=== PATIENT | female | born 1965 | race Caucasian/White ===

== ENCOUNTER → 2021-11-09 13:37 | Outpatient (CLI) | payer MEDICARE, SELFPAY | PROVIDERS: PCP Family Medicine; Visit Provider Neurological Surgery | DX: Z01.812 Encounter for preprocedural laboratory examination (principal); Z20.822 Contact with and (suspected) exposure to COVID-19 | CPT/HCPCS: C9803; U0003; U0005 ==

== ENCOUNTER 2023-11-22 13:08 | Outpatient (CLI) | payer MEDICARE, SELFPAY ==
[2023-11-22 13:35] LABS: Basophils # 0.1 K/mm3 (0-0.2); Basophils % 1.2 % (0.1-2.0); Eosinophils # 0.2 K/mm3 (0.0-0.4); Eosinophils % 2.9 % (0.1-12.0); Hematocrit 39.7 % (37.0-47.0); Hemoglobin 13.3 g/dL (12.2-16.2); Lymphocytes # 1.8 K/mm3 (0.7-4.5); Lymphocytes % 26.5 % (10-50); Mean Corpuscular HGB Conc 33.6 g/dL (31.8-35.4); Mean Corpuscular Hemoglobin 30.8 pg (27.0-31.2); Mean Corpuscular Volume 91.6 fl (81-99); Monocytes # 0.5 K/mm3 (0.1-1.0); Monocytes % 7.4 % (1.7-9.3); Neutrophils # 4.2 K/mm3 (1.8-7.8); Neutrophils % 61.9 % (37.0-80.0); Platelet Count 210 K/mm3 (142-424); Red Blood Count 4.33 M/mm3 (4.20-5.40); Red Cell Distribution Width 13.8 % (11.5-17.5); White Blood Count 6.7 K/mm3 (4.8-10.8)
[2023-11-22 13:57] LABS: Alanine Aminotransferase 19 U/L (12-78); Albumin Level 4.4 g/dl (3.5-5.0); Albumin/Globulin Ratio 1.8 (1.1-1.8); Alkaline Phosphatase 84 U/L (38-126); Aspartate Amino Transferase 28 U/L (14-36); Bilirubin,Total 0.6 mg/dl (0.2-1.3); Blood Urea Nitrogen 12 mg/dl (7-17); Calcium 9.7 mg/dl (8.4-10.2); Carbon Dioxide 32 mmol/L (22.0-30.0); Chloride 101 mmol/L (98-107); Estimated Glomerular Filt Rate 64 ml/min (>60); GFR (African American) 77 ML/MIN (>60); Globulin 2.4 g/dL (1.3-3.2); Glucose 95 mg/dl (74-100); Sodium 133 mmol/L (136-145); Total Protein,Serum 6.8 g/dl (6.3-8.2)
== END 2023-11-22 23:59 | disposition home or self-care (01) ==
LOC: LAB 13:09
PROVIDERS: PCP Family Medicine; Visit Provider Internal Medicine Medical Oncology
DX: D64.9 Anemia, unspecified (principal); C21.0 Malignant neoplasm of anus, unspecified
CPT/HCPCS: 36415; 80053; 85025

== ENCOUNTER 2023-12-01 09:58 | Outpatient (CLI) | payer MEDICARE, SELFPAY ==
--- NOTE | 2023-12-01 10:37 | ECG_ITS ---
APPROVED REPORT Exam: Resting ECG HR:62 bpm ECG Measurements Heart Rate 62 AXES TN 188 P 16 QRSd 107 QRS 31 QT 448 T 20 QTc 452 Conclusion SINUS RHYTHM NORMAL ECG UNCONFIRMED REPORT Electronically signed by : Paul Teixeira MD 12/03/2023 13:54:10
== END 2023-12-01 23:59 | disposition home or self-care (01) ==
LOC: PREOP 09:58
PROVIDERS: PCP Family Medicine; Visit Provider Surgery
DX: Z01.810 Encounter for preprocedural cardiovascular examination (principal)
CPT/HCPCS: 93005

== ENCOUNTER 2023-12-04 08:55 | Day surgery (SDC) | payer MEDICARE, SELFPAY ==
[2023-12-01 10:47] VITALS: BMI 30.1
[2023-12-04] VITALS (9 sets, daily range): BP systolic 114–131; BP diastolic 62–83; PULSE 64–75; RESP 12–18; TEMP 36.2–36.6; O2SAT 92–100
--- NOTE | 2023-12-04 09:24 | P.PNANES_ITS ---
[facility] Disclaimer: The information contained in this section may have been updated after the patient was seen, as this information can be updated by other users. Medical History Aortic regurgitation MVP (mitral valve prolapse) Anxiety and depression IBS (irritable bowel syndrome) Hypothyroid Anal cancer Surgical History History of rotator cuff surgery History of cervical spinal surgery History of hand surgery History of tonsillectomy History of back surgery Social History Smoking Status: Never smoker alcohol intake: never substance use type: denies use current occupational status: retired and other Travel in the last 8 weeks: None [facility] Anesthesia Checklist Patient Identification Patient Identification: Arm Band and Verbal (Name & ) Structural Data Admitted From: Home Planned Operative Procedure/s: Port placement Consent for Planned Operative Procedure(s) Verified: Yes Verified Documents: Surgical Consent and History and Physical NPO Status Verified Time NPO: 00:00 Chart Verification Results Verified: CBC and BMP Additional verifications Anesthesia Reactions: No Airway Assessment Mallampati Score:: Class II C-Spine Mobility Assessed: Yes TMJ Mobility Assessed: Yes Dentition: Good Dentition (Retainer removed. Broken tooth.) Neurological Assessment Level of Consciousness: Awake Hx Seizures: No Numbness or tingling in extremities: No Anesthesia Plan Anesthesia Plan: Verified ASA Class: III Anesthesia Type: General
[2023-12-04] MEDS: LACTATED RINGERS 1000ML 1,000 ML 25 ML IV (09:25)
[2023-12-04] MEDS: CLINDAMYCIN PHOSPHATE/D5W 900 MG/50 ML PIGGYBACK 100 MG IV (09:55)
[2023-12-04] MEDS: SODIUM CHLORIDE 0.9% 20ML VIAL 40 ML IV ×2 (10:09)
[2023-12-04] MEDS: LIDOCAINE 1% 20ML MDV 20 ML (10:09)
[2023-12-04] MEDS: ROPIVACAINE 0.5% 30ML VIAL 150 MG (10:09)
--- NOTE | 2023-12-04 10:41 | XR_ITS ---
PROCEDURE INFORMATION: Exam: XR Chest Exam date and time: 12/04/2023 10:30 AM Age: 58 years old Clinical indication: Device placement; Prior surgery; Surgery date: Post-operative (0-2 days); Surgery type: Port placement, ft 0.3min, 2.81mgy; Additional info: port place in or TECHNIQUE: Imaging protocol: Radiologic exam of the chest. Views: 4 or more views. COMPARISON: No relevant prior studies available. FINDINGS: Tubes, catheters and devices: A left chest wall port projects over the left hemithorax. The tip is not well seen. The lungs , pleura, and mediastinum are incompletely evaluated. Of note, study evaluation is severely limited by large over penetration artifact over the left hemithorax. IMPRESSION: Status post placement of left chest wall port.
--- NOTE | 2023-12-04 10:42 | P.OP_ITS ---
Date of procedure: 12/04/23 Pre-op Diagnosis:: Anal carcinoma, need for venous access Post-op Diagnosis:: Same Procedure performed:: Placement of 8 Georgian open ended tunneled venous access catheter with implantable reservoir port (PowerPort) in left subclavian vein Surgeon:: Ahsan Soto MD ASSOCIATE DIRECTOR FINANCE:: João Gates Anesthesia: LMA Estimated blood loss (mL): 20 Operative findings:: Seemingly normal venous anatomy. Operative note:: Consent was obtained patient was taken the operating room. She was positioned in supine position. General anesthesia was induced via LMA. Bilateral upper chest neck were prepped and draped in the standard surgical fashion. She was positioned in Trendelenburg position. Local anesthetic was infiltrated inferior to the left clavicle medial to the deltopectoral groove. 18-gauge needle was inserted manipulating the needle posterior to the clavicle. Left subclavian vein was cannulated with good return of venous blood. Guidewire was inserted. Small incision was made at the insertion site. Subcutaneous tissues were dilated using the dilator with breakaway sheath. Guidewire with dilator were then removed. Open-ended 8 Georgian catheter was inserted through the breakaway sheath. Sheath was removed. Fluoroscopy was used to confirm appropriate position of the catheter and it was manipulated using C arm such that the tip would be at the atriocaval junction. Skin was marked with a skin marker for planned subcutaneous tunneling and subcutaneous pocket. Local anesthetic was infiltrated. Skin incision was made and using electrocautery subcutaneous pocket was created. Catheter was tunneled subcutaneously. Once again fluoroscopy was used to confirm position with the tip at the atriocaval junction. Catheter was cut to the appropriate length. It was secured to the re servoir port. Port was secured into the subcutaneous pocket using several interrupted 2-0 PDS sutures. Port aspirated and flushed with saline without difficulty. It was then flushed with heparinized saline. There was good hemostasis. Subdermal tissues were closed with a running 2-0 Vicryl. Skin was closed with 4-0 Monocryl in a running subcuticular fashion. Dressings were applied. Condition: stable Disposition: PACU Complications:: None immediately apparent
--- NOTE | 2023-12-04 10:54 | P.PNANES_ITS ---
[facility] Anesthesia Record Part I Anesthesia Record I Intake, IV Amount: 1,650 Hydration: Adequate Estimated blood loss (mL): 2 Urine output (mL): 0 Blood Products used (#): none Blood Pressure: 130/72 SaO2: 96 Pulse Rate: 75 Airway Patency: Patent Respiratory Rate: 12 Temperature: 97.2 F Patient is:: Drowsy and Stable Stable to PACU at:: 10:50
--- NOTE | 2023-12-04 11:04 | XR_ITS ---
PROCEDURE INFORMATION: Exam: XR Chest Exam date and time: 12/04/2023 11:05 AM Age: 58 years old Clinical indication: Device placement; Other: Port a cath placement; Prior surgery; Surgery date: Post-operative (0-2 days) TECHNIQUE: Imaging protocol: Radiologic exam of the chest. Views: 1 view. COMPARISON: SD XR CHEST AP 12/04/2023 10:30 AM FINDINGS: Tubes, catheters and devices: Tip of the left chest wall port projects over the lower SVC. Lungs: Small calcified granulomas in the lungs. Platelike and linear opacities in the bilateral lower lungs suggestive of subsegmental atelectasis versus scarring. No focal consolidation. Pleural spaces: No pneumothorax or pleural effusion. Heart/Mediastinum: Cardiomediastinal silhouette is unremarkable. Bones/joints: No acute osseous or soft tissue abnormality. Partially seen lower cervical ACDF. Partially seen Cole rods in the mid/lower thoracic spine. IMPRESSION: 1. Tip of the left chest wall port projects over the lower SVC. No pneumothorax. 2. Mild left basilar subsegmental atelectasis versus scarring.
[2023-12-04] MEDS: diphenhydrAMINE 50MG/ML VIAL 25 MG IV (12:27)
--- NOTE | 2023-12-05 10:38 | EXP.ANES.II ---
[facility] Anesthesia Record Part II Anesthesia Record Part II Discharge Time: 11:20 Destination: Surgical Day Care (OP Surgery) PACU nurse assessment reviewed?: Yes Patient Condition:: Good Anesthesia Complications:: None Swallowing reflex intact?: Yes Airway Patency: Patent Cyanosis?: No Blood Pressure: 130/74 SaO2: 99 Respiratory Rate: 18 Pulse Rate: 65 Temperature: 97.8 F Mental Status: Alert & Oriented Pain level:: 0 Nausea and/or vomitting:: None Intake, IV Amount: 0 Hydration: Adequate
[2023-12-05 10:40] VITALS: BP 130/74; PULSE 65; RESP 18; TEMP 36.6; O2SAT 99
== END 2023-12-04 12:24 | disposition home or self-care (01) ==
PROVIDERS: PCP Family Medicine; Visit Provider Surgery
PROC: (CPT 36561; principal; 2023-12-04 10:15)
DX: C21.0 Malignant neoplasm of anus, unspecified (principal)
CPT/HCPCS: 36561; 77001; 71045; 76000; 96374; C1788; J1100; J1200; J1642; J2250; J2405; J3010; J7120

== ENCOUNTER 2023-12-11 10:06 | Outpatient (CLI) | payer MEDICARE, SELFPAY ==
[2023-12-11 10:20] VITALS: BMI 30.1
[2023-12-11] MEDS: DEXAMETHASONE 4MG TABLET 12 MG PO (10:25)
--- NOTE | 2023-12-11 10:25 | PC.NURSE ---
1025-gave premed per md order; will wait 30 mins before giving treatment.
[2023-12-11] MEDS: SODIUM CHLORIDE 0.9% 100ML BAG 100 ML IV (10:41)
[2023-12-11 10:52] LABS: Basophils # 0.1 K/mm3 (0-0.2); Basophils % 0.9 % (0.1-2.0); Eosinophils # 0.2 K/mm3 (0.0-0.4); Eosinophils % 2.5 % (0.1-12.0); Hematocrit 35.5 % (37.0-47.0); Hemoglobin 11.7 g/dL (12.2-16.2); Lymphocytes # 2.1 K/mm3 (0.7-4.5); Lymphocytes % 30.7 % (10-50); Mean Corpuscular Hemoglobin 30.1 pg (27.0-31.2); Mean Corpuscular Volume 91.1 fl (81-99); Mean Platelet Volume 8.5 fl (7.4-10.4); Monocytes # 0.4 K/mm3 (0.1-1.0); Monocytes % 5.2 % (1.7-9.3); Neutrophils # 4.1 K/mm3 (1.8-7.8); Neutrophils % 60.6 % (37.0-80.0); Platelet Count 184 K/mm3 (142-424); Red Cell Distribution Width 14.1 % (11.5-17.5); White Blood Count 6.7 K/mm3 (4.8-10.8)
[2023-12-11 11:00] LABS: Albumin Level 3.8 g/dl (3.5-5.0); Chloride 100 mmol/L (98-107); Potassium 3.4 mmoL/L (3.5-5.1); Sodium 133 mmol/L (136-145)
[2023-12-11 11:03] LABS: Alanine Aminotransferase 17 U/L (12-78); Albumin/Globulin Ratio 1.5 (1.1-1.8); Alkaline Phosphatase 95 U/L (38-126); Anion Gap 10.4 mEq/L (5-15); Aspartate Amino Transferase 27 U/L (14-36); Bilirubin,Total 0.5 mg/dl (0.2-1.3); Blood Urea Nitrogen 11 mg/dl (7-17); Calcium 8.6 mg/dl (8.4-10.2); Carbon Dioxide 26 mmol/L (22.0-30.0); Creatinine Clearance Estimated 86 mL/min (50-200); Estimated Glomerular Filt Rate 64 ml/min (>60); GFR (African American) 77 ML/MIN (>60); Globulin 2.6 g/dL (1.3-3.2); Glucose 101 mg/dl (74-100); Total Protein,Serum 6.4 g/dl (6.3-8.2)
[2023-12-11 11:04] LABS: Magnesium 1.8 mg/dl (1.6-2.3)
[2023-12-11] MEDS: mitoMYcin 20MG/40ML VIAL 19 MG IV (11:05)
[2023-12-11 11:15] VITALS: BP 154/79; PULSE 62; RESP 18; TEMP 36.3; O2SAT 100
[2023-12-11 11:34] VITALS: BP 138/77; PULSE 68; RESP 18; O2SAT 100
--- NOTE | 2023-12-11 12:35 | PC.NURSE ---
1235-[facility] brought pt's home 5fu infusion;giles rn was double checking order to dose prepared with rodney ordonez; incorrect dose caught and notified infusion company;infusion company preparing and bringing correct dose for pt. rn explain situation to pt, pt to return to get hooked up to home infusion when medication arrives.
--- NOTE | 2023-12-11 13:50 | PC.NURSE ---
1350-rn called [facility] to see if medication had left facility and was informed business services officer had left with medication.
[2023-12-11 15:10] VITALS: BP 143/78; PULSE 80; RESP 18
--- NOTE | 2023-12-13 15:30 | DIET.NUTRFU ---
Spoke to patient today, post first chemo dose. She stated that her appetite has not been affected yet. She did have some concern for her long hx of IBS and foods to avoid. She has tried to practice a low residue diet in the past but tends to cheat at times. She c/o bloating/constipation and gas. Recommended adding beano in when eating something gassy. She taking miralax, colace and senekot for constipation. She reports good hydration. She avoid most diary products drinks almond milk. She recently had dental work done and is avoiding some meats- recommended adding in whey protein. She also reported lack of energy recommended B-complex vitamin. Suggested boost clear for extra nutrition. Recommended choosing items like peanut butter that had less sugar, increase sucrose or fructose can cause abdominal discomfort. Will mail low residue diet handout and contact information
== END 2023-12-11 15:10 | disposition home or self-care (01) ==
LOC: INF 10:07
PROVIDERS: PCP Family Medicine; Visit Provider Internal Medicine Medical Oncology
DX: C21.0 Malignant neoplasm of anus, unspecified (principal)
CPT/HCPCS: 80053; 83735; 85025; 96409; J8540; J9280

== ENCOUNTER 2023-12-15 14:51 | Outpatient (CLI) | payer MEDICARE, SELFPAY ==
--- NOTE | 2023-12-15 15:00 | PC.NURSE ---
1500-CALLED DR. ROCHELLE LICONA TIMES UNABLE TO REACH HIM; TRIED TO ENCOURAGE PT TO GO TO ER BUT REFUSED AND WANTED PCP CALLED INSTEAD; RN CALLED FAMILY DR. HUMBERTO KERR EXPLAINED THAT PT IS HAVING FACIAL REDNESS WITH SWELLING AND HEAT AND ORAL BLISTERS TO THROAT. DR. KERR TO ORDER MAGIC MOUTHWASH. PT INSTRUCTED TO GO TO ER IF SYMPTOMS DO NOT IMPROVE OR WORSEN. RN CALLED IN MAGIC MOUTH WASH RX TO CLINIC [facility]ARM[facility].
[2023-12-15] MEDS: SODIUM CHLORIDE 0.9% 10ML FLUSH SYRINGE 10 ML IV (15:53)
== END 2023-12-15 15:35 | disposition home or self-care (01) ==
LOC: INF 14:51
PROVIDERS: PCP Family Medicine; Visit Provider Internal Medicine Medical Oncology
DX: C21.0 Malignant neoplasm of anus, unspecified (principal)
CPT/HCPCS: 96523; J1642

== ENCOUNTER 2024-01-08 10:57 | Outpatient (CLI) | payer MEDICARE, SELFPAY ==
[2024-01-08] VITALS (12 sets, daily range): BP systolic 103–145; BP diastolic 42–86; PULSE 62–78; RESP 18; TEMP 36.4; O2SAT 100; BMI 30.6
[2024-01-08 11:24] LABS: Basophils % 0.8 % (0.1-2.0); Eosinophils # 0.1 K/mm3 (0.0-0.4); Eosinophils % 3.3 % (0.1-12.0); Hematocrit 29.7 % (37.0-47.0); Hemoglobin 10.2 g/dL (12.2-16.2); Lymphocytes # 0.3 K/mm3 (0.7-4.5); Mean Corpuscular HGB Conc 34.2 g/dL (31.8-35.4); Mean Corpuscular Hemoglobin 30.8 pg (27.0-31.2); Mean Corpuscular Volume 90.1 fl (81-99); Mean Platelet Volume 8.3 fl (7.4-10.4); Monocytes # 0.3 K/mm3 (0.1-1.0); Monocytes % 7.8 % (1.7-9.3); Neutrophils # 3.3 K/mm3 (1.8-7.8); Neutrophils % 80.2 % (37.0-80.0); Platelet Count 255 K/mm3 (142-424); Red Cell Distribution Width 17.6 % (11.5-17.5); White Blood Count 4.1 K/mm3 (4.8-10.8)
[2024-01-08 11:28] LABS: Albumin Level 3.6 g/dl (3.5-5.0); Chloride 92 mmol/L (98-107); Sodium 128 mmol/L (136-145)
[2024-01-08 11:30] LABS: Alanine Aminotransferase 19 U/L (12-78); Aspartate Amino Transferase 26 U/L (14-36); Blood Urea Nitrogen 6 mg/dl (7-17); Creatinine Clearance Estimated 99 mL/min (50-200); Estimated Glomerular Filt Rate 73 ml/min (>60); GFR (African American) 89 ML/MIN (>60)
[2024-01-08 11:31] LABS: Albumin/Globulin Ratio 1.4 (1.1-1.8); Alkaline Phosphatase 80 U/L (38-126); Anion Gap 8.9 mEq/L (5-15); Bilirubin,Total 0.4 mg/dl (0.2-1.3); Calcium 8.7 mg/dl (8.4-10.2); Carbon Dioxide 30 mmol/L (22.0-30.0); Globulin 2.6 g/dL (1.3-3.2); Glucose 87 mg/dl (74-100); Magnesium 1.7 mg/dl (1.6-2.3); Total Protein,Serum 6.2 g/dl (6.3-8.2)
[2024-01-08 11:33] LABS: Potassium 2.9 mmoL/L (3.5-5.1)
[2024-01-08] MEDS: KCl 20mEq/100ml 100 ML 100 MEQ IV (12:50)
[2024-01-08] MEDS: 0.9 % SODIUM CHLORIDE 50 ML 100 ML IV (12:50)
[2024-01-08] MEDS: KCl 10mEq/100ml 100 ML 100 MEQ IV (14:00)
[2024-01-08] MEDS: DEXAMETHASONE 4MG TABLET 12 MG PO (14:30)
[2024-01-08] MEDS: mitoMYcin 20MG/40ML VIAL 19 MG IV (15:23)
== END 2024-01-08 16:35 | disposition home or self-care (01) ==
LOC: INF 10:58
PROVIDERS: PCP Family Medicine; Visit Provider Internal Medicine Medical Oncology
DX: C21.0 Malignant neoplasm of anus, unspecified (principal)
CPT/HCPCS: 80053; 83735; 85025; 96365; 96366; 96367; 96411; 96413; J3480; J8540; J9280

== ENCOUNTER 2024-01-10 11:25 | Outpatient (CLI) | payer MEDICARE, SELFPAY ==
[2024-01-10 12:09] VITALS: BMI 28.9
[2024-01-10 12:28] LABS: Albumin Level 4.1 g/dl (3.5-5.0); Chloride 95 mmol/L (98-107); Sodium 133 mmol/L (136-145)
[2024-01-10 12:30] LABS: Blood Urea Nitrogen 11 mg/dl (7-17); Creatinine Clearance Estimated 83 mL/min (50-200); Estimated Glomerular Filt Rate 64 ml/min (>60); GFR (African American) 77 ML/MIN (>60)
[2024-01-10 12:31] LABS: Alanine Aminotransferase 19 U/L (12-78); Albumin/Globulin Ratio 1.6 (1.1-1.8); Alkaline Phosphatase 99 U/L (38-126); Aspartate Amino Transferase 27 U/L (14-36); Bilirubin,Total 0.3 mg/dl (0.2-1.3); Calcium 9.2 mg/dl (8.4-10.2); Carbon Dioxide 30 mmol/L (22.0-30.0); Globulin 2.6 g/dL (1.3-3.2); Glucose 106 mg/dl (74-100); Total Protein,Serum 6.7 g/dl (6.3-8.2)
--- NOTE | 2024-01-10 12:40 | PC.NURSE ---
1210-Blood drawn from right AC using butterfly needle to check CMP, per Dr Hammond.
== END 2024-01-10 12:15 | disposition home or self-care (01) ==
LOC: INF 11:26
PROVIDERS: PCP Family Medicine; Visit Provider Internal Medicine Medical Oncology
DX: C21.0 Malignant neoplasm of anus, unspecified (principal)
CPT/HCPCS: 36415; 80053

== ENCOUNTER 2024-01-12 13:32 | Outpatient (CLI) | payer MEDICARE, SELFPAY | END 2024-01-12 23:59 | disposition home or self-care (01) | LOC: INF 13:33 | PROVIDERS: PCP Family Medicine; Visit Provider Internal Medicine Medical Oncology | DX: C21.0 Malignant neoplasm of anus, unspecified (principal) | CPT/HCPCS: J1642 ==

== ENCOUNTER 2024-02-05 11:24 | Outpatient (CLI) | payer MEDICARE, SELFPAY ==
[2024-02-05] MEDS: SODIUM CHLORIDE 0.9% 10ML FLUSH SYRINGE 10 ML IV (11:38)
[2024-02-05 12:08] LABS: Alanine Aminotransferase 27 U/L (12-78); Albumin Level 3.8 g/dl (3.5-5.0); Albumin/Globulin Ratio 1.4 (1.1-1.8); Aspartate Amino Transferase 34 U/L (14-36); Blood Urea Nitrogen 9 mg/dl (7-17); Calcium 9.5 mg/dl (8.4-10.2); Carbon Dioxide 28 mmol/L (22.0-30.0); Chloride 103 mmol/L (98-107); Estimated Glomerular Filt Rate 57 ml/min (>60); GFR (African American) 68 ML/MIN (>60); Globulin 2.8 g/dL (1.3-3.2); Glucose 90 mg/dl (74-100); Sodium 135 mmol/L (136-145); Total Protein,Serum 6.6 g/dl (6.3-8.2)
[2024-02-05 12:09] LABS: Bilirubin,Total 0.5 mg/dl (0.2-1.3)
[2024-02-05 12:12] LABS: Hemoglobin 9.6 g/dL (12.2-16.2); Mean Corpuscular HGB Conc 33.1 g/dL (31.8-35.4); Mean Corpuscular Hemoglobin 31.8 pg (27.0-31.2); Mean Platelet Volume 9.6 fl (7.4-10.4); Platelet Count 255 K/mm3 (142-424); Red Blood Count 3.02 M/mm3 (4.20-5.40); Red Cell Distribution Width 18.9 % (11.5-17.5); White Blood Count 3.7 K/mm3 (4.8-10.8)
[2024-02-05 12:15] LABS: Basophils % 0.8 % (0.1-2.0); Eosinophils % 2.1 % (0.1-12.0); Lymphocytes # 0.7 K/mm3 (0.7-4.5); Lymphocytes % 19.8 % (10-50); Monocytes % 13.6 % (1.7-9.3); Neutrophils # 2.3 K/mm3 (1.8-7.8); Neutrophils % 62.4 % (37.0-80.0)
[2024-02-05 12:16] LABS: Eosinophils # 0.1 K/mm3 (0.0-0.4); Monocytes # 0.5 K/mm3 (0.1-1.0)
[2024-02-05 13:04] LABS: Anion Gap 7.3 mEq/L (5-15); Potassium 3.3 mmoL/L (3.5-5.1)
[2024-02-05 13:07] LABS: Alkaline Phosphatase 85 U/L (38-126)
== END 2024-02-05 11:40 | disposition home or self-care (01) ==
LOC: INF 11:24
PROVIDERS: PCP Family Medicine; Visit Provider Internal Medicine Medical Oncology
DX: C21.0 Malignant neoplasm of anus, unspecified (principal)
CPT/HCPCS: 36591; 80053; 85025; J1642

== ENCOUNTER 2024-03-08 11:24 | Outpatient (CLI) | payer MEDICARE, SELFPAY ==
[2024-03-08] MEDS: SODIUM CHLORIDE 0.9% 10ML FLUSH SYRINGE 10 ML IV (11:35)
[2024-03-08 11:51] LABS: Basophils # 0.1 K/mm3 (0-0.2); Eosinophils # 0.2 K/mm3 (0.0-0.4); Eosinophils % 4.4 % (0.1-12.0); Hematocrit 34.1 % (37.0-47.0); Hemoglobin 10.9 g/dL (12.2-16.2); Lymphocytes # 1.2 K/mm3 (0.7-4.5); Mean Corpuscular Hemoglobin 31.4 pg (27.0-31.2); Mean Corpuscular Volume 98.3 fl (81-99); Mean Platelet Volume 10.3 fl (7.4-10.4); Monocytes # 0.6 K/mm3 (0.1-1.0); Monocytes % 11.8 % (1.7-9.3); Neutrophils # 3.1 K/mm3 (1.8-7.8); Neutrophils % 59.2 % (37.0-80.0); Platelet Count 180 K/mm3 (142-424); Red Blood Count 3.47 M/mm3 (4.20-5.40); Red Cell Distribution Width 16.1 % (11.5-17.5); White Blood Count 5.3 K/mm3 (4.8-10.8)
[2024-03-08 11:56] LABS: Chloride 101 mmol/L (98-107)
[2024-03-08 11:57] LABS: Albumin Level 3.7 g/dl (3.5-5.0); Potassium 3.6 mmoL/L (3.5-5.1); Sodium 135 mmol/L (136-145)
[2024-03-08 11:59] LABS: Alanine Aminotransferase 24 U/L (12-78); Albumin/Globulin Ratio 1.4 (1.1-1.8); Alkaline Phosphatase 76 U/L (38-126); Anion Gap 11.6 mEq/L (5-15); Aspartate Amino Transferase 36 U/L (14-36); Bilirubin,Total 0.6 mg/dl (0.2-1.3); Blood Urea Nitrogen 21 mg/dl (7-17); Carbon Dioxide 26 mmol/L (22.0-30.0); Estimated Glomerular Filt Rate 64 ml/min (>60); GFR (African American) 77 ML/MIN (>60); Globulin 2.6 g/dL (1.3-3.2); Total Protein,Serum 6.3 g/dl (6.3-8.2)
[2024-03-08 12:00] LABS: Glucose 95 mg/dl (74-100)
== END 2024-03-08 11:45 | disposition home or self-care (01) ==
LOC: INF 11:24
PROVIDERS: PCP Family Medicine; Visit Provider Internal Medicine Medical Oncology
DX: C21.0 Malignant neoplasm of anus, unspecified (principal)
CPT/HCPCS: 36591; 80053; 85025; J1642

== ENCOUNTER 2024-04-17 11:35 | Outpatient (CLI) | payer MEDICARE, SELFPAY ==
[2024-04-17 11:42] VITALS: BMI 31.0
[2024-04-17] MEDS: SODIUM CHLORIDE 0.9% 10ML FLUSH SYRINGE 10 ML IV (11:55)
[2024-04-17 12:02] LABS: Basophils % 0.7 % (0.1-2.0); Eosinophils # 0.2 K/mm3 (0.0-0.4); Eosinophils % 4.8 % (0.1-12.0); Hematocrit 34.9 % (37.0-47.0); Hemoglobin 11.4 g/dL (12.2-16.2); Lymphocytes % 22.4 % (10-50); Mean Corpuscular HGB Conc 32.7 g/dL (31.8-35.4); Mean Corpuscular Volume 94.8 fl (81-99); Mean Platelet Volume 9.9 fl (7.4-10.4); Monocytes # 0.4 K/mm3 (0.1-1.0); Monocytes % 8.9 % (1.7-9.3); Neutrophils # 2.8 K/mm3 (1.8-7.8); Neutrophils % 62.7 % (37.0-80.0); Platelet Count 182 K/mm3 (142-424); Red Blood Count 3.68 M/mm3 (4.20-5.40); Red Cell Distribution Width 12.4 % (11.5-17.5); White Blood Count 4.4 K/mm3 (4.8-10.8)
[2024-04-17 12:27] LABS: Albumin Level 3.8 g/dl (3.5-5.0); Chloride 101 mmol/L (98-107)
[2024-04-17 12:28] LABS: Potassium 3.5 mmoL/L (3.5-5.1); Sodium 134 mmol/L (136-145)
[2024-04-17 12:30] LABS: Alanine Aminotransferase 23 U/L (12-78); Albumin/Globulin Ratio 1.5 (1.1-1.8); Alkaline Phosphatase 92 U/L (38-126); Anion Gap 6.5 mEq/L (5-15); Aspartate Amino Transferase 30 U/L (14-36); Bilirubin,Total 0.5 mg/dl (0.2-1.3); Blood Urea Nitrogen 12 mg/dl (7-17); Carbon Dioxide 30 mmol/L (22.0-30.0); Creatinine Clearance Estimated 77 mL/min (50-200); Estimated Glomerular Filt Rate 56 ml/min (>60); GFR (African American) 68 ML/MIN (>60); Globulin 2.5 g/dL (1.3-3.2); Total Protein,Serum 6.3 g/dl (6.3-8.2)
[2024-04-17 12:31] LABS: Calcium 9.2 mg/dl (8.4-10.2); Glucose 96 mg/dl (74-100)
== END 2024-04-17 11:59 | disposition home or self-care (01) ==
LOC: INF 11:36
PROVIDERS: PCP Family Medicine; Visit Provider Internal Medicine Medical Oncology
DX: Z45.2 Encounter for adjustment and management of vascular access device (principal)
CPT/HCPCS: 36591; 80053; 85025; J1642

== ENCOUNTER 2024-04-26 10:40 | Outpatient (CLI) | payer MEDICARE, SELFPAY ==
--- NOTE | 2024-04-26 10:40 | CT_ITS ---
FINAL REPORT TECHNIQUE: After the administration of oral and intravenous contrast, axial images were obtained through the abdomen and pelvis by computed tomography. The study was performed with techniques to keep radiation dose as low as reasonably achievable, (ALARA). Individual dose reduction techniques using automated exposure control or adjustment of mA and/or kV according to the patient's size were employed. CLINICAL HISTORY: anal cancer COMPARISON: No prior for comparison FINDINGS: Abdomen: The liver parenchyma is homogeneous. The gallbladder is present. The pancreas, adrenal glands, and kidneys are without acute abnormality. There is no free fluid or adenopathy. There is streak artifact from fusion hardware in the lumbar spine. Pelvis: The appendix is unremarkable. The urinary bladder is incompletely distended. The rectum is decompressed. There is prominence of the rectal mucosa measuring up to 11 mm. There is stranding within the perirectal fat. There is no free fluid or adenopathy. IMPRESSION: Mucosal prominence in the rectum which extends to the anal verge. This may be related to posttreatment change. Reviewed, Interpreted and Dictated by Carlitos Amado MD Transcribed by Sonali Lima Authenticated and [facility]
--- NOTE | 2024-04-26 10:40 | CT_ITS ---
FINAL REPORT TECHNIQUE: Routine axial images were obtained from the lung apices to below the diaphragm following IV contrast administration. Individualized dose reduction techniques using automated exposure control or adjustment of the mA and/or kV according to the patient size were employed. CLINICAL HISTORY: anal cancer COMPARISON: No prior exam for comparison FINDINGS: A left upper lobe anterior chest port is present with the tip in the SVC. There is no mediastinal or hilar adenopathy. A calcified granuloma seen in the right upper lobe. There are no significant noncalcified pulmonary nodules. There is no pleural or pericardial effusion. There is streak artifact from fusion in the lower thoracic spine. IMPRESSION: No acute process. Reviewed, Interpreted and Dictated by Carltios Amado MD Transcribed by Sonali Lima Authenticated and [facility]
[2024-04-26] MEDS: IOPAMIDOL-370 (76%);100ML BOTTLE 75 ML IV (11:00)
[2024-04-26] MEDS: SODIUM CHLORIDE 0.9% 10ML SYR (RAD ONLY) 10 ML IV (11:00)
== END 2024-04-26 23:59 | disposition home or self-care (01) ==
LOC: RAD 10:40
PROVIDERS: PCP Family Medicine; Visit Provider Internal Medicine Medical Oncology
DX: C21.0 Malignant neoplasm of anus, unspecified (principal)
CPT/HCPCS: 71260; 74177; Q9967

== ENCOUNTER 2024-06-12 08:33 | Outpatient (CLI) | payer MEDICARE, SELFPAY ==
--- OUTSIDE RECORDS SUMMARY | 2024-06-14 08:36 | XMS_ITS | Data Portability ---
Author Organization [place] - Bhanu syed MD, Main Office Address [address] , [facility] [address] [place] [address] Care Team Providers Care Header Dock Name Role Phone CHANDA KERR Primary Care Provider Assessment No assessment recorded. Plan of Treatment Reminders Order Date Submit Date Provider Last Modified By Organization Details Last Modified Time Details Appointments None recorded. Lab TSH, serum or plasma 2017 018 SAMANTHA Not available 8 15:36:49 vitamin B12 + folate, serum or blood 2017 018 SAMANTHA Not available 8 15:36:49 HbA1c (hemoglobi n A1c), blood 2017 018 SAMANTHA Not available 8 15:36:49 CMP, serum or plasma 2017 018 SAMANTHA Not available 8 15:36:49 Referral None recorded. Procedures None recorded. Surgeries None recorded. Imaging None recorded. Medication Orders carbamazep ine 100 mg chewable tablet 2017 018 INTERFACE [facility] [address] [place], [address], 8 09:40:08 Patient TargetsNo targets recorded. Patient Instructions Encounter Date Encounter Id Patient Instructions Last Modified By Organization Details Last Modified Time 10/26/2017 [id number] Neuropathic Pain : Care Instructions Not available 10/26/2017 09:39:25 cervical disc disease: care instructions Not available 10/26/2017 09:46:35 Finding has been discussed with the patient in detail. Metabolic screen to look for any reversible causes of neuropathy. Tegretol 100 mg twice a day for neuropathic pain. Return in eight weeks Not available 10/26/2017 09:46:34 Reason for Referral None Reported. Results Created Date Observation Date Name Description Value Unit Range Abnormal Flag Note LastModifiedBy Organization Detail LastModifiedTime Result Notes None recorded. Problems Name Problem SNOMED Code Status Onset Date Resolution Date Notes Provider Name and Address Organization Details Recorded Time Neuropathy 013807662 Active 018 TIMOTEO Edge MD 8 09:17:25 Problem Notes None recorded. Procedures Surgical History Date Name Laterality Status Provider Name and Address Organization Details Recorded Time Back Surgery completed Lizet Perea MD 10/26/2017 09:04:24 Neck spine disk surgery completed Lizet Perea MD 10/26/2017 09:04:43 Unlisted procedure nose completed Lizet Perea MD 10/26/2017 09:04:54 Carpal tunnel surgery completed Lizet Perea MD 10/26/2017 09:05:06 Shoulder Surgery completed Lizet Perea MD 10/26/2017 09:05:22 Carpal tunnel surgery completed Lizet Perea MD 10/26/2017 09:05:56 Elbow arthroscopy/behzad cyndy completed Lizet Perea MD 10/26/2017 09:06:53 Back Surgery completed Lizet Perea MD 10/26/2017 09:07:09 Shoulder Surgery completed Lizet Perea MD 10/26/2017 09:07:58 Imaging Results None recorded. Procedure Notes None recorded. Medical Equipment None Reported. Allergies Allergen ID Allergen Name Allergen Category Reaction Reaction Severity Criticality Documentation Date Start Date Code Code System Note Provider Name and Address Organization Details Recorded Time 1621 codeine medicatio n Not available Not available Not available 09/18/2017 2670 RxNorm TIMOTEO Edge MD 8 10:49:56 1622 hydromorp gayle medicatio n Not available Not available Not available 09/18/2017 3423 RxNorm TIMOTEO Edge MD 8 10:50:05 1623 Non-stero idal anti-infl ammatory agent (product) medicatio n Not available Not available Not available 09/18/2017 16287 005 SNOMED TIMOTEO Edge MD 8 10:50:10 1624 Product containin g penicilli n (product) medicatio n Not available Not available Not available 09/18/2017 46627 8001 TIMOTEO Anderson MD 8 10:50:14 1625 Substance with sulfonami de structure and antibacte rial mechanism of action (substanc e) medicatio n Not available Not available Not available 09/18/2017 92568 8003 SNOMED TIMOTEO Edge MD 8 10:50:19 1814 Dilaudid medicatio n Not available Not available Not available 10/26/2017 34355 3 RxNoTIMOTEO Vaughan MD 8 09:12:38 Medications Name Sig Start Date Stop Date Status Note LastModified by Organization Details LastModified Time cyclobenzapri ne 10 mg tablet active Not Available Not Available Not Available bupropion HCl SR 150 mg tablet,12 hr sustained-rel ease 09/18 completed Not Available Not Available Not Available atorvastatin 80 mg tablet active Not Available Not Available Not Available ropinirole 1 mg tablet 09/18 completed Not Available Not Available Not Available clindamycin HCl 300 mg capsule 10/19 completed Not Available Not Available Not Available clindamycin HCl 75 mg capsule 09/18 completed Not Available Not Available Not Available sumatriptan 100 mg tablet 09/18 completed Not Available Not Available Not Available hydrocodone 5 mg-acetaminop hen 325 mg tablet 10/26 completed Not Available Not Available Not Available clonazepam 1 mg tablet active Not Available Not Available No t Available phentermine 37.5 mg tablet active Not Available Not Available Not Available ciprofloxacin 500 mg tablet 09/18 completed Not Available Not Available Not Available omeprazole 40 mg capsule,delay ed release active Not Available Not Available N ot Available tramadol 50 mg tablet active Not Available Not Available No t Available levothyroxine 100 mcg tablet 2017 active Not Available Not Available Not Avai lable oxycodone-josue taminophen 5 mg-325 mg tablet active Not Available Not Available Not Available oxycodone-josue taminophen 10 mg-325 mg tablet active Not Available Not Available Not Available hydrocodone 7.5 mg-acetaminop hen 325 mg tablet 09/18 completed Not Available Not Available Not Available ropinirole 2 mg tablet active Not Available Not Available No t Available calcipotriene 0.005 % topical cream 10/19 completed Not Available Not Available Not Available carbamazepine 100 mg chewable tablet One tablet twice a day active Not Available Not Available No t Available Hyosyne 0.125 mg/mL oral drops 10/26 completed Not Available Not Available Not Available gabapentin 300 mg capsule 09/18 completed Not Available Not Available Not Available triamterene 37.5 mg-hydrochlor othiazide 25 mg tablet active Not Available Not Available No t Available levofloxacin 500 mg tablet 09/18 completed Not Available Not Available Not Available ondansetron 4 mg disintegratin g tablet 10/26 completed Not Available Not Available Not Available doxepin 5 % topical cream 10/19 completed Not Available Not Available Not Available levothyroxine 112 mcg tablet active Not Available Not Available Not Available methadone 5 mg/5 mL oral solution 09/18 completed Not Available Not Available Not Available Phenadoz 25 mg rectal suppository 09/18 completed Not Available Not Available Not Available Klor-Con M10 mEq tablet,extend ed release active Not Available Not Available N ot Available fluocinonide 0.1 % topical cream 10/19 completed Not Available Not Available Not Available chlorhexidine gluconate 0.12 % mouthwash 10/19 completed Not Available Not Available Not Available Miralax active Not Available Not Avail able Not Available aprepitant 40 mg capsule 10/26 completed Not Available Not Available Not Available Savella 50 mg tablet active Not Available Not Available Not Available Trintellix 20 mg tablet active Not Available Not Available No t Available Flucelvax Quad 9530-0243 (PF) 60 mcg (15 mcg x 4)/0.5 mL IM syringe 10/19 completed Not Available Not Available Not Available Vitals Date Recorded Body height Body mass index (BMI) Body weight Heart rate Respiratory rate Systolic blood pressure Diastolic blood pressure Provider Name and Address Organization Details Last Updated DateTime 8 167.64 cm 28.2 kg/m2 94802.6 6 g 82 /min 17 /min 100 mm[Hg] 77 mm[Hg] Bhanu Perea MD [address], [place], [address], [place] - Bhanu Perea MD 8 09:40:50 Social History Question Answer Notes LastModified by Organizat ion Details LastModified Time Tobacco Smoking Status Never Smoker Not Available [facility] 12/17/2019 03:34:29 What Is Your Level Of Alcohol Consumption? None [id number] Information not available 12/17/2019 Live Alone Or With Others? With Others Information not available 10/26/2017 What Was The Date Of Your Most Recent Tobacco Screening? 10/26/2017 [id number] Information not available 12/17/2019 Sex: Unknown Functional Status None recorded. Mental Status None recorded. Family History Relationship Description Onset Age of this Age Resolved Age Notes LastModified by Organization Details LastModified Time Mother Dementia Not availabl e 10/26/2017 09:17:31 Mother Heart disease [email or web address] Not available 2017 09:17:40 Mother Hypertensive disorder [email or web address] Not available 2017 09:17:48 Mother Family history of stroke [email or web address] Not available 2017 09:17:56 Sister Heart disease [email or web address] Not available 2017 09:17:40 Sister Hypertensive disorder [email or web address] Not available 2017 09:17:48 Medical History Condition Response Anxiety Disorder Y Hyperlipidemia Y Arthritis Y Depression Y Gynecological HistoryNo gynecological history recorded. Obstetrics History GPAL:G 0 P 0 0 0 0 Past Encounters Encounter ID Performer Location Encounter Start Date Encounter Closed Date Diagnosis/Indication Diagnosis SNOMED-CT Code Diagnosis ICD10 Code Diagnosis Note [id number] Bhanu Perea MD Main Office [address] [place] [address] 10/26/2017 09:15:43 10/26/2017 09:40:06 Idiopathic peripheral neuropathy 76705392 G60.9 The patient is a 52-year-ol d white female who was a mild sensory neuropathy . Chronic low back pain 27 8370520 M54.5 She has a spinal cord stimulator then needs adjustment . Cervical d isc disorder 016411146 M50.90 She is status post cervical spinal fusion. She is being followed by the pain clinic for rhizotomy. 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 She is here today at the request of Dr. Kerr for consultationof pain in both feet. She has a complicated past medical history. She had cervical and lumbar spinal surgery. She has a lumbar neurostimulator. She is being followed by Dr. martin. She needs revision of her stimulator. She also had bilateral carpal tunnel release and ulnar transposition. She is being followed by the pain clinic. She has rhizotomy to her cervical spine. She had a recent CT myelogram of the thoracic and lumbar spine and it showed no surgical lesions. She had a recent NCV EMG study. The report is not available. According to the patient, it showed mild neuropathy. She gave no history of diabetes. She is on Requip for restless leg syndrome. She is on Savella for fibromyalgia. She takes Klonopin 1 mg 3 times a day and Flexeril 10 mg 3 times a day for back pain and sleep. She is on Synthroid for hypothyroidism. Bhanu Perea MD [address], [address], [place], [address], [facility] - Bhanu Perea MD 10/26/2017 09:49:49 OBGyn Episode No OBEpisode recorded.
--- OUTSIDE RECORDS SUMMARY | 2024-06-14 08:37 | XMS_ITS | Data Portability ---
Author Organization TIMOTEO MARK Collins CORINNE CLOSED Address [address] [facility] [address] [place] [address] Care Team Providers Care Hostess Name Role Phone [facility] Primary Care Provider JL KERR Referring Provider Assessment No assessment recorded. Plan of Treatment Reminders Order Date Submit Date Provider Last Modified By Organization Details Last Modified Time Details Appointments None recorded. Lab PTH (parathyroi d hormone), intact + calcium, serum or plasma 2022 023 [facility], [address] [place] [address], [address], 3 15:45:58 vitamin D, 25-hydroxy, total, serum 2022 023 [facility], [address] [place] [address], [address], 3 16:07:23 testosteron e, free + total, serum 2022 023 [facility], [address] [place] [address], [address], 3 14:03:11 TSH, serum or plasma 2022 023 [facility], [address] [place] [address], [address], 3 15:34:17 T4, free, serum 2022 023 [facility], [address] [place], [address], 3 15:34:14 T3, free, serum or plasma 2022 023 [facility], [address] [place], [address], 3 15:34:19 Referral behavioral health referral 2022 [email or web address] [facility], [address], [place], [address], 3 07:46:42 nutritionis t/dietitian referral 2022 [email or web address], [address], [place], [address], 3 12:56:33 gynecologis t referral - Evaluation for HRT 2022 023 [email or web address] 11 Stefany Phil DO, [address] [facility] , [address], [place], [address], 3 07:12:11 Procedures None recorded. Surgeries None recorded. Imaging None recorded. Medication Orders Savella 100 mg tablet [address] [facility] [place], [address], 3 11:39:16 tramadol 50 mg tablet [address] [facility] [address], [address] [place], [address], 3 11:39:18 tramadol ER 100 mg tablet,exte nded release [address] [facility] [address], [address] [place], [address], 3 11:39:18 ropinirole 2 mg tablet [address] [facility] [address], [address] [place], [address], 11:39:15 Linzess 290 mcg capsule [address] [facility] [address], [address] [place], [address], 16:15:39 omeprazole 40 mg capsule,del ayed release [address] [facility] [address], [address] [place], [address], 16:11:49 clonidine HCl 0.1 mg tablet [address] [facility], [address] [place], [address], 11:59:26 Imvexxy Maintenance Pack 10 mcg vaginal insert [address] [facility], [facility] [place], [address], 11:59:27 Patient TargetsNo targets recorded. 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 Creative Director/dietitian Refer ral for Body mass index 30+ - obesity Referring Physician: Gabrielle Camejo EXECUTIVE DIRECTOR [employer], Encounter Date: 09/02/2022 Behavioral Health Referral f or Depressive disorder Referring Physician: Gabrielle Camejo EXECUTIVE DIRECTOR [employer], Encounter Date: 09/02/2022 Results Created Date Observation Date Name Description Value Unit Range Abnormal Flag Note LastModifiedBy Organization Detail LastModifiedTime 07/23/19 23 07/22/2022 T4,FR EE T4,free 1.30 NG/dL 0.93-1 .70 normal Not Available [facility] [address] [place] [address], [address], 07/22/2022 15:34:14 07/23/19 23 07/22/2022 TSH TSH 5.750 u[IU] /mL 0.270- 4.200 high Not Available [facility] [address] [place] [address], [address], 07/22/2022 15:34:17 07/23/19 23 07/22/2022 T3 FREE T3 free 2.56 pg/mL 2.00-4 .40 normal Not Available [facility] [address] [place], [address], 07/22/2022 15:34:19 07/23/19 23 07/22/2022 PTH, INTAC T WITH CA PTH, intact 84.0 pg/mL 15.0-6 5.0 high INTER PRETI VE GUIDE ===== ===== ===== ===== ===== ===== ===== ===== ===== ===== ===== === PTH CALCI UM CONDI TION ===== ===== ===== ===== ===== ===== ===== ===== ===== ===== ===== = Татьяна l Татьяна l Татьяна l Parat hyroi d _ Low or Low Hypop deep yroid ism Low Татьяна l _ Татьяна l or High Prima ry Hyper parat hyroi dism High __ High Татьяна l or Secon archie Hyper parat hyroi dism Low __ High High Terti gerardo Hyper parat hyroi dism __ Low or High Non-P deep yroid Hyper calce bryanna Low Татьяна l ===== ===== ===== ===== ===== ===== ===== ===== ===== ===== ===== ==== Not Available [facility] [address] [place] [address], [address], 07/22/2022 16:07:25 07/23/19 23 07/22/2022 PTH, INTAC T WITH CA calcium 9.9 mg/dL 8.6-10 .2 normal Not Available [facility] [address] [place] [address], [address], 07/22/2022 16:07:25 07/23/19 23 07/22/2022 VITAM IN D 25-OH vitamin D 25-oh, total 44 NG/mL >=30 NG/mL normal Not Available [facility] [address] [place], [address], 07/22/2022 16:07:23 07/23/19 23 07/28/2022 TESTO STERO NE, TOTAL / FREE testosterone , total 14 NG/dL 2-45 normal For addit ional infor han ntoney e refer to https ://ed ucati on.Trendr austinZephyr. Electrolytic Ozone/f aq/FA Q165 (This link is being provi ded for infor matio nal/e ducat ional purpo ses only. ) (Note ) This test was devel oped and its joana tical perfo rmanc e vita cteri stics have been deter mined by [employer]. It has not been clear ed or appro stoney by the FDA. This assay has been valid ated pursu ant to the CLIA regul ation s and is used for clini sandhya purpo ses. Not Available [facility] [address] [place], [address], 07/28/2022 14:03:11 07/23/19 23 07/28/2022 TESTO STERO NE, TOTAL / FREE testosterone , free 1 pg/mL 0.1-6. 4 normal (Note ) This test was devel oped and its joana tical perfo rmanc e vita cteri stics have been deter mined by [employer]. It has not been clear ed or appro stoney by the FDA. This assay has been valid ated pursu ant to the CLIA regul ation s and is used for clini sandhya purpo ses. YAMILETH med fusio n [address] [facility] [address] [place] [address] [phone] Noah maldonado MD Not Available [facility] [address] [place], [address], 07/28/2022 14:03:11 09/13/19 23 09/12/2022 TSH TSH 1.140 u[IU] /mL 0.270- 4.200 normal Not Available [facility] [address] [place], [address], 09/12/2022 13:00:02 09/13/19 23 09/12/2022 T4,FR EE T4,free 1.76 NG/dL 0.93-1 .70 high Not Available [facility] [address] [place], [address], 09/12/2022 13:00:04 07/01/19 23 06/30/2022 NM, gastr ic empty ing scan [facility] [address] [place] [address] Marvin wagner Name: ANJANA JUAREZ JENNIFER Marvin wagner : [phone] Orderi ng Provid er: ALAINA PHILLIP S EXAM DATE: 2022 EXAM: NM GASTRI C EMPTYI NG STUDY 4HR HISTOR Y: 57-yea r-old female with abdomi nal bloati ng. COMPAR RASTA: None. TECHNI QUE: Gastri c imagin g study was perfor med using Tc 99m sulfur colloi d 1.1 mCi p.o. ([facility] [address]-1 ). Immedi ate and 1 Hr, 2 Hr, and 4 Hr delaye d images were obtain ed. FINDIN GS: The 1/2 emptyi ng time of the stomac h is 76 minute s (45-11 0 min). This is within normal limits . There is no retain ed radioa ctivit y in the stomac h at 4 hours. The retain ed radioa ctivit y is: 67% at 1 Hr (37-90 %) 28% at 2 Hr (30-60 %) 2% at 4 Hr (0-10% ) IMPRES MALCOLM: 1. This is a normal gastri c emptyi ng study. Interp reted By: Mila merino MD Electr onical ly Signed By: Mila merino MD on 023 1:45 PM [facility] Nuclear Medicine [facility] [place], [address], 06/30/2022 20:13:14 02/03/20 23 02/02/2023 XR, abdom en, compl ete [address] [place] [address] Patien t Name: ANJANA RODRIGUEZ Patien t : [phone] Patien t Orderi ng Provid er: ALAINA PHILLIP S EXAM DATE: 2022 EXAM: XR ABDOME N, AP/LAT CLINIC AL INFORM ATION: Abdomi nal pain. IMAGES PROVID ED: KUB AP radiog raphic images of the abdome n. COMPAR RASTA: None. FINDIN GS: No abnorm al intest inal gas patter n. Signif icant fecal loadin g of the entire colon is seen. No obviou s feces seen in the rectum . No abnorm al calcif icatio ns are seen. No radiog raphic eviden ce of free intrap eriton eal air. Surgic al hardwa re is seen in the thorac ic and lumbar spine. IMPRES MALCOLM: Appear ance is of consti pation . Distal coloni c obstru ction cannot be ruled out. CT abdome n and pelvis withou t contra st is recomm ended for furthe r evalua tion. Interp reted By: Yonatan Madera MD Electr onical ly Signed By: Yonatan Madera MD on 2022 5:05 PM [facility] [address] , [place], [address], 02/03/2023 08:52:36 01/09/20 24 11/18/2023 MRI, pelvi s, w/o contr ast No observ ation record ed. [email or web address] Not Available 2023 12:29:49 Result Notes None recorded. Problems Name Problem SNOMED Code Status Onset Date Resolution Date Notes Provider Name and Address Organization Details Recorded Time Restless legs 80415232 Active Rasheeda Cyndee null, [facility] 8 11:45:11 Arthritis 8407962 Active 1989 [facility] 8 11:45:11 Fibromyos itis 80137649 Active [facility] 8 11:45:11 Uterine leiomyoma 06474140 Active [facility] 8 11:45:11 Depressiv e disorder 98288133 Active [facility] 8 11:45:11 Backache 645139255 Active [facility] 8 11:45:11 Disorder of thyroid gland 84039329 Active [facility] 8 11:45:11 Irritable bowel syndrome 37465689 Active [facility] 8 11:45:11 Migraine 28157104 Active [facility] 8 11:45:11 Periphera l nerve disease 226914635 Active [facility] 8 11:45:11 Gastroeso phageal reflux disease 826420564 Active [facility] 8 11:45:11 Hyperlipi demia 01825290 Active 2004 [facility] 8 11:45:11 Anxiety 04660919 Active [facility] 8 11:45:11 Chronic drug-ruddy mayra renal disease 666379949 Active [facility] 8 11:45:11 Chronic constipat ion 256636230 Active [facility] 8 11:45:11 Raynaud's phenomeno n 157929119 Active 2017 ADRIANNE ACOSTA APRN [address] [place], [address], [facility] 8 21:56:06 Pain of bilateral hands [id number] 12196 Active 2017 ADRIANNE ACOSTA APRN [address] [place], [address], [facility] 8 21:56:07 Solitary nodule of lung 640750758 Active 2018 VILMA JACOB MD [address] [place], [address], [facility] 9 15:00:07 Polymyalg ia rheumatic a 47555134 Active 2015 From Automated Load;Prov ider: Adrianne Acosta;S tatus: Active [facility] 8 11:45:11 Finding of sensation by site 117483641 Active 2014 From Automated Load;Prov ider: Adrianne Acosta;S tatus: Active [facility] 8 11:45:11 Hand pain 81836026 Active 2014 From Automated Load;Prov ider: Adrianne Acosta;S tatus: Active [facility] 8 11:45:11 Pain of joint of wrist 855578350 Active 2014 From Automated Load;Prov ider: Adrianne Acosta;S tatus: Active Rasheeda Cyndee null, [facility] 8 11:45:11 Chronic pain syndrome 193359588 Active 2014 From Automated Load;Prov ider: Jermaine Monson atus: Active Rasheeda Cyndee null, [facility] 8 11:45:11 Neck pain 75454353 Active 2014 From Automated Load;Prov ider: Adrianne Acosta;S tatus: Active Rasheeda Cyndee null, [facility] 8 11:45:11 Headache disorder 786602899 Active 2014 From Automated Load;Prov ider: Adrianne Acosta;S tatus: Active Rasheeda Cyndee null, [facility] 8 11:45:11 Pain in right hand 665479715516 109 Active 2014 From Automated Load;Prov ider: Adrianne Acosta;S tatus: Active Rasheeda Cyndee null, [facility] 8 11:45:11 Lumbar spondylos is 002267835 Active 2015 From Automated Load;Prov ider: Eun Monson; atus: Active Rasheeda Cyndee null, [facility] 8 11:45:11 Notes:Some problems listed i n Document: #[id number] could not be added to this patient's chart. Please review this document and add these problems to the patient's chart manually as needed. Problem Notes None recorded. Procedures Surgical History Date Name Laterality Status Provider Name and Address Organization Details Recorded Time 023 Date of Last Pap Smear completed [facility] 09/02/2022 11:11:34 022 Back Surgery completed Shaniqua Gregg [facility] 03/03/2022 10:07:04 022 Date of Last Mammogram completed [facility] 09/02/2022 11:11:40 022 Spirometry completed Chandni Martini [facility] 07/21/2021 11:13:11 021 Trigger Point Injection(s) completed ADRIANNE ACOSTA APRN [address] [place], [address], [facility] 05/25/2020 12:21:19 021 Injection Joint/Bursa, Interm, w/o US completed ADRIANNE ACOSTA APRN [address] [place], [address], [facility] 05/25/2020 10:15:00 020 Cervical Radiofrequency Ablation completed SIOBHAN BURTON MD [address] [place], [address], [facility] 03/07/2019 13:04:26 020 Cervical Radiofrequency Ablation completed SIOBHAN BURTON MD [address] [place], [address], [facility] 03/06/2019 07:57:05 019 Cervical Medial Branch Blocks completed SIOBHAN BURTON MD [address] [place], [address], [facility] 01/24/2019 09:31:15 019 Cervical Medial Branch Blocks completed SIOBHAN BURTON MD [address] [place], [address], [facility] 01/23/2019 10:27:08 019 Airway Resistance [facility] 04/23/2018 13:58:53 019 Diffusion Capacity completed Puja King [facility] 04/23/2018 13:58:50 019 Lung Volumes, Plethysmography completed Pujanuvia King [facility] 04/23/2018 13:58:52 019 Spirometry completed Pujanuvia Palman [facility] 04/23/2018 13:58:48 018 PERMANENT PLACEMENT OF SPINAL CORD STIMULATOR (SURG) completed Mariluz Katz [facility] 12/07/2017 08:57:25 018 Electromyography (EMG) with Nerve Conduction Study (NCV) completed Lynn Menchaca (Nicky) [facility] 10/05/2017 16:07:07 017 Spine Surgery completed Mariluz Katz [facility] 10/03/2017 13:40:52 015 Neck Surgery completed Mariluz Katz [facility] 10/03/2017 13:40:18 012 Neck Surgery completed Mariluz Katz [facility] 10/03/2017 13:39:50 Back Surgery completed Mariluz Katz [facility] 10/03/2017 13:31:16 Back Surgery completed Mariluz Katz [facility] 10/03/2017 13:31:42 Neck Surgery completed Mariluz MAHMOOD - [facility] 10/03/2017 13:32:52 Other completed Mariluz Meyerr [facility] 10/03/2017 13:33:21 Carpal tunnel surgery completed Mariluz MAHMOOD - [facility] 10/03/2017 13:35:00 Shoulder joint surgery completed Mariluz Meyerr [facility] 10/03/2017 13:34:50 Carpal tunnel surgery completed Mariluz Meyerr [facility] 10/03/2017 13:35:40 Carpal tunnel surgery completed Mariluz Meyerr [facility] - [facility] 10/03/2017 13:36:15 Back Surgery completed Mariluz Meyerr [facility] 10/03/2017 13:37:03 Shoulder joint surgery completed Mariluz Meyerr [facility] - [facility] 10/03/2017 13:37:32 Spine Surgery completed Mariluz Meyerr [facility] - [facility] 10/03/2017 13:37:58 Shoulder joint surgery completed Mariluz Meyerr [facility] - [facility] 10/03/2017 13:38:18 Imaging Results Imaging Date Name Status LastModified by Organiz ation Details LastModified Time 06/30/2022 NM, gastric emptying scan completed [facility] Nuclear Medicine [facility] [place], [address], 06/30/2022 20:13:14 02/02/2023 XR, abdomen, complete completed [facility] [address] [place] [address], [address], 02/03/2023 08:52:36 11/18/2023 MRI, pelvis, w/o contrast [place] [address] Information not available 01/10/2024 12:29:49 Procedure Notes None recorded. Medical Equipment None Reported. Allergies Allergen ID Allergen Name Allergen Category Reaction Reaction Severity Criticality Documentation Date Start Date Code Code System Note Provider Name and Address Organization Details Recorded Time 19180321 Dilaudid medicatio n Not available Not available Not available 01/07/20162009 38534 3 RxNorm Comme nt: Creat ed By: Juan gu Date: 2009 2:07: 05 PM; Not Available [facility] 6 12:06:11 035590 Substance with sulfonami de structure and antibacte rial mechanism of action (substanc e) medicatio n Not available Not available Not available 01/08/20162009 15854 8003 SNOMED Comme nt: Creat ed By: Juan Lau ;Crea riccardo Date: 2009 2:06: 57 PM; Not Available [facility] 6 04:15:05 306503 codeine medicatio n Not available Not available Not available 01/08/20162009 2670 RxNorm Comme nt: Creat ed By: Juan Lau ;Crea riccardo Date: 2009 2:06: 49 PM; Not Available [facility] 6 05:56:36 432460 Product containin g penicilli n (product) medicatio n Not available Not available Not available 01/08/20162009 64357 8001 SNOMED Comme nt: Creat ed By: Juan Lau ;Crea riccardo Date: 2009 2:06: 41 PM; Not Available [facility] 6 09:43:40 910497 hydromorp gayle medicatio n Not available Not available Not available 01/17/2018 3423 RxNorm Rasheeda Cyndee [facility] 8 11:44:52 727248 sulfadiaz ine medicatio n Not available Not available Not available 01/17/2018 14691 RxNorm Rasheeda Cyndee [facility] 8 11:44:52 324141 Non-stero idal anti-infl ammatory agent (product) medicatio n other moderate Not available 04/29/2019 02020 005 SNOMED Kidne y failu re Shantell Andres [facility] 0 11:16:21 356892 Neurontin medicatio n Not available Not available Not available 09/12/2022 04906 8 RxNorm Shaniqua Gregg [facility] 3 11:02:06 Medications Name Sig Start Date Stop Date Status Note LastModified by Organization Details LastModified Time cyclobenz aprine 10 mg tablet TAKE 1 TABLET BY MOUTH TWICE DAILY active Not Available Not Available No t Available Euthyrox 175 mcg tablet Take 1 tablet every day by oral route in the morning for 90 days. 2022 active Not Available Not Available Not Avai lable bupropion HCl SR 150 mg tablet,12 hr sustained -release 01/17 completed Not Available Not Available Not Available atorvasta tin 80 mg tablet TAKE 1 TABLET BY MOUTH ONCE DAILY active Not Available Not Available No t Available clonidine HCl 0.1 mg tablet Take 1 tablet twice a day by oral route for 90 days. 2022 active Not Available Not Available Not Avai lable ropinirol e 1 mg tablet 07/04 completed Not Available Not Available Not Available Premphase 0.625 mg(14)/0. 625 mg-5mg(14 ) tablet TAKE 1 TABLET BY MOUTH ONCE DAILY 07/21 completed Not Available Not Available Not Available Klor-Con 10 mEq tablet,ex tended release 01/17 completed Not Available Not Available Not Available clindamyc in HCl 300 mg capsule 01/17 completed Not Available Not Available Not Available clindamyc in HCl 75 mg capsule 01/17 completed Not Available Not Available Not Available tizanidin e 4 mg tablet Three times a day 01/17 completed Frequenc y: tid;Medi cation Descript ion: tizanidi ne; Dosage:1 /2; Route:or al; refills: 0 Not Available Not Available Not Available sumatript an 100 mg tablet As Directed 11/10 completed Not Available Not Available Not Available hydrocodo ne 5 mg-acetam inophen 325 mg tablet Take 1 tablet twice a day by oral route for 30 days. 07/22 completed Not Available Not Available Not Available phenazopy ridine 200 mg tablet TAKE 1 TABLET BY MOUTH THREE TIMES DAILY 12/29 completed Not Available Not Available Not Available alendrona te 70 mg tablet TAKE 1 TABLET BY MOUTH ONCE A WEEK active Not Available Not Available No t Available sertralin e 100 mg tablet TAKE 2 TABLETS BY MOUTH ONCE DAILY 05/24 completed Not Available Not Available Not Available clonazepa m 1 mg tablet TAKE 1 TABLET BY MOUTH THREE TIMES DAILY active Not Available Not Available No t Available phentermi ne 37.5 mg tablet TAKE 1 TABLET BY MOUTH ONCE DAILY 05/24 completed Not Available Not Available Not Available ciproflox acin 500 mg tablet 11/11 completed Not Available Not Available Not Available omeprazol e 40 mg capsule,d elayed release TAKE 1 CAPSULE BY MOUTH ONCE DAILY DIRECTED 2023 active Not Available Not Available Not Avai lable tramadol 50 mg tablet Take 2 tablets twice a day by oral route for 30 days. 2022 active Not Available Not Available Not Avai lable simvastat in 40 mg tablet Bedtime 01/17 completed Frequenc y: hs;Medic ation Descript ion: simvasta tin; Dosage:1 ; Route:or al; refills: 0 Not Available Not Available Not Available ondansetr on 8 mg disintegr ating tablet 11/11 completed Not Available Not Available Not Available levothyro xine 100 mcg tablet Daily 01/17 completed Not Available Not Available Not Available oxycodone -acetamin ophen 5 mg-325 mg tablet Take 1 tablet every 6 hours by oral route as needed. 08/11 completed Not Available Not Available Not Available trazodone 100 mg tablet TAKE 1 TABLET BY MOUTH AT BEDTIME active Not Available Not Available No t Available Euthyrox 150 mcg tablet TAKE 1 TABLET BY MOUTH ONCE DAILY 07/29 completed Dose increase d to 175 mcg Not Available Not Available Not Available hydrocodo ne 7.5 mg-acetam inophen 325 mg tablet 01/17 completed Not Available Not Available Not Available ropinirol e 2 mg tablet Take 2 tablets by mouth twice daily active Not Available Not Available No t Available pantopraz ole 40 mg tablet,de layed release 11/11 completed Not Available Not Available Not Available levothyro xine 125 mcg tablet Take 1 tablet every day by oral route. 04/28 completed Not Available Not Available Not Available calcipotr iene 0.005 % topical cream 10/23 completed Not Available Not Available Not Available carbamaze pine 100 mg chewable tablet 01/17 completed Not Available Not Available Not Available promethaz ine 25 mg tablet TAKE 1 TABLET BY MOUTH EVERY 6 HOURS NEEDED FOR NAUSEA 07/21 completed Not Available Not Available Not Available progester one micronize d 200 mg capsule TAKE 2 CAPSULES BY MOUTH AT BEDTIME 12/29 completed Not Available Not Available Not Available Hyosyne 0.125 mg/mL oral drops 10/23 completed Not Available Not Available Not Available gabapenti n 300 mg capsule Take 1 capsule 3 times a day by oral route. 09/02 completed Not Available Not Available Not Available triamtere ne 37.5 mg-hydroc hlorothia zide 25 mg tablet 11/10 completed Not Available Not Available Not Available gabapenti n 100 mg capsule Take 1 capsule twice a day by oral route. 03/03 completed Not Available Not Available Not Available diazepam 10 mg tablet TAKE ONE TABLET BY MOUTH A ONE-TIME DOSE, TAKE ONE HOUR BEFORE PROCEDUR E. DO NOT DRIVE MUST HAVE MEDIA PLANNER / BUYER PRESENT FOR PROCEDUR E. 07/21 completed Not Available Not Available Not Available levofloxa micheal 500 mg tablet TAKE 1 TABLET BY MOUTH ONCE DAILY DIRECTED 12/29 completed Not Available Not Available Not Available oxycodone -acetamin ophen 7.5 mg-325 mg tablet 10/23 completed Not Available Not Available Not Available docusate sodium 250 mg capsule 07/22 completed Not Available Not Available Not Available ondansetr on 4 mg disintegr ating tablet 10/23 completed Not Available Not Available Not Available sertralin e 50 mg tablet Take 1 tablet every day by oral route. 04/28 completed Not Available Not Available Not Available doxepin 5 % topical cream 10/23 completed Not Available Not Available Not Available levothyro xine 112 mcg tablet 10/23 completed Not Available Not Available Not Available methadone 5 mg/5 mL oral solution 01/17 completed Not Available Not Available Not Available Phenadoz 25 mg rectal supposito ry 10/23 completed Not Available Not Available Not Available Klor-Con M10 mEq tablet,ex tended release 01/17 completed Not Available Not Available Not Available bupropion HCl XL 300 mg 24 hr tablet, extended release 11/11 completed Not Available Not Available Not Available bupropion HCl XL 150 mg 24 hr tablet, extended release 11/11 completed Not Available Not Available Not Available Topamax 50 mg tablet Two times a day 01/17 completed Frequenc y: bid;Medi cation Descript ion: topirama te; Dosage:1 ; Route:or al; refills: 0 Not Available Not Available Not Available fluocinon tavo 0.1 % topical cream 10/23 completed Not Available Not Available Not Available ramelteon 8 mg tablet 04/28 completed Not Available Not Available Not Available chlorhexi dine gluconate 0.12 % mouthwash 01/17 completed Not Available Not Available Not Available magnesium active Not Available Not Savita ilable Not Available senna active Not Available Not Availa ble Not Available iron active Not Available Not Availa ble Not Available ropinirol e active Not Available Not Available Not Available Imitrex active Not Available Not Avail able Not Available Zocor 80 mg. 04/28 completed Not Available Not Available Not Available Synthroid 0.1 mg. 01/17 completed Not Available Not Available Not Available Tylenol 650 mg. 2015 active Not Available Not Available Not Avai lable Maxzide 01/17 completed Not Available Not Available Not Available triamtere ne active Not Available Not Available Not Available Stool Softener Two times a day active Frequenc y: bid;Medi cation Descript ion: docusate ; Dosage:1 ; Route:or al; refills: 0 Not Available Not Available Not Available Multivita mins Daily 10/23 completed Frequenc y: daily;Me dication Descript ion: multivit willis; Dosage:1 ; refills: 0 Not Available Not Available Not Available Flexeril 10 mg. 10/23 completed Not Available Not Available Not Available Miralax 09/06 completed Not Available Not Available Not Available multivita min active Not Available Not Available Not Available Caltrate- 600 Three times a day 10/23 completed Duration : 10 days;Jose quency: tid;Medi cation Descript ion: calcium carbonat e; Dosage:1 ; Route:or al; refills: 0; Quantity :30 tablet Not Available Not Available Not Available aprepitan t 40 mg capsule 01/17 completed Not Available Not Available Not Available tramadol ER 100 mg tablet,ex tended release 24 hr Take 1 tablet by mouth once daily 2023 active Not Available Not Available Not Avai lable Benefiber active Not Available Not Savita ilable Not Available Savella 100 mg tablet TAKE 1 TABLET BY MOUTH TWICE DAILY 2022 active Not Available Not Available Not Avai lable Savella 50 mg tablet Take 2 tablets twice a day by oral route for 90 days. 05/24 completed Not Available Not Available Not Available Savella 50 mg. 01/17 completed Not Available Not Available Not Available Suprep Bowel Prep Kit 17.5 gram-3.13 gram-1.6 gram oral solution As Directed 05/17 completed Not Available Not Available Not Available Centrum Silver 0.4 mg-300 mcg-250 mcg tablet 10/23 completed Duration : 10 days;Med ication Descript ion: multivit willis with minerals ; Route:or al; refills: 0; Quantity :30 tablet Not Available Not Available Not Available Linzess 290 mcg capsule Take 1 capsule every day by oral route as directed for 30 days. 2022 active Not Available Not Available Not Avai lable Trokendi XR 100 mg capsule, extended release 11/10 completed Not Available Not Available Not Available Mitigare 0.6 mg capsule Take 1 capsule twice a day by oral route. 2021 active Not Available Not Available Not Avai lable Trintelli x 20 mg tablet 11/11 completed Not Available Not Available Not Available Trintelli x 20 mg. 07/04 completed Not Available Not Available Not Available Yuvafem 10 mcg vaginal tablet Insert 1 tablet twice a week by vaginal route. 2022 active Not Available Not Available Not Avai lable Trulance 3 mg tablet TAKE 1 TABLET BY MOUTH IN THE EVENING 05/17 completed Not Available Not Available Not Available ACCOUNTING SPECIALIST Thyroid 120 mg tablet TAKE 1 TABLET BY MOUTH ONCE DAILY 12/29 completed Not Available Not Available Not Available Flucelvax Quad 3553-3171 (PF) 60 mcg (15 mcg x 4)/0.5 mL IM syringe 01/17 completed Not Available Not Available Not Available Plenvu 140 gram-9 gram-5.2 gram powder packs Take as directed . DIMITRIOS ANDERSON: [id number] PCN: [id number]: [id number] ID: [id number] 05/17 completed Not Available Not Available Not Available Immeghana Maintenan ce Pack 10 mcg vaginal insert Insert by vaginal route for 84 days. 2022 active Not Available Not Available Not Avai lable Motegrity 2 mg tablet 11/11 completed Not Available Not Available Not Available Vitals Date Recorded Body height Body mass index (BMI) Body weight Heart rate Systolic blood pressure Diastolic blood pressure Provider Name and Address Organization Details Last Updated DateTime 3 166.37 cm 31.1 kg/m2 31677.5 5 g 80 /min 118 mm[Hg] 75 mm[Hg] Ema Lee [facility] 3 13:58:25 Date Recorded Body height Body mass index (BMI) Body weight Systolic blood pressure Diastolic blood pressure Provider Name and Address Organization Details Last Updated DateTime 09/02/2022 166.37 cm 30.8 kg/m2 82230.08 g 116 mm[Hg] 70 mm[Hg] Jacqui Watson [facility] 3 10:59:31 Date Recorded Body height Body mass index (BMI) Body weight Heart rate Respiratory rate Systolic blood pressure Diastolic blood pressure Provider Name and Address Organization Details Last Updated DateTime 3 166.37 cm 30.8 kg/m2 46282.3 7 g 84 /min 16 /min 85 mm[Hg] 63 mm[Hg] Sasha Acosta [facility] 3 15:36:18 Date Recorded Body height Body mass index (BMI) Body weight Heart rate Oxygen saturation Oxygen saturation in Arterial blood by Pulse oximetry Systolic blood pressure Diastolic blood pressure Provider Name and Address Organization Details Last Updated DateTime 3 166.37 cm 30.8 kg/m2 34679.3 7 g 75 /min 98 % 98 % 108 mm[Hg] 78 mm[Hg] Shaniqua Gregg [facility] 3 11:07:03 Date Recorded Body height Body mass index (BMI) Body weight Heart rate Respiratory rate Systolic blood pressure Diastolic blood pressure Provider Name and Address Organization Details Last Updated DateTime 3 166.37 cm 30.3 kg/m2 33107.5 9 g 80 /min 16 /min 117 mm[Hg] 79 mm[Hg] Sasha Acosta [facility] 3 10:59:55 Social History Question Answer Notes LastModified by Organizat ion Details LastModified Time Tobacco Smoking Status Never [email or web address]2017 13:30:52 What Is Your Level Of Alcohol Consumption? None [email or web address] Information not available 04/23/2018 How Much Tobacco Do You Chew? None [email or web address] Information not available 07/04/2018 Do You Or Have You Ever Used E-cigarettes Or Vape? Never Used Electronic Cigarettes Information not available 10/23/2018 What Was The Date Of Your Most Recent Tobacco Screening? 09/12/2022 [email or web address] Information not available 09/12/2022 Do You Or Have You Ever Used Smokeless Tobacco? Never Used Smokeless Tobacco Information not available 10/23/2018 How Much Tobacco Do You Smoke? No [email or web address] Information not available 07/04/2018 Do You Use Any Illicit Or Recreational Drugs? No [email or web address] Information not available 03/03/2022 Has Tobacco Cessation Counseling Been Provided? No [email or web address] Information not available 03/03/2022 How Many Years Have You Smoked Tobacco? 0 [email or web address] Information not available 07/04/2018 Have You Recently Traveled Abroad? No Information not available 03/03/2022 Sex: Female Functional Status None recorded. Mental Status None recorded. Family History Relationship Description Onset Age of this Age Resolved Age Notes LastModified by Organization Details LastModified Time Mother Heart disease [email or web address] Not available 2018 13:57:32 Medical History Condition Response Fibromyalgia Y Mental Illness Y Kidney Disease Y High Cholesterol Y Thyroid Disorder Y Gynecological History Statement/Question Response Abnormal Pap N Date of Last Mammogram 10/14/2021 Painful Periods N Post Menopausal Bleeding N STIs/STDs N Real Heavy Periods N Date of Last Pap Smear 06/05/2022 Age at Menarche 10 Current Control Method Menopause LMP Approximate Obstetrics History GPAL:G 2 P 1 0 1 1 Type Value Full Term 1 Living 1 Ectopics 1 Total 2 Immunizations Vaccine Type Date Status Note Provider Nam e and Address Organization Details Recorded Time Influenza, split virus, quadrivalent, preservative 9 completed Shantell Andres [facility] 04/29/2019 11:15:13 Past Encounters Encounter ID Performer Location Encounter Start Date Encounter Closed Date Diagnosis/Indication Diagnosis SNOMED-CT Code Diagnosis ICD10 Code Diagnosis Note [id number] EUN MONSON MD NEUROSURG [facility] [address] [place] [address] 10/03/2017 13:07:11 10/03/2017 14:22:49 Chronic pain syndrome 998770063 G89.4 Ms. Spann is a 52 y/o with chronic pain syndrome who is status post prior L4-S1 lumbar fusion and C5-6 ACDF. She has a percutaneo us [employer]tr[employer] SCS [place] [address] Cardona. The leads have failed. She underwent a successful trial with new leads placed next to her prior ones. Her battery is MRI compatible . Reasonable to proceed with placement of an MRI compatible paddle lead. Her current leads are from the lower aspect of the T10 body to mid T12. Dr. Petty commented that her optimal lead position should be 1.5 contacts lower than the current leads. Not exactly clear as to what the desired position is from this comment. The rep was not present today. She did not have films from the trial with her. Sounds like Sergio was the [employer] rep present at the trial. We will reach out to him to clarify and see if he has pictures from the recent trial. We will go ahead and schedule her for the surgery while we get the positionin g clarified. Risks including bleeding, infection and hardware removal were discussed in detail. All questions answered. She agrees to proceed. She will meet with out surgery coordinato r today. We will order a CT myelogram of her thoracic and lumbar spines to verify to severe stenosis that would cause issues with placement of a paddle lead, as well as to make sure she does not have any further spinal surgical pathology that should be addressed first. Given her worsening bilateral neuropathi c foot pain, will get some nerve studies to also make sure we are not missing a radicular component that may amenable to surgery before proceeding . We will contact her if these studies indicate a change to our original plans. She is happy with the above plan. Thanks for having her see us today. Patient seen and examined with attending physician, Dr. Monson, who agrees with the above. [id number] NIDIA SANTANA MD NEUROLOGY [facility] [address] [place] [address] 10/05/2017 14:29:09 10/05/2017 16:49:27 Skin sensation disturbance 16774758 R20.9 Idiopathic peripheral neuropathy 27031986 G60.9 Lumbar radiculopathy 128 536080 M54.16 Low back pain 063631983 M54.5 [id number] [facility] [address] [place] [address] 11/20/2017 14:52:27 11/20/2017 15:19:39 [id number] [facility] [address] [place] [address] 12/07/2017 08:50:14 12/07/2017 09:20:18 Chronic pain syndrome 201443992 G89.4 [id number] ADRIANNE ACOSTA APRN [facility] [address] [place] [address] 01/17/2018 11:16:02 01/18/2018 07:41:02 Raynaud's phenomenon [id number] I73.00 polyarthra lgias/poly myalgias becoming chronic with Chronic Diffuse wide spread pains. 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 will assess further labs and xrays to help determine RA or OA worsening/ systemic changes will obtain new venecia as well and lupus panel to assess for underlying autoimmune continues to have widespread pain suggesting mctd or fibromyalg ia; has recurring raynauds worsening symptoms Anti-nucle ar factor detected 367462117 R76.8 historical ly low positive at 1:40 homogenous and speckled with thought of worsening symptomati c complaints [id number] VILMA JACOB MD PULMONARY [address] [facility] [place] [id number] 04/23/2018 13:28:31 05/13/2018 09:57:58 Solitary nodule of lung 042137277 R91.1 6 mm superior segment LLL nodule in a non-smoker . Stable on 3 month follow up in 01/2018. Current Fleischner society recommenda tions are a 6-12 month follow up. Given that she is a non smoker and no growth at 3 months, I will have her come back for a [address] scan in January 2019. [id number] ADRIANNE ACOSTA APRN [facility] [address] [place] [address] 07/04/2018 12:55:32 07/12/2018 14:34:45 Raynaud's phenomenon [id number] I73.00 polyarthra lgias/poly myalgias becoming chronic with Chronic Diffuse wide spread pains. 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 will assess further labs and xrays to help determine RA or OA worsening/ systemic changes will obtain new venecia as well and lupus panel to assess for underlying autoimmune continues to have widespread pain suggesting mctd or fibromyalg ia; has recurring raynauds worsening symptoms Anti-nucle ar factor detected 762471410 R76.8 historical ly low positive at 1:40 homogenous and speckled with thought of worsening symptomati c complaints Muscle pain 82297786 M79 .10 Restless legs 83485401 G 25.81 Osteoarthritis 018087444 M19.90 Chronic back pain 488045 002 G89.29 [id number] SIOBHAN BURTON MD PAIN MEDICINE [address] [place] [address] 1 07/10/2018 09:40:30 07/10/2018 11:49:12 Chronic low back pain 757425230 M54.5 Cervical spondylosis 387 678683 M47.812 Long-term drug therapy 717477664 Z79.206 [id number] SIOBHAN BURTON MD PAIN MEDICINE [address] [place] [address] 1 08/09/2018 10:55:04 08/09/2018 12:38:28 Neuropathic pain 568663981 M79.2 Chronic low back pain 27 5766087 M54.5 [id number] SIOBHAN BURTON MD PAIN MEDICINE [address] [place] [address] 1 09/06/2018 10:55:35 09/10/2018 10:42:37 Chronic low back pain 188166740 M54.5 [id number] EUN MONSON MD [facility]URG [facility] [address] [facility] [place] [address] 0 10/11/2018 10:02:39 10/17/2018 10:16:23 Backache 620516603 M54.9 [id number] CLAIRE SHEFFIELD APRN PAIN MEDICINE [address] [place] [address] 1 10/22/2018 11:08:24 10/22/2018 13:14:20 Chronic low back pain 283775148 M54.5 Stop Tramadol Cervical radiculopathy 00216653 M54.12 Schedule Cervical RFA Bilateral w/Dr. Burton Generalize sondra anxiety disorder 01882263 F41.1 will need psychiatry referral if staying on benzodiaza pines after talking with PCP [id number] [place] [address] [place] [address] 1 10/23/2018 15:14:56 10/25/2018 09:59:01 Raynaud's phenomenon 177453427 I73.00 polyarthra lgias/poly myalgias becoming chronic with Chronic Diffuse wide spread pains. bilateral hand and wrist pains, neck, shoulders and headaches symptoms are complex and do suggest fibromyalg ia syndrome-- which she has been diagnosed with and is being treated for; she has failed lyrica and cymbalta and was taken off gabapentin after exhausting it for years, although some features of inflammato ry arthritis stopped gabapentin due to s/e conts with savella bid cont PT emg/ncs normal Anti-nucle ar factor detected 135974766 R76.8 historical ly low positive at 1:40 homogenous and speckled with thought of worsening symptomati c complaints with recurring negative lupus panel on 07/04/2018 Muscle pain 96479044 M79 .10 improved overall with savella, she is trying to lower the sertraline at this time and trying to remain Restless legs 00684188 G 25.81 continues with restless legs overall Osteoarthritis 053745824 M19.90 bilateral hand pain and stiffness 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 will assess further labs and xrays to help determine RA or OA worsening/ systemic changes will obtain new venecia as well and lupus panel to assess for underlying autoimmune continues to have widespread pain suggesting mctd or fibromyalg ia; has recurring raynauds worsening symptoms Chronic back pain 342278 002 G89.29 seeing pain management [id number] SIOBHAN BURTON MD PAIN MEDICINE [address] [place] [address] 1 12/21/2018 09:12:47 12/21/2018 10:39:04 Long-term drug therapy 357273142 Z79.899 Chronic low back pain 27 2515012 M54.5 [id number] SIOBHAN BURTON MD PAIN MEDICINE [address] [place] [address] 1 01/14/2019 14:45:11 01/14/2019 15:40:23 Chronic low back pain 393628787 M54.5 [id number] SIOBHAN BURTON MD [facility] [address] [facility] [address], [place] [address] 1 01/23/2019 10:04:15 01/24/2019 10:59:35 Cervical spondylosis 542836565 M47.745 [id number] SIOBHAN BURTON MD [facility] [address] [facility] [address], [address] [place] [address] 1 01/24/2019 09:25:40 01/25/2019 08:51:03 Cervical spondylosis 048631642 M47.100 [id number] SIOBHAN BURTON MD PAIN MEDICINE [address] [place] [address] 1 02/18/2019 10:48:43 02/20/2019 11:29:45 Cervical spondylosis 720787930 M47.812 Myofascial pain 01157673 9 M79.10 [id number] SIOBHAN BURTON MD [facility] [address] [place] [address], [address] [place] [address] 1 03/06/2019 07:24:50 03/07/2019 14:40:06 Cervical spondylosis 844141390 M47.361 [id number] SIOBHAN BURTON MD [facility] [address] [place] [address], [facility] [address] [place] [address] 1 03/07/2019 12:33:52 03/08/2019 11:58:58 Cervical spondylosis 034586858 M47.346 [id number] VILMA JACOB MD PULMONARY [address] [place] [address], [address] [place] [address] 1 04/29/2019 10:14:21 04/29/2019 11:56:45 Solitary nodule of lung 769571891 R91.1 6 mm superior segment LLL nodule in a non-smoker . Stable at 12 months in 04/2019. Final CT in 1 year (04/2020). Dyspnea on exertion 6084 5006 R06.09 Likely due to deconditio [place] and weight gain. I encouraged her to be more active and exercise as the weather improves. Return to clinic in 6 months. If her breathing has gotten worse despite these interventi ons, I will get breathing test on her, check her hemoglobin , and potentiall y do a cardiac evaluation . [id number] EUN MONSON MD [facility] [address] [facility] [place] [address] 06/13/2019 11:14:14 06/13/2019 14:15:20 Chronic pain syndrome 923925675 G89.4 [id number] SIOBHAN BURTON MD PAIN MEDICINE [address] [place] [address] 1 06/20/2019 11:09:04 06/20/2019 13:34:16 Myofascial pain 408427730 M79.10 Cervical spondylosis 387 573357 M47.918 [id number] EUN MONSON MD SURGERY SCHEDULE [address] [place] [address] 07/02/2019 15:45:30 07/03/2019 11:37:48 [id number] ERROL BENÍTEZ PA-C NEUROSURG [facility] [address] [place] [id number] 08/01/2019 11:24:10 08/05/2019 13:45:37 Chronic pain syndrome 959089555 G89.4 [id number] ADRIANNE ACOSTA APRN [facility] [address] [place] [address] 08/12/2019 08:16:23 08/12/2019 13:58:30 Raynaud's phenomenon 404096272 I73.00 polyarthra lgias/poly myalgias becoming chronic with Chronic Diffuse wide spread pains. 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 will assess further labs and xrays to help determine RA or OA worsening/ systemic changes will obtain new venecia as well and lupus panel to assess for underlying autoimmune continues to have widespread pain suggesting mctd or fibromyalg ia; has recurring raynauds worsening symptoms Anti-nucle ar factor detected 010101078 R76.8 historical ly low positive at 1:40 homogenous and speckled with thought of worsening symptomati c complaints with recurring negative lupus panel on 07/04/2018 Muscle pain 17108477 M79 .10 improved overall with savella, she is trying to lower the sertraline at this time and trying to remain Restless legs 01818078 G 25.81 continues with restless legs overall Chronic back pain 600417 002 G89.29 seeing pain management will f/u in August as scheduled [id number] ADRIANNE ACOSTA APRN RHEUMATOL OGY [address] [place] [address] 11/12/2019 11:16:59 11/12/2019 12:02:11 Raynaud's phenomenon [id number] I73.00 polyarthra lgias/poly myalgias becoming chronic with Chronic Diffuse wide spread pains. 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 will assess further labs and xrays to help determine RA or OA worsening/ systemic changes will obtain new venecia as well and lupus panel to assess for underlying autoimmune continues to have widespread pain suggesting mctd or fibromyalg ia; has recurring raynauds worsening symptoms Anti-nucle ar factor detected [id number] R76.8 historical ly low positive at 1:40 homogenous and speckled with thought of worsening symptomati c complaints with recurring negative lupus panel on 07/04/2018 Muscle pain 51077294 M79 .10 improved overall with savella, she is trying to lower the sertraline at this time and trying to remain Restless legs 38947159 G 25.81 continues with restless legs overall Ankle pain 344174294 M25 .579 turned ankle and is not improved after two weeks feels like it may be a fracture [id number] ADRIANNE ACOSTA APRN RHEUMATOL OGY [address] [place] [address] 03/18/2020 08:02:31 03/18/2020 11:00:15 Raynaud's phenomenon [id number] I73.00 polyarthra lgias/poly myalgias becoming chronic with Chronic Diffuse wide spread pains. bilateral hand and wrist pains, neck, shoulders and headaches symptoms are complex and do suggest fibromyalg ia syndrome-- which she has been diagnosed with and is being treated for; she has failed lyrica and cymbalta and was taken off gabapentin after exhausting it for years, although some features of inflammato ry arthritis stopped gabapentin due to s/e conts with savella bid emg/ncs normal having issues with overall pain management , though improved with Dr. 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 Bruno pain management with injections Muscle pain 80966556 M79 .10 improved overall with savella, she is trying to lower the sertraline at this time and trying to remain Restless legs 66564156 G 25.81 continues with restless legs overall Anti-nucle ar factor detected 576805154 R76.8 historical ly low positive at 1:40 homogenous and speckled with thought of worsening symptomati c complaints with recurring negative lupus panel on 07/04/2018 [id number] ADRIANNE ACOSTA APRN RHEUMATOL OGY [address] [place] [address] 05/25/2020 09:14:37 05/25/2020 11:32:42 Body mass index 25-29 - overweight 413231766 Z68.28 Raynaud's phenomenon 266 538834 I73.00 polyarthra lgias/poly myalgias becoming chronic with Chronic Diffuse wide spread pains. 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 will assess further labs and xrays to help determine RA or OA worsening/ systemic changes will obtain new venecia as well and lupus panel to assess for underlying autoimmune continues to have widespread pain suggesting mctd or fibromyalg ia; has recurring raynauds worsening symptoms Restless legs 65890180 G 25.81 continues with restless legs overall Anti-nucle ar factor detected 025225371 R76.8 historical ly low positive at 1:40 homogenous and speckled with thought of worsening symptomati c complaints with recurring negative lupus panel on 07/04/2018 Fibromyalgia 507101912 M 79.7 improved overall with savella, she is trying to lower the sertraline at this time and trying to remain Neck pain 35261971 M54.2 Pain of ri ght ankle joint 6981535111 2979833 M25.571 swelling of the right ankle joint with normal xrays will provide with 40 mg IA joint injection today [id number] VILMA JACOB MD PULMONARY [address]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 spine in 10/2021 to fuse t8-s1; she has increased right shoulder pain aftera a fall; she is very restricted in her movement and her pain is through the roof; she is having a lot of stomach and bowel issues; she is continuing to have issues with her joint pain and fibromyalgia issues ADRIANNE ACOSTA, TAMPER OPERATOR [address] [place], [address], [facility] 09/12/2022 11:39:25 11/29/2022 text/html Anjana Ag is a 57 yr old female here today for recheck, chronic constipation.Was doing well on Linzess, but had setback following back surgery.Has been using Senna based stool softeners, and Linzess since being discharged. This is helping, needs to try and wean off the sennakot and can use Linzess, miralax, stool softeners. She is using magnesium.She reports main issue is pushing out Bm, some incomplete.This may be related to her back issues as well. Discussed pelvic floor PT, but will need to clear this with her back surgeon first. ALAINA AARON, TAMPER OPERATOR [address] [place], [phone], [facility] 11/30/2022 12:22:31 OBGyn Episode No OBEpisode recorded.
== END 2024-06-12 23:59 | disposition home or self-care (01) ==
LOC: LAB.DROPOF 06-14 08:34
PROVIDERS: PCP Family Medicine; Visit Provider Physician Assistant
DX: I08.0 Rheumatic disorders of both mitral and aortic valves (principal)
CPT/HCPCS: J1642

== ENCOUNTER 2024-06-12 11:11 | Outpatient (CLI) | payer MEDICARE, SELFPAY ==
[2024-06-12] MEDS: SODIUM CHLORIDE 0.9% 10ML FLUSH SYRINGE 10 ML IV (11:23)
[2024-06-12 11:34] LABS: Basophils % 0.2 % (0.1-2.0); Eosinophils # 0.1 Kmm3 (0.0-0.4); Eosinophils % 1.1 % (0.1-12.0); Hematocrit 36.9 % (37.0-47.0); Hemoglobin 12.5 g/dL (12.2-16.2); Lymphocytes # 0.6 K/mm3 (0.7-4.5); Mean Corpuscular HGB Conc 33.9 g/dL (31.8-35.4); Mean Corpuscular Hemoglobin 30.3 pg (27.0-31.2); Mean Corpuscular Volume 89.3 fl (81-99); Mean Platelet Volume 10.1 fl (7.4-10.4); Monocytes # 0.5 K/mm3 (0.1-1.0); Monocytes % 8.4 % (1.7-9.3); Neutrophils # 4.6 K/mm3 (1.8-7.8); Neutrophils % 79.9 % (37.0-80.0); Nucleated Red Blood Cells # 0 10^3/uL; Nucleated Red Blood Cells % 0 %; Platelet Count 131 K/mm3 (142-424); Red Blood Count 4.13 M/mm3 (4.20-5.40); Red Cell Distribution Width 12.9 % (11.5-17.5); Red Cell Distribution Width-SD 42.5 fL; White Blood Count 5.7 K/mm3 (4.8-10.8)
[2024-06-12 11:40] LABS: Albumin Level 4.1 g/dl (3.5-5.0); Chloride 95 mmol/L (98-107); Sodium 130 mmol/L (136-145)
[2024-06-12 11:42] LABS: Bilirubin,Unconjugated 0.7 mg/dL (0.0-1.1); Blood Urea Nitrogen 9 mg/dl (7-17); Estimated Glomerular Filt Rate 46 ml/min (>60); GFR (African American) 55 ML/MIN (>60)
[2024-06-12 11:43] LABS: Alanine Aminotransferase 18 U/L (12-78); Alkaline Phosphatase 82 U/L (38-126); Aspartate Amino Transferase 26 U/L (14-36); Bilirubin,Indirect 0.6 mg/dL (0.0-0.9); Bilirubin,Total 0.6 mg/dl (0.2-1.3); Calcium 9.5 mg/dl (8.4-10.2); Carbon Dioxide 30 mmol/L (22.0-30.0); Chol/HDL Ratio 2.3 (1-3.5); Cholesterol 134 mg/dl (140-200); Glucose 89 mg/dl (74-100); HDL Cholesterol 59 mg/dl (40-60); Magnesium 1.7 mg/dl (1.6-2.3); Total Protein,Serum 6.8 g/dl (6.3-8.2); Triglycerides 87 mg/dl (30-150); VLDL Cholesterol 17 mg/dL (0-40)
[2024-06-12 11:51] LABS: Anion Gap 7.9 mEq/L (5-15)
[2024-06-12 11:52] LABS: Potassium 2.9 mmoL/L (3.5-5.1)
[2024-06-12 11:54] LABS: Direct LDL Cholesterol 47.17 mg/dL (100-129)
[2024-06-12 12:17] LABS: Thyroid Stimulating Hormone < 0.02 uIU/mL (0.465-4.68)
== END 2024-06-12 11:30 | disposition home or self-care (01) ==
LOC: INF 11:16
PROVIDERS: Physician Assistant; PCP Family Medicine; Visit Provider Internal Medicine Medical Oncology
DX: I34.0 Nonrheumatic mitral (valve) insufficiency (principal); I35.1 Nonrheumatic aortic (valve) insufficiency; R01.1 Cardiac murmur, unspecified
CPT/HCPCS: 36591; 80048; 80061; 80076; 83735; 84439; 84443; 85025; 93225; 93227; J1642

== ENCOUNTER 2024-06-19 11:41 | Outpatient (CLI) | payer MEDICARE, SELFPAY ==
--- OUTSIDE RECORDS SUMMARY | 2024-06-19 11:44 | XMS_ITS | Data Portability ---
Author Organization [facility] cDEMETRIUSS [place] CLOSED Address [address] [place] [address] Care Team Providers Care Human Resources Administrator Name Role Phone MICHELLE BROOKS Insemination Worker Assessment Encounter Date Assessment Date Assessment LastModified by Organization Details LastModified Time 04/21/2020 04/21/2020 Will arrange EGD evaluation of abdominal pain, bloating, and GERD Will arrange colonoscopy follow up due to finding polyps and finding of low grade NE rectal polyp in past Check HCV PCR, gentotype, repeat LFTs, PT/INR, HCV fibrospect, and ultrasound liver Start dicyclomine 20 mg TID-QID as needed Start omeprazole 20 mg once daily ashley Not available 04/21/2020 14:11:06 Plan of Treatment Reminders Order Date Submit Date Provider Last Modified By Organization Details Last Modified Time Details Appointments None recorded. Lab hepatitis C virus RNA, quant, PCR, serum or plasma 2020 021 [facility], [address] [place] [address], [id number], 20:01:00 CMP, serum or plasma 2020 021 [facility], [address] [place] [address], [phone], 15:48:59 hepatitis C genotype, serum or plasma 2020 021 [facility], [address] [place] [address], [address], 1 00:45:19 CBC w/ auto diff 2020 021 [facility], [address] [place] [address], [phone], 1 13:52:24 PT/INR 2020 021 [facility], [address] [place] [address], [address], 1 14:02:40 cytology, vaginal/c ervical 2019 020 [facility], [address] [place] [address], [address], 0 16:56:47 drug screen, urine 2017 018 kscheibly [facility], [address] [place] [address] , [place], [address], 8 11:25:13 cocaine, qualitati ve, urine 2017 018 [facility], [address] [place] [address], [address], 8 18:45:47 Referral physical therapist referral 2019 020 [email or web address] [facility], [address] [facility], [place], [address], 1 08:59:06 Procedures None recorded. Surgeries None recorded. Imaging MAMMO, screening , tomosynth esis, bilateral , w/ CAD 2019 020 [email or web address] [facility], [address] [place], [place] [address]y[address] [place], [place], [address], 1 09:57:16 electroca rdiogram 2017 018 [place] [facility], [address] [place], [place] [address]y[place], [place], [address], 8 13:22:23 Medication Orders dicyclomi ne 20 mg tablet [address] [facility], [address] [place] [address], [id number], 2 13:41:07 omeprazol e 20 mg capsule,d elayed release [address] [facility] [address] [facility], [address] [place] [address], [id number], 2 13:41:15 estradiol 0.01% (0.1 mg/gram) vaginal cream [address] [facility], [address] [place] [address], [id number], 2 13:41:12 Klonopin 0.5 mg tablet 2017 018 [email or web address] [id number], [address] , [place], [id number], 0 13:09:42 Patient TargetsNo targets recorded. Patient Instructions Encounter Date Encounter Id Patient Instructions Last Modified By Organization Details Last Modified Time 08/09/2017 [id number] chest pain: care instructions kscheibly Not available 08/09/2017 11:25:13 01/21/2020 [id number] atrophic vaginit is: care instructions cbeiting Not available 01/21/2020 13:35:08 menopausal hormo ne therapy (ht): care instructions cbeiting Not available 01/21/2020 13:38:10 bladder training : care instructions cbeiting Not available 01/21/2020 13:38:10 kegel exercises: care instructions cbeiting Not available 01/21/2020 13:38:10 Stress Incontine nce: Care Instructions cbeiting Not available 01/21/2020 13:38:10 Urge Incontinenc e: Care Instructions cbeiting Not available 01/21/2020 13:38:10 04/21/2020 [id number] abdominal pain: care instructions smerkley Not available 04/21/2020 13:52:15 gastroesophageal reflux disease (GERD): care instructions smerkley Not available 04/21/2020 13:52:15 hepatitis C: car e instructions smerkley Not available 04/21/2020 13:52:15 Reason for Referral Physical Therapist Referral for Mixed urinary incontinence Referring Physician: Bassem Garcia, Gynecology, Encounter Date: 01/21/2020 Results Created Date Observation Date Name Description Value Unit Range Abnormal Flag Note LastModifiedBy Organization Detail LastModifiedTime 08/10/19 18 08/16/2017 cocai ne, quali tativ e, urine benzoylecgon ine 147 NG/mL <100 high See Note 1 Not Available [facility] [address] [facility], [place], [address], 08/16/2017 18:45:47 08/10/19 18 08/16/2017 cocai ne, quali tativ e, urine comment SEE BELOW normal This drug testi ng is for medic al treat ment only. Joana sis was perfo rmed as non-f orens ic testi ng and these resul ts shoul d be used only by healt hcare provi ders to rende r diagn osis or treat ment, or to monit or progr ess of medic al condi tions . For constance tance with inter preti ng these drug resul ts, pleas e conta ct a [facility] Toxic ology Speci alist : [phone] X [phone] ([phone] ), M-F, 8am-6 pm EST. Note 1 This test was devel oped and its joana tical perfo rmanc e vita cteri stics have been deter mined by [facility]. It has not been clear ed or appro stoney by the FDA. This assay has been valid ated pursu ant to the CLIA regul ation s and is used for clini donovan purpo ses. TEST PERFO RMED AT: [facility] [address] [facility] [place] [address] SARAH Velasquez MD Not Available [facility] [address] [facility], [place], [address], 08/16/2017 18:45:47 08/10/19 18 08/09/2017 elect jazz diogr am 12 lead Electrocardi ogram performed. See coby moctezuma for interp retati on Not Available [address] , [place], [address], 08/09/2017 11:02:53 08/10/19 18 08/09/2017 drug scree n, urine Marijuana (THC50) Negati ve Not Available [address], [place], [address], 08/09/2017 10:42:20 08/10/19 18 08/09/2017 drug scree n, urine Cocaine ([id number]) POSITI VE Not Available [address] [place], [place], [address], 08/09/2017 10:42:20 08/10/19 18 08/09/2017 drug scree n, urine Opiates ([id number]) Negati ve Not Available [address] [place] [place], [place], [address], 08/09/2017 10:42:20 08/10/19 18 08/09/2017 drug scree n, urine Amphetamine ([id number]) Negati ve Not Available [address], [place], [address], 08/09/2017 10:42:20 08/10/19 18 08/09/2017 drug scree n, urine Methamphetam ine ([id number]) Negati ve Not Available [address] [place], [place], [address], 08/09/2017 10:42:20 08/10/19 18 08/09/2017 drug scree n, urine Phencyclidin e (PCP25) Negati ve Not Available [address], [place], [address], 08/09/2017 10:42:20 08/10/19 18 08/09/2017 drug scree n, urine Ectasy ([id number]) Negati ve Not Available [address] , [place], [address], 08/09/2017 10:42:20 08/10/19 18 08/09/2017 drug scree n, urine Barbituates ([id number]) Negati ve Not Available [address], [place], [address], 08/09/2017 10:42:20 08/10/19 18 08/09/2017 drug scree n, urine Benzodiazepi jorge ([id number]) Negati ve Not Available [address] [place], [place], [address], 08/09/2017 10:42:20 08/10/19 18 08/09/2017 drug scree n, urine Methadone ([id number]) Negati ve Not Available [address] [place], [place], [address], 08/09/2017 10:42:20 08/10/19 18 08/09/2017 drug scree n, urine Tricyclic Antidepressa nts ([id number]) Negati ve Not Available [address] [place], [place], [address], 08/09/2017 10:42:20 08/10/19 18 08/09/2017 drug scree n, urine Oxycodone ([id number]) Negati ve Not Available [address] [place], [place], [address], 08/09/2017 10:42:20 08/10/19 18 08/09/2017 drug scree n, urine Internal QC Okay Not Available [facility] [address] , [place], [address], 08/09/2017 10:42:20 01/21/20 20 01/21/2020 cytol ogy, vagin al/ce rvica l Pap smear SEE BELOW Depar tment of Patho logy GYNEC OLOGI DONOVAN CYTOL OGY REPOR T NAME: ANJANA MÉNDEZ PATHO LOGY NO.: [id number] 2 Copy to: [facility] E OF SPECI MEN: VAGIN AL-TH IN PREP RELEV ANT HISTO RY: No LMP given . Comme nt: PT TO RETUR N IN 5 YRS IF SHERRY L SPECI MEN ADEQU ACY SATIS FACTO RY FOR EVALU ATION . VAGIN AL SMEAR PARTI ALLY OBSCU RING INFLA MMATI ON GENER AL CATEG ORIZA TION NEGAT RICK FOR INTRA EPITH ELIAL LESIO N OR MALIG MARLA GISELL A Linn DINGE SS, CT( CP) Kate d Out Date: 01/22 16:54 Cervi donovan/v agina l cytol ogy is a scree [place] test with a recog nized false negat rick rate. New techn ologi es may decre ase, but will not elimi maria esther false negat rick resul ts. Regul ar cytol ogy scree [place] is recom zenon d to minim ize false negat rick resul ts. The ThinP rep(R ) Imagi ng syste m is used to constance t in prima ry cervi donovan cance r scree [place] of ThinP rep(R ) Pap test slide s. Page 1 of 1 Not Available [facility] [address] [place] [address], [address], 01/23/2020 16:56:47 04/24/19 21 04/23/2020 CBC w/ auto diff white blood cells 9.4 K/uL 3.8-10 .8 normal Not Available [facility] [address] [place], [address], 04/23/2020 13:52:23 04/24/1904/23/2020 CBC w/ auto diff red blood cells 4.08 M/uL 3.80-5 .20 normal Not Available [facility] [address] [place] [address], [address], 04/23/2020 13:52:23 04/24/19 21 04/23/2020 CBC w/ auto diff hemoglobin 12.3 g/dL 12.0-1 6.0 normal Not Available [facility] [address] [place] [address], [address], 04/23/2020 13:52:23 04/24/19 21 04/23/2020 CBC w/ auto diff hematocrit 36.6 % 35.0-4 7.0 normal Not Available [facility] [address] [place] [address], [address], 04/23/2020 13:52:23 04/24/19 21 04/23/2020 CBC w/ auto diff MCV 90 fL 80-100 normal Not Available [facility] [address] [place] [address], [address], 04/23/2020 13:52:23 04/24/19 21 04/23/2020 CBC w/ auto diff MCH 30 pg 26-35 normal Not Available [facility] [address] [place] [address], [address], 04/23/2020 13:52:23 04/24/19 21 04/23/2020 CBC w/ auto diff MCHC 34 g/dL 32-36 normal Not Available [facility] [address] [place] [address], [address], 04/23/2020 13:52:23 04/24/19 21 04/23/2020 CBC w/ auto diff RDW 13.1 % 11.0-1 5.0 normal Not Available [facility] [address] [place] [address], [address], 04/23/2020 13:52:23 04/24/19 21 04/23/2020 CBC w/ auto diff MPV 8.7 fL 6.2-10 .5 normal Not Available [facility] [address] [place] [address], [address], 04/23/2020 13:52:23 04/24/19 21 04/23/2020 CBC w/ auto diff platelet count 393 K/uL 130-40 0 normal Not Available [facility] [address] [place] [address], [address], 04/23/2020 13:52:23 04/24/19 21 04/23/2020 CBC w/ auto diff neutrophil,a bsolute 5.6 K/uL 1.6-8. 4 normal Not Available [facility] [address] [place] [address], [address], 04/23/2020 13:52:23 04/24/19 21 04/23/2020 CBC w/ auto diff lymphocyte,a bsolute 2.9 K/uL 0.4-5. 1 normal Not Available [facility] [address] [place] [address], [address], 04/23/2020 13:52:23 04/24/19 21 04/23/2020 CBC w/ auto diff monocyte,abs olute 0.7 K/uL 0.0-1. 2 normal Not Available [facility] [address] [place] [address], [address], 04/23/2020 13:52:23 04/24/19 21 04/23/2020 CBC w/ auto diff eosinophil,a bsolute 0.2 K/uL 0.0-0. 8 normal Not Available [facility] [address] [place] [address], [address], 04/23/2020 13:52:23 04/24/19 21 04/23/2020 CBC w/ auto diff basophil,abs olute 0.1 K/uL 0.0-0. 3 normal Not Available [facility] [address] [place] [address], [address], 04/23/2020 13:52:23 04/24/19 21 04/23/2020 CBC w/ auto diff % neutrophils 59.0 % 42.0-7 8.0 normal Not Available [facility] [address] [place] [address], [address], 04/23/2020 13:52:23 04/24/19 21 04/23/2020 CBC w/ auto diff % lymphocytes 30.4 % 11.0-4 7.0 normal Not Available [facility] [address] [place] [address], [address], 04/23/2020 13:52:23 04/24/19 21 04/23/2020 CBC w/ auto diff % monocytes 7.8 % 0.0-11 .0 normal Not Available [facility] [address] [place] [address], [address], 04/23/2020 13:52:23 04/24/19 21 04/23/2020 CBC w/ auto diff % eosinophils 1.9 % 0.0-7. 0 normal Not Available [facility] [address] [place] [address], [address], 04/23/2020 13:52:23 04/24/19 21 04/23/2020 CBC w/ auto diff % basophils 0.9 % 0.0-3. 0 normal Not Available [facility] [address] [place] [address], [address], 04/23/2020 13:52:23 04/24/19 21 04/23/2020 CBC w/ auto diff nucleated red cells 0.2 % 0.0-0. 9 normal Not Available [facility] [address] [place] [address], [address], 04/23/2020 13:52:23 04/24/19 21 04/23/2020 CBC w/ auto diff nucleated RBCs, absolute 0.02 K/uL not estab. normal Not Available [facility] [address] [place] [address], [address], 04/23/2020 13:52:23 04/24/19 21 04/23/2020 PT/IN R prothrombin time 9.9 secon ds 9.0-11 .2 normal Not Available [facility] [address] [place] [address], [address], 04/23/2020 14:02:39 04/24/19 21 04/23/2020 PT/IN R INR 1.0 2.0-3. 0 low INR OF 2.0 TO 3.0 RECOM ZENON D FOR: PROPH YLAXI S AND TREAT MENT OF VENOU S THROM BOSIS TREAT MENT OF PULMO NARY EMBOL ISM PREVE NTION OF SYSTE BENNETT EMBOL ISM TISSU E HEART VALVE S, VALVU LAR HEART DISEA SE ACUTE MYOCA RDIAL INFAR CTION , ATRIA L FIBRI LLATI ON INR OF 2.5 TO 3.5 RECOM ZENON D FOR: RECUR RENT SYSTE BENNETT EMBOL ISM MECHA NICAL PROST HETIC VALVE S Not Available [facility] [address] [place] [address], [address], 04/23/2020 14:02:39 04/24/19 21 04/23/2020 CMP, serum or plasm a glucose 88 mg/dL 74-100 normal Not Available [facility] [address] [place] [address], [address], 04/23/2020 15:48:59 04/24/19 21 04/23/2020 CMP, serum or plasm a blood urea nitrogen 14 mg/dL 6-20 normal Not Available [facility] [address] [place] [address], [address], 04/23/2020 15:48:59 04/24/19 21 04/23/2020 CMP, serum or plasm a creatinine 0.74 mg/dL 0.50-0 .95 normal Not Available [facility] [address] [place] [address], [address], 04/23/2020 15:48:59 04/24/19 21 04/23/2020 CMP, serum or plasm a BUN/creatini ne ratio 19 (calc ) 10-20 normal Not Available [facility] [address] [place] [address], [address], 04/23/2020 15:48:59 04/24/19 21 04/23/2020 CMP, serum or plasm a sodium 141 mmol/ L 136-14 5 normal Not Available [facility] [address] [place] [address], [address], 04/23/2020 15:48:59 04/24/19 21 04/23/2020 CMP, serum or plasm a potassium 4.4 mmol/ L 3.4-5. 0 normal Not Available [facility] [address] [place] [address], [address], 04/23/2020 15:48:59 04/24/19 21 04/23/2020 CMP, serum or plasm a chloride 105 mmol/ L 98-107 normal Not Available [facility] [address] [place] [address], [address], 04/23/2020 15:48:59 04/24/19 21 04/23/2020 CMP, serum or plasm a carbon dioxide 25 mmol/ L 20-32 normal Not Available [facility] [address] [place] [address], [address], 04/23/2020 15:48:59 04/24/1904/23/2020 CMP, serum or plasm a anion gap 11 (calc ) 7-25 normal Not Available [facility] [address] [place] [address], [address], 04/23/2020 15:48:59 04/24/19 21 04/23/2020 CMP, serum or plasm a calcium 9.3 mg/dL 8.6-10 .2 normal Not Available [facility] [address] [place] [address], [address], 04/23/2020 15:48:59 04/24/19 21 04/23/2020 CMP, serum or plasm a total protein 7.4 g/dL 6.4-8. 3 normal Not Available [facility] [address] [place] [address], [address], 04/23/2020 15:48:59 04/24/19 21 04/23/2020 CMP, serum or plasm a albumin 4.3 g/dL 3.5-5. 2 normal Not Available [facility] [address] [place] [address], [address], 04/23/2020 15:48:59 04/24/19 21 04/23/2020 CMP, serum or plasm a globulin 3.1 g/dL_ (calc ) 1.5-4. 5 normal Not Available [facility] [address] [place] [address], [address], 04/23/2020 15:48:59 04/24/19 21 04/23/2020 CMP, serum or plasm a albumin/glob ulin ratio 1.4 (calc ) 1.1-2. 5 normal Not Available [facility] [address] [place] [address], [address], 04/23/2020 15:48:59 04/24/19 21 04/23/2020 CMP, serum or plasm a bilirubin, total 0.3 mg/dL 0.1-1. 2 normal Not Available [facility] [address] [place] [address], [address], 04/23/2020 15:48:59 04/24/19 21 04/23/2020 CMP, serum or plasm a alkaline phosphatase 78 U/L 35-105 normal Not Available [facility] [address] [place] [address], [address], 04/23/2020 15:48:59 04/24/19 21 04/23/2020 CMP, serum or plasm a AST 29 U/L 0-32 normal Not Available [facility] [address] [place] [address], [address], 04/23/2020 15:48:59 04/24/19 21 04/23/2020 CMP, serum or plasm a ALT 35 U/L 0-33 high Not Available [facility] [address] [place] [address], [address], 04/23/2020 15:48:59 04/24/19 21 04/23/2020 CMP, serum or plasm a GFR 104 >= 60 normal Not Available [facility] [address] [place] [address], [address], 04/23/2020 15:48:59 04/24/19 21 04/23/2020 CMP, serum or plasm a GFR non- 90 >= 60 normal NOT E NEW calcu latio n for GFR is based on the Natio nal Kidne y Found ation CKD-E PI equat ion and allow s for repor ting GFR value s great er than 60 mL/mi n/1.7 3 m2. This calcu latio n has not been valid ated for patie nts less than 18 yrs., pregn ant women and Hispa nics. Chron ic kidne y disea se is defin ed as kidne y damag e or GFR less than 60 mL/mi n/1.7 3 m2 for 3 month s or longe r. Not Available [facility] [address] [place] [address], [address], 04/23/2020 15:48:59 04/24/19 21 04/25/2020 hepat itis C virus RNA, quant , PCR, serum or plasm a HCV RNA, qt, IU/mL [id number] 0 IU/mL not detect ed high Not Available [facility] [address] [place] [address], [address], 04/25/2020 20:01:00 04/24/19 21 04/25/2020 hepat itis C virus RNA, quant , PCR, serum or plasm a HCV RNA, qt, log IU/mL 6.05 log_I U/mL not detect ed high This test was perfo rmed using Real- Time Polym erase Chain React ion. Repor table Range : 15 IU/mL to 100,0 00,00 0 IU/mL (1.18 Log IU/mL to 8.00 Log IU/mL ). The joana tical perfo rmanc e vita cteri stics of this assay have been deter mined by [employer]. The modif icati ons have not been clear ed or appro stoney by the FDA. This assay has been valid ated pursu ant to the CLIA regul ation s and is used for clini donovan purpo ses. For more infor han moctezuma on this test, go to: http: //[facility] alice nfemi stdia gnost ics.c om/fa q/FAQ 22v1 (This link is being provi ded for infor matio nal/ educa jonathan l purpo ses only. ) TEST PERFO RMED AT: [employer] [facility] [address] [address] SARAH Velasquez MD Not Available [facility] [address] [place] [address], [place], [address], 04/25/2020 20:01:00 04/24/19 21 04/28/2020 hepat itis C genot ype, serum or plasm a hepatitis C RNA,genotype 1b normal The metho d used in this test is RT-PC R and rever se hybri dizat ion (Line Probe ) of the 5' UTR and core regio n of the HCV genom e. The joana tical perfo rmanc e vita cteri stics of this assay have been deter mined by [employer] Infec tious Disea se. The modif icati ons have not been clear ed or appro stoney by the FDA. This assay has been valid ated pursu ant to the CLIA regul ation s and is used for clini donovan purpo ses. For addit ional infor toney ascencio e refer to http: //edu catio n.Que stDia gnost ics.c om /faq/ HCVGe notyp ing (This link id being provi ded for infor matio nal/ educa jonathan l purpo ses only. ) TEST PERFO RMED AT: [facility] [address] [place] [address] AMAYA ELI RMAN, M Not Available [facility] [address] [place] [address], [address], 04/28/2020 00:45:19 12/04/19 22 12/03/2021 HEMOG DELMER white blood cells 11.8 K/uL 3.8-10 .8 high Not Available [facility] [address] [place] [address], [address], 12/03/2021 15:06:10 12/04/19 22 12/03/2021 HEMOG DELMER red blood cells 4.56 M/uL 3.80-5 .20 normal Not Available [facility] [address] [place] [address], [address], 12/03/2021 15:06:10 12/04/19 22 12/03/2021 HEMOG DELMER hemoglobin 13.8 g/dL 12.0-1 6.0 normal Not Available [facility] [address] [place] [address], [address], 12/03/2021 15:06:10 12/04/19 22 12/03/2021 HEMOG DELMER hematocrit 41.6 % 35.0-4 7.0 normal Not Available [facility] [address] [place] [address], [address], 12/03/2021 15:06:10 12/04/19 22 12/03/2021 HEMOG DELMER MCV 91 fL 80-100 normal Not Available [facility] [address] [place] [address], [address], 12/03/2021 15:06:10 12/04/19 22 12/03/2021 HEMOG DELMER MCH 30 pg 26-35 normal Not Available [facility] [address] [place] [address], [address], 12/03/2021 15:06:10 12/04/19 22 12/03/2021 HEMOG DELMER MCHC 33 g/dL 32-36 normal Not Available [facility] [address] [place] [address], [address], 12/03/2021 15:06:10 12/04/19 22 12/03/2021 HEMOG DELMER RDW 13.7 % 11.0-1 5.0 normal Not Available [facility] [address] [place] [address], [address], 12/03/2021 15:06:10 12/04/19 22 12/03/2021 HEMOG DELMER MPV 8.8 fL 6.2-10 .5 normal Not Available [facility] [address] [place] [address], [address], 12/03/2021 15:06:10 12/04/19 22 12/03/2021 HEMOG DELMER platelet count 433 K/uL 130-40 0 high Not Available [facility] [address] [place] [address], [address], 12/03/2021 15:06:10 12/04/19 22 12/03/2021 PROTH ROMBI N TIME prothrombin time 9.5 secon ds 8.9-10 .8 normal Not Available [facility] [address] [place] [address], [address], 12/03/2021 15:29:19 12/04/19 22 12/03/2021 PROTH ROMBI N TIME INR 1.0 2.0-3. 0 low INR OF 2.0 TO 3.0 RECOM ZENON D FOR: PROPH YLAXI S AND TREAT MENT OF VENOU S THROM BOSIS TREAT MENT OF PULMO NARY EMBOL ISM PREVE NTION OF SYSTE BENNETT EMBOL ISM TISSU E HEART VALVE S, VALVU LAR HEART DISEA SE ACUTE MYOCA RDIAL INFAR CTION , ATRIA L FIBRI LLATI ON INR OF 2.5 TO 3.5 RECOM ZENON D FOR: RECUR RENT SYSTE BENNETT EMBOL ISM MECHA NICAL PROST HETIC VALVE S Not Available [facility] [address] [place] [address], [address], 12/03/2021 15:29:19 12/04/19 22 12/03/2021 COMP. METAB OLIC PANEL glucose 94 mg/dL 74-100 normal Not Available [facility] [address] [place] [address], [phone], 12/03/2021 16:43:15 12/04/19 22 12/03/2021 COMP. METAB OLIC PANEL blood urea nitrogen 15 mg/dL 6-20 normal Not Available [facility] [address] [place] [address], [address], 12/03/2021 16:43:15 12/04/19 22 12/03/2021 COMP. METAB OLIC PANEL creatinine 0.72 mg/dL 0.50-0 .95 normal Not Available [facility] [address] [place] [address], [address], 12/03/2021 16:43:15 12/04/19 22 12/03/2021 COMP. METAB OLIC PANEL BUN/creatini ne ratio 21 (calc ) 10-20 high Not Available [facility] [address] [place] [address], [address], 12/03/2021 16:43:15 12/04/19 22 12/03/2021 COMP. METAB OLIC PANEL sodium 138 mmol/ L 136-14 5 normal Not Available [facility] [address] [place] [address], [address], 12/03/2021 16:43:15 12/04/19 22 12/03/2021 COMP. METAB OLIC PANEL potassium 4.3 mmol/ L 3.4-5. 0 normal Not Available [facility] [address] [place], [address], 12/03/2021 16:43:15 12/04/19 22 12/03/2021 COMP. METAB OLIC PANEL chloride 102 mmol/ L 98-107 normal Not Available [facility] [address] [place] [address], [address], 12/03/2021 16:43:15 12/04/19 22 12/03/2021 COMP. METAB OLIC PANEL carbon dioxide 25 mmol/ L 22-31 normal Not Available [facility] [address] [place] [address], [address], 12/03/2021 16:43:15 12/04/19 22 12/03/2021 COMP. METAB OLIC PANEL anion gap 11 (calc ) 7-25 normal Not Available [facility] [address] [place] [address], [address], 12/03/2021 16:43:15 12/04/19 22 12/03/2021 COMP. METAB OLIC PANEL calcium 10.2 mg/dL 8.6-10 .2 normal Not Available [facility] [address] [place] [address], [address], 12/03/2021 16:43:15 12/04/19 22 12/03/2021 COMP. METAB OLIC PANEL total protein 8.1 g/dL 6.4-8. 3 normal Not Available [facility] [address] [place] [address], [address], 12/03/2021 16:43:15 12/04/19 22 12/03/2021 COMP. METAB OLIC PANEL albumin 4.7 g/dL 3.5-5. 2 normal Not Available [facility] [address] [place] [address], [address], 12/03/2021 16:43:15 12/04/19 22 12/03/2021 COMP. METAB OLIC PANEL globulin 3.4 g/dL_ (calc ) 1.5-4. 5 normal Not Available [facility] [address] [place] [address], [address], 12/03/2021 16:43:15 12/04/19 22 12/03/2021 COMP. METAB OLIC PANEL albumin/glob ulin ratio 1.4 (calc ) 1.1-2. 5 normal Not Available [facility] [address] [place] [address], [address], 12/03/2021 16:43:15 12/04/19 22 12/03/2021 COMP. METAB OLIC PANEL bilirubin, total 0.2 mg/dL 0.1-1. 2 normal Not Available [facility] [address] [place] [address], [address], 12/03/2021 16:43:15 12/04/19 22 12/03/2021 COMP. METAB OLIC PANEL alkaline phosphatase 87 U/L 30-121 normal Not Available [facility] [address] [place] [address], [address], 12/03/2021 16:43:15 12/04/19 22 12/03/2021 COMP. METAB OLIC PANEL AST 29 U/L 0-32 normal Not Available [facility] [address] [place] [address], [address], 12/03/2021 16:43:15 12/04/19 22 12/03/2021 COMP. METAB OLIC PANEL ALT 35 U/L 0-33 high Not Available [facility] [address] [place] [address], [address], 12/03/2021 16:43:15 12/04/19 22 12/03/2021 COMP. METAB OLIC PANEL GFR 96 >= 60 normal NOT E New calcu latio n for GFR (CKD- EPI 2020) is formu lated witho ut race adjus tment facto rs at the recom menda tion of the Natio nal Kidne y Found ation and Jess valdovinos Socie ty of Nephr ology . This calcu latio n has not been valid ated in pregn ant women . For pedia tric patie nts refer to https ://darian santizo.capo stein.jt puente/pr kamlaess ional s/KDO QI/gf r_cal culat orPed Not Available [facility] [address] [place], [address], 12/03/2021 16:43:15 12/04/19 22 12/03/2021 HEPAT ITIS B SURF. AB,QT hepatitis B surf.Ab,qt 155.0 mIU/m L > or = 10 normal Resul t is Posit rick. Patie nt has immun ity to Hepat itis B virus . Not Available [facility] [address] [place], [address], 12/03/2021 16:54:30 12/04/19 22 12/06/2021 HIV SCREE N HIV screen NON-RE ACTIVE non-re active normal HIV-1 antig en and HIV-1 /HIV- 2 antib odies were not detec riccardo. There is no labor atory evide nce of HIV infec tion. PLEAS E NOTE: This infor matio n has been discl osed to you from recor ds whose confi denti ality may be prote cted by state law. If your state requi res such prote ction , then the state law prohi bits you from antonio syed any furth er discl osure of the infor matio n witho ut the speci fic writt en conse nt of the perso n to whom it perta ins, or as other priest permi tted by law. A gener al autho rizat ion for the relea se of medic al or other infor matio n is NOT suffi cient for this purpo se. For addit ional infor matio n pleas e refer to http: //kurt catbashir moctezuma.que stdia gnost ics.c om/fa q/FAQ 106 (This link is being provi ded for infor matio nal/ educa jonathan l purpo ses only. ) The perfo rmanc e of this assay has not been clini hermes valid ated in patie nts less than 2 years old. TEST PERFO RMED AT: [facility] [address] [place] [address] SARAH Velasquez MD Not Available [facility] [address] [place] [address], [phone], 12/06/2021 12:35:30 12/04/19 22 12/06/2021 HEPAT ITIS A, TOTAL , REFLE X IGM hepatitis A, total, reflex IgM REACTI VE non-re active abnormal For addit ional infor toney ascencio e refer to http: //[facility] watson stdia gnost ics.c om/fa q/FAQ (This link is being provi ded for infor han medeiros/ educaryan castillo l purpo ses only. ) TEST PERFO RMED AT: [facility] [address] [place] [address] SARAH Velasquez MD ----- ----- ----- ----- ----- ----- ----- ----- ----- ----- ----- - NOTE THIS IS A REPOR TABLE DISEA SE AND MUST BE REPOR RICCARDO TO THE [facility]PT WITHI N 24 HOURS ----- ----- ----- ----- ----- ----- ----- ----- ----- ----- ----- - Not Available [facility] [address] [place], [address], 12/06/2021 15:17:25 12/04/19 22 12/06/2021 HEPAT ITIS C RNA, QT, PCR HCV RNA, qt, IU/mL 870427 0 IU/mL not detect ed high Not Available [facility] [address] [place], [address], 12/06/2021 15:50:47 12/04/19 22 12/06/2021 HEPAT ITIS C RNA, QT, PCR HCV RNA, qt, log IU/mL 6.38 log_I U/mL not detect ed high This test was perfo rmed using Real- Time Polym erase Chain React ion. Repor table Range : 15 IU/mL to 100,0 00,00 0 IU/mL (1.18 Log IU/mL to 8.00 Log IU/mL ). The joana tical perfo rmanc e vita cteri stics of this assay have been deter mined by [facility]. The modif icati ons have not been clear ed or appro stoney by the FDA. This assay has been valid ated pursu ant to the CLIA regul ation s and is used for clini donovan purpo ses. For more infor han moctezuma on this test, go to: http: //[facility] catbashir n.que stdia gnost ics.c om/fa q/FAQ 22v1 (This link is being provi ded for infor matio nal/ educa jonathan l purpo ses only. ) TEST PERFO RMED AT: [facility] [address] [address] SARAH Velasquez MD Not Available [facility] [address] [place] [address], [address], 12/06/2021 15:50:47 12/04/19 22 12/07/2021 HEPAT ITIS A AB, IGM hepatitis A Ab, IgM NON-RE ACTIVE non-re active normal For addit ional infor toney ascencio e refer to http: //edu catio n.que stdia gnost ics.c om/fa q/FAQ 202 (This link is being provi ded for infor matio nal/ educa jonathan l purpo ses only. ) TEST PERFO RMED AT: [facility] [address] [place] [address] SARAH Velasquez MD Not Available [facility] [address] [place] [address], [address], 12/07/2021 11:01:54 12/04/19 22 12/09/2021 HEPAT ITIS C RNA,G ENOTY PE hepatitis C RNA,genotype 1b normal The metho d used in this test is RT-PC R and rever se hybri dizat ion (Line Probe ) of the 5' UTR and core regio n of the HCV genom e. The joana tical perfo rmanc e vita cteri stics of this assay have been deter mined by [facility]. The modif icati ons have not been clear ed or appro stoney by the FDA. This assay has been valid ated pursu ant to the CLIA regul ation s and is used for clini donovan purpo ses. For addit ional infor toney ascencio e refer to http: //[facility] catbashir n.Que stDia gnost ics.c om /faq/ HCVGe notyp ing (This link id being provi ded for infor matio nal/ educa jonathan l purpo ses only. ) TEST PERFO RMED AT: [facility] [address] [place] [address] Ashlie LOWE,PHD ,EDUARDO Not Available [facility] [address] [place], [address], 12/09/2021 01:47:04 08/18/19 18 08/09/2017 elect jazz alberto am No observ ation record ed. [email or web address] [facility] [address] [place], [place], [address], 08/17/2017 11:45:59 04/24/19 21 04/23/2020 US, abdom en, compl ete Sofia mace [address] [place] [address] Marvin wagner Name: ANJANA wagner : [phone] wagner Orderi ng Provid er: JEANNA Prasad EXAM DATE: 2020 EXAM: US ABDOME N COMPLE CLINIC AL INFORM ATION: Chroni c viral hepati tis C. TECHNI QUE: Multip le sonogr aphic images of the abdome n were obtain ed. COMPAR RASTA: None. FINDIN GS: LIVER: Normal in size and echoge nicity . No obviou s focal lesion . BILIAR Y SYSTEM : Gallbl adder is normal in size and wall thickn ess. No stones are seen. No intrah epatic biliar y dilata tion. CBD measur ement = 2.6 mm. Normal in size. PANCRE : Well visual ized. Normal in size and echoge nicity . No obviou s focal lesion . RIGHT KIDNEY : Length = 9.5 cm. No hydron ephros is, mass or stone. LEFT KIDNEY : Length = 9.1 cm. No hydron ephros is, mass or stone. SPLEEN : Length = 8.6 cm. Normal in size echoge nicity and echote xture. Calcif ied granul omata are seen in the spleen . AORTA: Normal in diamet er and course withou t eviden ce of aneury sm. IMPRES THOMPSON: No obviou s hepato biliar y abnorm ality has been demons trated . Interp reted By: Yonatan Ramírez MD Electr onical ly Signed By: Yonatan Ramírez MD on 021 12:07 PM [facility] [address] [place] [address] , [place], [address], 05/02/2020 12:20:53 Result Notes None recorded. Problems Name Problem SNOMED Code Status Onset Date Resolution Date Notes Provider Name and Address Organization Details Recorded Time Adult health examinati on Active 2016 ABHILASH NIÑO DO [address], [place], [address] , [facility] 7 11:34:03 Mood disorder Active 2015 From Automated Load;Provi emi: Lakeisha Sosa;Ron tatus: Active Not Available [facility] 7 06:28:20 Chest pain 92903246 Active 2015 From Automated Load;Provi emi: Shawn Sosa tatus: Active Not Available [facility] 7 06:43:[address] Concept Active 2015 From Automated Load;Provi emi: Lakeisha Sosa;Ron tatus: Active Not Available [facility] 7 07:44:01 Shoulder joint pain 525817507 Active 2015 From Automated Load;Provi emi: Lakeisha Sosa;Ron tatus: Active Not Available [facility] 7 08:32:32 Problem Notes None recorded. Procedures Surgical History Date Name Laterality Status Provider Name and Address Organization Details Recorded Time 01/21/20 20 Pap Smear collection completed BASSEM GARCIA MD [address] [place], [address], [facility] 01/21/2020 13:40:03 01/21/20 20 Date of Last Pap Smear completed Cammie Slater [facility] 01/28/2020 11:34:24 06/27/19 18 Endoscopy Nasal; Diagnostic completed Sharon Huertas [facility] 06/26/2017 15:39:05 05/23/19 18 Endoscopy Nasal; Diagnostic completed Lynn Izquierdo [facility] 05/22/2017 12:33:19 05/04/19 18 Tympanogram completed JESS KANG, AUD [address] [place], [address], [facility] 05/03/2017 10:54:29 05/04/19 18 Audiogram completed JESS KANG AUD [address] [place], [address], [facility] 05/03/2017 10:54:28 05/04/19 18 Audiogram completed Pam Sanderson [facility] 05/03/2017 11:03:05 05/04/19 18 Tympanometry completed Pam Sanderson [facility] 05/03/2017 11:00:24 05/04/19 18 Endoscopy Nasal; Biospy, Polypectomy or Debridement completed Pam Sanderson [facility] 05/03/2017 10:47:40 04/22/19 18 Ears/Nose/Throat Surgery completed Marifer Sandoval [facility] 05/03/2017 10:02:02 04/04/19 18 Review of Med Recs/Compl forms completed Erika Walters [facility] 04/04/2017 15:08:52 04/04/19 18 Spirometry completed Dorcas Limon [facility] 04/04/2017 14:32:59 04/04/19 18 Allergy Testing completed Dorcas Limon [facility] 04/04/2017 14:32:56 04/04/19 17 Biopsy Liver, percutaneous completed SHERI RAMÍREZ MD [address] [place] [address], [address], [facility] 04/20/2016 15:47:53 03/17/19 17 Date of Last Colonoscopy completed Ela Hickey [facility] 01/21/2020 13:19:10 04/22/18 91 Partial Hysterectomy completed Ela Hickey [facility] 01/21/2020 13:13:56 Partial Hysterectomy completed [facility] 04/19/2016 11:21:39 Shoulder joint surgery completed [facility] 04/19/2016 11:21:29 Unlisted px hands/fingers completed [facility] 04/19/2016 11:21:55 Imaging Results Imaging Date Name Status LastModified by Organization Details LastModified Time 08/09/2017 electrocardiogram completed [facility] [address] , [place], [address], 08/17/2017 11:45:59 04/23/2020 US, abdomen, complete completed [facility] [address] [place], [address], 05/02/2020 12:20:53 Procedure Notes None recorded. Medical Equipment None Reported. Allergies Allergen ID Allergen Name Allergen Category Reaction Reaction Severity Criticality Documentation Date Start Date Code Code System Note Provider Name and Address Organization Details Recorded Time 515909 Substance with sulfonami de structure and antibacte rial mechanism of action (substanc e) medicatio n other Not available Not available 02/18/2016 68842 9032 SNOMED Chel Ian [facility] 7 10:53:51 562233 codeine medicatio n itching Not available Not available 02/18/2016 2670 RxNorm Chel Sosa [facility] 7 10:54:24 561648 Tamiflu medicatio n rash Not available Not available 04/19/2016 96276 7 RxNorm Bhavani Dunne [facility] 7 14:23:17 Medications Name Sig Start Date Stop Date Status Note LastModified by Organization Details LastModified Time Singulair 10 mg tablet Take 1 tablet every day by oral route for 30 days. 04/06 completed Not Available Not Available Not Available Augmentin 875 mg-125 mg tablet Take 1 tablet every 12 hours by oral route for 10 days. 05/03 completed Not Available Not Available Not Available Keflex 500 mg capsule Take 1 capsule twice a day by oral route. 02/01 completed Not Available Not Available Not Available Diflucan 150 mg tablet Take 1 tablet by oral route. 07/06 completed Not Available Not Available Not Available tretinoin 0.05 % topical cream 07/06 completed Not Available Not Available Not Available dexametha sone sodium phosphate 0.1 % eye drops as directed 04/21 completed Not Available Not Available Not Available Klonopin 0.5 mg tablet Take 1 tablet every day by oral route as needed for 30 days. 01/20 completed Pt + for cocaine. She can no longer have narcotic s from our office. PT informed on 08/17/17 Not Available Not Available Not Available dicyclomi ne 20 mg tablet Take 1 tablet 4 times a day by oral route for 30 days. 12/03 completed Not Available Not Available Not Available Prozac 20 mg capsule Take 1 capsule every day by oral route. 04/06 completed Not Available Not Available Not Available metronida zole 0.75 % topical cream APPLY A THIN LAYER TO THE AFFECTED AREA(S) BY TOPICAL ROUTE 2 TIMES PER DAY IN THE MORNING AND EVENING 08/02 completed Not Available Not Available Not Available omeprazol e 20 mg capsule,d elayed release Take 1 capsule every day by oral route for 30 days. 12/03 completed Not Available Not Available Not Available hydroxyzi ne HCl 25 mg tablet Take 1 tablet 3 times a day by oral route. active Not Available Not Available No t Available epinephri ne 0.3 mg/0.3 mL injection , auto-inje ctor use as directed by prescrib er 04/21 completed Not Available Not Available Not Available estradiol 0.01% (0.1 mg/gram) vaginal cream use 0.5 gram in the vagina 3 x weekly 12/03 completed Not Available Not Available Not Available Premarin 0.625 mg/gram vaginal cream Insert 0.5 applicat orsful every day by vaginal route. active Not Available Not Available No t Available multivita min active Not Available Not Available Not Available Suprep Bowel Prep Kit 17.5 gram-3.13 gram-1.6 gram oral solution DIRECTED 12/03 completed Not Available Not Available Not Available Harvoni 90 mg-400 mg tablet 02/01 completed Not Available Not Available Not Available Flonase Allergy Relief 50 mcg/actua tion nasal spray,rowan pension [place] 2 sprays every day by intranas al route for 30 days. 01/20 completed Not Available Not Available Not Available Liver Complex 08/02 completed Not Available Not Available Not Available Epclusa 400 mg-100 mg tablet Take 1 tablet every day by oral route for 28 days. 2021 active Approved 2-2022 Not Available Not Available Not Available Clenpiq 10 mg-3.5 gram-12 gram/160 mL oral solution TAKE DIRECTED 12/03 completed Not Available Not Available Not Available Suflave 178.7 gram-7.3 gram-0.5 gram oral solution TAKE DIRECTED 2024 active Not Available Not Available Not Avai lable Vitals Date Recorded Body height Body mass index (BMI) Body weight Body temperature Heart rate Respiratory rate Oxygen saturation Oxygen saturation in Arterial blood by Pulse oximetry Systolic blood pressure Diastolic blood pressure Provider Name and Address Organization Details Last Updated DateTime 8 157.48 cm 27.5 kg/m2 11363.2 9 g 98.7 [degF] 76 /min 16 /min 99 % 99 % 128 mm[Hg] 80 mm[Hg] Anjana Serrano [facility] 8 10:32:37 Date Recorded Body weight Systolic blood pressure Diastolic blood pressure Provider Name and Address Organization Details Last Updated DateTime 01/21/2020 82712.93 g 126 mm[Hg] 78 mm[Hg] Ela Derastcher [facility] 01/21/2020 13:22:00 Date Recorded Body height Body mass index (BMI) Body weight Body temperature Heart rate Systolic blood pressure Diastolic blood pressure Provider Name and Address Organization Details Last Updated DateTime 1 157.48 cm 31.1 kg/m2 75203.7 g 97.4 [degF] 97 /min 151 mm[Hg] 84 mm[Hg] Jihan Ramirez [facility] 1 13:33:24 Date Recorded Body height Body mass index (BMI) Body weight Heart rate Respiratory rate Systolic blood pressure Diastolic blood pressure Provider Name and Address Organization Details Last Updated DateTime 2 157.48 cm 30.4 kg/m2 53542.3 3 g 80 /min 16 /min 163 mm[Hg] 92 mm[Hg] Markus Pizarro [facility] 2 13:40:58 Social History Question Answer Notes LastModified by Organizat ion Details LastModified Time Tobacco Smoking Status [email or web address] 10:40:13 What Is Your Level Of Alcohol Consumption? Occasional Information not available 07/12/2016 What Is Your Level Of Caffeine Consumption? Moderate Information not available 07/12/2016 How Much Tobacco Do You Chew? None Information not available 07/12/2016 What Type Of Diet Are You Following? REGULAR Information not available 07/12/2016 What Is Your Occupation? Disability Information not available 07/12/2016 Legally Blind In One Or Both Eyes? No Information not available 07/12/2016 Live Alone Or With Others? Alone Information not available 07/12/2016 Marital Status Informati on not available 07/12/2016 What Was The Date Of Your Most Recent Tobacco Screening? 01/21/2020 [email or web address] Information not available 01/21/2020 How Many Children Do You Have? 4 Information not available 07/12/2016 Seat Belts Used Routinely Yes Information not available 07/12/2016 Smoke Alarm In Home No Information not available 07/12/2016 How Much Tobacco Do You Smoke? No Information not available 07/12/2016 General Stress Level Medium Information not available 07/12/2016 Has Tobacco Cessation Counseling Been Provided? No [email or web address] Information not available 05/22/2017 Sex: Unknown Functional Status Question Answer Note LastModified by Organization D etails LastModified Time Are you able to care for yourself? Yes Information n ot available 07/12/2016 What is your exercise level? None Information not available 07/12/2016 Mental Status None recorded. Family History Relationship Description Onset Age of this Age Resolved Age Notes LastModified by Organization Details LastModified Time Maternal Grandfather Alcoholism [email or web address] Not available 11:26:34 Maternal Grandfather Asthma Not available 07/06 11:26:34 Maternal Grandfather Diabetes mellitus [email or web address] Not available 2017 11:26:34 Mother Heart disease Not available 2016 15:16:16 Mother Hypertensive disorder [email or web address] Not available 06/2016 10:39:33 Mother Mental disorder [email or web address] Not available 2017 11:26:34 Mother Disorder of thyroid gland [email or web address] Not available 06/2016 10:40:00 Medical History Condition Response Coronary Artery Disease N Other N Gout N Atrial Fibrillation N Kidney Stones N Hyperthyroidism N Heart Arrhythmia N Blood Transfusion Y Emphysema N Esophagus/swallowing troubles N Depression N COPD N Pneumonia N Gastrointestinal Disease N Anxiety Disorder Y Muscle, Joint, or Bone Problems N Vision or Eye Problems N Arthritis Y Polyps N Infertility N Blood Clot N Acid Reflux (GERD) N Cancer Y Varicosities N Stroke N Hoarseness N Snoring problems N Headaches N Fibromyalgia N Kidney Disease N Heart Problems N Mental handicap N Ear or Hearing Problems N Hospitalizations N Gallbladder Disease N Migraines N Goiter N Skin Problems N Eating Disorder N Constipation N Ulcers N Rheumatic Fever N Bleeding Disorder N Tuberculosis N Genetic Disorder N AIDS/HIV N Asthma Y Peripheral Vascular Disease N Sleep Disorder N Hepatitis Y Pulmonary Embolism N Chronic Ear Infections N Chicken Pox N Thrombophilias N Anxiety/Depression N Thyroid Disease N Hernia N Lung Disease N Hypothyroidism N Glaucoma N Breast Problem N Difficulty Swallowing N Anesthesia Complications N Meniere's disease N Hearing Loss N Serious Illness or Injuries N Endometriosis N Bladder or Kidney Problems N Alcohol Overuse/Alcohol Abuse N High Cholesterol N Liver Disease N Allergies/Hayfever Y Chronic Obstructive Pulmonary Disease N Parkinson's Disease N Alzheimer's N Thyroid Problems N GI Problems Y Anemia N Immune System Disorder N Chest Pain N Stomach trouble N Heart Attack ([place]) N Mental Illness Y Neurological Problems N Diabetes Y Anticoagulation therapy N Ovarian Cancer N Seizures/Epilepsy N Hyperlipidemia N Eczema N Diverticulitis N Epilepsy/Seizures N Reflux/GERD N Sleep Apnea N Heart Disease N Pre-Eclampsia N Hypertension N Osteoporosis N Gynecological History Statement/Question Response Abnormal Pap N Date of Last Mammogram Date of Last Colonoscopy 03/17/2016 Sexually Active? N Date of Last Pap Smear 01/21/2020 Current Control Method Hysterectom y Obstetrics History GPAL:G 5 P 4 0 1 4 Type Value Full Term 4 Spontaneous 1 Living 4 Total 5 Immunizations Vaccine Type Date Status Note Provider Nam e and Address Organization Details Recorded Time Influenza, split virus, quadrivalent, PF 12/08/2016 completed Not Available [facility] 02:45:20 Past Encounters Encounter ID Performer Location Encounter Start Date Encounter Closed Date Diagnosis/Indication Diagnosis SNOMED-CT Code Diagnosis ICD10 Code Diagnosis Note [id number] ABHILASH NIÑO DO [facility] [address] [place] [address] 02/18/2016 10:03:48 02/18/2016 11:51:09 Screening for malignant neoplasm of colon 413258143 Z12.11 Adult heal th examination 632988847 Z00.00 Chronic hepatitis C 1283 52709 B18.2 Bipolar disorder 4506266 4 F31.9 Generalize d anxiety disorder 39720031 F41.1 Allergic rhinitis 669128 04 J30.9 Mitral valve prolapse 40 5712318 I34.1 [id number] JEANNA LEBRON MD GASTRO [address] [facility] [address] [place] [address] 03/16/2016 09:53:03 03/16/2016 15:37:03 Chronic hepatitis C 948235825 B18.2 [id number] JEANNA LEBRON MD SURGERY SCHEDULE [address] [place] [address] 03/31/2016 07:33:22 03/31/2016 07:36:45 [id number] SHERI RAMÍREZ MD SURGERY SCHEDULE [address] [place] [address] 04/04/2016 07:32:36 04/04/2016 07:36:35 [id number] MICHELLE BROOKS MD [place] [facility] [address] [place] [address] 04/19/2016 14:16:46 04/19/2016 15:04:38 Allergic rhinitis 94662477 J30.9 Hypertroph y of nasal turbinates 34524912 J34.3 Chronic sinusitis 145759 00 J32.9 Deviated nasal septum 12 6356114 J34.2 [id number] MICHELLE BROOKS MD [place] [facility] [address] [place] [address] 05/02/2016 13:07:35 05/02/2016 15:03:21 Recurrent acute sinusitis 075494851 J01.91 Allergic rhinitis 816194 04 J30.9 Chronic sinusitis 412969 00 J32.9 Hypertroph y of nasal turbinates 55482185 J34.3 [id number] JEANNA LEBRON MD GASTRO SB [address] [facility] [place] [address] 05/04/2016 11:23:43 05/04/2016 13:05:17 Chronic hepatitis C 450165749 B18.2 [id number] ABHILASH NIÑO, [address] [place] [address] 07/12/2016 14:00:57 07/13/2016 15:22:01 Pain in left knee 9961740034 50939 M25.562 Pain in right knee 11512 44201 28604 M25.561 Chronic hepatitis C 1283 30797 B18.2 pt. declines treatment at this time Osteoarthritis 095157260 M19.90 Generalize d anxiety disorder 52117915 F41.1 Low back pain 968374697 M54.5 [id number] SANDRINE SANTACRUZ MD ORTHOPEDI [address] [place] [address] 07/22/2016 10:06:35 07/25/2016 08:21:04 Tear of medial meniscus of knee 505215905 S83.222A in setting of PF OA, rec begin conservati ve - PT, low impact exercise, safe use NSAIDS, lightwt brace, 20 min counseling re non op care, she had many questions re visco and stem cells, answered [id number] ABHILASH NIÑO [address] [place] [address] 10/25/2016 11:29:35 10/25/2016 12:37:25 Generalized anxiety disorder 58802828 F41.1 Knee pain 10097905 M25.5 69 Chronic hepatitis C 1283 27864 B18.2 pt. declines treatment at this time Osteoarthritis 392355474 M19.90 Allergic rhinitis 358712 04 J30.9 Posttrauma tic stress disorder 92323197 F43.10 [id number] MD TIMOTEO STARKEY ENT [address] [place] [address] 10/27/2016 15:26:58 10/28/2016 11:26:53 Asthma 775081580 J45.909 Allergic rhinitis 103273 04 J30.9 [id number] ABHILASH NIÑO DO [address] [place] [address] 12/08/2016 14:58:53 12/08/2016 16:24:13 Cough 26347894 R05 improved Generalize d anxiety disorder 68214602 F41.1 Allergic rhinitis 558008 04 J30.9 Low back pain 261847737 M54.5 Active or passive immunization 832143097 Z23 [id number] MD TIMOTEO STARKEY ENT [address] [place] [address] 12/20/2016 13:20:38 12/20/2016 16:40:21 Asthma 737723375 J45.909 Allergic rhinitis 024216 04 J30.9 Hypertroph y of nasal turbinates 77237097 J34.3 [id number] ABHILASH NIÑO DO FAMILY [address] [place] [address] 02/01/2017 14:57:54 02/01/2017 16:02:40 Generalized anxiety disorder 03489302 F41.1 Depressive disorder 3548 9007 F32.89 recommend counseling Bipolar disorder 0976723 4 F31.9 Allergic rhinitis 884134 04 J30.9 Fatigue 19968295 R53.83 Atrophic vaginitis 56922 000 N95.2 Lentigo 169629538 L81.4 [id number] MD TIMOTEO STARKEY ENT [address] [place] [address] 04/04/2017 13:47:10 04/04/2017 14:40:00 [id number] MD TIMOTEO STARKEY ENT [address] [place] [address] 04/04/2017 14:41:14 04/05/2017 09:41:39 Recurrent acute sinusitis 820921081 J01.91 Hypertroph y of nasal turbinates 70549961 J34.3 [id number] AGUILA CAIN PA-C [address] [place] [address] 04/06/2017 14:56:16 04/06/2017 15:29:50 Cough 49060133 R05 Fever 865874789 R50.9 Acute sinusitis 54824558 J01.90 Atrophic vaginitis 01088 000 N95.2 Lentigo 811038450 L81.4 [id number] FRANCISCA SALDANA MD [facility] [address] [place] [address] 04/13/2017 14:16:46 04/13/2017 14:18:15 Chronic recurrent sinusitis 466471180 J32.9 [id number] MICHELLE BROOKS MD SURGERY SCHEDULE [address] [place] [address] 04/21/2017 09:32:46 04/21/2017 09:33:52 [id number] MD TIMOTEO STARKEY ENT [address] [place] [address] 05/03/2017 09:47:15 05/04/2017 10:01:41 Recurrent acute sinusitis 293489573 J01.91 status post ESS (BEE, BEM) 04/21/2017 Hypertroph y of nasal turbinates 27825915 J34.3 status post bilateral SMR turbinates 04/21/2017 Bilateral tinnitus 48216 92436 102 H93.13 [id number] REZA KNIGHT [place] [facility] [address] [place] [address] 05/03/2017 10:52:44 05/03/2017 11:18:19 Bilateral tinnitus 8439365123 102 H93.13 Otalgia 36122285 H92.03 [id number] ABHILASH NIÑO, [facility] [address] [place] [address] 05/04/2017 13:22:59 05/04/2017 14:18:16 Generalized anxiety disorder 45528364 F41.1 Acute sinusitis 55789806 J01.90 Chronic hepatitis C 1283 22706 B18.2 pt. declines treatment at this time Bipolar disorder 0091698 4 F31.9 Allergic rhinitis 597345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
--- OUTSIDE RECORDS SUMMARY | 2024-06-19 11:44 | XMS_ITS | Data Portability ---
Author Organization [place] - Bhanu syed MD, Main Office Address [address] [facility] [address] [place] [address] Care Team Providers Care Scarfer Operator Name Role Phone CHANDA KERR Primary Care [...] 100 mg chewable tablet 2017 018 INTERFACE [facility] [address] [place], [address], 8 09:40:08 Patient TargetsNo targets recorded. Patient Instructions Encounter Date Encounter Id Patient Instructions Last Modified By Organization Details Last Modified Time 10/26/2017 [id number] Neuropathic Pain : Care Instructions Not available [...] and Address Organization Details Recorded Time Neuropathy [id number] Active 018 TIMOTEO Edge MD 8 09:17:25 [...] Not available Not available Not available 09/18/2017 73015 005 SNOMED TIMOTEO Edge MD 8 10:50:10 1624 Product containin g penicilli n (product) medicatio n Not available Not available Not available 09/18/2017 08472 8001 TIMOTEO Anderson MD 8 10:50:14 1625 Substance with sulfonami de structure and antibacte rial mechanism of action (substanc e) medicatio n Not available Not available Not available 09/18/2017 49604 8003 SNOMED TIMOTEO Edge MD 8 10:50:19 1814 Dilaudid medicatio n Not available Not available Not available 10/26/2017 88895 3 RxNoTIMOTEO Vaughan MD 8 09:12:38 Medications [...] Not Available No t Available Flucelvax Quad 6422-5826 (PF) 60 mcg (15 mcg x 4)/0.5 mL IM syringe 10/19 completed Not Available Not Available Not Available Vitals Date Recorded Body height Body mass index (BMI) Body weight Heart rate Respiratory rate Systolic blood pressure Diastolic blood pressure Provider Name and Address Organization Details Last Updated DateTime 8 167.64 cm 28.2 kg/m2 99632.6 6 g 82 /min 17 /min 100 mm[Hg] 77 mm[Hg] Bhanu Perea MD [address], [place], [address], [place] - Bhanu Perea MD 8 09:40:50 Social History Question Answer Notes LastModified by Organizat ion Details LastModified Time Tobacco Smoking Status Never Smoker Not Available [facility] 12/17/2019 03:34:29 What Is Your Level Of Alcohol Consumption? None [id number] Information not available 12/17/2019 Live Alone Or With Others? With Others Information not available 10/26/2017 What Was The Date Of Your Most Recent Tobacco Screening? 10/26/2017 [id number] Information not available 12/17/2019 Sex: Unknown Functional [...] Office [address] [place] [address] 10/26/2017 09:15:43 10/26/2017 09:40:06 Idiopathic peripheral neuropathy 38962720 G60.9 The patient is a 52-year-ol d white female who was a mild sensory neuropathy . Chronic low back pain 27 8588916 M54.5 She has a spinal cord stimulator then needs adjustment . Cervical d isc disorder 339865463 M50.90 She is status post cervical spinal [...] (MEDICARE REPLACEMENT/ ADVANTAGE - PPO) Anjana Ag [id number] Anjanaaryan Ag Notes Date Note Type Note [...] Perea MD [address], [place], [address], [facility] - Bhanu Perea MD 10/26/2017 09:49:49 OBGyn Episode No OBEpisode recorded.
--- OUTSIDE RECORDS SUMMARY | 2024-06-19 11:45 | XMS_ITS | Data Portability ---
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 Plan of Treatment Reminders Order Date Submit Date Provider Last Modified By Organization Details Last Modified Time Details Appointments None recorded. Lab PTH (parathyroi d hormone), intact + calcium, serum or plasma 2022 023 [facility], [address] [place] [address], [id number], 3 15:45:58 vitamin D, 25-hydroxy, total, serum 2022 023 [facility], [address] [place] [address], [address], 3 16:07:23 testosteron e, free + total, serum 2022 023 [facility], [address] [place] [address], [address], 3 14:03:11 TSH, serum or plasma 2022 023 [facility], [address] [place] [address], [address], 3 15:34:17 T4, free, serum 2022 023 [facility], [address] [place], [address], 3 15:34:14 T3, free, serum or plasma 2022 023 [facility], [address] [place], [address], 3 15:34:19 Referral behavioral health referral 2022 023 [email or web address] 1 [facility], [address], [address], [place], [address], 3 07:46:42 nutritionis t/dietitian referral 2022 [email or web address], [address], [place], [address], 3 12:56:33 gynecologis t referral - Evaluation for HRT 2022 023 [email or web address] 11 Stefany Phil DO, [address] [facility] , [address], [place], [address], 3 07:12:11 Procedures None recorded. Surgeries None recorded. Imaging None recorded. Medication Orders Savella 100 mg tablet 2022 023 [facility], [address] [place], [address], 3 11:39:16 tramadol 50 mg tablet 2022 023 [facility] [address], [address] [place], [address], 3 11:39:18 tramadol ER 100 mg tablet,exte nded release 24 hr 2022 023 [facility] [address], [address] [place], [address], 3 11:39:18 ropinirole 2 mg tablet 2022 023 [facility] [address], [address] [place], [address], 11:39:15 Linzess 290 mcg capsule 2022 023 [facility] [address], [address] [place], [address], 16:15:39 omeprazole 40 mg capsule,del ayed release 2022 023 [facility] [address], [address] [place], [address], 16:11:49 clonidine HCl 0.1 mg tablet 2022 023 [facility], [address] [place], [address], 11:59:26 Imvexxy Maintenance Pack 10 mcg vaginal insert 2022 023 [facility], [facility] [place], [address], 11:59:27 Patient TargetsNo targets recorded. 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 Referral for Me nopausal syndrome Evaluation for HRT Referring Physician: Kelvin Kwong, Endocrinology, Encounter Date: 07/22/2022 Medical Payment Poster/dietitian Refer ral for Body mass index 30+ - obesity Referring Physician: Gabrielle Camejo [employer], Encounter Date: 09/02/2022 Behavioral Health Referral f or Depressive disorder Referring Physician: Gabrielle Camejo [employer], Encounter Date: 09/02/2022 Results Created Date Observation Date Name Description Value Unit Range Abnormal Flag Note LastModifiedBy Organization Detail LastModifiedTime 07/23/19 23 07/22/2022 T4,FR EE T4,free 1.30 NG/dL 0.93-1 .70 normal Not Available [facility] [address] [place] [address], [address], 07/22/2022 15:34:14 07/23/19 23 07/22/2022 TSH TSH 5.750 u[IU] /mL 0.270- 4.200 high Not Available [facility] [address] [place] [address], [address], 07/22/2022 15:34:17 07/23/19 23 07/22/2022 T3 FREE T3 free 2.56 pg/mL 2.00-4 .40 normal Not Available [facility] [address] [place], [address], 07/22/2022 15:34:19 07/23/19 23 07/22/2022 PTH, INTAC [...] ===== ===== ===== ===== ==== Not Available [facility] [address] [place] [address], [address], 07/22/2022 16:07:25 07/23/19 23 07/22/2022 PTH, INTAC T WITH CA calcium 9.9 mg/dL 8.6-10 .2 normal Not Available [facility] [address] [place] [address], [address], 07/22/2022 16:07:25 07/23/19 23 07/22/2022 VITAM IN D 25-OH vitamin D 25-oh, total 44 NG/mL >=30 NG/mL normal Not Available [facility] [address] [place], [address], 07/22/2022 16:07:23 07/23/19 23 07/28/2022 TESTO STERO NE, TOTAL / FREE testosterone , total 14 NG/dL 2-45 normal For addit ional infor han ntoney e refer to https ://ed ucati on.[employer] austinL-3 [employer]. Yecuris/f aq/FA Q165 (This link is being provi ded for infor matio nal/e ducat ional purpo ses only. ) (Note ) This test was devel oped and its joana tical perfo rmanc e vita cteri stics have been deter mined by [employer]. It has not been clear ed or appro stoney by the FDA. This assay has been valid ated pursu ant to the CLIA regul ation s and is used for clini sandhya purpo ses. Not Available [facility] [address] [place], [address], 07/28/2022 14:03:11 07/23/19 23 07/28/2022 TESTO STERO [...] sandhya purpo ses. YAMILETH med fusio n [address] [facility] [address] [place] [address] [phone] Noah maldonado MD Not Available [facility] [address] [place], [address], 07/28/2022 14:03:11 09/13/19 23 09/12/2022 TSH TSH 1.140 u[IU] /mL 0.270- 4.200 normal Not Available [facility] [address] [place], [address], 09/12/2022 13:00:02 09/13/19 23 09/12/2022 T4,FR EE T4,free 1.76 NG/dL 0.93-1 .70 high Not Available [facility] [address] [place], [address], 09/12/2022 13:00:04 07/01/19 23 06/30/2022 NM, gastr ic empty ing scan [facility] [address] [place] [address] Marvin wagner Name: ANJANA JUAREZ JENNIFER Marvin wagner : 964 Patielzbieta t Orderi ng Provid er: ALAINA PHILLIP S EXAM DATE: 2022 EXAM: NM GASTRI C EMPTYI NG STUDY 4HR HISTOR Y: 57-yea r-old female with abdomi nal bloati ng. COMPAR RASTA: None. TECHNI QUE: Gastri c imagin g study was perfor med using Tc 99m sulfur colloi d 1.1 mCi p.o. ([facility] [address]1 ). Immedi ate and 1 Hr, [...] Mila merino MD on 023 1:45 PM [facility] Nuclear Medicine [facility] [place], [address], 06/30/2022 20:13:14 02/03/20 23 02/02/2023 XR, abdom en, compl ete [address] [place] [address] Patien t Name: ANJANA RODRIGUEZ Patien t [...] Yonatan Madera MD on 2022 5:05 PM [facility] [address] , [place], [address], 02/03/2023 08:52:36 01/09/20 24 11/18/2023 MRI, pelvi s, w/o contr ast No observ ation record ed. [email or web address] Not Available 2023 12:29:49 Result Notes None recorded. Problems Name Problem SNOMED Code Status Onset Date Resolution Date Notes Provider Name and Address Organization Details Recorded Time Restless legs 65852170 Active Rasheeda Cyndee null, [facility] 8 11:45:11 Arthritis 8613050 Active 1989 [facility] 8 11:45:11 Fibromyos itis 78788428 Active [facility] 8 11:45:11 Uterine leiomyoma 29036013 Active [facility] 8 11:45:11 Depressiv e disorder 51474696 Active [facility] 8 11:45:11 Backache 702173375 Active [facility] 8 11:45:11 Disorder of thyroid gland 00920391 Active [facility] 8 11:45:11 Irritable bowel syndrome 79034566 Active [facility] 8 11:45:11 Migraine 79352716 Active [facility] 8 11:45:11 Periphera l nerve disease 845265516 Active [facility] 8 11:45:11 Gastroeso phageal reflux disease 259893626 Active [facility] 8 11:45:11 Hyperlipi demia 87166273 Active 2004 [facility] 8 11:45:11 Anxiety 55032461 Active [facility] 8 11:45:11 Chronic drug-ruddy mayra renal disease 519694133 Active [facility] 8 11:45:11 Chronic constipat ion 139240452 Active [facility] 8 11:45:11 Raynaud's phenomeno n 974078411 Active 2017 ADRIANNE ACOSTA APRN [address] [place], [address], [facility] 8 21:56:06 Pain of bilateral hands 466129943777 55358 Active 2017 ADRIANNE ACOSTA APRN [address] [place], [address], [facility] 8 21:56:07 Solitary nodule of lung 207919172 Active 2018 VILMA JACOB MD [address] [place], [address], [facility] 9 15:00:07 Polymyalg ia rheumatic a 90307603 Active 2015 From Automated Load;Prov ider: Adrianne Acosta;S tatus: Active [facility] 8 11:45:11 Finding of sensation by site 677059707 Active 2014 From Automated Load;Prov ider: Adrianne Acosta;S tatus: Active [facility] 8 11:45:11 Hand pain 57261680 Active 2014 From Automated Load;Prov ider: Adrianne Acosta;S tatus: Active [facility] 8 11:45:11 Pain of joint of wrist 467420723 Active 2014 From Automated Load;Prov ider: Adrianne Acosta;S tatus: Active Rasheeda Cyndee null, [facility] 8 11:45:11 Chronic pain syndrome 574715547 Active 2014 From Automated Load;Prov ider: Jermaine Monson atus: Active Rasheeda Cyndee null, [facility] 8 11:45:11 Neck pain 97261383 Active 2014 From Automated Load;Prov ider: Adrianne Acosta;S tatus: Active Rasheeda Cyndee null, [facility] 8 11:45:11 Headache disorder 838937032 Active 2014 From Automated Load;Prov ider: Adrianne Acosta;S tatus: Active Rasheeda Cyndee null, [facility] 8 11:45:11 Pain in right hand 780540444392 109 Active 2014 From Automated Load;Prov ider: Adrianne Acosta;S tatus: Active Rasheeda Cyndee null, [facility] 8 11:45:11 Lumbar spondylos is 748832787 Active 2015 From Automated Load;Prov ider: Eun Monson; atus: Active Rasheeda Cyndee null, [facility] 8 11:45:11 Notes:Some problems listed i n Document: #[id number] could not be added to this patient's chart. Please review this document and add these problems to the patient's chart manually as needed. Problem Notes None recorded. Procedures Surgical History Date Name Laterality Status Provider Name and Address Organization Details Recorded Time 023 Date of Last Pap Smear completed [facility] 09/02/2022 11:11:34 022 Back Surgery completed Shaniqua Gregg [facility] 03/03/2022 10:07:04 022 Date of Last Mammogram completed [facility] 09/02/2022 11:11:40 022 Spirometry completed Chandni Martini [facility] 07/21/2021 11:13:11 021 Trigger Point Injection(s) completed ADRIANNE ACOSTA APRN [address] [place], [address], [facility] 05/25/2020 12:21:19 021 Injection Joint/Bursa, Interm, w/o US completed ADRIANNE ACOSTA APRN [address] [place], [address], [facility] 05/25/2020 10:15:00 020 Cervical Radiofrequency Ablation completed SIOBHAN BURTON MD [address] [place], [address], [facility] 03/07/2019 13:04:26 020 Cervical Radiofrequency Ablation completed SIOBHAN BURTON MD [address] [place], [address], [facility] 03/06/2019 07:57:05 019 Cervical Medial Branch Blocks completed SIOBHAN BURTON MD [address] [place], [address], [facility] 01/24/2019 09:31:15 019 Cervical Medial Branch Blocks completed SIOBHAN BURTON MD [address] [place], [address], [facility] 01/23/2019 10:27:08 019 Airway Resistance [facility] 04/23/2018 13:58:53 019 Diffusion Capacity completed Puja King [facility] 04/23/2018 13:58:50 019 Lung Volumes, Plethysmography completed Pujaaryan King [facility] 04/23/2018 13:58:52 019 Spirometry completed Pujaaryan Palman [facility] 04/23/2018 13:58:48 018 PERMANENT PLACEMENT OF SPINAL CORD STIMULATOR (SURG) completed Mariluz Katz [facility] 12/07/2017 08:57:25 018 Electromyography (EMG) with Nerve Conduction Study (NCV) completed Lynn Menchaca (Nicky) [facility] 10/05/2017 16:07:07 017 Spine Surgery completed Mariluz Katz [facility] 10/03/2017 13:40:52 015 Neck Surgery completed Mariluz Katz [facility] 10/03/2017 13:40:18 012 Neck Surgery completed Mariluz Katz [facility] 10/03/2017 13:39:50 Back Surgery completed Mariluz Katz [facility] 10/03/2017 13:31:16 Back Surgery completed Mariluz Katz [facility] 10/03/2017 13:31:42 Neck Surgery completed Mariluz MAHMOOD - [facility] 10/03/2017 13:32:52 Other completed Mariluz Meyerr [facility] - [facility] 10/03/2017 13:33:21 Carpal tunnel surgery completed [...] Time 06/30/2022 NM, gastric emptying scan completed [facility] [place], [address], 06/30/2022 20:13:14 02/02/2023 XR, abdomen, complete completed [facility] [address] [place] [address], [address], 02/03/2023 08:52:36 11/18/2023 MRI, pelvis, w/o contrast [email or web address] [id number] Information not available 01/10/2024 12:29:49 Procedure Notes None recorded. Medical Equipment None Reported. Allergies Allergen ID Allergen Name Allergen Category Reaction Reaction Severity Criticality Documentation Date Start Date Code Code System Note Provider Name and Address Organization Details Recorded Time 19180321 Dilaudid medicatio n Not available Not available Not available 01/07/20162009 11639 3 RxNorm Comme nt: Creat ed By: Juan gu Date: 2009 2:07: 05 PM; Not Available [facility] 6 12:06:11 912739 Substance with sulfonami de structure and antibacte rial mechanism of action (substanc e) medicatio n Not available Not available Not available 01/08/20162009 34359 8003 SNOMED Comme nt: Creat ed By: Juan Lau ;Crea riccardo Date: 2009 2:06: 57 PM; Not Available [facility] 6 04:15:05 582171 codeine medicatio n Not available Not available Not available 01/08/20162009 2670 RxNorm Comme nt: Creat ed By: Juan Lau ;Crea riccardo Date: 2009 2:06: 49 PM; Not Available [facility] 6 05:56:36 193137 Product containin g penicilli n (product) medicatio n Not available Not available Not available 01/08/20162009 20705 8001 SNOMED Comme nt: Creat ed By: Juan Lau ;Crea riccardo Date: 2009 2:06: 41 PM; Not Available [facility] 6 09:43:40 584325 hydromorp gayle medicatio n Not available Not available Not available 01/17/2018 3423 RxNorm Rasheeda Cyndee [facility] 8 11:44:52 745048 sulfadiaz ine medicatio n Not available Not available Not available 01/17/2018 45448 RxNorm Rasheeda Cyndee [facility] 8 11:44:52 839985 Non-stero idal anti-infl ammatory agent (product) medicatio n other moderate Not available 04/29/2019 37474 005 SNOMED Kidne y failu re Shantell Andres [facility] 0 11:16:21 489893 Neurontin medicatio n Not available Not available Not available 09/12/2022 89733 8 RxNorm Shaniqua Gregg [facility] 3 11:02:06 Medications Name Sig Start [...] PROCEDUR E. DO NOT DRIVE MUST HAVE TABLEAU ANALYST PRESENT FOR PROCEDUR E. 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 DIMITRIOS ANDERSON: [id number] PCN: [id number] GROUP: [id number] ID: [id number] 05/17 completed Not Available Not Available [...] Updated DateTime 3 166.37 cm 31.1 kg/m2 85482.5 5 g 80 /min 118 mm[Hg] 75 mm[Hg] Ema Lee [facility] 3 13:58:25 Date Recorded Body height Body mass index (BMI) Body weight Systolic blood pressure Diastolic blood pressure Provider Name and Address Organization Details Last Updated DateTime 09/02/2022 166.37 cm 30.8 kg/m2 72983.08 g 116 mm[Hg] 70 mm[Hg] Jacqui Watson [facility] 3 10:59:31 Date Recorded Body height Body mass index (BMI) Body weight Heart rate Respiratory rate Systolic blood pressure Diastolic blood pressure Provider Name and Address Organization Details Last Updated DateTime 3 166.37 cm 30.8 kg/m2 16951.3 7 g 84 /min 16 /min 85 mm[Hg] 63 mm[Hg] Sasha Acosta [facility] 3 15:36:18 Date Recorded Body height Body mass index (BMI) Body weight Heart rate Oxygen saturation Oxygen saturation in Arterial blood by Pulse oximetry Systolic blood pressure Diastolic blood pressure Provider Name and Address Organization Details Last Updated DateTime 3 166.37 cm 30.8 kg/m2 07419.3 7 g 75 /min 98 % 98 % 108 mm[Hg] 78 mm[Hg] Shaniqua Gregg [facility] 3 11:07:03 Date Recorded Body height Body mass index (BMI) Body weight Heart rate Respiratory rate Systolic blood pressure Diastolic blood pressure Provider Name and Address Organization Details Last Updated DateTime 3 166.37 cm 30.3 kg/m2 54284.5 9 g 80 /min 16 /min 117 mm[Hg] 79 mm[Hg] Sasha Acosta [facility] 3 10:59:55 Social History Question Answer Notes LastModified by Organizat ion Details LastModified Time Tobacco Smoking Status Never Smoker [facility] 10/03/2017 13:30:52 What Is Your Level Of Alcohol Consumption? None [email or web address] Information not available 04/23/2018 How Much Tobacco Do You Chew? None Information not available 07/04/2018 Do You Or Have You Ever Used E-cigarettes Or Vape? Never Used Electronic Cigarettes Information not available 10/23/2018 What Was The Date Of Your Most Recent Tobacco Screening? 09/12/2022 [email or web address] Information not available 09/12/2022 Do You Or Have You Ever Used Smokeless Tobacco? Never Used Smokeless Tobacco Information not available 10/23/2018 How Much Tobacco Do You Smoke? No [email or web address] Information not available 07/04/2018 Do You Use Any Illicit Or Recreational Drugs? No [email or web address] Information not available 03/03/2022 Has Tobacco Cessation Counseling Been Provided? No [email or web address] Information not available 03/03/2022 How Many Years Have You Smoked Tobacco? 0 [email or web address] Information not available 07/04/2018 Have You Recently Traveled Abroad? No [email or web address] Information not available 03/03/2022 Sex: Female Functional Status None recorded. Mental Status None recorded. Family History Relationship Description Onset Age of this Age Resolved Age Notes LastModified by Organization Details LastModified Time Mother Heart disease [email or web address] Not available 2018 13:57:32 Medical History Condition Response Fibromyalgia Y Mental Illness Y Kidney Disease Y Thyroid Disorder Y High Cholesterol Y Gynecological History Statement/Question Response Abnormal Pap [...] virus, quadrivalent, preservative 9 completed Shantell Andres [facility] 04/29/2019 11:15:13 Past Encounters Encounter ID Performer Location Encounter Start Date Encounter Closed Date Diagnosis/Indication Diagnosis SNOMED-CT Code Diagnosis ICD10 Code Diagnosis Note [id number] EUN MONSON MD NEUROSURG [facility] [address] [place] [address] 10/03/2017 13:07:11 10/03/2017 14:22:49 Chronic pain syndrome 629374959 G89.4 Ms. Spann is a 52 y/o [...] Dr. Monson, who agrees with the above. [id number] NIDIA SANTANA MD NEUROLOGY [facility] [address] [place] [address] 10/05/2017 14:29:09 10/05/2017 16:49:27 Skin sensation disturbance 77786242 R20.9 Idiopathic peripheral neuropathy 12220725 G60.9 Lumbar radiculopathy 128 435648 M54.16 Low back pain 021629739 M54.5 [id number] VILMA DOMINGUEZ [facility] [address] [place] [address] 11/20/2017 14:52:27 11/20/2017 15:19:39 [id number] EUN MONSON [facility] [address] [place] [address] 12/07/2017 08:50:14 12/07/2017 09:20:18 Chronic pain syndrome 270121226 G89.4 [id number] ADRIANNE ACOSTA APRN [facility] [address] [place] [address] 01/17/2018 11:16:02 01/18/2018 07:41:02 Raynaud's phenomenon 336560022 I73.00 polyarthra lgias/poly myalgias becoming chronic with [...] emg/ncs normal Pain of bi lateral hands 3085020960 6035916 M79.641 M79.642 bilateral hand pain and stiffness 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 will assess further labs and xrays to help determine RA or OA worsening/ systemic changes will obtain new venecia as well and lupus panel to assess for underlying autoimmune continues to have widespread pain suggesting mctd or fibromyalg ia; has recurring raynauds worsening symptoms Anti-nucle ar factor detected 653082888 R76.8 historical ly low positive at 1:40 homogenous and speckled with thought of worsening symptomati c complaints [id number] VILMA JACOB MD PULMONARY [address] [facility] [place] [address] 04/23/2018 13:28:31 05/13/2018 09:57:58 Solitary nodule of lung 437032265 R91.1 6 mm superior segment LLL nodule in a non-smoker . Stable on 3 month follow up in 01/2018. Current Fleischner society recommenda tions are a 6-12 month follow up. Given that she is a non smoker and no growth at 3 months, I will have her come back for a [address] scan in January 2019. 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 will assess further labs and xrays to help determine RA or OA worsening/ systemic changes will obtain new venecia as well and lupus panel to assess for underlying autoimmune continues to have widespread pain suggesting mctd or fibromyalg ia; has recurring raynauds worsening symptoms Anti-nucle ar factor detected 238186690 R76.8 historical ly low positive at 1:40 homogenous and speckled with thought of worsening symptomati c complaints Muscle pain 99966363 M79 .10 Restless legs 28179295 G 25.81 Osteoarthritis 651103189 M19.90 Chronic back pain 578439 002 G89.29 [id number] SIOBHAN BURTON MD PAIN MEDICINE [address] [place] [address] 07/10/2018 09:40:30 07/10/2018 11:49:12 Chronic low back pain 355279787 M54.5 Cervical spondylosis 387 457254 M47.812 Long-term drug therapy [id number] Z79.873 [id number] SIOBHAN BURTON MD PAIN MEDICINE [address] [place] [address] 1 08/09/2018 10:55:04 08/09/2018 12:38:28 Neuropathic pain 854314798 M79.2 Chronic low back pain 27 7924974 M54.5 [id number] SIOBHAN BURTON MD PAIN MEDICINE [address] [place] [address] 1 09/06/2018 10:55:35 09/10/2018 10:42:37 Chronic low back pain 442821645 M54.5 [id number] EUN MONSON MD NEUROSURG [facility] [address] [facility] [place] [address] 0 10/11/2018 10:02:39 10/17/2018 10:16:23 Backache 490958229 M54.9 [id number] CLAIRE SHEFFIELD APRN PAIN MEDICINE [address] [place] [address] 1 10/22/2018 11:08:24 10/22/2018 13:14:20 Chronic low back pain 062938653 M54.5 Stop Tramadol Cervical radiculopathy 50906170 M54.12 Schedule Cervical RFA Bilateral w/Dr. Burton Generalize sondra anxiety disorder 78885563 F41.1 will need psychiatry referral if staying on benzodiaza pines after talking with PCP [id number] [place] [address] [place] [address] 1 10/23/2018 15:14:56 10/25/2018 09:59:01 Raynaud's phenomenon [id number] I73.00 polyarthra lgias/poly myalgias becoming chronic with [...] PT emg/ncs normal Anti-nucle ar factor detected 724553044 R76.8 historical ly low positive at 1:40 homogenous and speckled with thought of worsening symptomati c complaints with recurring negative lupus panel on 07/04/2018 Muscle pain 00615582 M79 .10 improved overall with savella, she is trying to lower the sertraline at this time and trying to remain Restless legs 38088466 G 25.81 continues with restless legs overall Osteoarthritis 638193553 M19.90 bilateral hand pain and stiffness 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 will assess further labs and xrays to help determine RA or OA worsening/ systemic changes will obtain new venecia as well and lupus panel to assess for underlying autoimmune continues to have widespread pain suggesting mctd or fibromyalg ia; has recurring raynauds worsening symptoms Chronic back pain 367166 002 G89.29 seeing pain management [id number] SIOBHAN BURTON MD PAIN MEDICINE [address] [place] [address] 1 12/21/2018 09:12:47 12/21/2018 10:39:04 Long-term drug therapy 532239934 Z79.899 Chronic low back pain 27 9903117 M54.5 [id number] SIOBHAN BURTON MD PAIN MEDICINE [address] [place] [address] 1 01/14/2019 14:45:11 01/14/2019 15:40:23 Chronic low back pain 767347036 M54.5 [id number] SIOBHAN BURTON MD [facility] [address] [facility], [place] [address] 1 01/23/2019 10:04:15 01/24/2019 10:59:35 Cervical spondylosis 356945540 M47.314 [id number] SIOBHAN BURTON MD [facility] [address] [facility], [address] [place] [address] 1 01/24/2019 09:25:40 01/25/2019 08:51:03 Cervical spondylosis 581663447 M47.650 [id number] SIOBHAN BURTON MD PAIN MEDICINE [address] [place] [address] 1 02/18/2019 10:48:43 02/20/2019 11:29:45 Cervical spondylosis 444167872 M47.812 Myofascial pain 63758789 9 M79.10 [id number] SIOBHAN BURTON MD [facility] [address] [place] [address], [address] [place] [address] 1 03/06/2019 07:24:50 03/07/2019 14:40:06 Cervical spondylosis 631824864 M47.894 [id number] SIOBHAN BURTON MD [facility] [address] [place] [address], [facility] [address] [place] [address] 1 03/07/2019 12:33:52 03/08/2019 11:58:58 Cervical spondylosis 927734867 M47.703 [id number] VILMA JACOB MD PULMONARY [address]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
== END 2024-06-19 23:59 | disposition home or self-care (01) ==
LOC: RT 11:42
PROVIDERS: PCP Family Medicine; Visit Provider Physician Assistant
DX: I48.0 Paroxysmal atrial fibrillation (principal); R94.31 Abnormal electrocardiogram [ECG] [EKG]
CPT/HCPCS: 93270

== ENCOUNTER 2024-06-26 09:41 | Outpatient (CLI) | payer MEDICARE, SELFPAY ==
--- NOTE | 2024-06-26 | CA_ITS ---
APPROVED REPORT Exam: Pharmacologic Technologist: Ana Escamilla Ht: 5 ft 5 in Wt: 157 lbs BSA: 1.78 m2 Medical History Medications: atorvastatin, cyclobenzaprine, pristiq, diazepam, docusate sodium, levothyroxine, senokot, trazodone, multivitamin. fish oil, zofran, oxybutyin chloride ER, pantoprazole, pilocarpine HCI, trulance, miralax, potassium chloride ER, ropinirole, triamterene-HCTZ Stress Test Details Test: Bianka Reason for pharmacologic stress test: physical limitation. HR Resting HR: 69 bpm Max Heart Rate (APMHR): 159 bpm Max HR Achieved: 91 bpm Target HR (85% APMHR): 135 bpm % of APMHR: 57 Recovery HR: 82 bpm BP Resting BP: 119.0/92.0 mmHg Max BP: 127.0/50.0 mmHg Recovery BP: 127.0/50.0 mmHg ECG Resting ECG: SR Stress ECG Conclusion Symptoms: MCKEON, mild SOA. Arrhythmias/Ecotpy: Lexiscan. Electronically signed by : Tamara Morales MD 06/26/2024 23:57:22
--- NOTE | 2024-06-26 09:43 | CA_ITS ---
APPROVED REPORT EXAM: Comprehensive 2D, Doppler, and color-flow Echocardiogram Electrotype Molder: Darleen Luna CRT Ht: 5 ft 5 in Wt: 157lbs BSA: 1.78 BP: 110/55 mmHg Indications: Murmur, MR, AI, MVP, PAF, GERD, CP, PALP, SOB SP CHEMO & RADIATION RECTAL CA OCT-JAN 2024 2D Dimensions LA Volume 18.90 mL LA Volume Index 10.30 mL/m2 (M/F) 16-34 M-Mode Dimensions RVDd 2.80 cm (0.9-2.6) LA Diam 3.31 cm (1.9-4.0) LVDd 3.99 cm (3.5-5.7) LVDs 2.59 cm (3.5-5.7) IVSd 1.12 cm (0.6-1.1) PWd 1.00 cm (0.6-1.1) EF (Teich) 64.90% FS 35.10% EDV (Teich) 69.60 mL ESV (Teich) 24.40 mL LV Diastology E Decel Time 150 (160-240 msec) E/A Ratio 0.46 Aortic Valve KEISHA Index 1.30 cm2/m2 AoV Peak Toribio. 230.0 (50-130 cm/s) AI PHT 375.00 ms AO Peak GR. 21.20 mmHg AO Mean GR. 10.80 (<5 mmHg) AO VTI 42.0 (18-25 cm) KEISHA (VTI) 2.38 (2.5-4.5 cm2) Mitral Valve MV E Max Toribio. 69.0 (40-130 cm/s) MV A Velocity 150.0 (40-130 cm/s) E/A Ratio 0.46 MV PHT 44.0 ms Pulmonary Valve PV Peak Velocity 148.0 (50-150 cm/s) Tricuspid Valve TR P. Velocity 225.00 cm/s RAP Estimate 10.00 mmHg RVSP 30.30 mmHg Left Ventricle The left ventricle is normal size. The left ventricular systolic function is normal. The left ventricular ejection fraction is within the normal range. There is normal left ventricular wall thickness. No evidence of LVOT obstruction at rest. There is normal LV segmental wall motion. The left ventricular diastolic function is normal. LVEF is 55%. Right Ventricle The right ventricle is normal size. The right ventricular systolic function is normal. Atria The left atrium size is normal. The right atrium size is normal. There is no Doppler evidence of interatrial shunt. Aortic Valve The aortic valve is mildly thickened. There is no evidence of hemodynamically significant aortic stenosis. Mild aortic regurgitation. Mitral Valve There is borderline bileaflet prolapse present. There is mild systolic anterior motion of the mitral valve, but no evidence of septal contact. No evidence of mitral valve stenosis. Mild mitral regurgitation. Tricuspid Valve Tricuspid valve is grossly normal in structure and function. Trace tricuspid regurgitation. Pulmonic Valve The pulmonary valve is normal in structure. Trace pulmonic regurgitation. Great Vessels The aortic root is normal in size. IVC is normal in size and collapses >50% with inspiration. Pericardium There is no pericardial effusion. Other Information Study Quality: Fair Conclusion Normal biventricular systolic function. Borderline bileaflet MV prolapse. Mild MR. Mild systolic anterior motion of the mitral valve, but no evidence of septal contact. No evidence of LVOT obstruction at rest. Mild AI. Electronically signed by : Tamara Morales MD 07/05/2024 23:35:03
--- OUTSIDE RECORDS SUMMARY | 2024-06-26 09:44 | XMS_ITS | Data Portability ---
Author Organization [place] - Bhanu syed MD, Main Office Address [address] [facility] [address] [place] [address] Care Team Providers Care Park Maintainer Name Role Phone CHANDA KERR Primary Care [...] 100 mg chewable tablet 2017 018 INTERFACE [facility] [address] [place], [address], 8 09:40:08 Patient TargetsNo targets recorded. Patient Instructions Encounter Date Encounter Id Patient Instructions Last Modified By Organization Details Last Modified Time 10/26/2017 [id number] Neuropathic Pain : Care Instructions Not available [...] and Address Organization Details Recorded Time Neuropathy [id number] Active 018 TIMOTEO Edge MD 8 09:17:25 [...] Not available Not available Not available 09/18/2017 [id number] SNOMED TIMOTEO Edge MD 8 10:50:10 1624 Product containin g penicilli n (product) medicatio n Not available Not available Not available 09/18/2017 [id number] TIMOTEO Anderson MD 8 10:50:14 1625 Substance with sulfonami de structure and antibacte rial mechanism of action (substanc e) medicatio n Not available Not available Not available 09/18/2017 77098 8003 SNOMED TIMOTEO Edge MD 8 10:50:19 1814 Dilaudid medicatio n Not available Not available Not available 10/26/2017 [id number] 3 RxNoTIMOTEO Vaughan MD 8 09:12:38 Medications [...] Not Available No t Available Flucelvax Quad [id number] (PF) 60 mcg (15 mcg x 4)/0.5 mL IM syringe 10/19 completed Not Available Not Available Not Available Vitals Date Recorded Body height Body mass index (BMI) Body weight Heart rate Respiratory rate Systolic blood pressure Diastolic blood pressure Provider Name and Address Organization Details Last Updated DateTime 8 167.64 cm 28.2 kg/m2 52593.6 6 g 82 /min 17 /min 100 mm[Hg] 77 mm[Hg] Bhanu Perea MD [address] [facility], [facility] [address], [place], [address], [place] - Bhanu Perea MD 8 09:40:50 Social History Question Answer Notes LastModified by Organizat ion Details LastModified Time Tobacco Smoking Status Never Smoker Not Available [facility] 12/17/2019 03:34:29 Live Alone Or With Others? With Others Information not available 10/26/2017 What Was The Date Of Your Most Recent Tobacco Screening? 10/26/2017 [id number] Information not available 12/17/2019 Sex: Unknown Functional Status Question Answer Note LastModified by Organization D etails LastModified Time What is your level of alcohol consumption? None [id number] Information not available 12/17/2019 Mental Status None recorded. Family History Relationship [...] Office [address] [place] [address] 10/26/2017 09:15:43 10/26/2017 09:40:06 Idiopathic peripheral neuropathy [id number] G60.9 The patient is a 52-year-ol d white female who was a mild sensory neuropathy . Chronic low back pain 27 3242823 M54.5 She has a spinal cord stimulator then needs adjustment . Cervical d isc disorder [id number] M50.90 She is status post cervical spinal [...] (MEDICARE REPLACEMENT/ ADVANTAGE - PPO) Anjana Ag [id number] Anjanaaryan Ag Notes Date Note Type Note [...] Perea MD [address], [address], [place], [address], [facility] Bhanu Perea MD 10/26/2017 09:49:49 OBGyn Episode No OBEpisode recorded.
--- OUTSIDE RECORDS SUMMARY | 2024-06-26 09:44 | XMS_ITS | Data Portability ---
Author Organization [facility] cDEMETRIUSS NEOSHO CLOSED Address [address] [place] [address] Care Team Providers Care Consumer Education Specialist Name Role Phone MICHELLE BROOKS Network Solutions Architect Assessment Encounter Date Assessment Date Assessment LastModified [...] quant, PCR, serum or plasma 2020 021 [facility], [address] [place] [address], [address], 20:01:00 CMP, serum or plasma 2020 021 [facility], [address] [place] [address], [address], 15:48:59 hepatitis C genotype, serum or plasma 2020 021 [facility], [address] [place] [address], [address], 1 00:45:19 CBC w/ auto diff 2020 021 [facility], [address] [place] [address], [address], 1 13:52:24 PT/INR 2020 021 [facility], [address] [place] [address], [address], 1 14:02:40 cytology, vaginal/c ervical 2019 020 [facility], [address] [place] [address], [address], 0 16:56:47 drug screen, urine 2017 018 [email or web address] [facility], [address] [place] [address] , [place], [address], 8 11:25:13 cocaine, qualitati ve, urine 2017 018 [facility], [address] [place] [address], [address], 8 18:45:47 Referral physical therapist referral 2019 020 [email or web address] [facility], [address] [facility] [address] [facility], [place], [address], 1 08:59:06 Procedures None recorded. Surgeries None recorded. Imaging MAMMO, screening , tomosynth esis, bilateral , w/ CAD 2019 020 [email or web address] [facility], [address] [place], [place] [address]y[address], [place], [address], 1 09:57:16 electroca rdiogram 2017 018 newton [facility], [address] [place], [place] [address]yessy Moss, [place], [address], 8 13:22:23 Medication Orders dicyclomi ne 20 mg tablet [address] [facility], [address] [place] [address], [id number], 2 13:41:07 omeprazol e 20 mg capsule,d elayed release [address] [facility], [address] [place] [address], [id number], 2 13:41:15 estradiol 0.01% (0.1 mg/gram) vaginal cream [address] [facility], [address] [place] [address], [id number], 2 13:41:12 Klonopin 0.5 mg tablet 2017 018 [email or web address] [id number], [address] , [place], [place], [id number], 0 13:09:42 Patient TargetsNo targets recorded. Patient Instructions Encounter Date Encounter Id Patient Instructions Last Modified By Organization Details Last Modified Time 08/09/2017 [id number] chest pain: care instructions kscheibly Not available 08/09/2017 11:25:13 01/21/2020 [id number] atrophic vaginit is: care instructions cbeiting Not available 01/21/2020 13:35:08 menopausal hormo ne therapy (ht): care instructions cbeiting Not available 01/21/2020 13:38:10 bladder training : care instructions cbeiting Not available 01/21/2020 13:38:10 kegel exercises: care instructions cbeiting Not available 01/21/2020 13:38:10 Stress Incontine nce: Care Instructions cbeiting Not available 01/21/2020 13:38:10 Urge Incontinenc e: Care Instructions cbeiting Not available 01/21/2020 13:38:10 04/21/2020 [id number] abdominal pain: care instructions smerkley Not available [...] <100 high See Note 1 Not Available [facility] [address] [facility], [place], [address], 08/16/2017 18:45:47 08/10/19 18 08/16/2017 cocai ne, [...] alist : [phone] [phone] [phone] ([phone] ), M-F, 8am-6 pm EST. Note 1 [...] PERFO RMED AT: [facility] [place] [address] [facility] [place] [address] SARAH Velasquez MD Not Available [facility] [address] [facility], [place], [address], 08/16/2017 18:45:47 08/10/19 18 08/09/2017 elect jazz diogr am 12 lead Electrocardi ogram performed. See coby moctezuma for interp retati on Not Available [address] , [place], [address], 08/09/2017 11:02:53 08/10/19 18 08/09/2017 drug scree n, urine Marijuana (THC50) Negati ve Not Available [address], [place], [address], 08/09/2017 10:42:20 08/10/19 18 08/09/2017 drug scree n, urine Cocaine (FHC091) POSITI VE Not Available [address], [place], [address], 08/09/2017 10:42:20 08/10/19 18 08/09/2017 drug scree n, urine Opiates (KPA1307) Negati ve Not Available [address] [place], [place], [address], 08/09/2017 10:42:20 08/10/19 18 08/09/2017 drug scree n, urine Amphetamine ([id number]) Negati ve Not Available [address] [place], [place], [address], 08/09/2017 10:42:20 08/10/19 18 08/09/2017 drug scree n, urine Methamphetam ine ([id number]) Negati ve Not Available [address], [place], [address], 08/09/2017 10:42:20 08/10/19 18 08/09/2017 drug scree n, urine Phencyclidin e (PCP25) Negati ve Not Available [address], [place], [address], 08/09/2017 10:42:20 08/10/19 18 08/09/2017 drug scree n, urine Ectasy (FAMS907) Negati ve Not Available [address] , [place], [address], 08/09/2017 10:42:20 08/10/19 18 08/09/2017 drug scree n, urine Barbituates (UAX262) Negati ve Not Available [address], [place], [address], 08/09/2017 10:42:20 08/10/19 18 08/09/2017 drug scree n, urine Benzodiazepi jorge (JUA395) Negati ve Not Available [address], [place], [address], 08/09/2017 10:42:20 08/10/19 18 08/09/2017 drug scree n, urine Methadone (LNO181) Negati ve Not Available [address] [place], [place], [address], 08/09/2017 10:42:20 08/10/19 18 08/09/2017 drug scree n, urine Tricyclic Antidepressa nts ([id number]) Negati ve Not Available [address] [place], [place], [address], 08/09/2017 10:42:20 08/10/19 18 08/09/2017 drug scree n, urine Oxycodone (JBF902) Negati ve Not Available [address] [place], [place], [address], 08/09/2017 10:42:20 08/10/19 18 08/09/2017 drug scree n, urine Internal QC Okay Not Available [facility] [address] , [place], [address], 08/09/2017 10:42:20 01/21/20 20 01/21/2020 cytol ogy, vagin al/ce rvica l Pap smear SEE BELOW Depar tment of Patho logy GYNEC OLOGI DONOVAN CYTOL OGY REPOR T NAME: ANJANA MÉNDEZ PATHO LOGY NO.: [id number] Copy to: [facility] E OF SPECI MEN: VAGIN AL-TH IN [...] s. Page 1 of 1 Not Available [facility] [address] [place] [address], [address], 01/23/2020 16:56:47 04/24/19 21 04/23/2020 CBC w/ auto diff white blood cells 9.4 K/uL 3.8-10 .8 normal Not Available [facility] [address] [place], [address], 04/23/2020 13:52:23 04/24/1904/23/2020 CBC w/ auto diff red blood cells 4.08 M/uL 3.80-5 .20 normal Not Available [facility] [address] [place] [address], [address], 04/23/2020 13:52:23 04/24/19 21 04/23/2020 CBC w/ auto diff hemoglobin 12.3 g/dL 12.0-1 6.0 normal Not Available [facility] [address] [place] [address], [address], 04/23/2020 13:52:23 04/24/19 21 04/23/2020 CBC w/ auto diff hematocrit 36.6 % 35.0-4 7.0 normal Not Available [facility] [address] [place] [address], [address], 04/23/2020 13:52:23 04/24/19 21 04/23/2020 CBC w/ auto diff MCV 90 fL 80-100 normal Not Available [facility] [address] [place] [address], [address], 04/23/2020 13:52:23 04/24/19 21 04/23/2020 CBC w/ auto diff MCH 30 pg 26-35 normal Not Available [facility] [address] [place] [address], [address], 04/23/2020 13:52:23 04/24/19 21 04/23/2020 CBC w/ auto diff MCHC 34 g/dL 32-36 normal Not Available [facility] [address] [place] [address], [address], 04/23/2020 13:52:23 04/24/19 21 04/23/2020 CBC w/ auto diff RDW 13.1 % 11.0-1 5.0 normal Not Available [facility] [address] [place] [address], [address], 04/23/2020 13:52:23 04/24/19 21 04/23/2020 CBC w/ auto diff MPV 8.7 fL 6.2-10 .5 normal Not Available [facility] [address] [place] [address], [address], 04/23/2020 13:52:23 04/24/19 21 04/23/2020 CBC w/ auto diff platelet count 393 K/uL 130-40 0 normal Not Available [facility] [address] [place] [address], [address], 04/23/2020 13:52:23 04/24/19 21 04/23/2020 CBC w/ auto diff neutrophil,a bsolute 5.6 K/uL 1.6-8. 4 normal Not Available [facility] [address] [place] [address], [address], 04/23/2020 13:52:23 04/24/19 21 04/23/2020 CBC w/ auto diff lymphocyte,a bsolute 2.9 K/uL 0.4-5. 1 normal Not Available [facility] [address] [place] [address], [address], 04/23/2020 13:52:23 04/24/19 21 04/23/2020 CBC w/ auto diff monocyte,abs olute 0.7 K/uL 0.0-1. 2 normal Not Available [facility] [address] [place] [address], [address], 04/23/2020 13:52:23 04/24/19 21 04/23/2020 CBC w/ auto diff eosinophil,a bsolute 0.2 K/uL 0.0-0. 8 normal Not Available [facility] [address] [place] [address], [address], 04/23/2020 13:52:23 04/24/19 21 04/23/2020 CBC w/ auto diff basophil,abs olute 0.1 K/uL 0.0-0. 3 normal Not Available [facility] [address] [place] [address], [address], 04/23/2020 13:52:23 04/24/19 21 04/23/2020 CBC w/ auto diff % neutrophils 59.0 % 42.0-7 8.0 normal Not Available [facility] [address] [place] [address], [address], 04/23/2020 13:52:23 04/24/19 21 04/23/2020 CBC w/ auto diff % lymphocytes 30.4 % 11.0-4 7.0 normal Not Available [facility] [address] [place] [address], [address], 04/23/2020 13:52:23 04/24/19 21 04/23/2020 CBC w/ auto diff % monocytes 7.8 % 0.0-11 .0 normal Not Available [facility] [address] [place] [address], [address], 04/23/2020 13:52:23 04/24/19 21 04/23/2020 CBC w/ auto diff % eosinophils 1.9 % 0.0-7. 0 normal Not Available [facility] [address] [place] [address], [address], 04/23/2020 13:52:23 04/24/19 21 04/23/2020 CBC w/ auto diff % basophils 0.9 % 0.0-3. 0 normal Not Available [facility] [address] [place] [address], [address], 04/23/2020 13:52:23 04/24/19 21 04/23/2020 CBC w/ auto diff nucleated red cells 0.2 % 0.0-0. 9 normal Not Available [facility] [address] [place] [address], [address], 04/23/2020 13:52:23 04/24/19 21 04/23/2020 CBC w/ auto diff nucleated RBCs, absolute 0.02 K/uL not estab. normal Not Available [facility] [address] [place] [address], [address], 04/23/2020 13:52:23 04/24/19 21 04/23/2020 PT/IN R prothrombin time 9.9 secon ds 9.0-11 .2 normal Not Available [facility] [address] [place] [address], [address], 04/23/2020 14:02:39 04/24/19 21 04/23/2020 PT/IN R [...] NICAL PROST HETIC VALVE S Not Available [facility] [address] [place] [address], [address], 04/23/2020 14:02:39 04/24/19 21 04/23/2020 CMP, serum or plasm a glucose 88 mg/dL 74-100 normal Not Available [facility] [address] [place] [address], [address], 04/23/2020 15:48:59 04/24/19 21 04/23/2020 CMP, serum or plasm a blood urea nitrogen 14 mg/dL 6-20 normal Not Available [facility] [address] [place] [address], [address], 04/23/2020 15:48:59 04/24/19 21 04/23/2020 CMP, serum or plasm a creatinine 0.74 mg/dL 0.50-0 .95 normal Not Available [facility] [address] [place] [address], [address], 04/23/2020 15:48:59 04/24/19 21 04/23/2020 CMP, serum or plasm a BUN/creatini ne ratio 19 (calc ) 10-20 normal Not Available [facility] [address] [place] [address], [address], 04/23/2020 15:48:59 04/24/19 21 04/23/2020 CMP, serum or plasm a sodium 141 mmol/ L 136-14 5 normal Not Available [facility] [address] [place] [address], [address], 04/23/2020 15:48:59 04/24/19 21 04/23/2020 CMP, serum or plasm a potassium 4.4 mmol/ L 3.4-5. 0 normal Not Available [facility] [address] [place] [address], [address], 04/23/2020 15:48:59 04/24/19 21 04/23/2020 CMP, serum or plasm a chloride 105 mmol/ L 98-107 normal Not Available [facility] [address] [place] [address], [address], 04/23/2020 15:48:59 04/24/19 21 04/23/2020 CMP, serum or plasm a carbon dioxide 25 mmol/ L 20-32 normal Not Available [facility] [address] [place] [address], [address], 04/23/2020 15:48:59 04/24/1904/23/2020 CMP, serum or plasm a anion gap 11 (calc ) 7-25 normal Not Available [facility] [address] [place] [address], [address], 04/23/2020 15:48:59 04/24/19 21 04/23/2020 CMP, serum or plasm a calcium 9.3 mg/dL 8.6-10 .2 normal Not Available [facility] [address] [place] [address], [address], 04/23/2020 15:48:59 04/24/19 21 04/23/2020 CMP, serum or plasm a total protein 7.4 g/dL 6.4-8. 3 normal Not Available [facility] [address] [place] [address], [address], 04/23/2020 15:48:59 04/24/19 21 04/23/2020 CMP, serum or plasm a albumin 4.3 g/dL 3.5-5. 2 normal Not Available [facility] [address] [place] [address], [address], 04/23/2020 15:48:59 04/24/19 21 04/23/2020 CMP, serum or plasm a globulin 3.1 g/dL_ (calc ) 1.5-4. 5 normal Not Available [facility] [address] [place] [address], [address], 04/23/2020 15:48:59 04/24/19 21 04/23/2020 CMP, serum or plasm a albumin/glob ulin ratio 1.4 (calc ) 1.1-2. 5 normal Not Available [facility] [address] [place] [address], [address], 04/23/2020 15:48:59 04/24/19 21 04/23/2020 CMP, serum or plasm a bilirubin, total 0.3 mg/dL 0.1-1. 2 normal Not Available [facility] [address] [place] [address], [address], 04/23/2020 15:48:59 04/24/19 21 04/23/2020 CMP, serum or plasm a alkaline phosphatase 78 U/L 35-105 normal Not Available [facility] [address] [place] [address], [address], 04/23/2020 15:48:59 04/24/19 21 04/23/2020 CMP, serum or plasm a AST 29 U/L 0-32 normal Not Available [facility] [address] [place] [address], [address], 04/23/2020 15:48:59 04/24/19 21 04/23/2020 CMP, serum or plasm a ALT 35 U/L 0-33 high Not Available [facility] [address] [place] [address], [address], 04/23/2020 15:48:59 04/24/19 21 04/23/2020 CMP, serum or plasm a GFR 104 >= 60 normal Not Available [facility] [address] [place] [address], [address], 04/23/2020 15:48:59 04/24/19 21 04/23/2020 CMP, serum [...] month s or longe r. Not Available [facility] [address] [place] [address], [address], 04/23/2020 15:48:59 04/24/19 21 04/25/2020 hepat itis C virus RNA, quant , PCR, serum or plasm a HCV RNA, qt, IU/mL [id number] 0 IU/mL not detect ed high Not Available [facility] [address] [place] [address], [address], 04/25/2020 20:01:00 04/24/19 21 04/25/2020 hepat itis [...] this assay have been deter mined by [employer]. The modif icati ons have not been clear ed or appro stoney by the FDA. This assay has been valid ated pursu ant to the CLIA regul ation s and is used for clini donovan purpo ses. For more infor han moctezuma on this test, go to: http: //[facility] mary alice nfemi stdia gnost ics.c om/fa q/FAQ 22v1 (This link is being provi ded for infor matio nal/ educa jonathan l purpo ses only. ) TEST PERFO RMED AT: [facility] [address] [address] SARAH Velasquez MD Not Available [facility] [address] [place] [address], [place], [address], 04/25/2020 20:01:00 04/24/19 21 04/28/2020 hepat itis [...] this assay have been deter mined by [employer] Infec tious Disea se. The [...] [facility] [address] [place] [address] AMAYA ELI RMAN, M Not Available [facility] [address] [place] [address], [address], 04/28/2020 00:45:19 12/04/19 22 12/03/2021 HEMOG DELMER white blood cells 11.8 K/uL 3.8-10 .8 high Not Available [facility] [address] [place] [address], [address], 12/03/2021 15:06:10 12/04/19 22 12/03/2021 HEMOG DELMER red blood cells 4.56 M/uL 3.80-5 .20 normal Not Available [facility] [address] [place] [address], [address], 12/03/2021 15:06:10 12/04/19 22 12/03/2021 HEMOG DELMER hemoglobin 13.8 g/dL 12.0-1 6.0 normal Not Available [facility] [address] [place] [address], [address], 12/03/2021 15:06:10 12/04/19 22 12/03/2021 HEMOG DELMER hematocrit 41.6 % 35.0-4 7.0 normal Not Available [facility] [address] [place] [address], [address], 12/03/2021 15:06:10 12/04/19 22 12/03/2021 HEMOG DELMER MCV 91 fL 80-100 normal Not Available [facility] [address] [place] [address], [address], 12/03/2021 15:06:10 12/04/19 22 12/03/2021 HEMOG DELMER MCH 30 pg 26-35 normal Not Available [facility] [address] [place] [address], [address], 12/03/2021 15:06:10 12/04/19 22 12/03/2021 HEMOG DELMER MCHC 33 g/dL 32-36 normal Not Available [facility] [address] [place] [address], [address], 12/03/2021 15:06:10 12/04/19 22 12/03/2021 HEMOG DELMER RDW 13.7 % 11.0-1 5.0 normal Not Available [facility] [address] [place] [address], [address], 12/03/2021 15:06:10 12/04/19 22 12/03/2021 HEMOG DELMER MPV 8.8 fL 6.2-10 .5 normal Not Available [facility] [address] [place] [address], [address], 12/03/2021 15:06:10 12/04/19 22 12/03/2021 HEMOG DELMER platelet count 433 K/uL 130-40 0 high Not Available [facility] [address] [place] [address], [address], 12/03/2021 15:06:10 12/04/19 22 12/03/2021 PROTH ROMBI N TIME prothrombin time 9.5 secon ds 8.9-10 .8 normal Not Available [facility] [address] [place] [address], [address], 12/03/2021 15:29:19 12/04/19 22 12/03/2021 PROTH ROMBI [...] NICAL PROST HETIC VALVE S Not Available [facility] [address] [place] [address], [address], 12/03/2021 15:29:19 12/04/19 22 12/03/2021 COMP. METAB OLIC PANEL glucose 94 mg/dL 74-100 normal Not Available [facility] [address] [place] [address], [address], 12/03/2021 16:43:15 12/04/19 22 12/03/2021 COMP. METAB OLIC PANEL blood urea nitrogen 15 mg/dL 6-20 normal Not Available [facility] [address] [place] [address], [address], 12/03/2021 16:43:15 12/04/19 22 12/03/2021 COMP. METAB OLIC PANEL creatinine 0.72 mg/dL 0.50-0 .95 normal Not Available [facility] [address] [place] [address], [address], 12/03/2021 16:43:15 12/04/19 22 12/03/2021 COMP. METAB OLIC PANEL BUN/creatini ne ratio 21 (calc ) 10-20 high Not Available [facility] [address] [place] [address], [address], 12/03/2021 16:43:15 12/04/19 22 12/03/2021 COMP. METAB OLIC PANEL sodium 138 mmol/ L 136-14 5 normal Not Available [facility] [address] [place] [address], [address], 12/03/2021 16:43:15 12/04/19 22 12/03/2021 COMP. METAB OLIC PANEL potassium 4.3 mmol/ L 3.4-5. 0 normal Not Available [facility] [address] [place], [address], 12/03/2021 16:43:15 12/04/19 22 12/03/2021 COMP. METAB OLIC PANEL chloride 102 mmol/ L 98-107 normal Not Available [facility] [address] [place] [address], [address], 12/03/2021 16:43:15 12/04/19 22 12/03/2021 COMP. METAB OLIC PANEL carbon dioxide 25 mmol/ L 22-31 normal Not Available [facility] [address] [place] [address], [address], 12/03/2021 16:43:15 12/04/19 22 12/03/2021 COMP. METAB OLIC PANEL anion gap 11 (calc ) 7-25 normal Not Available [facility] [address] [place] [address], [address], 12/03/2021 16:43:15 12/04/19 22 12/03/2021 COMP. METAB OLIC PANEL calcium 10.2 mg/dL 8.6-10 .2 normal Not Available [facility] [address] [place] [address], [address], 12/03/2021 16:43:15 12/04/19 22 12/03/2021 COMP. METAB OLIC PANEL total protein 8.1 g/dL 6.4-8. 3 normal Not Available [facility] [address] [place] [address], [address], 12/03/2021 16:43:15 12/04/19 22 12/03/2021 COMP. METAB OLIC PANEL albumin 4.7 g/dL 3.5-5. 2 normal Not Available [facility] [address] [place] [address], [address], 12/03/2021 16:43:15 12/04/19 22 12/03/2021 COMP. METAB OLIC PANEL globulin 3.4 g/dL_ (calc ) 1.5-4. 5 normal Not Available [facility] [address] [place] [address], [address], 12/03/2021 16:43:15 12/04/19 22 12/03/2021 COMP. METAB OLIC PANEL albumin/glob ulin ratio 1.4 (calc ) 1.1-2. 5 normal Not Available [facility] [address] [place] [address], [address], 12/03/2021 16:43:15 12/04/19 22 12/03/2021 COMP. METAB OLIC PANEL bilirubin, total 0.2 mg/dL 0.1-1. 2 normal Not Available [facility] [address] [place] [address], [address], 12/03/2021 16:43:15 12/04/19 22 12/03/2021 COMP. METAB OLIC PANEL alkaline phosphatase 87 U/L 30-121 normal Not Available [facility] [address] [place] [address], [address], 12/03/2021 16:43:15 12/04/19 22 12/03/2021 COMP. METAB OLIC PANEL AST 29 U/L 0-32 normal Not Available [facility] [address] [place] [address], [address], 12/03/2021 16:43:15 12/04/19 22 12/03/2021 COMP. METAB OLIC PANEL ALT 35 U/L 0-33 high Not Available [facility] [address] [place] [address], [address], 12/03/2021 16:43:15 12/04/19 22 12/03/2021 COMP. METAB [...] s/KDO QI/gf r_cal culat orPed Not Available [facility] [address] [place], [address], 12/03/2021 16:43:15 12/04/19 22 12/03/2021 HEPAT ITIS B SURF. AB,QT hepatitis B surf.Ab,qt 155.0 mIU/m L > or = 10 normal Resul t is Posit rick. Patie nt has immun ity to Hepat itis B virus . Not Available [facility] [address] [place], [address], 12/03/2021 16:54:30 12/04/19 22 12/06/2021 HIV SCREE [...] [facility] [address] [place] [address] SARAH Velasquez MD Not Available [facility] [address] [place] [address], [address], 12/06/2021 12:35:30 12/04/19 22 12/06/2021 HEPAT ITIS A, TOTAL , REFLE X IGM hepatitis A, total, reflex IgM REACTI VE non-re active abnormal For addit ional infor toney ascencio e refer to http: //[facility]ary alice watson stdia gnost ics.c om/fa q/FAQ (This link is being provi ded for infor han medeiros/ educaryan castillo l purpo ses only. ) TEST PERFO RMED AT: [facility] [address] [facility] [place] [address] SARAH Velasquez MD ----- ----- ----- ----- ----- ----- ----- ----- ----- ----- ----- - NOTE THIS IS A REPOR TABLE DISEA SE AND MUST BE REPOR RICCARDO TO THE [facility] DEPT WITHI N 24 HOURS ----- ----- ----- ----- ----- ----- ----- ----- ----- ----- ----- - Not Available [facility] [address] [place], [address], 12/06/2021 15:17:25 12/04/19 22 12/06/2021 HEPAT ITIS C RNA, QT, PCR HCV RNA, qt, IU/mL 234795 0 IU/mL not detect ed high Not Available [facility] [address] [place], [address], 12/06/2021 15:50:47 12/04/19 22 12/06/2021 HEPAT ITIS [...] moctezuma on this test, go to: http: //[facility] catbashir n.que stdia gnost ics.c om/fa q/FAQ 22v1 (This link is being provi ded for infor matio nal/ educa jonathan l purpo ses only. ) TEST PERFO RMED AT: [facility] [address] [address] SARAH Velasquez MD Not Available [facility] [address] [place] [address], [address], 12/06/2021 15:50:47 12/04/19 22 12/07/2021 HEPAT ITIS A AB, IGM hepatitis A Ab, IgM NON-RE ACTIVE non-re active normal For addit ional infor toney ascencio e refer to http: //edu catio n.que stdia gnost ics.c om/fa q/FAQ 202 (This link is being provi ded for infor matio nal/ educa jonathan l purpo ses only. ) TEST PERFO RMED AT: [facility] [place] [address] [place] [address] SARAH Velasquez MD Not Available [facility] [address] [place] [address], [address], 12/07/2021 11:01:54 12/04/19 22 12/09/2021 HEPAT ITIS [...] infor toney ascencio e refer to http: //[facility] catbashir n.Que stDia gnost ics.c om /faq/ HCVGe notyp ing (This link id being provi ded for infor matio nal/ educa jonathan l purpo ses only. ) TEST PERFO RMED AT: [facility] [address] [place] [address] Ashlie LOWE,PHD ,EDUARDO Not Available [facility] [address] [place], [address], 12/09/2021 01:47:04 08/18/19 18 08/09/2017 elect jazz alberto am No observ ation record ed. [email or web address] [facility] [address] [place]io Moss, [place], [address], 08/17/2017 11:45:59 04/24/19 21 04/23/2020 US, abdom en, compl ete Sofia mace [address] [place] [address] Marvin wagner Name: ANJANA wagner : [phone] [...] Yonatan Ramírez MD on 021 12:07 PM [facility] [address] [place] [address] , [place], [address], 05/02/2020 12:20:53 Result Notes None recorded. Problems Name Problem SNOMED Code Status Onset Date Resolution Date Notes Provider Name and Address Organization Details Recorded Time Adult health examinati on Active 2016 ABHILASH NIÑO DO [address], [place], [address] , [facility] 7 11:34:03 Mood disorder Active 2015 From Automated Load;Provi emi: Lakeisha Sosa;Ron tatus: Active Not Available [facility] 7 06:28:20 Chest pain 54936818 Active 2015 From Automated Load;Provi emi: Shawn Sosa tatus: Active Not Available [facility] [address] 06:43:[address] Concept Active 2015 From Automated Load;Provi emi: Lakeisha Sosa;Ron tatus: Active Not Available [facility] 7 07:44:01 Shoulder joint pain 144132956 Active 2015 From Automated Load;Provi emi: Lakeisha Sosa;Ron tatus: Active Not Available [facility] 7 08:32:32 Problem Notes None recorded. Procedures Surgical History Date Name Laterality Status Provider Name and Address Organization Details Recorded Time 01/21/20 20 Pap Smear collection completed BASSEM GARCIA MD [address] [place], [address], [facility] 01/21/2020 13:40:03 01/21/20 20 Date of Last Pap Smear completed Cammie Slater [facility] 01/28/2020 11:34:24 06/27/19 18 Endoscopy Nasal; Diagnostic completed Sharon Huertas [facility] 06/26/2017 15:39:05 05/23/19 18 Endoscopy Nasal; Diagnostic completed Lynn Izquierdo [facility] 05/22/2017 12:33:19 05/04/19 18 Tympanogram completed JESS KANG, AUD [address] [place], [address], [facility] 05/03/2017 10:54:29 05/04/19 18 Audiogram completed JESS KANG AUD [address] [place], [address], [facility] 05/03/2017 10:54:28 05/04/19 18 Audiogram completed Pam Sanderson [facility] 05/03/2017 11:03:05 05/04/19 18 Tympanometry completed Pam Sanderson [facility] 05/03/2017 11:00:24 05/04/19 18 Endoscopy Nasal; Biospy, Polypectomy or Debridement completed Pam Sanderson [facility] 05/03/2017 10:47:40 04/22/19 18 Ears/Nose/Throat Surgery completed Marifer Sandoval [facility] 05/03/2017 10:02:02 04/04/19 18 Review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
--- OUTSIDE RECORDS SUMMARY | 2024-06-26 09:45 | XMS_ITS | Data Portability ---
Author Organization TIMOTEO MARK Collins ALBA CLOSED Address [address] [place] [address] Care Team Providers Care Ui Developer With Angular Js Name Role Phone [facility] Primary Care Provider [phone] JL KERR Referring Provider [phone] Assessment No assessment recorded. Plan of Treatment Reminders Order Date Submit Date Provider Last Modified By Organization Details Last Modified Time Details Appointments None recorded. Lab PTH (parathyroi d hormone), intact + calcium, serum or plasma 2022 023 [facility], [address] [place] [address], [address], 3 15:45:58 vitamin D, 25-hydroxy, total, serum 2022 023 [facility], [address] [place] [address], [address], 3 16:07:23 testosteron e, free + total, serum 2022 023 [facility], [address] [place] [address], [address], 3 14:03:11 TSH, serum or plasma 2022 023 [facility], [address] [place] [address], [address], 3 15:34:17 T4, free, serum 2022 023 [facility], [address] [place], [address], 3 15:34:14 T3, free, serum or plasma 2022 023 [facility], [address] [place], [address], 3 15:34:19 Referral behavioral health referral 2022 023 [email or web address] 1 [facility], [address], [address], [place], [address], 3 07:46:42 nutritionis t/dietitian referral [email or web address], [address], [place], [address], 3 12:56:33 gynecologis t referral - Evaluation for HRT 2022 023 [email or web address] 11 Stefany Phil DO, [address] , [address], [place], [address], 3 07:12:11 Procedures None recorded. Surgeries None recorded. Imaging None recorded. Medication Orders Savella 100 mg tablet 2022 023 [facility], [address] [place], [address], 3 11:39:16 tramadol 50 mg tablet 2022 023 [facility], [address] [place], [address], 3 11:39:18 tramadol ER 100 mg tablet,exte nded release 24 hr 2022 023 [facility], [address] [place], [address], 3 11:39:18 ropinirole 2 mg tablet 2022 023 [facility], [address] [place], [address], 11:39:15 Linzess 290 mcg capsule 2022 023 [facility], [address] [place], [address], 16:15:39 omeprazole 40 mg capsule,del ayed release 2022 023 [facility], [address] [place], [address], 16:11:49 clonidine HCl 0.1 mg tablet 2022 023 [facility], [address] [place], [address], 11:59:26 Imvexxy Maintenance Pack 10 mcg vaginal insert 2022 023 [facility], [facility] [place], [address], 11:59:27 Patient TargetsNo targets recorded. Patient Instructions Encounter Date Encounter Id Patient Instructions Last Modified By Organization Details Last Modified Time 09/02/2022 [id number] Body Mass Index: Care Instructions-LC [email or web address] Not available 09/02/2022 11:59:18 09/12/2022 [id number] arthritis: care instructions smoberly Not available 09/12/2022 11:39:07 osteoarthritis: care instructions smoberly Not available 09/12/2022 11:39:07 restless legs syndrome: care instructions smoberly Not available 09/12/2022 11:39:07 learning about healthy weight smoberly Not available 09/12/2022 11:39:07 Reason for Referral Record Changer Referral for Me nopausal syndrome Evaluation for HRT Referring Physician: Kelvin Kwong, Endocrinology, Encounter Date: 07/22/2022 Chiller Operator/dietitian Refer ral for Body mass index 30+ - obesity Referring Physician: Gabrielle Camejo PAINTER APPRENTICE, Encounter Date: 09/02/2022 Behavioral Health Referral f or Depressive disorder Referring Physician: Gabrielle Camejo PAINTER APPRENTICE, Encounter Date: 09/02/2022 Results Created Date Observation Date Name Description Value Unit Range Abnormal Flag Note LastModifiedBy Organization Detail LastModifiedTime 07/23/19 23 07/22/2022 T4,FR EE T4,free 1.30 NG/dL 0.93-1 .70 normal Not Available [facility] [address] [place] [address], [address], 07/22/2022 15:34:14 07/23/19 23 07/22/2022 TSH TSH 5.750 u[IU] /mL 0.270- 4.200 high Not Available [facility] [address] [place] [address], [address], 07/22/2022 15:34:17 07/23/19 23 07/22/2022 T3 FREE T3 free 2.56 pg/mL 2.00-4 .40 normal Not Available [facility] [address] [place], [address], 07/22/2022 15:34:19 07/23/19 23 07/22/2022 PTH, INTAC [...] ===== ===== ===== ===== ==== Not Available [facility] [address] [place] [address], [address], 07/22/2022 16:07:25 07/23/19 23 07/22/2022 PTH, INTAC T WITH CA calcium 9.9 mg/dL 8.6-10 .2 normal Not Available [facility] [address] [place] [address], [address], 07/22/2022 16:07:25 07/23/19 23 07/22/2022 VITAM IN D 25-OH vitamin D 25-oh, total 44 NG/mL >=30 NG/mL normal Not Available [facility] [address] [place], [address], 07/22/2022 16:07:23 07/23/19 23 07/28/2022 TESTO STERO NE, TOTAL / FREE testosterone , total 14 NG/dL 2-45 normal For addit ional infor han ntoeny e refer to https ://ed ucati on.[employer]. Living Proof/f aq/FA Q165 (This link is being provi ded for infor matio nal/e ducat ional purpo ses only. ) (Note ) This test was devel oped and its joana tical perfo rmanc e vita cteri stics have been deter mined by [employer]. It has not been clear ed or appro stoney by the FDA. This assay has been valid ated pursu ant to the CLIA regul ation s and is used for clini sandhya purpo ses. Not Available [facility] [address] [place], [address], 07/28/2022 14:03:11 07/23/19 23 07/28/2022 TESTO STERO [...] sandhya purpo ses. YAMILETH med fusio n [address] [facility] [address] [place] [address] [phone] Noah maldonado MD Not Available [facility] [address] [place], [address], 07/28/2022 14:03:11 09/13/19 23 09/12/2022 TSH TSH 1.140 u[IU] /mL 0.270- 4.200 normal Not Available [facility] [address] [place], [address], 09/12/2022 13:00:02 09/13/19 23 09/12/2022 T4,FR EE T4,free 1.76 NG/dL 0.93-1 .70 high Not Available [facility] [address] [place], [address], 09/12/2022 13:00:04 07/01/19 23 06/30/2022 NM, gastr ic empty ing scan [facility] [address] [place] [address] Marvin wagner Name: ANJANA JUAREZ JENNIFER Marvin wagner : 964 Patielzbieta t Orderi ng Provid er: ALAINA PHILLIP S EXAM DATE: 2022 EXAM: NM GASTRI C EMPTYI NG STUDY 4HR HISTOR Y: 57-yea r-old female with abdomi nal bloati ng. COMPAR RASTA: None. TECHNI QUE: Gastri c imagin g study was perfor med using Tc 99m sulfur colloi d 1.1 mCi p.o. ([facility] [address]1 ). Immedi ate and 1 Hr, [...] Mila merino MD on 023 1:45 PM [facility] Nuclear Medicine [facility] [place], [address], 06/30/2022 20:13:14 02/03/20 23 02/02/2023 XR, abdom en, compl ete [address] [facility] [place] [address] Patien t Name: ANJANA RODRIGUEZ Patien t [...] Yonatan Madera MD on 2022 5:05 PM [facility] [address] , [place], [address], 02/03/2023 08:52:36 01/09/20 24 11/18/2023 MRI, pelvi s, w/o contr ast No observ ation record ed. [email or web address] Not Available 2023 12:29:49 Result Notes None recorded. Problems Name Problem SNOMED Code Status Onset Date Resolution Date Notes Provider Name and Address Organization Details Recorded Time Restless legs 49240712 Active Rasheeda Cyndee null, [facility] 8 11:45:11 Arthritis 9231216 Active 1989 [facility] 8 11:45:11 Fibromyos itis 83780962 Active [facility] 8 11:45:11 Uterine leiomyoma 36969570 [facility] 8 11:45:11 Depressiv e disorder 55821149 Active [facility] 8 11:45:11 Backache 239855063 Active [facility] 8 11:45:11 Disorder of thyroid gland 50496049 Active [facility] 8 11:45:11 Irritable bowel syndrome 71158877 Active [facility] 8 11:45:11 Migraine 95097855 Active [facility] 8 11:45:11 Periphera l nerve disease 719586726 Active [facility] 8 11:45:11 Gastroeso phageal reflux disease 478194568 Active [facility] 8 11:45:11 Hyperlipi demia 11946569 Active 2004 [facility] 8 11:45:11 Anxiety 96012567 Active [facility] 8 11:45:11 Chronic drug-ruddy mayra renal disease 638888975 Active [facility] 8 11:45:11 Chronic constipat ion 564219258 Active [facility] 8 11:45:11 Raynaud's phenomeno n 321021161 Active 2017 ADRIANNE ACOSTA APRN [address] [place], [address], [facility] 8 21:56:06 Pain of bilateral hands 160273045643 00899 Active 2017 ADRIANNE ACOSTA APRN [address] [place], [address], [facility] 8 21:56:07 Solitary nodule of lung 544379208 Active 2018 VILMA JACOB MD [address] [place], [address], [facility] 9 15:00:07 Polymyalg ia rheumatic a 23499999 Active 2015 From Automated Load;Prov ider: Adrianne Acosta;S tatus: Active [facility] 8 11:45:11 Finding of sensation by site 419569117 Active 2014 From Automated Load;Prov ider: Adrianne Acosta;S tatus: Active [facility] 8 11:45:11 Hand pain 90230489 Active 2014 From Automated Load;Prov ider: Adrianne Acosta;S tatus: Active [facility] 8 11:45:11 Pain of joint of wrist 430157569 Active 2014 From Automated Load;Prov ider: Adrianne Acosta;S tatus: Active Rasheeda Cyndee null, [facility] 8 11:45:11 Chronic pain syndrome 887462708 Active 2014 From Automated Load;Prov ider: Jermaine Monson atus: Active Rasheeda Cyndee null, [facility] 8 11:45:11 Neck pain 10299426 Active 2014 From Automated Load;Prov ider: Adrianne Acosta;S tatus: Active Rasheeda Cyndee null, [facility] 8 11:45:11 Headache disorder 417493457 Active 2014 From Automated Load;Prov ider: Adrianne Acosta;S tatus: Active Rasheeda Cyndee null, [facility] 8 11:45:11 Pain in right hand 169065749493 109 Active 2014 From Automated Load;Prov ider: Adrianne Acosta;S tatus: Active Rasheeda Cyndee null, [facility] 8 11:45:11 Lumbar spondylos is 591819397 Active 2015 From Automated Load;Prov ider: Eun Monson; atus: Active Rasheeda Cyndee null, [facility] 8 11:45:11 Notes:Some problems listed i n Document: #[id number] could not be added to this patient's chart. Please review this document and add these problems to the patient's chart manually as needed. Problem Notes None recorded. Procedures Surgical History Date Name Laterality Status Provider Name and Address Organization Details Recorded Time 023 Date of Last Pap Smear completed [facility] 09/02/2022 11:11:34 022 Back Surgery completed Shaniqua Gregg [facility] 03/03/2022 10:07:04 022 Date of Last Mammogram completed [facility] 09/02/2022 11:11:40 022 Spirometry completed Chandni Martini [facility] 07/21/2021 11:13:11 021 Trigger Point Injection(s) completed ADRIANNE ACOSTA APRN [address] [place], [address], [facility] 05/25/2020 12:21:19 021 Injection Joint/Bursa, Interm, w/o US completed ADRIANNE ACOSTA APRN [address] [place], [address], [facility] 05/25/2020 10:15:00 020 Cervical Radiofrequency Ablation completed SIOBHAN RIVERA MD [address] [place], [address], [facility] 03/07/2019 13:04:26 020 Cervical Radiofrequency Ablation completed SIOBHAN RIVERA MD [address] [place], [address], [facility] 03/06/2019 07:57:05 019 Cervical Medial Branch Blocks completed SIOBHAN RIVERA MD [address] [place], [address], [facility] 01/24/2019 09:31:15 019 Cervical Medial Branch Blocks completed SIOBHAN RIVERA MD [address] [place], [address], [facility] 01/23/2019 10:27:08 019 Airway Resistance [facility] 04/23/2018 13:58:53 019 Diffusion Capacity completed Puja King [facility] 04/23/2018 13:58:50 019 Lung Volumes, Plethysmography completed Pujaaryan King [facility] 04/23/2018 13:58:52 019 Spirometry completed Pujaaryan Palman [facility] 04/23/2018 13:58:48 018 PERMANENT PLACEMENT OF SPINAL CORD STIMULATOR (SURG) completed Mariluz Katz [facility] 12/07/2017 08:57:25 018 Electromyography (EMG) with Nerve Conduction Study (NCV) completed Lynn Menchaca (Nicky) [facility] 10/05/2017 16:07:07 017 Spine Surgery completed Mariluz Katz [facility] 10/03/2017 13:40:52 015 Neck Surgery completed Mariluz Katz [facility] 10/03/2017 13:40:18 012 Neck Surgery completed Mariluz Katz [facility] 10/03/2017 13:39:50 Back Surgery completed Mariluz Katz [facility] 10/03/2017 13:31:16 Back Surgery completed Mariluz Katz [facility] 10/03/2017 13:31:42 Neck Surgery completed Mariluz [facility] 10/03/2017 13:32:52 Other completed Mariluz Meyerr [facility] 10/03/2017 13:33:21 Carpal tunnel surgery [...] Time 06/30/2022 NM, gastric emptying scan completed [facility] Nuclear [facility] [place], [address], 06/30/2022 20:13:14 02/02/2023 XR, abdomen, complete completed [facility] [address] [place] [address], [address], 02/03/2023 08:52:36 11/18/2023 MRI, pelvis, w/o contrast [email or web address] Information not available 01/10/2024 12:29:49 Procedure Notes None recorded. Medical Equipment None Reported. Allergies Allergen ID Allergen Name Allergen Category Reaction Reaction Severity Criticality Documentation Date Start Date Code Code System Note Provider Name and Address Organization Details Recorded Time 19180321 Dilaudid medicatio n Not available Not available Not available 01/07/20162009 64217 3 RxNorm Comme nt: Creat ed By: Juan gu Date: 2009 2:07: 05 PM; Not Available [facility] 6 12:06:11 005174 Substance with sulfonami de structure and antibacte rial mechanism of action (substanc e) medicatio n Not available Not available Not available 01/08/20162009 13614 8003 SNOMED Comme nt: Creat ed By: Juan Lau ;Crea riccardo Date: 2009 2:06: 57 PM; Not Available [facility] 6 04:15:05 255402 codeine medicatio n Not available Not available Not available 01/08/20162009 2670 RxNorm Comme nt: Creat ed By: Juan Lau ;Crea riccardo Date: 2009 2:06: 49 PM; Not Available [facility] 6 05:56:36 757708 Product containin g penicilli n (product) medicatio n Not available Not available Not available 01/08/20162009 23836 8001 SNOMED Comme nt: Creat ed By: Juan Lau ;Crea riccardo Date: 2009 2:06: 41 PM; Not Available [facility] 6 09:43:40 005007 hydromorp gayle medicatio n Not available Not available Not available 01/17/2018 3423 RxNorm Rasheeda Cyndee [facility] 8 11:44:52 279013 sulfadiaz ine medicatio n Not available Not available Not available 01/17/2018 27268 RxNorm Rasheeda Cyndee [facility] 8 11:44:52 960157 Non-stero idal anti-infl ammatory agent (product) medicatio n other moderate Not available 04/29/2019 20131 005 SNOMED Kidne y failu re Shantell Andres [facility] 0 11:16:21 021782 Neurontin medicatio n Not available Not available Not available 09/12/2022 56453 8 RxNorm Shaniqua Gregg [facility] 3 11:02:06 Medications Name Sig Start Date [...] PROCEDUR E. DO NOT DRIVE MUST HAVE PATTERN MECHANIC PRESENT FOR PROCEDUR E. 07/21 completed Not [...] completed Not Available Not Available Not Available RADAR SCIENTIST Thyroid 120 mg tablet TAKE 1 TABLET BY MOUTH ONCE DAILY 12/29 completed Not Available Not Available Not Available Flucelvax Quad 1485-5034 (PF) 60 mcg (15 mcg x 4)/0.5 mL IM syringe 01/17 completed Not Available Not Available Not Available Plenvu 140 gram-9 gram-5.2 gram powder packs Take as directed . DIMITRIOS ANDERSON: [id number] PCN: [id number]: [id number] ID: [id number] 05/17 completed Not Available Not Available [...] Updated DateTime 3 166.37 cm 31.1 kg/m2 78936.5 5 g 80 /min 118 mm[Hg] 75 mm[Hg] Ema Lee [facility] 3 13:58:25 Date Recorded Body height Body mass index (BMI) Body weight Systolic blood pressure Diastolic blood pressure Provider Name and Address Organization Details Last Updated DateTime 09/02/2022 166.37 cm 30.8 kg/m2 67942.08 g 116 mm[Hg] 70 mm[Hg] Jacqui Watson [facility] 3 10:59:31 Date Recorded Body height Body mass index (BMI) Body weight Heart rate Respiratory rate Systolic blood pressure Diastolic blood pressure Provider Name and Address Organization Details Last Updated DateTime 3 166.37 cm 30.8 kg/m2 42340.3 7 g 84 /min 16 /min 85 mm[Hg] 63 mm[Hg] Sasha Acosta [facility] 3 15:36:18 Date Recorded Body height Body mass index (BMI) Body weight Heart rate Oxygen saturation Oxygen saturation in Arterial blood by Pulse oximetry Systolic blood pressure Diastolic blood pressure Provider Name and Address Organization Details Last Updated DateTime 3 166.37 cm 30.8 kg/m2 46034.3 7 g 75 /min 98 % 98 % 108 mm[Hg] 78 mm[Hg] Shaniqua Gregg [facility] 3 11:07:03 Date Recorded Body height Body mass index (BMI) Body weight Heart rate Respiratory rate Systolic blood pressure Diastolic blood pressure Provider Name and Address Organization Details Last Updated DateTime 3 166.37 cm 30.3 kg/m2 10261.5 9 g 80 /min 16 /min 117 mm[Hg] 79 mm[Hg] Sasha Acosta [facility] 3 10:59:55 Social History Question Answer Notes LastModified by Organizat Stream Details LastModified Time Tobacco Smoking Status Never Smoker [facility] 10/03/2017 13:30:52 How Much Tobacco Do You Chew? None [email or web address] Information not available 07/04/2018 What Was The Date Of Your Most Recent Tobacco Screening? 09/12/2022 Information not available 09/12/2022 How Much Tobacco Do You Smoke? No [email or web address] Information not available 07/04/2018 Has Tobacco Cessation Counseling Been Provided? No Information not available 03/03/2022 How Many Years Have You Smoked Tobacco? 0 [email or web address] Information not available 07/04/2018 Have You Recently Traveled Abroad? No Information not available 03/03/2022 Sex: Female Functional Status Question Answer Note LastModified by Organizat ion Details LastModified Time Do you use any illicit or recreational drugs? No [email or web address] Information not available 03/03/2022 What is your level of alcohol consumption? None Information not available 04/23/2018 Do you or have you ever used smokeless tobacco? Never used smokeless tobacco Information not available 10/23/2018 Do you or have you ever used e-cigarettes or vape? Never used electronic cigarettes Information not available 10/23/2018 Mental Status None recorded. Family History Relationship Description Onset Age of this Age Resolved Age Notes LastModified by Organization Details LastModified Time Mother Heart disease [email or web address] Not available 2018 13:57:32 Medical History Condition [...] virus, quadrivalent, preservative 9 completed Shantell Andres [facility] 04/29/2019 11:15:13 Past Encounters Encounter ID Performer Location Encounter Start Date Encounter Closed Date Diagnosis/Indication Diagnosis SNOMED-CT Code Diagnosis ICD10 Code Diagnosis Note [id number] EUN MONSON MD NEUROSURG [facility] [address] [place] [address] 10/03/2017 13:07:11 10/03/2017 14:22:49 Chronic pain syndrome 834653825 G89.4 Ms. Spann is a 52 y/o [...] Dr. Monson, who agrees with the above. [id number] NIDIA SANTANA MD NEUROLOGY [facility] [address] [place] [address] 10/05/2017 14:29:09 10/05/2017 16:49:27 Skin sensation disturbance 71178247 R20.9 Idiopathic peripheral neuropathy 41157102 G60.9 Lumbar radiculopathy 128 693539 M54.16 Low back pain 285263326 M54.5 [id number] VILMA DOMINGUEZ MD NEUROSURG [facility] [address] 11/20/2017 14:52:27 11/20/2017 15:19:39 [id number] EUN MONSON MD NEUROSURG [facility] [address] [place] [address] 12/07/2017 08:50:14 12/07/2017 09:20:18 Chronic pain syndrome 694440917 G89.4 [id number] ADRIANNE ACOSTA APRN [facility] [address] [place] [id number] 01/17/2018 11:16:02 01/18/2018 07:41:02 Raynaud's phenomenon 014354994 I73.00 polyarthra lgias/poly myalgias becoming chronic with [...] emg/ncs normal Pain of bi lateral hands 8106380520 0977023 M79.641 M79.642 bilateral hand pain and stiffness with recurring decreased lead quality technician will assess further labs and xrays to help determine RA or OA worsening/ systemic changes will obtain new venecia as well and lupus panel to assess for underlying autoimmune continues to have widespread pain suggesting mctd or fibromyalg ia; has recurring raynauds worsening symptoms Anti-nucle ar factor detected 173878052 R76.8 historical ly low positive at 1:40 homogenous and speckled with thought of worsening symptomati c complaints [id number] VILMA JACOB MD PULMONARY [address] [place] [address] 04/23/2018 13:28:31 05/13/2018 09:57:58 Solitary nodule of lung 260761374 R91.1 6 mm superior segment LLL nodule in a non-smoker . Stable on 3 month follow up in 01/2018. Current Fleischner society recommenda tions are a 6-12 month follow up. Given that she is a non smoker and no growth at 3 months, I will have her come back for a [address] scan in January 2019. [id number] ADRIANNE ACOSTA APRN [facility] [address] [place] [address] 07/04/2018 12:55:32 07/12/2018 14:34:45 Raynaud's phenomenon 220504154 I73.00 polyarthra lgias/poly myalgias becoming chronic with [...] emg/ncs normal Pain of bi lateral hands 2910248853 5473697 M79.641 M79.642 bilateral hand pain and stiffness with recurring decreased lead quality technician will assess further labs and xrays to help determine RA or OA worsening/ systemic changes will obtain new venecia as well and lupus panel to assess for underlying autoimmune continues to have widespread pain suggesting mctd or fibromyalg ia; has recurring raynauds worsening symptoms Anti-nucle ar factor detected 475984541 R76.8 historical ly low positive at 1:40 homogenous and speckled with thought of worsening symptomati c complaints Muscle pain 06443596 M79 .10 Restless legs 94922764 G 25.81 Osteoarthritis 178370444 M19.90 Chronic back pain 317514 002 G89.29 [id number] SIOBHAN RIVERA MD PAIN MEDICINE [address] [place] [address] 1 07/10/2018 09:40:30 07/10/2018 11:49:12 Chronic low back pain 252222186 M54.5 Cervical spondylosis 387 178495 M47.812 Long-term drug therapy 790458870 Z79.372 [id number] SIOBHAN RIVERA MD PAIN MEDICINE [address] [place] [address] 1 08/09/2018 10:55:04 08/09/2018 12:38:28 Neuropathic pain 784042061 M79.2 Chronic low back pain 27 5155606 M54.5 [id number] SIOBHAN RIVERA MD PAIN MEDICINE [address] [place] [address] 1 09/06/2018 10:55:35 09/10/2018 10:42:37 Chronic low back pain 352465371 M54.5 [id number] EUN MONSON MD NEUROSURG [facility] [address] 0 10/11/2018 10:02:39 10/17/2018 10:16:23 Backache 053841407 M54.9 [id number] CLAIRE SHEFFIELD APRN PAIN MEDICINE [address] [place] [address] 1 10/22/2018 11:08:24 10/22/2018 13:14:20 Chronic low back pain 389115709 M54.5 Stop Tramadol Cervical radiculopathy 10833566 M54.12 Schedule Cervical RFA Bilateral w/Dr. Micheal amaro anxiety disorder 29611537 F41.1 will need psychiatry referral if staying on benzodiaza pines after talking with PCP [id number] AD[place] [address] [place] [address] 1 10/23/2018 15:14:56 10/25/2018 09:59:01 Raynaud's phenomenon 097868423 I73.00 polyarthra lgias/poly myalgias becoming chronic with [...] PT emg/ncs normal Anti-nucle ar factor detected 561675504 R76.8 historical ly low positive at 1:40 homogenous and speckled with thought of worsening symptomati c complaints with recurring negative lupus panel on 07/04/2018 Muscle pain 92520750 M79 .10 improved overall with savella, she is trying to lower the sertraline at this time and trying to remain Restless legs 93043288 G 25.81 continues with restless legs overall Osteoarthritis 711501938 M19.90 bilateral hand pain and stiffness with recurring decreased lead quality technician will assess further labs and xrays to help determine RA or OA worsening/ systemic changes will obtain new venecia as well and lupus panel to assess for underlying autoimmune continues to have widespread pain suggesting mctd or fibromyalg ia; has recurring raynauds worsening symptoms Chronic back pain 688024 002 G89.29 seeing pain management [id number] SIOBHAN RIVERA MD PAIN MEDICINE [address] [place] [address] 1 12/21/2018 09:12:47 12/21/2018 10:39:04 Long-term drug therapy 560898012 Z79.899 Chronic low back pain 27 5310601 M54.5 [id number] SIOBHAN RIVERA MD PAIN MEDICINE [address] [place] [address] 1 01/14/2019 14:45:11 01/14/2019 15:40:23 Chronic low back pain 926789946 M54.5 [id number] SIOBHAN RIVERA MD [facility] NAL CHARG[facility] [address] [place] [address] 1 01/23/2019 10:04:15 01/24/2019 10:59:35 Cervical spondylosis 853985058 M47.987 [id number] SIOBHAN RIVERA MD [facility] NAL CHARGES [address] [place] [address] 1 01/24/2019 09:25:40 01/25/2019 08:51:03 Cervical spondylosis 967709810 M47.922 [id number] SIOBHAN RIVERA MD PAIN MEDICINE [address] [place] [address] 1 02/18/2019 10:48:43 02/20/2019 11:29:45 Cervical spondylosis 149655929 M47.812 Myofascial pain 19368131 9 M79.10 [id number] SIOBHAN RIVERA MD [facility] N[facility]ARG[facility] [address] [place] [address], [address] [place] [address] 1 03/06/2019 07:24:50 03/07/2019 14:40:06 Cervical spondylosis 852356927 M47.238 [id number] SIOBHAN RIVERA MD [facility] N[facility]ARGES [address] [place] [address], [facility] [[email or web address]] [address] [place] [address] 1 03/07/2019 12:33:52 03/08/2019 11:58:58 Cervical spondylosis 574620733 M47.500 [id number] VILMA JACOB MD PULMONARY [address] [place] [address], [address] [place] [address] 1 04/29/2019 10:14:21 04/29/2019 11:56:45 Solitary nodule of lung 317770198 R91.1 6 mm superior segment LLL nodule [...] potentiall y do a cardiac evaluation .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
--- NOTE | 2024-06-26 11:30 | NM_ITS ---
APPROVED REPORT Exam: Nuclear Stress Test Indication: Chest pain, SOB, Fatigue, High cholesterol, Family history Patient Location: Outpatient Stress Tech: Ana Kaur [place] Tech:Lili Skinner, ARRT, RT (R)(N) Ht: 5 ft 5 in Wt: 155 lbs Bra Size: 36B HR: 69 bpm BP: 119/92 mmHg BSA: 1.77 m2 TID: 1.15 BMI: 25.7 History: Chest pain, SOB, Fatigue, High cholesterol, Family history Procedure: Patient received 0.4 mg of intravenous Lexiscan, resting heart rate 69 bpm, resting blood pressure 119/92 mmHg, with Lexiscan maximum heart rate achieved was 91 bpm which is % of the maximum predicted heart rate and blood pressure was 127/50 mmHg. With Lexiscan, patient denied any complaint of chest pain. Cardiac Stress and Resting SPECT Images: Cardiac Stress and Resting SPECT images were obtained using technetium 99m Myoview 31.7 mCi stress and 10.62 mCi at rest. Resting and stress imaging in supine and prone positions demonstrate no evidence of fixed or reversible perfusion defects. Gated imaging demonstrates normal global and regional LV systolic function. LVEF is calculated at 61%. Conclusion: No evidence of fixed or reversible perfusion defects. Gated imaging demonstrates normal global and regional LV systolic function. LVEF is calculated at 61%. Electronically signed by : Tamara Morales MD 06/26/2024 23:54:47
[2024-06-26] MEDS: SODIUM CHLORIDE 0.9% 10ML SYR (RAD ONLY) 10 ML IV ×2 (13:15→13:16)
[2024-06-26] MEDS: REGADENOSON 0.4MG/5ML SYRINGE 0.4 MG IV (13:15)
[2024-06-26] MEDS: ISOTOPE MYOVIEW (PER STUDY) 1 DOSE IV (13:16)
== END 2024-06-26 23:59 | disposition home or self-care (01) ==
LOC: RT 09:41
PROVIDERS: PCP Family Medicine; Visit Provider Physician Assistant
DX: I08.0 Rheumatic disorders of both mitral and aortic valves (principal); I48.0 Paroxysmal atrial fibrillation; K21.9 Gastro-esophageal reflux disease without esophagitis; E78.00 Pure hypercholesterolemia, unspecified; R06.00 Dyspnea, unspecified
CPT/HCPCS: 78452; 93017; 93018; 93306; A9502; J2785

== ENCOUNTER 2024-07-16 11:15 | Outpatient (CLI) | payer MEDICARE, SELFPAY ==
--- OUTSIDE RECORDS SUMMARY | 2024-07-11 03:09 | XMS_ITS | Continuity of Care Document ---
Author Organization [facility] Phone Care Team Providers Care Mid Level Project Manager Name Role Phone CHANDA KERR Admitting CHANDA KERR Primary Attending CHANDA KERR Unavailable CHANDA KERR Primary Care ALLERGIES AND ADVERSE REACTIONS ALLERGIES AND ADVERSE REACTIONS Code System Allergy Substance Adverse Reaction Date Reaction (Severity) Comment Status Reported By Updated By [id number] SNOMED CT Sulfa Antibiotics Adverse reaction to substance face swells active [id number] on September 12, 2023 3:48:39 PM [place] 2670 RXNorm Codeine Adverse reaction to substance feels like going crazy active [id number] on September 12, 2023 3:49:05 PM [place] 3423 RXNorm Dilaudid Rash (Severe) active [id number] on September 12, 2023 3:49:30 PM [place] [id number] SNOMED CT NSAIDs Adverse reaction to substance ST 3 kidney disease active [id number] on September 12, 2023 3:51:29 PM UTC 54507 RXNorm Gabapentin Adverse reaction to substance MCKEON, peripheral edema active [id number] on September 12, 2023 3:50:49 PM [place] [id number] SNOMED CT PENICILLINS Adverse reaction to substance face swells active [id number] on September 12, 2023 3:48:17 PM UTC FAMILY HISTORY RELATION: Father Status: Cause of : Unknown Age at : Unknown SNOMED-CT Diagnosis Age At Onset Information not available RELATION: Mother Status: Cause of : Unknown Age at : Unknown SNOMED-CT Diagnosis Age At Onset [id number] Myocardial infarction 74658555 Heart disease 483610632 Transient cerebral ischemia 35494896 Alzheimer's disease RESULTS Patient: EZE Pedersen Date of : March 10 964 LABORATORY RESULTS Information is not available LABORATORY NARRATIVE RESULTS Information is not available RADIOLOGY RESULTS ORDER 200: AAA SCREENING ( INC: [id number]) ORDER DATE: July 09, 2024 3:23:00 PM [facility] PERFORMING LAB: [facility] [address] [place] [address] [id number] Final Result Date: July 09 8:49:27 PM [facility] [address] [place] [address] Name: WENDY LOO Exam Date: 07/09/2024 : 1965 Age 59 years Gender: F Physician: CHANDA KERR Facility: [facility] Facility HSV: Outpatient Exam: AAA SCREENING Sound abdominal aorta. HISTORY: Pulsating mass. FINDINGS: The proximal abdominal aorta measures 2.4 cm in AP dimension by 1.8 cm in transverse dimension. The mid abdominal aorta measures 1.6 cm in AP dimension by 1.7 cm in transverse dimension. The distal abdominal aorta measures 1.1 cm in AP dimension by 1.8 cm in transverse dimension. The right common iliac artery measures 0.9 cm in diameter. The left common iliac artery measures 1.0 cm in caliber. IMPRESSION: No evidence for abdominal aortic aneurysm. Electronically signed by: Paul Jiang MD 07/09/2024 04:49 PM EDT RP Dictated By: Paul Jiang Transcribed By: Transcribed On: 07/09/2024 4:49 PM Electronically signed by: Paul Jiang 07/09/2024 Thank you for referring WENDY LOO to [facility]. Legally authenticated by PAUL KAUFMAN 2024-07-09 16:49:27 PATHOLOGY NARRATIVE RESULTS Information is not available MICROBIOLOGY RESULTS No Micro Labs/Results Exist for Patient BLOOD ADMIN RESULTS Information is not available MEDICATIONS HOME MEDICATIONS Status RXNORM NDC Medication Dose Route Frequency Dates Comments Reported By Updated By Drug Treatment Unknown DISCHARGE MEDICATIONS Status RXNORM NDC Medication Dose Route Frequency Dates Comments Physician Updated By No Discharge Medication Info rmation Available INPATIENT MEDICATIONS Status RXNORM NDC Medication Dose Route Frequency Rat e Quantity Dates Comments Physician Updated By No Inpatient Medication Info rmation Available SOCIAL HISTORY SOCIAL HISTORY SNOMED-CT Social History Element Description Effective Dates Offered Cessation Comment UpdatedBy [id number] Historical Tobacco smoking status Never Smoked [id number] on September 12, 2023 4:43:09 PM [facility] SOCIAL HISTORY - Gender Sex: Female SOCIAL HISTORY - Status : status i nformation is not available Intention in Next Year: intention information is not available SOCIAL HISTORY - Sexual Behavior Sexual Orientation Gender Identity SNOMED-CT Description SNO MED -CT Description Activity Level No of Partners Partner Type UpdatedBy Information is not available HEALTH CONCERNS Problems Concern Status Health Concern problem infor mation not available. Smoking Status Status Years Used Consumed packs p er day Health Concern smoking histo ry information not available. Family History Concern Status Health Concern family histor y information not available. ENCOUNTERS ENCOUNTER INFORMATION Reason for Visit ULS Admission July 09, 2024 2:54:[address] [address] Discharge July 09, 2024 2:54:00 PM [facility] DISC HARGED TO HOME OR SELF CARE ENCOUNTER DIAGNOSES Notes information is not leila ilable. Code System Diagnosis Onset Date Diagnosis information is not available. ABSTRACT DIAGNOSES Code System Diagnosis Updated By Z13.6 ICD10 ENCOUNTER FOR SC REENING FOR CARDIOVASCULAR DISORDERS [id number] on July 11, 2024 7:08:46 AM [facility] R22.9 ICD10 LOCALIZED SWELLI NG, MASS AND LUMP, UNSPECIFIED [id number] on July 11, 2024 7:08:46 AM [facility] Z13.6 ICD10 ENCOUNTER FOR SC REENING FOR CARDIOVASCULAR DISORDERS [id number] on July 11, 2024 7:08:46 AM [facility] R22.9 ICD10 LOCALIZED SWELLI NG, MASS AND LUMP, UNSPECIFIED [id number] on July 11, 2024 7:08:46 AM [facility] CARE TEAM Care Mid Level Project Manager Role CHANDA KERR Admitting CHANDA KERR Primary Attending CHANDA KERR Referring CHANDA KERR Primary Care CARE TEAM CARE weight inspector Role on Team Status Start Date End Date Update d By USHA ARMAS PCP normal July 02, 2024 5:51:35 PM [facility] July 09, 2024 2:54:00 PM [facility] [id number] on July 02, 2024 5:51:35 PM [place] USHA ARMAS Referring normal July 02, 2024 5:51:35 PM UT July 09, 2024 2:54:00 PM UT [id number] on July 02, 2024 5:51:35 PM UT USHA ARMAS Attending normal July 02, 2024 5:51:35 PM UT July 09, 2024 2:54:00 PM UT [id number] on July 02, 2024 5:51:35 PM UT USHA ARMAS Admitting normal July 02, 2024 5:51:35 PM UT July 09, 2024 2:54:00 PM UT [id number] on July 02, 2024 5:51:35 PM [facility]
[2024-07-16 11:18] VITALS: BMI 24.6
--- OUTSIDE RECORDS SUMMARY | 2024-07-16 11:18 | XMS_ITS | Data Portability ---
Author Organization [place] - Bhanu syed MD, Main Office Address [address] , [facility] [address] [place] [address] Care Team Providers Care Tempering Kiln Tender Name Role Phone CHANDA KERR Primary Care Provider [phone] Assessment No assessment recorded. Plan of Treatment [...] 100 mg chewable tablet 2017 018 INTERFACE [facility] [address] [place], [address], 8 09:40:08 Patient TargetsNo targets recorded. Patient Instructions Encounter Date Encounter Id Patient Instructions Last Modified By Organization Details Last Modified Time 10/26/2017 [id number] Neuropathic Pain : Care Instructions Not available [...] and Address Organization Details Recorded Time Neuropathy [id number] Active 018 TIMOTEO Edge MD 8 09:17:25 [...] Perea MD 10/26/2017 09:06:53 Back Surgery completed Liezt Perea MD 10/26/2017 09:07:09 Shoulder Surgery completed [...] Not available Not available Not available 09/18/2017 42579 005 SNOMED TIMOTEO Edge MD 8 10:50:10 1624 Product containin g penicilli n (product) medicatio n Not available Not available Not available 09/18/2017 04448 8001 TIMOTEO Anderson MD 8 10:50:14 1625 Substance with sulfonami de structure and antibacte rial mechanism of action (substanc e) medicatio n Not available Not available Not available 09/18/2017 06292 8003 SNOMED TIMOTEO Edge MD 8 10:50:19 1814 Dilaudid medicatio n Not available Not available Not available 10/26/2017 52255 3 RxNoTIMOTEO Vaughan MD 8 09:12:38 Medications [...] Not Available No t Available Flucelvax Quad 2364-4801 (PF) 60 mcg (15 mcg x 4)/0.5 mL IM syringe 10/19 completed Not Available Not Available Not Available Vitals Date Recorded Body height Body mass index (BMI) Body weight Heart rate Respiratory rate Systolic blood pressure Diastolic blood pressure Provider Name and Address Organization Details Last Updated DateTime 8 167.64 cm 28.2 kg/m2 75343.6 6 g 82 /min 17 /min 100 mm[Hg] 77 mm[Hg] Bhanu Perea MD [address] [facility] [address], [place], [address], [place] - Bhanu Perea MD 8 09:40:50 Social History Question Answer Notes LastModified by Organizat ion Details LastModified Time Tobacco Smoking Status Never Smoker Not Available [facility] 12/17/2019 03:34:29 Live Alone Or With Others? With Others Information not available 10/26/2017 What Was The Date Of Your Most Recent Tobacco Screening? 10/26/2017 [id number] Information not available 12/17/2019 Sex: Unknown Functional Status Question Answer Note LastModified by Organization D etails LastModified Time What is your level of alcohol consumption? None [id number] Information not available 12/17/2019 Mental Status None [...] Office [address], [address] [place] [address] 10/26/2017 09:15:43 10/26/2017 09:40:06 Idiopathic peripheral neuropathy 80218544 G60.9 The patient is a 52-year-ol d white female who was a mild sensory neuropathy . Chronic low back pain 27 3942680 M54.5 She has a spinal cord stimulator then needs adjustment . Cervical d isc disorder 297957735 M50.90 She is status post cervical spinal [...] (MEDICARE REPLACEMENT/ ADVANTAGE - PPO) Anjana Ag [id number] Anjanaaryan Ag Notes Date Note Type Note [...] Perea MD [address], [address], [place], [address], [facility] Bhanu Perea MD 10/26/2017 09:49:49 OBGyn Episode No OBEpisode recorded.
[2024-07-16] MEDS: SODIUM CHLORIDE 0.9% 10ML FLUSH SYRINGE 10 ML IV (11:25)
[2024-07-16 11:33] LABS: Basophils % 0.7 % (0.1-2.0); Eosinophils # 0.1 Kmm3 (0.0-0.4); Eosinophils % 2.4 % (0.1-12.0); Hematocrit 35.1 % (37.0-47.0); Hemoglobin 11.8 g/dL (12.2-16.2); Immature Granulocytes # 0.01 10^3uL; Immature Granulocytes % 0.2 %; Lymphocytes # 0.9 K/mm3 (0.7-4.5); Lymphocytes % 21.3 % (10-50); Mean Corpuscular HGB Conc 33.6 g/dL (31.8-35.4); Mean Corpuscular Volume 89.3 fl (81-99); Mean Platelet Volume 9.4 fl (7.4-10.4); Monocytes # 0.4 K/mm3 (0.1-1.0); Monocytes % 9.7 % (1.7-9.3); Neutrophils # 2.8 K/mm3 (1.8-7.8); Neutrophils % 65.7 % (37.0-80.0); Nucleated Red Blood Cells # 0 10^3/uL; Nucleated Red Blood Cells % 0 %; Platelet Count 191 K/mm3 (142-424); Red Blood Count 3.93 M/mm3 (4.20-5.40); Red Cell Distribution Width 14.2 % (11.5-17.5); Red Cell Distribution Width-SD 46.2 fL; White Blood Count 4.2 K/mm3 (4.8-10.8)
[2024-07-16 11:42] LABS: Anion Gap 9.3 mEq/L (5-15); Blood Urea Nitrogen 11 mg/dl (7-17); Calcium 9.4 mg/dl (8.4-10.2); Carbon Dioxide 29 mmol/L (22.0-30.0); Chloride 95 mmol/L (98-107); Creatinine Clearance Estimated 63 mL/min (50-200); Estimated Glomerular Filt Rate 64 ml/min (>60); GFR (African American) 77 ML/MIN (>60); Glucose 80 mg/dl (74-100); Potassium 3.3 mmoL/L (3.5-5.1); Sodium 130 mmol/L (136-145)
== END 2024-07-16 11:30 | disposition home or self-care (01) ==
LOC: INF 11:16
PROVIDERS: PCP Family Medicine; Visit Provider Student in an Organized Health Care Education/Training Program
DX: C44.520 Squamous cell carcinoma of anal skin (principal)
CPT/HCPCS: 36591; 80048; 85025; J1642

== ENCOUNTER 2024-08-20 11:56 | Outpatient (CLI) | payer MEDICARE, SELFPAY ==
--- OUTSIDE RECORDS SUMMARY | 2024-06-20 11:06 | XMS_ITS | Encounter Summary ---
Author Organization Healthcare Address [address] [place] [address] Care Team Providers Care Commercial Real Estate Sales Manager Name Role Phone Jl Santoro MD Primary Care Provider [phone] Noman Awan MD Unavailable [phone] Encounter Details Date Type Department Care Team (Latest Contact Info) Description 06/20/2024 11:06 AM EDT - 06/20/2024 11:59 PM EDT Hospital Encounter [facility] [address] [facility], [address] [place] [address] Right shoulder pain, unspecified chronicity Discharge Disposition: Home or Self Care Social History Tobacco Use Types Packs/Day Years Used Date Smoking Tobacco: Never Smokeless Tobacco: Never Alcohol Use Standard Drinks/Week Comments Never 0 (1 standard drink = 0.6 oz pur e alcohol) PHQ-2 Answer Date Recorded Patient Health Questionnaire-2 Score 0 03/17/2023 CAGE ASSESSMENT Answer Date Recorded Cage unable to access Not on file 09/24/2022 Cage max number of drinks Not on file 2022 Cage Beverages a week Not on file 09/24/2022 Have you ever felt you should CUT down on your d rinking? 0 09/24/2022 Have you been ANNOYED by people criticizing your drinking? 0 09/24/2022 Have you felt GUILTY about your drinking? 0 09/24/2022 Have you had a drink first t brendan in the morning ([employer]) to steady your nerves or to get rid of a hangover? 0 09/24/2022 CAGE Questionnaire Score 0 023 PHQ-2A Answer Date Recorded Patient Health Questionnaire-2 Score 0 01/18/2023 Comments No Sex and Gender Information Value Date Recorded Sex Assigned at Female 12/28/2020 7:22 PM EST Legal Sex Female 7:28 PM EDT Gender Identity Female 12/28/2020 7:22 PM EST Sexual Orientation Straight 12/28/2020 7: 22 PM EST documented as of this encounter Medications at Time of Discharge acetaminophen (Tylenol) 325 MG tablet Take 2 tablets (650 mg) by mouth every 6 (six) hours if needed. alendronate (Fosamax) 70 MG tablet Take 1 tablet (70 mg) by mouth 1 (one) time per week. 09/19/2020 atorvastatin (Lipitor) 80 MG tablet Take 0.5 tablets (40 mg) by mouth 1 (one) time each day. 03/15/2021 buPROPion XL (Wellbutrin XL) 150 MG 24 hr tablet Take 1 tablet (150 mg) by mouth 1 (one) time each day in the morning. 08/26/2023 clonazePAM (KlonoPIN) 1 MG tablet Take 1 tablet (1 mg) by mouth 2 (two) times a day. 08/24/2023 cloNIDine (Catapres) 0.1 MG tablet Take 1 tablet (0.1 mg) by mouth 2 (two) times a day. 09/02/2022 cyclobenzaprine (Flexeril) 10 MG tablet Take 1 tablet (10 mg) by mouth. 11/01/2022 dexamethasone (Decadron) 1 MG tablet 08/29/2023 diazePAM (Valium) 5 MG tabletIndication s:History of lumbar fusion Take 1 tablet (5 mg) by mouth every 6 (six) hours if needed for muscle spasms. 20 tablet 10/11/2022 diazePAM (Valium) 5 MG tabletIndication s:History of lumbar fusion Take 1 tablet (5 mg) by mouth every 6 (six) hours if needed for anxiety, sleep or muscle spasms. 45 tablet 10/25/2022 estradiol (Vivelle-DOT) 0.1 MG/24HR APPLY 1 PATCH TOPICALLY TWICE A WEEK 12/16/2022 levothyroxine (Synthroid, Levoxyl) 175 MCG tablet TAKE 1 TABLET BY MOUTH ONCE DAILY IN THE MORNING FOR 90 DAYS 07/29/2022 lidocaine (Lidoderm) 5 % patch Apply 1 patch topically 1 (one) time each day at the same time over 12 hours. Remove & discard patch within 12 hours or as directed by . 3 patch 09/29/2022 Linzess 290 MCG capsule TAKE 1 CAPSULE BY MOUTH ONCE DAILY FOR 30 DAYS 04/28/2022 MAGNESIUM CITRATE PO Take 4 gummies by mouth in the morning Multiple Vitamin (multivitamin) tablet Take 1 tablet by mouth 1 (one) time each day. omega-3 (Fish Oil) 1000 MG capsule Take by mouth 1 (one) time each day. 12/09/2019 ondansetron (Zofran) 8 MG tabletIndication s:History of lumbar fusion,Status post lumbar spinal fusion,Postopera tive pain,Muscle spasm Take 1 tablet (8 mg) by mouth every 8 (eight) hours if needed for nausea or vomiting. 20 tablet 2 10/07/2022 oxyCODONE (Roxicodone) 5 MG immediate release tablet Take 1 tablet (5 mg) by mouth every 4 (four) hours if needed for moderate pain or severe pain. 30 tablet 09/29/2022 pantoprazole (Protonix) 40 MG EC tablet 07/31/2023 phentermine (Adipex-P) 37.5 MG tablet 08/14/2023 pilocarpine (Salagen) 5 MG tablet 09/08/2023 progesterone (Prometrium) 100 MG capsule Take 1 capsule (100 mg) by mouth 1 (one) time each day. 12/15/2022 promethazine (Phenergan) 25 MG tablet Take 1 tablet (25 mg) by mouth if needed for nausea or vomiting. rOPINIRole (Requip) 2 MG tablet Take 2 tablets (4 mg) by mouth 2 (two) times a day. Savella 100 MG tablet Take 1 tablet (100 mg) by mouth 2 (two) times a day. 08/29/2022 Sennosides (SENNA-TIME PO) sertraline (Zoloft) 100 MG tablet 07/24/2023 SUMAtriptan (Imitrex) 100 MG tablet Take 1 tablet (100 mg) by mouth if needed for migraine. 12/21/2020 traMADol (Ultram) 50 MG tablet TAKE 2 TABLETS BY MOUTH TWICE DAILY FOR BREAK THROUGH PAIN. 01/09/2023 traMADol ER (Ultram-ER) 100 MG 24 hr tablet 11/13/2022 traZODone (Desyrel) 100 MG tablet Take 1 tablet (100 mg) by mouth every night. 12/09/2019 triamterene-hydr ochlorothiazide (Maxzide-25) 37.5-25 MG tablet 1 (one) time each day. 04/01/2021 Trulance 3 MG tablet 08/14/2023 Wheat Dextrin (BENEFIBER PO) Take 3 gummies at bedtime documented as of this encounter Plan of Treatment Not on file documented as of this encounter Procedures Procedure Name Priority Date/Time Associated Diagnosis Comments XR SHOULDER RIGHT 2+ VIEWS Routine 06/20/2024 11:22 AM EDT Right shoulder pain, unspecified chronicity documented in this encounter Results * XR Shoulder Right 2+ Views (06/20/2024 11:22 AM EDT) Anatomical Region Laterality Modality Upper Extremities, Shoulder Right Digi charo Radiography Impressions 06/20/2024 12:24 PM EDT 1. Changes of prior rotator cuff repair and possible biceps tenodesis or pectoralis major repair with normal glenohumeral joint space and alignment. 2. No acute osseous or articular abnormality.. CRITICAL RESULT: No. COMMUNICATION: Per this written report. Drafted by Denny Benavidez MD on 06/20/2024 12:22 PM Final report signed by Denny Benavidez MD on 06/20/2024 12:24 PM Narrative 06/20/2024 12:24 PM EDT CLINICAL INDICATION: pain TECHNIQUE: XR SHOULDER RIGHT 2+ VIEWS COMPARISON: None. FINDINGS: 3 views of the right shoulder show suture anchors in the greater tuberosity and proximal humerus. Glenohumeral joint space and alignment are normal. Mild degenerative changes of the acromioclavicular joint. No fracture or osteonecrosis. Anterior cervical discectomy and fusion at C5-C6. Posterior spinal fusion in the lower thoracic spine. Ported left subclavian catheter. Adjacent lung and chest wall are normal. Procedure Note Denny Benavidez MD - 06/20/2024 CLINICAL INDICATION: pain TECHNIQUE: XR SHOULDER RIGHT 2+ VIEWS COMPARISON: None. FINDINGS: 3 views of the right shoulder show suture anchors in the greatertuberosity and proximal humerus. Glenohumeral joint space and alignmentare normal. Mild degenerative changes of the acromioclavicular joint. Nofracture or osteonecrosis. Anterior cervical discectomy and fusion atC5-C6. Posterior spinal fusion in the lower thoracic spine. Ported leftsubclavian catheter. Adjacent lung and chest wall are normal. IMPRESSION: 1.Changes of prior rotator cuff repair and possible biceps tenodesis orpectoralis major repair with normal glenohumeral joint space andalignment. 2.No acute osseous or articular abnormality.. CRITICAL RESULT: No. COMMUNICATION: Per this written report. Drafted by Denny Benavidez MD on 06/20/2024 12:22 PM Final report signed by Denny Benavidez MD on 06/20/2024 12:24 PM Vineet Fam MD IMG XR PROCEDURES Final Result documented in this encounter Visit Diagnoses Diagnosis Right shoulder pain, unspecified chronicity documented in this encounter Additional Health Concerns Assessment Noted Time A fall risk assessment has been complete d for the patient 06/20/2024 11:02 AM EDT A Body Mass Index follow-up plan has been documented for the patient 06/28/2024 1:16 PM EDT documented as of this encounter Care Teams Commercial Real Estate Sales Manager Relationship Specialty Start Date End Date Jl Santoro MD [address] [place] [id number] PCP - General 09/22/20 Noman Awan MD [address] [facility] [address] [place] [address] Surgeon Neurosurgery 09/27/21 documented as of this encounter
--- OUTSIDE RECORDS SUMMARY | 2024-06-20 11:20 | XMS_ITS | Encounter Summary ---
Author Organization Healthcare Address [address] [place] [address] Care Team Providers Care Import/Export Analyst Name Role Phone Jl Santoro MD Primary Care Provider [phone] Noman Awan MD Unavailable [phone] Reason for Referral * Other Medical (Routine) - Pending Review Specialty Diagnoses / Procedures Referred By Contac t Referred To Contact Diagnoses Right shoulder pain, unspecified chronicity Bicipital tendinitis, right shoulder Rotator cuff tendonitis, right Procedures Injection - Upper Extremity Vineet Fam MD [address] [place] [id number] Phone: tel: fax: Referral ID Status Reason Start Date Expiration Date V isits Requested Visits Authorized [id number] Pending Review 06/28/2024 12/28/2025 1 1 Reason for Visit * Reason Comments Injections Pain Encounter Details Date Type Department Care Team (Late st Contact Info) Description 06/20/2024 11:20 AM EDT Procedure Visit [facility] [address] [place] [address] Vineet Fam MD [address] [place] [address] Right shoulder pain, unspecified chronicity (Primary Dx); Bicipital tendinitis, right shoulder; Rotator cuff tendonitis, right Social History Tobacco Use Types Packs/Day Years Used Date Smoking Tobacco: Never Smokeless Tobacco: Never Tobacco Cessation:Counseling Given: Not Answered Alcohol Use Standard Drinks/Week Comments Never 0 [...] drink first t 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) to steady your nerves or to [...] PM EST documented as of this encounter Last Filed Vital Signs Vital Sign Reading Time Taken Comments Blood Pressure 104/61 06/20/2024 11:04 AM EDT Pulse - - Temperature - - Respiratory Rate - - Oxygen Saturation - - Inhaled Oxygen Concentration - - Weight 70.8 kg (156 lb) 06/20/2024 11:04 AM EDT Height 165.1 cm (5' 5 ) 06/20/2024 11:04 AM EDT Body Mass Index 25.96 06/20/2024 11:04 AM EDT documented in this encounter Miscellaneous Notes * Progress Notes - Abdiaziz Souza DO - 06/20/2024 11:20 AM EDTAssociated Order(s): Injection - Upper Extremity Post-Procedure Diagnose(s): Rotator cuff tendonitis, right; Bicipital tendinitis, right shoulder; Right shoulder pain, unspecified chronicity Images from the original note were not included. Sports Medicine Clinic Note Encounter Date: 06/20 Subjective: Chief Complaint: Right shoulder pain History of Present Illness: Anjana Ag is a 59 y.o. year old female with past history of R shoulder rotator cuff repair, labral repair with bicep tenodesis many years ago who presents for acute on chronic right shoulder pain. She previously saw Dr. Bronson where she was diagnosed with rotator cuff tendonitis and [facility] guided SA injection. She had good relief with the first injection for about 8 months. She had a second US guided SA injection without great relief. She localizes pain to more anterior front of shoulder. Pain with reaching and overhead activities. She has had no new injuries. She is here for repeat assessment and is requesting repeat injection if recommended due to pain impactingher daily life. Problem List has Polymyalgia rheumatica (CMS/HCC); Lumbar spondylosis; Sacroiliac joint pain; Spinal stenosis, lumbar region with neurogenic claudication; Flat back syndrome; Post-op pain; Thrombocytopenia (CMS/HCC); Leukocytosis; Electrolyte abnormality; Hypothyroidism; Restless leg syndrome; Insomnia; Fibromyalgia; Pseudoarthrosis of lumbar spine; History of lumbar fusion; Chronic idiopathic constipation; and BMI 35.0-35.9,adult on their problem list. Medications Patient's Medications New Prescriptions No medications on file Previous Medications ACETAMINOPHEN (TYLENOL) 325 MG TABLET Take 2 tablets (650 mg) by mouth every 6 (six) hours if needed. ALENDRONATE (FOSAMAX) 70 MG TABLET Take 1 tablet (70 mg) by mouth 1 (one) time per week. ATORVASTATIN (LIPITOR) 80 MG TABLET Take 0.5 tablets (40 mg) by mouth 1 (one) time each day. BUPROPION XL (WELLBUTRIN XL) 150 MG 24 HR TABLET Take 1 tablet (150 mg) by mouth 1 (one) time each day in the morning. CLONAZEPAM (KLONOPIN) 1 MG TABLET Take 1 tablet (1 mg) by mouth 2 (two) times a day. CLONIDINE (CATAPRES) 0.1 MG TABLET Take 1 tablet (0.1 mg) by mouth 2 (two) times a day. CYCLOBENZAPRINE (FLEXERIL) 10 MG TABLET Take 1 tablet (10 mg) by mouth. DEXAMETHASONE (DECADRON) 1 MG TABLET DIAZEPAM (VALIUM) 5 MG TABLET Take 1 tablet (5 mg) by mouth every 6 (six) hours if needed for muscle spasms. DIAZEPAM (VALIUM) 5 MG TABLET Take 1 tablet (5 mg) by mouth every 6 (six) hours if needed for anxiety, sleep or muscle spasms. ESTRADIOL (VIVELLE-DOT) 0.1 MG/24HR APPLY 1 PATCH TOPICALLY TWICE A WEEK LEVOTHYROXINE (SYNTHROID, LEVOXYL) 175 MCG TABLET TAKE 1 TABLET BY MOUTH ONCE DAILY IN THE MORNING FOR 90 DAYS LIDOCAINE (LIDODERM) 5 % PATCH Apply 1 patch topically 1 (one) time each day at the same time over 12 hours. Remove & discard patch within 12 hours or as directed by MD. LINZESS 290 MCG CAPSULE TAKE 1 CAPSULE BY MOUTH ONCE DAILY FOR 30 DAYS MAGNESIUM CITRATE PO Take 4 gummies by mouth in the morning MULTIPLE VITAMIN (MULTIVITAMIN) TABLET Take 1 tablet by mouth 1 (one) time each day. OMEGA-3 (FISH OIL) 1000 MG CAPSULE Take by mouth 1 (one) time each day. ONDANSETRON (ZOFRAN) 8 MG TABLET Take 1 tablet (8 mg) by mouth every 8 (eight) hours if needed for nausea or vomiting. OXYCODONE (ROXICODONE) 5 MG IMMEDIATE RELEASE TABLET Take 1 tablet (5 mg) by mouth every 4 (four) hours if needed for moderate pain or severe pain. PANTOPRAZOLE (PROTONIX) 40 MG EC TABLET PHENTERMINE (ADIPEX-P) 37.5 MG TABLET PILOCARPINE (SALAGEN) 5 MG TABLET PROGESTERONE (PROMETRIUM) 100 MG CAPSULE Take 1 capsule (100 mg) by mouth 1 (one) time each day. PROMETHAZINE (PHENERGAN) 25 MG TABLET Take 1 tablet (25 mg) by mouth if needed for nausea or vomiting. ROPINIROLE (REQUIP) 2 MG TABLET Take 2 tablets (4 mg) by mouth 2 (two) times a day. SAVELLA 100 MG TABLET Take 1 tablet (100 mg) by mouth 2 (two) times a day. SENNOSIDES (SENNA-TIME PO) SERTRALINE (ZOLOFT) 100 MG TABLET SUMATRIPTAN (IMITREX) 100 MG TABLET Take 1 tablet (100 mg) by mouth if needed for migraine. TRAMADOL (ULTRAM) 50 MG TABLET TAKE 2 TABLETS BY MOUTH TWICE DAILY FOR BREAK THROUGH PAIN. TRAMADOL ER (ULTRAM-ER) 100 MG 24 HR TABLET TRAZODONE (DESYREL) 100 MG TABLET Take 1 tablet (100 mg) by mouth every night. TRIAMTERENE-HYDROCHLOROTHIAZIDE (MAXZIDE-25) 37.5-25 MG TABLET 1 (one) time each day. TRULANCE 3 MG TABLET WHEAT DEXTRIN (BENEFIBER PO) Take 3 gummies at bedtime Modified Medications No medications on file Discontinued Medications No medications on file Surgical History Surgical History[1] Allergies Allergies[2] Objective: Visit Vitals BP 104/61 Ht 1.651 m (5' 5 ) Wt 70.8 kg (156 lb) BMI 25.96 kg/m?? OB Status Postmenopausal Smoking Status Never BSA 1.8 m?? GEN: Alert, cooperative, in no acute distress. MSK: Right Shoulder --Inspection: No erythema, ecchymosis, or swelling appreciated. --Palpation: + tenderness over proximal bicipital groove and posterolateral shoulder. --Range of motion: 0-180 degrees flexion, 0-180 degrees abduction, internal rotation to 55 degrees,0-45 degrees external rotation. --Strength: Shoulder: 5/5 strength with flexion, internal/external rotation, abduction, adduction of the shoulder. No pain with resistance. --Neurovascular: Sensation intact to light touch. 2+ radial pulses. --Special Tests: + Pain greater with speed's test than with empty can testing. Imaging: plain radiographs of the right shoulder. was personally reviewed by myself and Dr. Fam which was significant for post surgical changes consistent with prior rotator cuff repair and bicep tenodesis. No significant GH arthritis. Assessment and Plan: Diagnosis Plan 1. Right shoulder pain, unspecified chronicity XR Shoulder Right 2+ Views 2. Bicipital tendinitis, right shoulder 3. Rotator cuff tendonitis, right Orders Placed This Encounter XR Shoulder Right 2+ Views In summary, patient is a 59 y.o. year old female with prior history of rotator cuff repair, labral repair, bicep tenodesis of her right shoulder who presents with acute on chronic R shoulder pain. Pain previously resolved with 1st US guided SA injection however 2nd injection without great response.Due to more anterior pain today and lack of response to last SA injection, we will proceed with right bicipital groove injection under US guidance. Discussed risks which include bleeding, infection, and worsening pain. Follow up in 6 weeks for repeat assessment and consider GH injection versus SA injection depending on her exam at that time. She will continue her home PT exercises. Patient verbalized understanding of the plan and were agreeable with no further questions. Procedure Note Encounter Date: 06/20 Chief Complaint: Right shoulder pain Injection - Upper Extremity (Right Proximal Bicipital Groove Injection) for biceps tendonitis Indications: pain Details: 25 G needle, ultrasound-guided lateral approach Medications: 10 mg lidocaine 1 %; 40 mg methylPREDNISolone acetate 40 MG/ML; 1 mL ropivacaine 5 MG/ML Outcome: tolerated well, no immediate complications US Guided Procedure Note: Indication: Biceps tendonitis Procedure: Sonographically guided right biceps tendon sheath corticosteroid injection Informed Consent: Following denial of allergy and review of potential side effects and complications including, but not limited to, infection, allergic reaction, local tissue breakdown, systemic effects of corticosteroids, elevation of blood glucose, injury to soft tissue and/or nerves and seizure,the patient indicated understanding and agreed to proceed. Procedural pause conducted to verify: correct patient identity, procedure to be performed and, as applicable, correct side and site, correct patient position, availability of any special equipment orother special requirements. Justification for use of ultrasound guidance: The use of direct sonographic visualization of the needle (rather than a non-guided injection) was required to ensure accurate injection placement for diagnostic specificity, to maximize clinical efficacy and for safety purposes to minimize risk of bleeding or injury to nearby neurovascular structures. Technique: The procedure was carried out under sterile technique utilizing a sterile ultrasound transducer cover and sterile ultrasound gel. Pre-procedural scanning was performed to determine optimalneedle approach for the procedure. The patient was prepped and draped in the usual sterile fashion. Patient position: supine Approach: in plane Local anesthesia: 5 mL 1% Lidocaine Aspiration/Injection: Live sonographic guidance with a 12-5 mHz linear array transducer was used throughout the procedure. A 25g 2 inch needle was used for local anesthesia and was guided into the biceps peritendinous area. With the needle in place, syringes were exchanged. After reconfirmation of needle placement, a mixture of 1cc 40mg/mL depo-medrol and 1cc 1% Ropivicaine was injected into the biceps tendon sheath. Post-Procedure Instructions: The patient tolerated the procedure well without complication and was discharged in good condition after a short observation period. The patient was instructed to avoid submerging the procedure site in water for 48-72 hours. The patient was instructed to contact me withany questions pertaining to the procedure and to inform me of the results of the procedure in approximately 7-10 days, as needed. Questions regarding general management should be directed to the patient's referring provider and the patient should keep all previously scheduled follow up appointments. Multiple don images were saved. Impression: Successful sonographically-guided right biceps tendon sheath corticosteroid injection. Procedure, treatment alternatives, risks and benefits explained, specific risks discussed. Consent was given by the patient. Immediately prior to procedure a time out was called to verify the correctpatient, procedure, equipment, administrative support technician and site/side marked as required. Patient was prepped and draped in the usual sterile fashion. Assessment and Plan: Diagnosis Plan 1. Right shoulder pain, unspecified chronicity XR Shoulder Right 2+ Views 2. Bicipital tendinitis, right shoulder 3. Rotator cuff tendonitis, right After discussing risks and benefits, including but not limited to bleeding, infection and worseningpain, the patient wished to proceed with the procedure today. See procedure note. Post-injection care instructions were provided. No submersion in water for 5 days. Records Reviewed: Plain Radiographs. and Prior office visits. Electronically Signed by: Abdiaziz Souza DO - 06/28/2024 - 1:06 PM This note was partially generated using [employer] Direct system, and there may be some incorrect words, spellings, and punctuation that were not noted in checking the note before saving. [1] Past Surgical History: Procedure Laterality Date ANTERIOR CERVICAL DISCECTOMY W/ FUSION 2004 BACK SURGERY x 4. CARPAL TUNNEL RELEASE CERVICAL FUSION CERVICAL LAMINECTOMY 1988 SECTION, CLASSIC HAND SURGERY LUMBAR LAMINECTOMY 2010 SHOULDER SURGERY SPINAL CORD STIMULATOR IMPLANT 2010 SPINAL FUSION 11/12/2021 [id number] fusion for deformity, L4 PSO SPINAL FUSION 09/23/2022 L L3/4 LLIF with plate, L3-pelvis revision of fusion TONSILLECTOMY 1981 [2] Allergies Allergen Reactions Penicillins Swelling Per pt, eyes swell shut Sulfa Drugs Swelling Pt pt, eyes swell shut Hydromorphone Hives Codeine Other - please document in the comment field Mood changes, zoned out per pt Gabapentin Other - please document in the comment field Nsaids Unknown - Patient states they do not know rxn details Due to kidney disease pt. Can't take NSAIDS Sulfacetamide Unknown - Patient states they do not know rxn details Cosigned by Vineet Fam MD at 07/08/2024 2:16 PM EDT Associated attestation - Vineet Fam MD - 07/08/2024 2:16 PM EDT I saw and evaluated the patient with the resident/fellow. I discussed the case with the resident/fellow and agree with the findings and plan as documented. and I was present for the entirety of the procedure(s). Vineet Fam MD I saw and evaluated the patient with the resident/fellow. I discussed the case with the resident/fellow and agree with the findings and plan as documented. and I was present for the entirety of the procedure(s). Vineet Fam MD documented in this encounter Plan of Treatment Not on file documented as of this encounter Procedures Procedure Name Priority Date/Time Associated Diagnosis Comments CHG SONO GUIDE NEEDLE BIOPSY Routine 06/20/2024 11:20 AM EDT Right shoulder pain, unspecified chronicity Bicipital tendinitis, right shoulder Rotator cuff tendonitis, right documented in this encounter Results * XR [...] Fam MD IMG XR PROCEDURES Final Result * CHG SONO GUIDE NEEDLE BIOPSY (06/20/2024 11:20 AM EDT) Narrative Vineet Fam MD - 06/20/2024 11:20 AM EDT Vineet Fam MD 07/08/2024 2:16 PM Injection - Upper Extremity (Right Proximal Bicipital Groove Injection) for biceps tendonitis Indications: pain Details: 25 G needle, ultrasound-guided lateral approach Medications: 10 mg lidocaine 1 %; 40 mg methylPREDNISolone acetate 40 MG/ML; 1 mL ropivacaine 5 MG/ML Outcome: tolerated well, no immediate complications US Guided Procedure Note: Indication: Biceps tendonitis Procedure: Sonographically guided right biceps tendon sheath corticosteroid injection Informed Consent: Following denial of allergy and review of potential side effects and complications including, but not limited to, infection, allergic reaction, local tissue breakdown, systemic effects of corticosteroids, elevation of blood glucose, injury to soft tissue and/or nerves and seizure, the patient indicated understanding and agreed to proceed. Procedural pause conducted to verify: correct patient identity, procedure to be performed and, as applicable, correct side and site, correct patient position, availability of any special equipment or other special requirements. Justification for use of ultrasound guidance: The use of direct sonographic visualization of the needle (rather than a non-guided injection) was required to ensure accurate injection placement for diagnostic specificity, to maximize clinical efficacy and for safety purposes to minimize risk of bleeding or injury to nearby neurovascular structures. Technique: The procedure was carried out under sterile technique utilizing a sterile ultrasound transducer cover and sterile ultrasound gel. Pre-procedural scanning was performed to determine optimal needle approach for the procedure. The patient was prepped and draped in the usual sterile fashion. Patient position: supine Approach: in plane Local anesthesia: 5 mL 1% Lidocaine Aspiration/Injection: Live sonographic guidance with a 12-5 mHz linear array transducer was used throughout the procedure. A 25g 2 inch needle was used for local anesthesia and was guided into the biceps peritendinous area. With the needle in place, syringes were exchanged. After reconfirmation of needle placement, a mixture of 1cc 40mg/mL depo-medrol and 1cc 1% Ropivicaine was injected into the biceps tendon sheath. Post-Procedure Instructions: The patient tolerated the procedure well without complication and was discharged in good condition after a short observation period. The patient was instructed to avoid submerging the procedure site in water for 48-72 hours. The patient was instructed to contact me with any questions pertaining to the procedure and to inform me of the results of the procedure in approximately 7-10 days, as needed. Questions regarding general management should be directed to the patient's referring provider and the patient should keep all previously scheduled follow up appointments. Multiple don images were saved. Impression: Successful sonographically-guided right biceps tendon sheath corticosteroid injection. Procedure, treatment alternatives, risks and benefits explained, specific risks discussed. Consent was given by the patient. Immediately prior to procedure a time out was called to verify the correct patient, procedure, equipment, administrative support technician and site/side marked as required. Patient was prepped and draped in the usual sterile fashion. us Vineet Fam MD IN CLINIC/BEDSIDE ORDERABLES F inal Result documented in this encounter Visit Diagnoses Diagnosis Right shoulder pain, unspecified chronicity- Primary Bicipital tendinitis, right shoulder Rotator cuff tendonitis, right Right shoulder pain, unspecified chronicity documented in this encounter Administered Medications Inactive Administered Medications - up to 3 most recent administrations Medication Order MAR Action Action Date Dose Rate Site lidocaine (Xylocaine) 1 % injection 10 mg 10 mg, Intra-articular, Once PRN Procedure, 1 dose, Starting on Roma 06/20/24 at 1120, Until Roma 06/20/24 at 1120, RoutineIndications:Right shoulder pain, unspecified chronicity,Bicipital tendinitis, right shoulder,Rotator cuff tendonitis, right Given 06/20/2024 11:20 AM EDT 10 mg methylPREDNISolone acetate (DEPO-Medrol) injection 40 mg 40 mg, Intra-articular, Once PRN Procedure, 1 dose, Starting on Roma 06/20/24 at 1120, Until Roma 06/20/24 at 1120, RoutineIndications:Right shoulder pain, unspecified chronicity,Bicipital tendinitis, right shoulder,Rotator cuff tendonitis, right Given 06/20/2024 11:20 AM EDT 40 mg ropivacaine (Naropin) injection 1 mL 1 mL, Injection, Once PRN Procedure, 1 dose, Starting on Roma 06/20/24 at 1120, Until Roma 06/20/24 at 1120, RoutineIndications:Right shoulder pain, unspecified chronicity,Bicipital tendinitis, right shoulder,Rotator cuff tendonitis, right Given 06/20/2024 11:20 AM EDT 1 mL documented in this encounter Additional Health Concerns Assessment Noted Time A fall risk assessment has been complete d for the patient 06/20/2024 11:02 AM EDT A Body Mass Index follow-up plan has been documented for the patient 06/28/2024 1:16 PM EDT documented as of this encounter Care Teams Import/Export Analyst Relationship Specialty Start Date End Date Jl Santoro MD [address] [place], [place] [id number] PCP - General 09/22/20 Noman Awan MD [address] [facility] [address] [place] [address] Surgeon Neurosurgery 09/27/21 documented as of this encounter
--- OUTSIDE RECORDS SUMMARY | 2024-08-20 11:58 | XMS_ITS | Encounter Summary ---
Author Organization Healthcare Address [address] [place] [address] Care Team Providers Care Furnace Converter Name Role Phone Jl Santoro MD Primary Care Provider [phone] Noman Awan MD Unavailable [phone] Reason for Visit * Reason Onset Date Comments HCN - Patient Message 05/29/2024 Encounter Details Date Type Department Care Team (Late st Contact Info) Description 05/29/2024 Telephone [facility] Orthopaedic Surgery & Sports Medicine [address] [facility], [address] [place] [address] Vineet Fam MD [address] [facility] [address] [place] [address] HCN - Patient Message Social History Tobacco Use Types Packs/Day Years [...] drink first t brendan in the morning (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 Fam pt is requesting a call back to r/s her upcoming injection appt. Best contact number: [phone] (home) Optimal time of day to reach caller: ANYTIME Additional comments/information from caller: None Note: Please do not reply to this message. Follow-up communication and further actions as a result of this message need to be communicated with the patient directly, if the patient is not active onMyChart. If the patient is active on MyChart, they will receive notification of the communication/outcome via [employer]Crate. documented in this encounter Plan of Treatment Not on file documented as of this encounter Visit Diagnoses Not on filedocumented in this encounter Additional Health Concerns Assessment Noted Time A fall risk assessment has been complete d for the patient 10/25/2023 1:35 PM EDT A Body Mass Index follow-up plan has been documented for the patient 10/25/2023 2:20 PM EDT documented as of this encounter Care Teams Furnace Converter Relationship Specialty Start Date End Date Jl Santoro MD [address] [place] [address] PCP - General 09/22/20 Noman Awan MD [address] [address] [place] [address] Surgeon Neurosurgery 09/27/21 documented as of this encounter
--- OUTSIDE RECORDS SUMMARY | 2024-08-20 11:58 | XMS_ITS | Encounter Summary ---
Author Organization Healthcare Address [address] [place] [address] Care Team Providers Care Slide Maker Name Role Phone Jl Santoro MD Primary Care Provider [phone] Noman Awan MD Unavailable [phone] Reason for Visit * Reason Onset Date Comments HCN - Patient Message 07/17/2024 Encounter Details Date Type Department Care Team (Late st Contact Info) Description 07/17/2024 Telephone [facility] Orthopaedic Surgery & Sports Medicine [address] [facility], [address] [place] [address] Vineet Fam MD [address] [facility] [address] [place] [address] HCN - Patient Message Social [...] drink first t brendan in the morning (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 No times showing in Epic to move appointment to. Best contact number: [phone] (home) Optimal time of day to reach caller: ANYTIME Additional comments/information from caller: None Note: Please do not reply to this message. Follow-up communication and further actions as a result of this message need to be communicated with the patient directly, if the patient is not active onMyChart. If the patient is active on MyChart, they will receive notification of the communication/outcome via eegoes. documented in this encounter Plan of Treatment [...] documented as of this encounter Care Teams Slide Maker Relationship Specialty Start Date End Date Jl Santoro MD [address] [place] [address] PCP - General 09/22/20 Noman Awan MD [address] [address] Surgeon Neurosurgery 09/27/21 documented as of this encounter
--- OUTSIDE RECORDS SUMMARY | 2024-08-20 11:58 | XMS_ITS | Clinical Summary ---
Author Organization Healthcare Address [address] [place] [address] Care Team Providers Care Registered Nurse Practitioner Name Role Phone Jl Santoro MD Primary Care Provider [phone] Noman Awan MD Unavailable [phone] Allergies Active Allergy Reactions Criticality Noted Date Comments Codeine Other - please docum ent in the comment field Low 12/09/2019 Mood changes, zoned out per pt Gabapentin Other - please docum ent in the comment field Low 10/07/2022 Hydromorphone Hives Medium 12/09/2019 Nsaids Unknown - Patient st ates they do not know rxn details Low 12/09/2019 Due to kidney disease pt. Can't take NSAIDS Penicillins Swelling High 12/09/2019 Per pt, eyes swell shut Sulfa Drugs Swelling High 09/27/2021 Pt pt, eyes swell shut Sulfacetamide Unknown - Patient st ates they do not know rxn details Low 12/09/2019 Medications omega-3 (Fish Oil) 1000 MG capsule Take by mouth 1 (one) time each day. 0 Active traZODone (Desyrel) 100 MG tablet Take 1 tablet (100 mg) by mouth every night. 0 Active promethazine (Phenergan) 25 MG tablet Take 1 tablet (25 mg) by mouth if needed for nausea or vomiting. Active alendronate (Fosamax) 70 MG tablet Take 1 tablet (70 mg) by mouth 1 (one) time per week. 1 Active SUMAtriptan (Imitrex) 100 MG tablet Take 1 tablet (100 mg) by mouth if needed for migraine. 1 Active triamterene-hyd rochlorothiazid e (Maxzide-25) 37.5-25 MG tablet 1 (one) time each day. 2 Active atorvastatin (Lipitor) 80 MG tablet Take 0.5 tablets (40 mg) by mouth 1 (one) time each day. 2 Active acetaminophen (Tylenol) 325 MG tablet Take 2 tablets (650 mg) by mouth every 6 (six) hours if needed. Active Multiple Vitamin (multivitamin) tablet Take 1 tablet by mouth 1 (one) time each day. Active Linzess 290 MCG capsule TAKE 1 CAPSULE BY MOUTH ONCE DAILY FOR 30 DAYS 3 Active cloNIDine (Catapres) 0.1 MG tablet Take 1 tablet (0.1 mg) by mouth 2 (two) times a day. 3 Active levothyroxine (Synthroid, Levoxyl) 175 MCG tablet TAKE 1 TABLET BY MOUTH ONCE DAILY IN THE MORNING FOR 90 DAYS 3 Active Savella 100 MG tablet Take 1 tablet (100 mg) by mouth 2 (two) times a day. 3 Active MAGNESIUM CITRATE PO Take 4 gummies by mouth in the morning Active Wheat Dextrin (BENEFIBER PO) Take 3 gummies at bedtime Active rOPINIRole (Requip) 2 MG tablet Take 2 tablets (4 mg) by mouth 2 (two) times a day. Active lidocaine (Lidoderm) 5 % patch Apply 1 patch topically 1 (one) time each day at the same time over 12 hours. Remove & discard patch within 12 hours or as directed by . 3 patch 3 Active Additional Information Patient not taking.Reported on 09/11/2023 oxyCODONE (Roxicodone) 5 MG immediate release tablet Take 1 tablet (5 mg) by mouth every 4 (four) hours if needed for moderate pain or severe pain. 30 tablet 3 Active Additional Information Patient not taking.Reported on 09/11/2023 ondansetron (Zofran) 8 MG tabletIndicatio ns:History of lumbar fusion,Status post lumbar spinal fusion,Postoper ative pain,Muscle spasm Take 1 tablet (8 mg) by mouth every 8 (eight) hours if needed for nausea or vomiting. 20 tablet 2 3 Active Additional Information Patient not taking.Reported on 09/11/2023 diazePAM (Valium) 5 MG tabletIndicatio ns:History of lumbar fusion Take 1 tablet (5 mg) by mouth every 6 (six) hours if needed for muscle spasms. 20 tablet 3 Active Additional Information Patient not taking.Reported on 09/11/2023 diazePAM (Valium) 5 MG tabletIndicatio ns:History of lumbar fusion Take 1 tablet (5 mg) by mouth every 6 (six) hours if needed for anxiety, sleep or muscle spasms. 45 tablet 3 Active Additional Information Patient not taking.Reported on 09/11/2023 cyclobenzaprine (Flexeril) 10 MG tablet Take 1 tablet (10 mg) by mouth. 3 Active traMADol ER (Ultram-ER) 100 MG 24 hr tablet 3 Active estradiol (Vivelle-DOT) 0.1 MG/24HR APPLY 1 PATCH TOPICALLY TWICE A WEEK 3 Active progesterone (Prometrium) 100 MG capsule Take 1 capsule (100 mg) by mouth 1 (one) time each day. 3 Active Sennosides (SENNA-TIME PO) Acti ve traMADol (Ultram) 50 MG tablet TAKE 2 TABLETS BY MOUTH TWICE DAILY FOR BREAK THROUGH PAIN. 3 Active buPROPion XL (Wellbutrin XL) 150 MG 24 hr tablet Take 1 tablet (150 mg) by mouth 1 (one) time each day in the morning. 4 Active clonazePAM (KlonoPIN) 1 MG tablet Take 1 tablet (1 mg) by mouth 2 (two) times a day. 4 Active dexamethasone (Decadron) 1 MG tablet 4 Active pantoprazole (Protonix) 40 MG EC tablet 4 Active phentermine (Adipex-P) 37.5 MG tablet 4 Active pilocarpine (Salagen) 5 MG tablet 4 Active Trulance 3 MG tablet 4 Active sertraline (Zoloft) 100 MG tablet 4 Active Active Problems Problem Noted Date Diagnosed Date BMI 35.0-35.9,adult 09/28/2022 Chronic idiopathic constipation 09/27/2022 Overview (09/27/2022): Home linzess restarted Advanced bowel regimen Pseudoarthrosis of lumbar spine 09/21/2022 History of lumbar fusion 09/21/2022 Thrombocytopenia 11/13/2021 Overview (11/13/2021): PLT 53 Continue to monitor Leukocytosis 11/13/2021 Overview (11/13/2021): WBC=15, tmax 100.4 Multifactorial etiology in setting of critical illness, post-op Continue to follow May need more aggressive evaluation in near future Electrolyte abnormality 11/13/2021 Overview (11/13/2021): BMI: 31 Complicates all aspects of care Hypothyroidism 11/13/2021 Overview (11/13/2021): Continue levothyroxine Restless leg syndrome 11/13/2021 Overview (11/13/2021): Continue home requip Insomnia 11/13/2021 Overview (11/13/2021): Continue home meds as appropriate Fibromyalgia 11/13/2021 Overview (11/13/2021): Resume home medications as approrpiate Post-op pain 11/12/2021 Overview (11/13/2021): See flat back syndrome Flat back syndrome 10/01/2021 Overview (11/13/2021): S/p L4 pedicle subtraction osteotomy with T10 to pelvis fusion & PSO on 11/12 per Neurosurgery IV DATA COMMUNICATIONS ANALYST, cyclobenzaprine, gabapentin, tylenol Post-op CXR pending Post-op clindamycin Spinal stenosis, lumbar region with neurogenic c laudication 07/01/2021 Overview (11/12/2021): S/p back surgeries per NSG Sacroiliac joint pain 03/16/2021 Overview (11/12/2021): Resume home medications as appropriate Complicates all aspects of care. Lumbar spondylosis 06/02/2015 Overview (11/13/2021): See flat back syndrome Polymyalgia rheumatica 12/18/2014 Overview (11/12/2021): Resume home medications as appropriate Complicates all aspects of care. Resolved Problems Problem Noted Date Diagnosed Date Resolved Date Hypokalemia 09/28/2022 09/29/2022 Hypophosphatemia 09/28/2022 09/29/2022 Ileus 09/27/2022 09/29/2022 Loosening of hardware in spine 09/22/2022 09/29/2022 Backache 11/12/2021 11/13/2021 Overview (11/12/2021): Chronic, Resume home medications as appropriate Complicates all aspects of care. S/p L4 pedicle subtraction osteotomy with T10 to pelvis fusion & PSO on 11/12 per Neurosurgery Pain team consult, pending extubation post-op Rest of management per primary team Feeding difficulty 11/12/2021 Overview (11/12/2021): [facility] 11/12 NG/OG as necessary for PO access Nutrition consulted for TF recs, appreciate coordination of care Tube feeding per nutritional recommendations via [facility] JUNIOR BUSINESS ANALYST consult as indicated Encounter for weaning from respirator 11/12/2021 11/13/2021 Overview (11/12/2021): Intubated for OR 11/12; CXR and ABG pending Continue aggressive pulm secretion mobilization Wean sedation as tolerated; daily PST Wean mechanical ventilator as tolerated Continue chlorhexidine per vent bundle PRN CXR, blood gasses and nebs Anemia associated with acute blood loss 11/12/2021 09/29/2022 Overview (09/26/2022): Transfused 1u PRBC Stable Will continue to monitor Transfuse as appropriate for Hgb>8 Iron, Folate, B12 as appropriate Hypotension after procedure 11/12/2021 11/13/2021 Overview (11/12/2021): MAP goal >65 On phenylephrine gtt post-operatively; 1L NS given Cont arterial blood pressure monitoring as necessary Labs pending Hold medications that contribute to hypotension; use pain medications as appropriate Continue close monitoring and supportive care History of lumbar fusion 10/01/2021 Overview (10/01/2021): Added automatically from request for surgery [id number] Fusion of spine, lumbosacral region 07/01/2021 11/12/2021 Cervical spondylolysis 01/14/202011/12 Cervical spondylosis with radiculopathy 12/09/2019 11/12/2021 Lumbar radicular pain 12/09/20192021 Overview (11/12/2021): Resume home medications as appropriate Complicates all aspects of care. Encounters Date Type Department Care Team Description 07/23/2024 Travel 07/17/[address] [facility] Orthopaedic Surgery & Sports Medicine [address] , [address] [place] [address] Vineet aFm MD HCN - Patient Message 06/20/2024 11:20 AM EDT Procedure Visit [facility] Orthopaedic Surgery & Sports Medicine [address] [place] [address] Vineet Fam MD Right shoulder pain, unspecified chronicity (Primary Dx); Bicipital tendinitis, right shoulder; Rotator cuff tendonitis, right 06/20/2024 11:06 AM EDT - 06/20/2024 11:59 PM EDT Hospital Encounter [facility] X-Ray [address] [place] [id number] Right shoulder pain, unspecified chronicity Discharge Disposition: Home or Self Care 06/20/2024 Travel 06/13/2024 Travel 05/29/[address] [facility] [place] [address] Vineet Fam MD HCN - Patient Message 05/28/2024 Travel from Last 3 Months Immunizations Immunization Administration Dates Next Due Influenza, injectable, quadrivalent 11/28/2018 Influenza, injectable, quadrivalent, preservativ e free 11/07/2017 Family History Medical History Relation Name Comments Alzheimer's disease Mother Susan Angel Stroke Mother Susan Angel Anesthesia problems Neg Hx Malig Hyperthermia Neg Hx Relation Name Status Comments Mother Susan Angel Social History Tobacco Use Types Packs/Day Years [...] drink first t brendan in the morning (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) to steady your nerves or to get [...] Orientation Straight 12/28/2020 7: 22 PM EST Last Filed Vital Signs Vital Sign Reading Time Taken Comments Blood Pressure 104/61 06/20/2024 11:04 AM EDT Pulse 59 03/23/2023 11:10 AM EST Temperature 36.1 C (96.9 F) 03/23/2023 10:04 AM EST Respiratory Rate 18 03/23/2023 11:10 AM EST Oxygen Saturation 95% 03/23/2023 11:10 AM EST Inhaled Oxygen Concentration - - Weight 70.8 kg (156 lb) 06/20/2024 11:04 AM EDT Height 165.1 cm (5' 5 ) 06/20/2024 11:04 AM EDT Body Mass Index 25.96 06/20/2024 11:04 AM EDT Plan of Treatment Health Maintenance Due Date Last Done Comments [facility]-HIV Screening 1965 [facility]-Hepatitis C Screening 1965 [facility]-Medicare Annual Wellness (AWV) 1965 [facility]-Infant/Child/Adol SDOH Screenings 1965 [facility]- SDOH Screenings 1981 [facility]-Adult SDOH Screenings 1981 [facility]-DTaP,Tdap,and Td Vaccines (1 - Tdap) 1982 [facility]-Pap Smear 1984 [facility]-Cervical Cancer Screening 1993 [facility]-HPV/Cotest 1993 CT Colonography 2008 Colonoscopy 2008 FIT-DNA 2008 FIT 2008 FOBT 2008 Sigmoidoscopy 2008 [facility]-Colorectal Cancer Screening 2008 [facility]-Breast Cancer Screening 2013 [facility]-Pneumococcal Vaccine: 50+ Years (1 of 1 - PCV) 2013 [facility]-Zoster Vaccines (1 of 2) 2013 [facility]-Depression Screening 03/17/2024 03/17/2023 [id number] Vaccine (6 - Pfizer risk 2023- season) 2024 11/23/2023, 12/08/2022, 12/24/2021, Additional history exists [facility]-Influenza Vaccine (#1) 10/14/202411/22, 12/08/2022, 11/28/2018, Additional history exists [facility]-RSV Vaccine: 60+ Years or Completed 11/23/2023 [facility]-Obesity Intervention Completed 025, 10/25/2023, 09/11/2023, Additional history exists HPV Vaccines Aged Out No longer eligi ble based on patient's age to complete this topic [facility]-HIB Vaccines Aged Out No longer e ligible based on patient's age to complete this topic [facility]-Hepatitis A Vaccines Aged Out No longer eligible based on patient's age to complete this topic [facility]-IPV Vaccines Aged Out No longer e ligible based on patient's age to complete this topic [facility]-Rotavirus Vaccines Aged Out No lo nger eligible based on patient's age to complete this topic Medical Devices Implanted Type Area Freight Conductor Device Identifier Shelf Expiration Date Model / Serial / Lot Plate Plate N/A: Back Screw Exp Viper Lg Tit 9x100 - S. - [id number] Implanted:Qty: 1 on 11/12/2021 by Noman Awan MD at [facility] Screw N/A: Spine Lumbar DePuy Spine [employer] LP-[id number] 11/12/2022 [id number] / . / Screw 5.5mm Viper Ti Fen Crtcl Polyax 8mm X 45mm - S. - [id number] Implanted:Qty: 3 on 11/12/2021 by Noman Awan MD at [facility] Screw N/A: Spine Lumbar [employer] Sp[employer] LP-[id number] 11/12/2022 [id number] / . / Screw 5.5mm Viper Ti Fen Crtcl Polyax 6mm X 45mm - S. - [id number] Implanted:Qty: 2 on 11/12/2021 by Noman Awan MD at [facility] Screw N/A: Spine Lumbar [employer] LP-825388 11/12/2022 [id number] / . / Screw 5.5mm Viper Ti Fen Crtcl Polyax 6mm X 50mm - S. - [id number] Implanted:Qty: 5 on 11/12/2021 by Noman Awan MD at [facility] Screw N/A: Spine Lumbar [employer] Sp[employer] LP-[id number] 11/12/2022 [id number] / . / Screw 5.5mm Viper Ti Fen Crtcl Polyax 7mm X 45mm - S. - [id number] Implanted:Qty: 2 on 11/12/2021 by Noman Awan MD at [facility] Screw N/A: Spine Lumbar De[employer] Sp[employer] LP-[id number] 11/12/2022 [id number] / . / Screw 5.5mm Viper Ti Fen Crtcl Polyax 7mm X 50mm - S. - [id number] Implanted:Qty: 3 on 11/12/2021 by Noman Awan MD at [facility] Screw N/A: Spine Lumbar [employer] Sp[employer] LP-[id number] 11/12/2022 [id number] / . / Tomas 5.5 Expedium Cocr Precontoured Medium - [id number] Implanted:Qty: 2 on 11/12/2021 by Noman Awan MD at [facility] N/A: Spine Lumbar De[employer] Spine [employer] LP-087725 11/12/2022 [id number] / / Single Inner Setscrew - [id number] Implanted:Qty: 17 on 11/12/2021 by Noman Awan MD at [facility] N/A: Spine Lumbar De[employer] Sp[employer] LP-866778 11/12/2022 [id number] / / Chip Bone 20cc - [id number] - [id number] Implanted:Qty: 1 on 11/12/2021 by Noman Awan MD at [facility] N/A: Spine Lumbar [facility]-662506 06/02/2026 PCAN1/4 / [id number] / [id number] Chip Bone 20cc - [id number] - [id number] Implanted:Qty: 1 on 11/12/2021 by Noman Awan MD at [facility] N/A: Spine Lumbar [facility]-741689 05/16/2026 PCAN1/4 / [id number] / [id number] Matrix Fibergraft Bg Lg 12.5cc - [id number] Implanted:Qty: 1 on 11/12/2021 by Noman Awan MD at [facility] DePuy Spine Sales LP-[id number] 10/30/2023 [id number] / / [id number] Matrix Fibergraft Bg Lg 12.5cc - [id number] Implanted:Qty: 1 [facility]12[facility][id number] 12/17/2023 [id number] / / [id number] Kit Jazz Pranav Connector 5.5mm - [id number] Implanted:Qty: 1 on 11/12/2021 by Noman Awan MD at [facility] N/A: Spine Lumbar Implanet [employer] Inc-[id number] 07/10/2025 [id number] / / Kit Jazz Pranav Connector 5.5mm - [id number] Implanted:Qty: 1 on 11/12/2021 by Noman Awan MD at [facility] N/A: Spine Lumbar Implanet [employer] Inc-[id number] 07/10/2025 [id number] / / Band Jazz Lock Open Braid V3 - [id number] Implanted:Qty: 1 on 11/12/2021 by Noman Awan MD at [facility] N/A: Spine Lumbar Implanet [employer] Inc-[id number] 08/10/2025 [id number] / / Band Jazz Lock Open Braid V3 - [id number] Implanted:Qty: 1 on 11/12/2021 by Noman Awan MD at [facility] N/A: Spine Lumbar Implanet [employer] Inc-226646 08/10/2025 [id number] / / Graft Vivigen 5cc - [id number] - [id number] Implanted:Qty: 1 on 09/23/2022 by Noman Awan MD at [facility] N/A: Spine Lumbar [facility]-635761 08/01/2023 BL-1500-002 / [id number] / [id number] Screw Aegis Ant Lumbar Ti Fuchsia 5.2x36mm - [id number] Implanted:Qty: 2 on 09/23/2022 by Noman Awan MD at [facility] N/A: Spine Lumbar [employer]onic [employer] Inc-[id number] / / Llif Ui H 8mm 8deg 50/18 - [id number] Implanted:Qty: 1 on 09/23/2022 by Noman Awan MD at [facility] N/A: Spine Lumbar DePuy Spine Sales LP-[id number] / / [id number] Graft Vivigen 15cc - [id number] - [id number] Implanted:Qty: 1 on 09/23/2022 by Noman Awan MD at [facility] N/A: Spine Lumbar [facility]-752711 07/15/2023 BL-1500-004 / [id number] / [id number] Tomas Viper2 Cocr Exp Str 480mm - [id number] Implanted:Qty: 1 on 09/23/2022 by Noman Awan MD at [facility] N/A: Spine Lumbar DePuy Spine Sales LP-596517 [id number] / / Connector Top Notch 5.5x5.5 - [id number] Implanted:Qty: 5 on 09/23/2022 by Noman Awan MD at [facility] N/A: Spine Lumbar DePuy Spine Sales LP-754082 [id number] / / Single Inner Setscrew - [id number] Implanted:Qty: 8 on 09/23/2022 by Noman Awan MD at [facility] N/A: Spine Lumbar DePuy Spine Sales LP-479548 [id number] / / Chip Bone 40cc - [id number] - [id number] Implanted:Qty: 1 on 09/23/2022 by Noman Awan MD at [facility] N/A: Spine Lumbar [facility]-439303 07/27/2027 PCAN1/2 / [id number] / [id number] Implant Ifuse Bedrock Castro 10.5mm X 110mm - [id number] - [id number] Implanted:Qty: 1 on 09/23/2022 by Noman Awan MD at [facility] N/A: Spine Lumbar SI-BONE Inc-[id number] 04/29/2027 [id number] / [id number] / Implant Ifuse Bedrock Castro 10.5mm X 110mm - [id number] - [id number] Implanted:Qty: 1 on 09/23/2022 by Noman Awan MD at [facility] N/A: Spine Lumbar SI-BONE Inc-[id number] 04/29/2027 [id number] / [id number] / Switchplate Conduit Lat Ti Sm Green 2h/26.5mm - [id number] Implanted:Qty: 1 on 09/23/2022 by Noman Awan MD at [facility] N/A: Spine Lumbar [employer] Inc-687468 02/12/2027 [id number] / / [id number] Explanted Type Area Freight Conductor Device Identifier Shelf Expiration Date Model / Serial / Lot Single Inner Setscrew - [id number] Explanted:Qty : 4 on 11/12/2021 by Javier Peña MD at [facility] N/A: Spine Lumbar DePuy Spine Sales LP-284390 11/12/2022 [id number] / / Procedures Procedure Name Priority Date/Time Associated Diagnosis Comments XR SHOULDER RIGHT 2+ VIEWS Routine 06/20/2024 11:22 AM EDT Right shoulder pain, unspecified chronicity CHG SONO GUIDE NEEDLE BIOPSY Routine 06/20/2024 11:20 AM EDT Right shoulder pain, unspecified chronicity Bicipital tendinitis, right shoulder Rotator cuff tendonitis, right from Last 3 Months Results * XR Shoulder Right 2+ Views [...] to verify the correct patient, procedure, equipment, customer support coordinator and site/side marked as required. Patient was prepped and draped in the usual sterile fashion. us Vineet Fam MD IN CLINIC/BEDSIDE ORDERABLES F inal Result from Last 3 Months Insurance [employer] MEDICARE Advance Directives * Full Code (Latest Code Status on File) Date Activated Date Inactivated Comments 09/23/2022 3:46 PM 09/29/2022 4:41 PM Question Answer Comments Patient has decision-making capacity? Yes Care Teams Registered Nurse Practitioner Relationship Specialty Start Date End Date Jl Santoro MD [address] [place] [address] PCP - General 09/22/20 Noman Awan MD [address] [facility] [address] [place] [phone] Surgeon Neurosurgery 09/27/21
--- OUTSIDE RECORDS SUMMARY | 2024-08-20 11:58 | XMS_ITS | Encounter Summary ---
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
--- OUTSIDE RECORDS SUMMARY | 2024-08-20 11:59 | XMS_ITS | Encounter Summary ---
Author Organization [employer] ([place], [place], [place], [place]) Address [address] [place] [address] Care Team Providers Care Extension Course Coordinator Name Role Phone Unavailable Primary Care Provider Unavailabl e Encounter Details Date Type Department Care Team (Late st Contact Info) Description 06/28/2019 Transcribed Document [facility] Neurology - [address] [facility] [address] [place] [address] Eun Monson Jr., MD [facility] [place] [address] Social History Tobacco Use Types Packs/Day Years Used Date Smoking Tobacco: Never Assessed Comments Unknown Sex and Gender Information Value Date Recorded Sex Assigned at Not on file Legal Sex Female 6:26 PM CDT Gender Identity Not on file Sexual Orientation Not on file documented as of this encounter Miscellaneous Notes * Cerner Conversion Note - Eun Monson Jr., MD - 06/28/2019 10:12 AM EDT Patient: ANJANA LOO Age: 54 Years Sex: Female : 1965 *Operation removal of medtronic spinal cord stimulator system via laminectomy *Preoperative Diagnosis chronic pain syndrome *Postoperative Diagnosis same *Surgeon(s) Primary Surgeon EUN MONSON MD-SNU (Surgeon/Proceduralist, First) *Estimated Blood Loss <25ml *Findings expected *Specimen(s) stimulator battery and lead Complications none Date of Service Date/Time of Service SN - Proc - Start Time: 06/28/19 08:28:00 (06/28/19 08:34:27) documented in this encounter Plan of Treatment Not on file documented as of this encounter Visit Diagnoses Not on filedocumented in this encounter
--- OUTSIDE RECORDS SUMMARY | 2024-08-20 11:59 | XMS_ITS | Encounter Summary ---
Author Organization [facility] ([place], [place], [place], [place]) Address [address] [place] [address] Care Team Providers Care Ammunition Supervisor Name Role Phone Unavailable Primary Care Provider Unavailabl e Encounter Details Date Type Department Care Team (Late st Contact Info) Description 06/28/2019 Transcribed Document [facility] [place] [address] [place] [address] ProviderMono MD [address] [place], [place] [id number] Social History Tobacco Use Types Packs/Day Years Used Date Smoking Tobacco: Never Assessed Comments Unknown Sex and Gender Information Value Date Recorded Sex Assigned at Not on file Legal Sex Female 6:26 PM CDT Gender Identity Not on file Sexual Orientation Not on file documented as of this encounter Miscellaneous Notes * Cerner Conversion Note - Historical ProviderMD - 06/28/2019 10:16 AM CDT Pain Assessment Entered On: 06/28/2019 11:07 EDT Performed On: 06/28/2019 11:01 EDT by DOMINIQUE BROOKS RN Intervention Information: fentaNYL Performed by DOMINIQUE BROOKS, RN on 06/28/2019 10:31:00 EDT fentaNYL,25mcg IV Push,Left Wrist,Pain (Severe 7-10) Pain Assessment Pain Improved by Intervention : Yes Pain Comment : voices surgical pain has improved when asked. still has chronic pain as before surgery DOMINIQUE BROOKS RN - 06/28/2019 11:06 EDT documented in this encounter Plan of Treatment Not on file documented as of this encounter Visit Diagnoses Not on filedocumented in this encounter
--- OUTSIDE RECORDS SUMMARY | 2024-08-20 11:59 | XMS_ITS | Encounter Summary ---
Author Organization [employer] ([place], [place], [place], [place]) Address [address] [place] [address] Care Team Providers Care Platform Consultant Name Role Phone Unavailable Primary Care Provider Unavailabl e Encounter Details Date Type Department Care Team (Late st Contact Info) Description 06/28/2019 Transcribed Document [facility] [place] [facility] [place] [address] ProviderMono MD [address] [id number] Social History Tobacco Use Types Packs/Day Years Used Date Smoking Tobacco: Never Assessed Comments Unknown Sex and Gender Information Value Date Recorded Sex Assigned at Not on file Legal Sex Female 6:26 PM CDT Gender Identity Not on file Sexual Orientation Not on file documented as of this encounter Miscellaneous Notes * Cerner Conversion Note - Mono ProviderMD - 06/28/2019 8:28 AM CDT [facility] Main OR PACU Summary Primary Physician: EUN MONSON MD-[facility] Finalized Date/Time: 06/28/19 11:08:12 Pt. Name: ANJANA LOO D.O.B./Sex: 1965 Female Med Rec #: [id number] Physician: EUN MONSON MD-SNU Financial #: [id number] Pt. Type: O Room/Bed: Admit/Disch: 06/28/19 06:18:00 - Institution: [facility] Main OR PACU I Case Times Entry 1 In PACU I 06/28/19 09:16:00 Ready for PACU 06/28/19 11:04:00 Discharge Discharge from PACU 06/28/19 11:04:00 I Last Modified By: DOMINIQUE BROOKS RN 06/28/19 11:04:05 Finalized By: DOMINIQUE BROOKS, RN Document Signatures Signed By: DOMINIQUE BROOKS RN 06/28/19 11:08 Electronically signed by Chloé [facility] Conversion Chocolatier Cerner at 06/03/2022 1:17 PM CDT documented in this encounter Plan of Treatment Not on file documented as of this encounter Visit Diagnoses Not on filedocumented in this encounter
--- OUTSIDE RECORDS SUMMARY | 2024-08-20 11:59 | XMS_ITS | Referral Summary ---
Author Organization [employer] ([place], [place], [place], [place]) Address [address] [place] [address] Care Team Providers Care Direct Support Worker Name Role Phone Unavailable Primary Care Provider Unavailabl e Social History Tobacco Use Types Packs/Day Years Used Date Smoking Tobacco: Never Assessed Comments Unknown Sex and Gender Information Value Date Recorded Sex Assigned at Not on file Legal Sex Female 6:26 PM CDT Gender Identity Not on file Sexual Orientation Not on file Plan of Treatment Not on file
--- OUTSIDE RECORDS SUMMARY | 2024-08-20 11:59 | XMS_ITS | Encounter Summary ---
Author Organization [employer] ([place], [place], [place], [place]) Address [address] [place] [address] Care Team Providers Care Fourdrinier Machine Tender Name Role Phone Unavailable Primary Care Provider Unavailabl e Encounter Details Date Type Department Care Team (Late st Contact Info) Description 01/29/2019 Transcribed Document [facility] [place] [place] Family Medicine [address] [place] [address] ProviderMono MD [address], [place] [id number] Social History Tobacco Use Types Packs/Day Years Used Date Smoking Tobacco: Never Assessed Comments Unknown Sex and Gender Information Value Date Recorded Sex Assigned at Not on file Legal Sex Female 6:26 PM CDT Gender Identity Not on file Sexual Orientation Not on file documented as of this encounter Miscellaneous Notes * Cerner Conversion Note - Historical ProviderMD - 01/29/2019 12:30 PM 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 Name: ANJANA LOO D.O.B./Sex: 1965 Female Med Rec #: [id number] Physician: NATASHA CORDERO MD-GAE Financial #: [id number] Pt. Type: O Room/Bed: N/13 Admit/Disch: 01/29/19 12:04:00 - Institution: [facility] PreOp Case Times Entry 1 In Preop 01/29/19 12:35:00 Ready for Holding n/a Room Patient Ready for 01/29/19 12:59:00 Surgery Patient Out of Preop 01/29/19 12:59:00 Patient Out of n/a Holding Room Finalized By: Shona Webb RN Document Signatures Signed By: Shona Webb RN 01/29/19 13:01 documented in this encounter Plan of Treatment Not on file documented as of this encounter Visit Diagnoses Not on filedocumented in this encounter
--- OUTSIDE RECORDS SUMMARY | 2024-08-20 11:59 | XMS_ITS | Encounter Summary ---
Author Organization [employer] ([place], [place], [place], [place]) Address [address] [place] [address] Care Team Providers Care Agricultural Aircraft Pilot Name Role Phone Unavailable Primary Care Provider Unavailabl e Encounter Details Date Type Department Care Team (Late st Contact Info) Description 01/29/2019 Transcribed Document [facility] [place] [facility] [place] [facility] [place] [address] ProviderMono MD [address] [place] [address] Social History Tobacco Use Types Packs/Day Years Used Date Smoking Tobacco: Never Assessed Comments Unknown Sex and Gender Information Value Date Recorded Sex Assigned at Not on file Legal Sex Female 6:26 PM CDT Gender Identity Not on file Sexual Orientation Not on file documented as of this encounter Miscellaneous Notes * Cerner Conversion Note - Historical ProviderMD - 01/29/2019 12:42 PM HVAC ESTIMATOR Pre Procedure Adult Entered On: 01/29/2019 12:52 EST Performed On: 01/29/2019 12:42 EST by Shona Webb RN Height and Weight, Clinical Dosing Height Source : Measured Height Entry Format : [place] Height, Feet : 5 ft(Converted to: 152 cm, 60 Inch) Height, Inches : 6 Inch(Converted to: 0 ft 6 Inch, 15.24 cm) Clinical Height : 167.64 cm Weight Source : Standing scale Weight Entry Format : [place] Clinical Dosing Weight : 81.82 kg Weight, Pounds : 180 lb Body Surface Area (BSA) : 1.91 m2 Body Mass Index : 29.1 kg/m2 (HI) [place] Body Weight : 59 kg Shona Webb RN - 01/29/2019 12:42 EST Health Histories Smoking Status : Never (less than 100 in lifetime; none in last 30 days) Smokeless Tobacco Status : Never Shona Webb RN - 01/29/2019 12:42 EST Social History (As Of: 01/29/2019 12:52:24 EST) Tobacco: Smoking Status Never smoker. (Last Updated: 11/26/2015 10:25:32 EDT by BEATRICE JACK RN) Alcohol: Alcohol Use Frequency Socially. (Last Updated: 11/26/2015 10:25:58 EDT by BEATRICE JACK RN) Substance Abuse: Drug Use Hx: No. Use in Last 12 Months: No. (Last Updated: 01/13/2015 10:19:07 EST by LORETO ELLIS RN) Nutrition/Health: Caffeine intake amount: 3-4 daily. (Last Updated: 11/26/2015 10:26:22 EDT by BEATRICE JACK RN) Exercise: Exercise frequency: 3-4 times/week. Exercise type: Walking. (Last Updated: 11/06/2017 12:11:35 EDT by Lili Murphy RN) Home/Environment: Lives with Spouse. Living situation: Home/Independent. (Last Updated: 10/30/2017 11:52:22 EDT by MUSA MALIK RN) Employment/School: Unemployed (Last Updated: 11/06/2017 12:11:56 EDT by Lili Murphy RN) Infectious Disease History Infectious Disease History : None Fever/Chills Last 48 Hours : No Travel To Regions with Travel Advisories : No Travel Outside [place] Within Last 30 Days : No Contact With Traveler to Advisory Region : No Tuberculosis Symptoms : None Shona Webb RN - 01/29/2019 12:42 EST Anesthesia/Transfusion History Family History of Anesthesia Reaction : No prior transfusion(s) Transfusion History : Prior anesthesia without reaction Family History of Anesthesia Reaction : None Shona Webb RN - 01/29/2019 12:42 EST Functional Assessment Living Situation : Home Patient Lives With : Spouse Current Home Treatments : None Shona Webb RN - 01/29/2019 12:42 EST [place] Suicide Severity Rating Scale (C-SSRS) CSSRS Past Month Wish to be : No CSSRS Past Month Suicidal Thoughts : No CSSRS Lifetime Suicide Behavior : No Suicide Severity Rating Score : 0 Suicide Severity Rating : No Additional Care Required at this time Shona Webb RN - 01/29/2019 12:42 EST Psychosocial History Do You Have a History of the Following? : Anxiety, Depression Currently in Unsafe Situation : No Shona Webb RN - 01/29/2019 12:42 EST Advance Directive Patient has Advance Directive *Q : Yes, Advance Directive not with the patient Advance Directive Type : Living will Copy Advance Directive Verified/on Chart : No Shona Webb RN - 01/29/2019 12:42 EST General Info Arrived From : Home Mode of Arrival on Unit : Ambulatory Legal Guardian : Spouse Support Person/Patient Pin Feather Machine Operator : Yes Support Person/Pt Rep Name : Carlton Ag - spouse Support Person/Pt Rep Contact Information : [phone] Want Family/Rep/Phys Notified of Admit : Yes Name/Contact Info Fam/Rep Notified Adm : Carlton Spann Name/Contact Info Physician Notified Adm : Jl Santoro Emergency Contact #1 : Carlton Spann Emergency Contact #1 Emergency Contact #1 Relationship : spouse Emergency Contact #2 : na Emergency Contact #2 Phone Number : na Emergency Contact #2 Relationship : na Primary Language : [place] Communication Barrier : None Shona Webb RN - 01/29/2019 12:42 EST Sleep Apnea Risk Assmt Hx of Obstructive Sleep Apnea Diagnosis : No Snore Loudly : No Tired, Fatigued, or Sleepy During Day : No Observed Stopping Breathing During Sleep : No Have/Are Being Treated for Hypertension : No BMI Greater Than 35 kg/m2 : No Age over 50 Years Old : Yes Neck Circumference Greater Than 40 cm : No Gender Male : No STOP-BANG Sleep Apnea Risk Level Score : 1 Shona Webb RN - 01/29/2019 12:42 EST Abdiaziz Scale Abdiaziz Sensory Perception : No impairment Abdiaziz Moisture : Rarely moist Abdiaziz Activity : Walks frequently Abdiaziz Mobility : No limitation Abdiaziz Nutrition : Excellent Abdiaziz Friction and Shear : No apparent problem Abdiaziz Score : 23 Shona Webb RN - 01/29/2019 12:42 EST Fall Risk Scales ABCs Fall Injury Risk Identification : None ACUÑA Hx Falls Immediate/Within 3 Months : Yes [place] Secondary Diagnosis : No ACUÑA Use of Ambulatory Aid : None ACUÑA IV Therapy or IV Access : Yes [place] Gait/Transferring : Normal, bedrest, immobile [place] Mental Status : Oriented to own ability [place] Fall Risk Score : 45 ACUÑA Fall Scale Risk Level : 0-24 Low Risk [place] Fall Interventions : Bed in low position, Personal items within reach, Upper side-rails up, Wheels locked Shona Webb RN - 01/29/2019 12:42 EST Valuables and Belongings Valuables and Belongings : Clothing Clothing : Common streetwear Clothing Disposition : With patient Shona Webb RN - 01/29/2019 12:42 EST Electronically signed by [facility] Conversion Supervisor Tank Cleaning Cerner at 06/03/2022 12:55 PM CDT documented in this encounter Plan of Treatment Not on file documented as of this encounter Visit Diagnoses Not on filedocumented in this encounter
--- OUTSIDE RECORDS SUMMARY | 2024-08-20 11:59 | XMS_ITS | Encounter Summary ---
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 Officer Name Role Phone Unavailable Primary Care Provider Unavailabl e Encounter Details Date Type Department Care Team (Late st Contact Info) Description 01/29/2019 Transcribed Document [facility] Family Medicine [address] [place] [address] ProviderMono MD [address] [place] [address] Social History Tobacco Use Types Packs/Day Years Used Date Smoking Tobacco: Never Assessed Comments Unknown Sex and Gender Information Value Date Recorded Sex Assigned at Not on file Legal Sex Female 6:26 PM CDT Gender Identity Not on file Sexual Orientation Not on file documented as of this encounter Miscellaneous Notes * Cerner Conversion Note - Historical ProviderMD - 01/29/2019 2: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 [place] [id number] ANJANA LOO :1965 Visit Time:01/29/2019 What to do next Your Diagnosis Epigastric pain Nausea and vomiting Instructions From Your Care Team Diet after Discharge: Resume usual diet as tolerated, Do not drink any alcoholic beverages, _ Fluid Restriction after Discharge: _ Activity after Discharge: _, Rest and relax today, No strenuous activity Lifting Restrictions: _ Weight Bearing: _ Bedrest: _ Driving after Discharge: Do not drive for 24 hours May Return to Work/School: Tomorrow Showering/Bathing: May shower, _ Notify Provider of: Any Questions or Concerns Wound/Incision Care after Discharge: _, _ Medical Equipment for Home Use: Home Health Services: Community Services: Follow-Up Appointments Follow Up with NATASHA CORDERO When Within [address] Purvis's office will call you to schedule your 6 week follow-up appointment. Where: [address] [place] [address]- Business (1) Medications What How Much When Instructions Next Dose pantoprazole (pantoprazole 40 mg oral delayed release tablet) 1 Tablet(s) Oral Every Day Duration: 30 Day(s) Refills: 2 Printed Prescription acetaminophen (Tylenol) 650 Milligram(s) Oral Every 4 Hours as needed for as needed for pain acetaminophen-oxyCODONE (Percocet 5/ 325 oral tablet) 1 Tablet(s) Oral Four Times A Day as needed for Breakthrough Pain clonazePAM (clonazePAM 1 mg oral tablet) 1 Tablet(s) Oral Two Times A Day cyclobenzaprine (Flexeril) 10 Milligram(s) Oral Two Times A Day docusate (docusate sodium 250 mg oral capsule) 1 Capsule(s) Oral Two Times A Day hydrochlorothiazide-triamterene (Maxzide) 12.5-25 mg Oral Every Day levothyroxine (Synthroid) 0.1 Milligram(s) Oral Every Day milnacipran (Savella) 50 Milligram(s) Oral Two Times A Day multivitamin (B-Complex 50 oral tablet) Oral Every Day omega-3 polyunsaturated fatty acids ([place]-3 1000 mg oral capsule) Oral Two Times A Day polyethylene glycol 3350 (MiraLax) 17 gm Oral Every Other Day at bedtime prucalopride (Motegrity 2 mg oral tablet) Oral Every Day rOPINIRole 2 Milligram(s) Oral At Bedtime simvastatin (Zocor) 80 Milligram(s) Oral At Bedtime SUMAtriptan (Imitrex) 100 Milligram(s) Oral Every Day as needed for as needed for migraine headache as directed traZODone (traZODone 100 mg oral tablet) Oral Three Times A Day Take your medications faithfully. Do NOT skip medication. Do NOT stop taking medications without the direction of a physician. Carry a list of your medications with you at all times, and take this medication list with you to your first follow up visit. Report any side effects. Avoid herbal remedies unless discussed with your physician. As part of your treatment plan, your physician may have prescribed a limited course of a controlled substance. This medication may be given to help people with moderate or severe pain or for other medical conditions, but there are risks involved with treatment. Common side effects may include nausea, constipation, drowsiness, sweating, itching, dry mouth, and rash. More serious side effects may include cognitive and motor impairment, like problems with thinking, concentrating, alertness, and movement (e.g. slowed reflexes), and driving and operating heavy machinery can be dangerous. It is important for you to talk to your physician if you have these side effects or questions. These controlled substances can produce physical dependence and be habit-forming if taken for an extended period of time, which means that the body has gotten used to them and may experience withdrawal symptoms if they are abruptly stopped. Withdrawal symptoms can include runny nose, sweating, goose bumps, diarrhea, abdominal cramping, rapid heartbeat, difficulty sleeping, and nervousness. Please dispose of unused and medications per pharmacy guidance. Education Materials Monitored Anesthesia Care, Care After These instructions provide you with information about caring for yourself after your procedure. Your health care provider may also give you more specific instructions. Your treatment has been planned according to current medical practices, but problems sometimes occur. Call your health care provider if you have any problems or questions after your procedure. What can I expect after the procedure? After your procedure, you may: ??? Feel sleepy for several hours. ??? Feel clumsy and have poor balance for several hours. ??? Feel forgetful about what happened after the procedure. ??? Have poor judgment for several hours. ??? Feel nauseous or vomit. ??? Have a sore throat if you had a breathing tube during the procedure. Follow these instructions at home: For at least 24 hours after the procedure: ??? Have a responsible adult stay with you. It is important to have someone help care for you until you are awake and alert. ??? Rest as needed. ??? Do not: ? Participate in activities in which you could fall or become injured. ? Drive. ? Use heavy machinery. ? Drink alcohol. ? Take sleeping pills or medicines that cause drowsiness. ? Make important decisions or sign legal documents. ? Take care of children on your own. Eating and drinking ??? Follow the diet that is recommended by your health care provider. ??? If you vomit, drink water, juice, or soup when you can drink without vomiting. ??? Make sure you have little or no nausea before eating solid foods. General instructions ??? Take ctnd-daa-wibdjhr and prescription medicines only as told by your health care provider. ??? If you have sleep apnea, surgery and certain medicines can increase your risk for breathing problems. Follow instructions from your health care provider about wearing your sleep device: ? Anytime you are sleeping, including during daytime naps. ? While taking prescription pain medicines, sleeping medicines, or medicines that make you drowsy. ??? If you smoke, do not smoke without supervision. ??? Keep all follow-up visits as told by your health care provider. This is important. Contact a health care provider if: ??? You keep feeling nauseous or you keep vomiting. ??? You feel light-headed. ??? You develop a rash. ??? You have a fever. Get help right away if: ??? You have trouble breathing. Summary ??? For several hours after your procedure, you may feel sleepy and have poor judgment. ??? Have a responsible adult stay with you for at least 24 hours or until you are awake and alert. This information is not intended to replace advice given to you by your health care provider. Make sure you discuss any questions you have with your health care provider. Document Released: 05/22/2016 Document Revised: 09/15/2017 Document Reviewed: 05/22/2016 [employer] Interactive Patient Education ?? 2019 [employer]. Colonoscopy, Adult, Care After This sheet gives you information about how to care for yourself after your procedure. Your doctor may also give you more specific instructions. If you have problems or questions, call your doctor. What can I expect after the procedure? After the procedure, it is common to have: ??? A small amount of blood in your poop for 24 hours. ??? Some gas. ??? Mild cramping or bloating in your belly. Follow these instructions at home: General instructions ??? For the first 24 hours after the procedure: ? Do not drive or use machinery. ? Do not sign important documents. ? Do not drink alcohol. ? Do your daily activities more slowly than normal. ? Eat foods that are soft and easy to digest. ??? Take nvrq-gcn-bjtxtlt or prescription medicines only as told by your doctor. To help cramping and bloating: ??? Try walking around. ??? Put heat on your belly (abdomen) as told by your doctor. Use a heat source that your doctor recommends, such as a moist heat pack or a heating pad. ? Put a towel between your skin and the heat source. ? Leave the heat on for 20???30 minutes. ? Remove the heat if your skin turns bright red. This is especially important if you cannot feel pain, heat, or cold. You can get burned. Eating and drinking ??? Drink enough fluid to keep your pee (urine) clear or pale yellow. ??? Return to your normal diet as told by your doctor. Avoid heavy or fried foods that are hard to digest. ??? Avoid drinking alcohol for as long as told by your doctor. Contact a doctor if: ??? You have blood in your poop (stool) 2???3 days after the procedure. Get help right away if: ??? You have more than a small amount of blood in your poop. ??? You see large clumps of tissue (blood clots) in your poop. ??? Your belly is swollen. ??? You feel sick to your stomach (nauseous). ??? You throw up (vomit). ??? You have a fever. ??? You have belly pain that gets worse, and medicine does not help your pain. Summary ??? After the procedure, it is common to have a small amount of blood in your poop. You may also have mild cramping and bloating in your belly. ??? For the first 24 hours after the procedure, do not drive or use machinery, do not sign important documents, and do not drink alcohol. ??? Get help right away if you have a lot of blood in your poop, feel sick to your stomach, have a fever, or have more belly pain. This information is not intended to replace advice given to you by your health care provider. Make sure you discuss any questions you have with your health care provider. Document Released: 03/04/2011 Document Revised: 11/30/2017 Document Reviewed: 10/24/2016 [employer] Interactive Patient Education ?? 2019 [employer] Esophagogastroduodenoscopy, Care After Refer to this sheet in the next few weeks. These instructions provide you with information about caring for yourself after your procedure. Your health care provider may also give you more specific instructions. Your treatment has been planned according to current medical practices, but problems sometimes occur. Call your health care provider if you have any problems or questions after your procedure. What can I expect after the procedure? After the procedure, it is common to have: ??? A sore throat. ??? Nausea. ??? Bloating. ??? Dizziness. ??? Fatigue. Follow these instructions at home: ??? Do not eat or drink anything until the numbing medicine (local anesthetic) has worn off and your gag reflex has returned. You will know that the local anesthetic has worn off when you can swallow comfortably. ??? Do not drive for 24 hours if you received a medicine to help you relax (sedative). ??? If your health care provider took a tissue sample for testing during the procedure, make sure to get your test results. This is your responsibility. Ask your health care provider or the department performing the test when your results will be ready. ??? Keep all follow-up visits as told by your health care provider. This is important. Contact a health care provider if: ??? You cannot stop coughing. ??? You are not urinating. ??? You are urinating less than usual. Get help right away if: ??? You have trouble swallowing. ??? You cannot eat or drink. ??? You have throat or chest pain that gets worse. ??? You are dizzy or light-headed. ??? You faint. ??? You have nausea or vomiting. ??? You have chills. ??? You have a fever. ??? You have severe abdominal pain. ??? You have black, tarry, or bloody stools. This information is not intended to replace advice given to you by your health care provider. Make sure you discuss any questions you have with your health care provider. Document Released: 01/16/2013 Document Revised: 07/07/2016 Document Reviewed: 12/24/2015 [employer] Interactive Patient Education ?? 2019 [employer] Hemorrhoids Hemorrhoids are swollen veins in and around the rectum or anus. Hemorrhoids can cause pain, itching, or bleeding. Most of the time, they do not cause serious problems. They usually get better with diet changes, lifestyle changes, and other home treatments. Follow these instructions at home: Eating and drinking ??? Eat foods that have fiber, such as whole grains, beans, nuts, fruits, and vegetables. Ask your doctor about taking products that have added fiber (fiber supplements). ??? Drink enough fluid to keep your pee (urine) clear or pale yellow. For Pain and Swelling ??? Take a warm-water bath (sitz bath) for 20 minutes to ease pain. Do this 3???4 times a day. ??? If directed, put ice on the painful area. It may be helpful to use ice between your warm baths. ? Put ice in a plastic bag. ? Place a towel between your skin and the bag. ? Leave the ice on for 20 minutes, 2???3 times a day. General instructions ??? Take jpwk-zfd-tntanoe and prescription medicines only as told by your doctor. ? Medicated creams and medicines that are inserted into the anus (suppositories) may be used or applied as told. ??? Exercise often. ??? Go to the bathroom when you have the urge to poop (to have a bowel movement). Do not wait. ??? Avoid pushing too hard (straining) when you poop. ??? Keep the butt area dry and clean. Use wet toilet paper or moist paper towels. ??? Do not sit on the toilet for a long time. Contact a doctor if: ??? You have any of these: ? Pain and swelling that do not get better with treatment or medicine. ? Bleeding that will not stop. ? Trouble pooping or you cannot poop. ? Pain or swelling outside the area of the hemorrhoids. This information is not intended to replace advice given to you by your health care provider. Make sure you discuss any questions you have with your health care provider. Document Released: 11/08/2008 Document Revised: 07/07/2016 Document Reviewed: 10/14/2015 [employer] Interactive Patient Education ?? 2019 [employer]. Gastritis, Adult Gastritis is swelling (inflammation) of the stomach. When you have this condition, you can have these problems (symptoms): ??? Pain in your stomach. ??? A burning feeling in your stomach. ??? Feeling sick to your stomach (nauseous). ??? Throwing up (vomiting). ??? Feeling too full after you eat. It is important to get help for this condition. If you do not get help, your stomach can bleed, and you can get sores (ulcers) in your stomach. Follow these instructions at home: ??? Take ngkv-ecp-nvuaaos and prescription medicines only as told by your doctor. ??? If you were prescribed an antibiotic medicine, take it as told by your doctor. Do not stop taking it even if you start to feel better. ??? Drink enough fluid to keep your pee (urine) pale yellow. ??? Instead of eating big meals, eat small meals often. ??? Avoid foods and drinks that make your symptoms worse. Contact a doctor if: ??? Your problems get worse. ??? Your problems go away and then come back. Get help right away if: ??? You throw up blood or something that looks like coffee grounds. ??? You have black or dark red poop (stools). ??? You throw up any time you try to take a drink. ??? Your stomach pain gets worse. ??? You have a fever. ??? You do not feel better after 1 week. Summary ??? Gastritis is swelling (inflammation) of the stomach. ??? It is important to get help for this condition. If you do not get help, your stomach can bleed, and you can get sores (ulcers) in your stomach. ??? Take mlwx-xpk-tekyoks and prescription medicines only as told by your doctor. This information is not intended to replace advice given to you by your health care provider. Make sure you discuss any questions you have with your health care provider. Document Released: 07/18/2008 Document Revised: 09/12/2017 Document Reviewed: 10/24/2015 [employer] Patient Education ?? 2019 [employer]. Esophagitis Esophagitis is inflammation of the esophagus. The esophagus is the tube that carries food and liquids from your mouth to your stomach. Esophagitis can cause soreness or pain in the esophagus. This condition can make it difficult and painful to swallow. What are the causes? Most causes of esophagitis are not serious. Common causes of this condition include: ??? Gastroesophageal reflux disease (GERD). This is when stomach contents move back up into the esophagus (reflux). ??? Repeated vomiting. ??? An allergic-type reaction, especially caused by food allergies (eosinophilic esophagitis). ??? Injury to the esophagus by swallowing large pills with or without water, or swallowing certain types of medicines. ??? Swallowing (ingesting) harmful chemicals, such as household cleaning products. ??? Heavy alcohol use. ??? An infection of the esophagus. This most often occurs in people who have a weakened immune system. ??? Radiation or chemotherapy treatment for cancer. ??? Certain diseases such as sarcoidosis, Crohn disease, and scleroderma. What are the signs or symptoms? Symptoms of this condition include: ??? Difficult or painful swallowing. ??? Pain with swallowing acidic liquids, such as citrus juices. ??? Pain with burping. ??? Chest pain. ??? Difficulty breathing. ??? Nausea. ??? Vomiting. ??? Pain in the abdomen. ??? Weight loss. ??? Ulcers in the mouth. ??? Patches of white material in the mouth (candidiasis). ??? Fever. ??? Coughing up blood or vomiting blood. ??? Stool that is black, tarry, or bright red. How is this diagnosed? Your health care provider will take a medical history and perform a physical exam. You may also have other tests, including: ??? An endoscopy to examine your stomach and esophagus with a small camera. ??? A test that measures the acidity level in your esophagus. ??? A test that measures how much pressure is on your esophagus. ??? A barium swallow or modified barium swallow to show the shape, size, and functioning of your esophagus. ??? Allergy tests. How is this treated? Treatment for this condition depends on the cause of your esophagitis. In some cases, steroids or other medicines may be given to help relieve your symptoms or to treat the underlying cause of your condition. You may have to make some lifestyle changes, such as: ??? Avoiding alcohol. ??? Quitting smoking. ??? Changing your diet. ??? Exercising. ??? Changing your sleep habits and your sleep environment. Follow these instructions at home: Take these actions to decrease your discomfort and to help avoid complications. Diet ??? Follow a diet as recommended by your health care provider. This may involve avoiding foods and drinks such as: ? Coffee and tea (with or without caffeine). ? Drinks that contain alcohol. ? Energy drinks and sports drinks. ? Carbonated drinks or sodas. ? Chocolate and cocoa. ? Peppermint and mint flavorings. ? Garlic and onions. ? Horseradish. ? Spicy and acidic foods, including peppers, chili powder, ulloa powder, vinegar, hot sauces, and barbecue sauce. ? [place] fruit juices and citrus fruits, such as oranges, alona, and limes. ? Tomato-based foods, such as red sauce, chili, salsa, and pizza with red sauce. ? Fried and fatty foods, such as donuts, bulgarian fries, potato chips, and high-fat dressings. ? High-fat meats, such as hot dogs and fatty cuts of red and white meats, such as rib eye steak, sausage, ham, and rey. ? High-fat dairy items, such as whole milk, butter, and cream cheese. ??? Eat small, frequent meals instead of large meals. ??? Avoid drinking large amounts of liquid with your meals. ??? Avoid eating meals during the 2???3 hours before bedtime. ??? Avoid lying down right after you eat. ??? Do not exercise right after you eat. ??? Avoid foods and drinks that seem to make your symptoms worse. General instructions ??? Pay attention to any changes in your symptoms. ??? Take wjsi-eoq-uhysrjv and prescription medicines only as told by your health care provider. Do not take aspirin, ibuprofen, or other NSAIDs unless your health care provider told you to do so. ??? If you have trouble taking pills, use a pill splitter to decrease the size of the pill. This will decrease the chance of the pill getting stuck or injuring your esophagus on the way down. Also, drink water after you take a pill. ??? Do not use any tobacco products, including cigarettes, chewing tobacco, and e-cigarettes. If you need help quitting, ask your health care provider. ??? Wear loose-fitting clothing. Do not wear anything tight around your waist that causes pressure on your abdomen. ??? Raise (elevate) the head of your bed about 6 inches (15 cm). ??? Try to reduce your stress, such as with yoga or meditation. If you need help reducing stress, ask your health care provider. ??? If you are overweight, reduce your weight to an amount that is healthy for you. Ask your health care provider for guidance about a safe weight loss goal. ??? Keep all follow-up visits as told by your health care provider. This is important. Contact a health care provider if: ??? You have new symptoms. ??? You have unexplained weight loss. ??? You have difficulty swallowing, or it hurts to swallow. ??? You have wheezing or a persistent cough. ??? Your symptoms do not improve with treatment. ??? You have frequent heartburn for more than two weeks. Get help right away if: ??? You have severe pain in your arms, neck, jaw, teeth, or back. ??? You feel sweaty, dizzy, or light-headed. ??? You have chest pain or shortness of breath. ??? You vomit and your vomit looks like blood or coffee grounds. ??? Your stool is bloody or black. ??? You have a fever. ??? You cannot swallow, drink, or eat. This information is not intended to replace advice given to you by your health care provider. Make sure you discuss any questions you have with your health care provider. Document Released: 03/09/2005 Document Revised: 07/07/2016 Document Reviewed: 05/27/2015 [employer] Interactive Patient Education ?? 2019 [employer]. prucalopride (proo FLAVIO [place] pride) [employer] What is the most important information I should know about prucalopride? You should not use prucalopride if you have a blockage in your intestines, Crohn's disease, ulcerative colitis, or intestinal perforation. What is prucalopride? Prucalopride is used to treat chronic idiopathic constipation (constipation without a known cause). Prucalopride may also be used for purposes not listed in this medication guide. What should I discuss with my healthcare provider before taking prucalopride? You should not use prucalopride if you are allergic to it, or if you have: ?? a blockage in your intestines; ?? severe constipation; ?? inflammatory bowel disease (Crohn's disease, ulcerative colitis); ?? toxic megacolon; or ?? perforation (a hole or tear) of your intestines. Tell your doctor if you have ever had: ?? kidney disease; ?? depression; ?? a mood disorder; or ?? suicidal thoughts. Tell your doctor if you are or breast-feeding. Prucalopride is not approved for use by anyone younger than 18 years old. How should I take prucalopride? Follow all directions on your prescription label and read all medication guides or instruction sheets. Use the medicine exactly as directed. You may take prucalopride with or without food. Store prucalopride in the original container at room temperature, away from moisture and heat. What happens if I miss a dose? Take the medicine as soon as you can, but skip the missed dose if it is almost time for your next dose. Do not take two doses at one time. What happens if I overdose? Seek emergency medical attention or call the Poison Help line at . Overdose may cause severe diarrhea. What should I avoid while taking prucalopride? Follow your doctor's instructions about any restrictions on food, beverages, or activity. What are the possible side effects of prucalopride? Get emergency medical help if you have signs of an allergic reaction: hives; difficult breathing; swelling of your face, lips, tongue, or throat. Stop using prucalopride and call your doctor at once if you have: ?? unusual changes in mood or behavior; ?? ongoing or worsening depression; ?? thoughts about suicide or hurting yourself; or ?? if you feel sad or hopeless. Common side effects may include: ?? nausea, vomiting, diarrhea; ?? stomach pain, bloating, gas; ?? headache; ?? dizziness; or ?? feeling tired. This is not a complete list of side effects and others may occur. Call your doctor for medical advice about side effects. You may report side effects to FDA at 1-753-NSQ-2796. What other drugs will affect prucalopride? Other drugs may affect prucalopride, including prescription and tllr-mzq-kpsqdfw medicines, vitamins, and herbal products. Tell your doctor about all your current medicines and any medicine you start or stop using. Where can I get more information? Your pharmacist can provide more information about prucalopride. Remember, keep this and all other medicines out of the reach of children, never share your medicines with others, and use this medication only for the indication prescribed. Every effort has been made to ensure that the information provided by [employer]. [employer]') is accurate, up-to-date, and complete, but no guarantee is made to that effect. Drug information contained herein may be time sensitive. [employer] information has been compiled for use by healthcare practitioners and consumers in the [place] and therefore [employer] does not warrant that uses outside of the [place] are appropriate, unless specifically indicated otherwise. [employer] drug information does not endorse drugs, diagnose patients or recommend therapy. [employer] drug information is an informational resource designed to assist licensed healthcare practitioners in caring for their patients and/or to serve consumers viewing this service as a supplement to, and not a substitute for, the expertise, skill, knowledge and judgment of healthcare practitioners. The absence of a warning for a given drug or drug combination in no way should be construed to indicate that the drug or drug combination is safe, effective or appropriate for any given patient. [employer] does not assume any responsibility for any aspect of healthcare administered with the aid of information [employer] provides. The information contained herein is not intended to cover all possible uses, directions, precautions, warnings, drug interactions, allergic reactions, or adverse effects. If you have questions about the drugs you are taking, check with your doctor, nurse or pharmacist. Copyright 6449-1238 [employer]. Version: 1.01. Revision Date: 03/27/2018. pantoprazole (oral/injection) (ludwig TOE pra zole) Protonix What is the most important information I should know about pantoprazole? Pantoprazole can cause kidney problems. Tell your doctor if you are urinating less than usual, or if you have blood in your urine. Diarrhea may be a sign of a new infection. Call your doctor if you have diarrhea that is watery or has blood in it. Pantoprazole may cause new or worsening symptoms of lupus. Tell your doctor if you have joint pain and a skin rash on your cheeks or arms that worsens in sunlight. You may be more likely to have a broken bone while taking this medicine correction or more than once per day. What is pantoprazole? Pantoprazole is a proton pump inhibitor that decreases the amount of acid produced in the stomach. Pantoprazole is used to treat erosive esophagitis (damage to the esophagus from stomach acid caused by gastroesophageal reflux disease, or GERD) in adults and children who are at least 5 years old. Pantoprazole is usually given for up to 8 weeks at a time while your esophagus heals. Pantoprazole is also used to treat Sylvester-Elena syndrome and other conditions involving excess stomach acid. Pantoprazole is not for immediate relief of heartburn. Pantoprazole may also be used for purposes not listed in this medication guide. What should I discuss with my healthcare provider before using pantoprazole? Heartburn can mimic early symptoms of a heart attack. Get emergency medical help if you have chest pain that spreads to your jaw or shoulder and you feel anxious or light-headed. You should not use this medicine if: ?? you also take medicine that contains rilpivirine (Edurant, Complera, Julkp, Marisey); or ?? you are allergic to pantoprazole or similar medicines (lansoprazole, omeprazole, Nexium, Prevacid, Prilosec, and others). Tell your doctor if you have ever had: ?? low levels of magnesium in your blood; ?? lupus; or ?? osteoporosis or low bone mineral density. You may be more likely to have a broken bone in your hip, wrist, or spine while taking a proton pump inhibitor long-term or more than once per day. Talk with your doctor about ways to keep your bones healthy. It is not known whether this medicine will harm an unborn baby. Tell your doctor if you are or plan to become . You should not breast-feed while using this medicine. Pantoprazole is not approved for use by anyone younger than 5 years old. How should I use pantoprazole? Follow all directions on your prescription label and read all medication guides or instruction sheets. Use the medicine exactly as directed. Use the lowest dose for the shortest amount of time needed to treat your condition. Pantoprazole is taken by mouth (oral) or given as an infusion into a vein (injection). A healthcare provider may teach you how to properly use pantoprazole injection by yourself. Pantoprazole tablets are taken by mouth, with or without food. Pantoprazole oral granules should be taken 30 minutes before a meal. Do not crush, chew, or break the tablet. Swallow it whole. The oral granules should be mixed with applesauce or apple juice and given either by mouth or through a nasogastric (NG) tube. Read and carefully follow any Instructions for Use provided with your medicine. Ask your doctor or pharmacist if you do not understand these instructions. Use this medicine for the full prescribed length of time, even if your symptoms quickly improve. Call your doctor if your symptoms do not improve or if they get worse while you are using this medicine. This medicine can affect the results of certain medical tests. Tell any doctor who treats you that you are using pantoprazole. Pantoprazole may also affect a drug-screening urine test and you may have false results. Tell the laboratory staff that you use this medicine. Store this medicine at room temperature away from moisture, heat, and light. What happens if I miss a dose? Use the medicine as soon as you can, but skip the missed dose if it is almost time for your next dose. Do not use two doses at one time. What happens if I overdose? Seek emergency medical attention or call the Poison Help line at . What should I avoid while using pantoprazole? This medicine can cause diarrhea, which may be a sign of a new infection. If you have diarrhea that is watery or bloody, call your doctor. Do not use anti-diarrhea medicine unless your doctor tells you to. What are the possible side effects of pantoprazole? Get emergency medical help if you have signs of an allergic reaction: hives; difficulty breathing; swelling of your face, lips, tongue, or throat. Call your doctor at once if you have: ?? severe stomach pain, diarrhea that is watery or bloody; ?? sudden pain or trouble moving your hip, wrist, or back; ?? bruising or swelling where intravenous pantoprazole was injected; ?? kidney problems--urinating less than usual, blood in your urine, swelling, rapid weight gain; ?? low magnesium--dizziness, fast or irregular heart rate, tremors (shaking) or jerking muscle movements, feeling jittery, muscle cramps, muscle spasms in your hands and feet, cough or choking feeling; or ?? new or worsening symptoms of lupus--joint pain, and a skin rash on your cheeks or arms that worsens in sunlight. Taking pantoprazole long-term may cause you to develop stomach growths called fundic gland polyps. Talk with your doctor about this risk. If you use pantoprazole for longer than 3 years, you could develop a vitamin B-12 deficiency. Talk to your doctor about how to manage this condition if you develop it. Common side effects may include: ?? headache, dizziness; ?? stomach pain, gas, nausea, vomiting, diarrhea; ?? joint pain; or ?? fever, rash, or cold symptoms (most common in children). This is not a complete list of side effects and others may occur. Call your doctor for medical advice about side effects. You may report side effects to FDA at 9-789-YLS-4167. What other drugs will affect pantoprazole? Tell your doctor about all your other medicines, especially: ?? digoxin; ?? methotrexate; or ?? a diuretic or 'water pill.' This list is not complete. Other drugs may affect pantoprazole, including prescription and skmg-rkx-tnjwkxh medicines, vitamins, and herbal products. Not all possible drug interactions are listed here. Where can I get more information? Your pharmacist can provide more information about pantoprazole. Remember, keep this and all other medicines out of the reach of children, never share your medicines with others, and use this medication only for the indication prescribed. Every effort has been made to ensure that the information provided by [employer]') is accurate, up-to-date, and complete, but no guarantee is made to that effect. Drug information contained herein may be time sensitive. [employer] information has been compiled for use by healthcare practitioners and consumers in the [place] and therefore [employer] does not warrant that uses outside of the [place] are appropriate, unless specifically indicated otherwise. [employer] drug information does not endorse drugs, diagnose patients or recommend therapy. [employer] drug information is an informational resource designed to assist licensed healthcare practitioners in caring for their patients and/or to serve consumers viewing this service as a supplement to, and not a substitute for, the expertise, skill, knowledge and judgment of healthcare practitioners. The absence of a warning for a given drug or drug combination in no way should be construed to indicate that the drug or drug combination is safe, effective or appropriate for any given patient. [facility] does not assume any responsibility for any aspect of healthcare administered with the aid of information [facility] provides. The information contained herein is not intended to cover all possible uses, directions, precautions, warnings, drug interactions, allergic reactions, or adverse effects. If you have questions about the drugs you are taking, check with your doctor, nurse or pharmacist. Copyright [id number] [facility]. Version: 19.02. Revision Date: 08/08/2017. Emergency Awareness and Preventative Care STROKE is an EMERGENCY Every Minute Counts Act FAST and Check for these signs: FACE Does the face look uneven? ARM Does one arm drift down? SPEECH Does their speech sound strange? TIME Call at any sign of stroke Stroke Risk Factors Atrial Fibrillation (irregular heartbeat) Diabetes Family history of stroke Heart Disease Heavy alcohol use High Blood Pressure High Cholesterol Physical inactivity and obesity Smoking Cigarette Smoking The facts are clear, cigarette smoking will shorten your life. Smoking can cause many illnesses along the way. As a healthcare provider, we recommend that you stop smoking. Assistance with quitting is available by contacting 4-558-FWGS-NOW. This is a free resource providing counseling, support, and referral. Or you may contact your personal physician. National Suicide Prevention Lifeline: The National Suicide Prevention Lifeline is a national network of local crisis centers that provides free and confidential emotional support to people in suicidal crisis or emotional distress 24 hours a day, 7 days a week. Don't Wait! Stop a Heart Attack Before it Starts What is a heart attack? A heart attack is damage or to a part of the heart from severely decreased or lack of blood flow to the heart. Over time, arteries can become narrow from the buildup of fat and cholesterol, which is called plaque. The plaque can rupture causing a blood clot to form. When the blood clot forms, the artery can become severely narrowed or completely blocked, causing a heart attack. Heart attack is the leading cause of in the [place]. 85% of muscle damage occurs within the first 2 hours. Delay in the recognition of heart attack symptoms increases the chances of . Know the early symptoms of a heart attack: Nausea Feeling of fullness in chest Jaw Pain Pain that travels down one or both arms Fatigue/being tired Anxiety Back Pain Chest pressure, squeezing, or discomfort Shortness of breath Sweating, or a cold sweat Feeling of impending doom There are unusual signs of a heart attack, too! Women, the elderly, and diabetics may present with atypical symptoms: Fainting/dizziness Weakness Confusion Risk Factors for a Heart Attack Some heart disease risk factors, such as age and family history, cannot be changed. Others, like smoking and lack of exercise, can be changed. Smoking High Cholesterol High Blood Pressure Family History Obesity Age Gender (Males are at higher risk) Lack of Exercise Diabetes Diet Stress Excessive Alcohol Intake If you or someone you know is experiencing the signs and symptoms of a heart attack, DON???T DELAY. Call immediately and seek help. If someone collapses, perform CPR! Do not attempt to drive if you are having symptoms of heart attack. Hands-Only CPR Why Hands-Only CPR? Hands-Only CPR has been shown to be as effective as conventional CPR for cardiac arrests that occur outside of a hospital. Survival depends on immediately receiving CPR from someone nearby. How do you perform Hands-Only CPR? There are two easy steps: Call if you see a teen or adult collapse Push hard and fast in the center of the chest at a beat of 100 beats per minute. Save a life! 4 WAYS TO GET AHEAD OF SEPSIS SEPSIS is a MEDICAL EMERGENCY. Time matters! Infections put you and your family at risk for a life-threatening condition called sepsis. Sepsis is the body's extreme response to an infection. It is life-threatening, and without timely treatment, sepsis can rapidly lead to tissue damage, organ failure, and . Sepsis happens when an infection you already have-in your skin, lungs, urinary tract or somewhere else-triggers a chain reaction throughout your body. 1 PREVENT INFECTIONS Take good care of chronic conditions. Talk to your doctor about getting the recommended vaccines. 2 PRACTICE GOOD HYGIENE Wash your hands frequently. Keep cuts or open sores clean and covered until they are healed. 3 KNOW THE SYMPTOMS Confusion or disorientation Shortness of breath High heart rate Fever, shivering, or feeling very cold Extreme pain or discomfort Clammy or sweaty skin 4 ACT FAST Get medical care IMMEDIATELY if you suspect sepsis or if you have an infection that is not getting better or is getting worse. To learn more about sepsis and how to prevent infections, visit www.cdc.gov/sepsis. Test Results Laboratory or Other Results This Visit (last charted value for your 01/29/2019 visit) No Laboratory or Other Results This Visit Patient Name:ANJANA LOO I have received this information and was given the opportunity to ask questions. 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
--- OUTSIDE RECORDS SUMMARY | 2024-08-20 11:59 | XMS_ITS | Encounter Summary ---
Author Organization [email or web address] ([place], [place], [place], [place]) Address [address] [place] [address] Care Team Providers Care Corporate Safety Manager Name Role Phone Unavailable Primary Care Provider Unavailabl e Encounter Details Date Type Department Care Team (Late st Contact Info) Description 06/28/2019 Transcribed Document [facility] [place] [facility] [place] [address] ProviderMono MD [address], [place] [id number] Social History Tobacco Use Types Packs/Day Years [...] - 06/28/2019 8:28 AM CDT [facility] Main OR IntraOp Summary Primary Physician: EUN MONSON MD-SNU Finalized Date/Time: 06/29/19 13:04:01 Pt. Name: ANJANA LOOO.B./Sex: 1965 Female Med Rec #: [id number] Physician: EUN MONSON MD-SNU Financial #: [id number] Pt. Type: O Room/Bed: Admit/Disch: 06/28/19 06:18:00 - 06/28/19 12:02:00 Institution: [facility] IntraOp Case Attendance Entry 1 Entry 2 Entry 3 Case Attendee EUN MONSON MD-SNU WASSON, SANDRA D, Gay Jacobsen Rn Role Performed Surgeon/Proceduralist, Brand Ambassador Promotional Model, First Brand Ambassador Promotional Model, Second First Time In 06/28/19 08:09:00 06/28/19 08:09:00 06/28/19 08:09:00 Time Out 06/28/19 09:14:00 06/28/19 09:14:00 06/28/19 09:14:00 Procedure Spinal Cord Stimulator Spinal Cord Stimulator Spinal Cord Stimulator Removal Removal Removal Other Attendee Superficial Wound Closed By: Last Modified By: KATHY MULLEN, KATHY CARDZOA, KATHY CARDOZA, RN 06/28/19 09:14:48 06/28/19 09:14:48 06/28/19 09:14:48 Entry 4 Entry 5 Entry 6 Case Attendee DEN RODRÍGUEZ, GRZEGORZ GOTTI APRN, HANCOCK SMITH, SENIOR UX DEVELOPER DIONTE WALKER Role Performed Scrub, First SENIOR UX DEVELOPER/Nurse Tourist Camp Attendant Physician assistant golf course superintendent Time In 06/28/19 08:09:00 06/28/19 08:09:00 06/28/19 08:09:00 Time Out 06/28/19 09:14:00 06/28/19 09:14:00 06/28/19 09:14:00 Procedure Spinal Cord Stimulator Spinal Cord Stimulator Spinal Cord Stimulator Removal Removal Removal Other Attendee Superficial Wound Closed By: Last Modified By: KATHY UMLLEN, KATHY CARDOZA, KATHY CARDOZA, ELVIN 06/28/19 09:14:48 06/28/19 09:14:48 06/28/19 09:14:48 Entry 7 Case Attendee Bhavani Nicole, Diagnostic Coal Screener Role Performed Real Estate Investor Time In 06/28/19 08:09:00 Time Out 06/28/19 09:14:00 Procedure Spinal Cord Stimulator Removal Other Attendee Superficial Wound Closed By: Last Modified By: KATHY MULLEN RN 06/28/19 09:14:48 [facility] IntraOp Case Attendance Audit 06/28/19 09:14:48 Corn Cooker: VANE Modifier: SEBASSY 1 <+> Time Out 1 <*> Procedure Spinal Cord Stimulator Removal 2 <+> Time Out 2 <*> Procedure Spinal Cord Stimulator Removal 3 <+> Time Out 3 <*> Procedure Spinal Cord Stimulator Removal 4 <+> Time Out 4 <*> Procedure Spinal Cord Stimulator Removal 5 <+> Time Out 5 <*> Procedure Spinal Cord Stimulator Removal 6 <+> Time Out 6 <*> Procedure Spinal Cord Stimulator Removal 7 <+> Time In 7 <+> Time Out 7 <*> Procedure Spinal Cord Stimulator Removal 06/28/19 08:14:41 Corn Cooker: WASSONSY Modifier: WASSONSY 1 <+> Time In 1 <*> Procedure Spinal Cord Stimulator Removal 2 <+> Time In 2 <*> Procedure Spinal Cord Stimulator Removal 3 <+> Time In 3 <*> Procedure Spinal Cord Stimulator Removal 4 <+> Time In 4 <*> Procedure Spinal Cord Stimulator Removal 5 <+> Time In 5 <*> Procedure Spinal Cord Stimulator Removal 6 <+> Time In 6 <*> Procedure Spinal Cord Stimulator Removal <+> 7 Case Attendee <+> 7 Role Performed <+> 7 Procedure [facility] IntraOp Case Times Entry 1 Patient In Room Time 06/28/19 08:09:00 Out Room Time 06/28/19 09:14:00 Anesthesia Start Time 06/28/19 08:09:00 Stop Time 06/28/19 09:14:00 Surgery / Procedure Times Start Time 06/28/19 08:28:00 Stop Time 06/28/19 09:05:00 Last Modified By: KATHY MULLEN RN 06/28/19 09:14:45 [facility] IntraOp Case Times Audit 06/28/19 09:14:45 Corn Cooker: WASSONSY Modifier: WASSONSY <+> 1 Out Room Time <+> 1 Stop Time 06/28/19 09:06:09 Corn Cooker: WASSONSY Modifier: WASSONSY <+> 1 Stop Time 06/28/19 08:29:36 Corn Cooker: WASSONSY Modifier: WASSONSY <+> 1 Start Time [facility] IntraOp Cautery Entry 1 Entry 2 ESU Identification Cautery Type Monopolar ESU BiPolar ESU Cautery Type Comments ID Number [id number] ID Type Hospital Number Hospital Number Cautery Settings Cut Setting 45 8 Coag Setting 45 45 Blend Setting Bipolar Setting Argon Setting Argon Jean ESU Grounding Pad Ground Pad Type Adult Grounding Pad Type Comment Grounding Pad Site Right thigh Grounding Pad Site Comment Grounding Pad KATHY MULLEN RN Applied By Grounding Pad Site Warm, dry and intact Skin Condition Before Cautery Site Skin Condition Before Comment Grounding Pad Site Unchanged Skin Condition After Cautery Site Skin Condition After Comment Last Modified By: KATHY MULLEN RN WASSON, SANDRA D, RN 06/28/19 08:31:09 06/28/19 08:31:09 [facility] IntraOp Communication Entry 1 Communication To Family/Significant other Comment START Communication By KATHY MULLEN RN Date and Time 06/28/19 08:30:00 Last Modified By: KATHY MULLEN RN 06/28/19 08:30:07 [facility] IntraOp Counts Verification Entry 1 Procedure Spinal Cord Stimulator Removal Count Info Count Type Sponge, Sharps, Miscellaneous Counts Verification Baseline/pre-procedure Sequence Count Results Not Applicable Counts Performed By Count Performed By DEN RODRÍGUEZ ST (Scrub) Count Performed By KATHY MULLEN RN (RN) Last Modified By: KATHY MULLEN RN 06/28/19 08:30:21 [facility] IntraOp Counts Final Entry 1 Procedure Spinal Cord Stimulator Removal Final Count Info Count Type Sponge, Sharps, Miscellaneous Counts Verification Skin Closure/end of Sequence procedure Count Results Correct, surgeon notified Counts Performed By Count Performed By DEN RODRÍGUEZ ST (Scrub) Count Performed By KATHY MULLEN RN (RN) Last Modified By: KATHY MULLEN RN 06/28/19 09:04:20 [facility] IntraOp Cultures and Spec Summary Entry 1 Cultrures and Specimens Specimen Ordered: Yes Test(s) Routine/Path-Lab Requested/Final Disposition Last Modified By: KATHY MULLEN RN 06/28/19 08:12:04 General Comments: a. explanted medical transcriptionist [facility] IntraOp Delays Entry 1 Delay Reason Surgeon late - did not call Duration 7 Minute(s) Last Modified By: KATHY MULLEN RN 06/28/19 08:11:49 [facility] IntraOp Departure from OR Entry 1 Integumentary Assessment Integumentary WDL Assessment WDL Transfer/Handoff Transfer to PACU Phase I Handoff Method Phone call Post-op Transport Stretcher/Lars Via Patient Transport GRZEGORZ CARDOZO APRN, Accompanied by MANISHA, DENISE CARRERA PA-INT Last Modified By: KATHY MULLEN RN 06/28/19 08:33:19 [facility] IntraOp Dressing and Packing Entry 1 Type Dressing Location OP SITE Wound Dressing Item Other Applied By DENISE CARRERA PA-INT Other Comments NEOSPORIN OINTMENT, COVADERMS Last Modified By: KATHY MULLEN RN 06/28/19 08:34:48 [facility] IntraOp Fire Risk Assessment Entry 1 Fire Info Surgical Site or 0- No Incision Above the Xyphoid Open O2 Source 0- No (Mask or Cannula) Available Ignition 1- Yes (ESU, Laser, Light Source) Fire Risk 1 Assessment Score Fire Score Fire Risk Yes Assessment Complete Fire Risk EUN MONSON MD-SNU Assessment Verified By Fire Risk 06/28/19 08:08:00 Assessment Verified Date/Time Fire Risk Standard Fire Yes Safety Precautions Followed Last Modified By: KATHY MULLEN RN 06/28/19 08:14:21 [facility] IntraOp General Case Forensic Social Worker 1 Case Information OR OR 09 [facility] Case Level 1 Room Verified Yes Wound Class II - Clean-Contaminated Specialty SN Neurosurgery Anesthesia Type General ASA Class 2 Diagnosis Preop Diagnosis CHRONIC PAIN SYNDROME Postop Same As Preop No Postop Diagnosis SEE MD POST OP NOTE Last Modified By: KATHY MULLEN RN 06/28/19 07:59:18 [facility] IntraOp General Case Data Audit 06/28/19 07:59:18 Corn Cooker: VANE Modifier: WASSONSY <+> 1 ASA Class [facility] IntraOp Intraoperative Assessment Entry 1 Handoff Method Bedside/Face to face, Online nursing summary Valid History / Yes Physical in Chart Preoperative Yes Checklist Reviewed/Evaluated Allergies Reviewed Yes Patient is Latex No Sensitive Isolation Not applicable Precautions Noted Level of WDL Consciousness (WDL = Alert, Oriented to Person, Place, and Time) Skin Assessment No Verified Present Upon IVs Arrival to OR Last Modified By: KATHY MULLEN RN 06/28/19 08:00:50 [facility] IntraOp Intraoperative Equipment Entry 1 Type Equipment Equipment Equipment Jessica Suction System ID Number [id number] Setting 200 MM HG Intraop Monitoring Electrocardiogram Five lead placement (ECG) Electrode Placement Blood Pressure Non-Invasive BP Device Source Blood Pressure Arm, right upper Location Pulse Oximeter Hand, left Probe Site Antiembolic Devices Antiembolic Devices Sequential compression device, knee high Antiembolic Device Bilateral Location Antiembolic Device [id number] ID Number Scopes Photo/Video Documentation Photo No Video No Last Modified By: KATHY MULLEN RN 06/28/19 08:12:52 [facility] IntraOp Medication Admin Entry 1 Entry 2 Entry 3 Medication/Irrigant NEOSPORIN OINTMENT GELFOAM SZ-100 --[id number] Thrombin 5,000 unit vial -- [id number] Combo Med List 1 - Combo Med 1 - Combo Med Time Administered 06/28/19 08:55:00 06/28/19 08:55:00 Route of TOPICAL TOPICAL TOPICAL Administration Dose Dose 1 5000 Unit of Measure pkt units Volume Administered By DENISE CARRERA PA-INT Procedure Irrigation Irrigant Volume In Irrigant Volume Out Last Modified By: KATHY MULLEN RN WASSON, SANDRA D, RN WASSON, SANDRA D, RN 06/28/19 08:13:37 06/28/19 08:56:47 06/28/19 08:56:47 [facility] IntraOp Medication Admin Audit 06/28/19 08:56:47 Corn Cooker: WASSONSY Modifier: WASSONSY <+> 2 Medication/Irrigant <+> 2 Route of Administration <+> 2 Time Administered <+> 2 Combo Med List <+> 3 Medication/Irrigant <+> 3 Route of Administration <+> 3 Dose <+> 3 Time Administered <+> 3 Combo Med List <+> 3 Unit of Measure [facility] IntraOp Patient Positioning Entry 1 Procedure Spinal Cord Stimulator Removal Body Position Prone Left Arm Position Secured on padded arm board Right Arm Position Secured on padded arm board Left Leg Position Elevated Right Leg Position Elevated Feet Uncrossed Yes Pressure Points Yes Checked Positioning Devices Head Rest, Pad, Arm, Pad, Elbow, Pillows, Roll(s), Chest, Safety Strap, Thighs Positioned By EUN MONSON MD-U, KATHY MULLEN, ELVIN, Gay Wall Rn, GRZEGORZ CARDOZO APRN, MANISHA, DENISE CARRERA PA-INT Position Verified Positioning Yes Verified by Anesthesia Positioning Yes Verified by Surgeon Last Modified By: KATHY MULLEN RN 06/28/19 08:32:38 [facility] IntraOp Sign In Entry 1 Patient, Site, Yes Procedure Identified Surgical Consent Yes Confirmed Relevant Surgical Yes Documents Available Surgical Site N/A Marked by person performing procedure Anesthesia Machine Yes Check Completed Medication Checks Yes Completed Allergies Yes Airway Difficult No Airway/Aspiration Risk Difficult Yes Airway/Aspiration Intervention Equipment Available Blood Loss Risk Yes Blood Loss Yes Intervention Equipment Prepared and Ready Blood Identifiers Not applicable Verified Per Policy Hypothermia Risk Yes Warming Measures Yes Taken Last Modified By: KATHY MULLEN RN 06/28/19 08:13:11 [facility] IntraOp Sign Out Entry 1 RN Confirmation Surgical Yes Procedure(s) Identified Instrument, Sponge Yes and Sharps Counts Correct/Documented Equipment Problems Yes Documented Specimen Labeled Yes Correctly Urinary Catheter N/A Documented in IView [place] Patient Yes Recovery Concerns Reviewed with Anesthesia Provider, Surgeon and RN [place] Patient Yes Management Concerns Reviewed with Anesthesia Provider, Surgeon and RN Safety Checklist Yes Elements Complete? RN Sign Out KATHY MULLEN, RN Signature RN Sign Out 06/28/19 09:14:00 Signature Date/Time Plan of Care Outcome - Fire Risk OUTCOME STATEMENT: Goal met Patient is free from injury related to surgical fire Plan of Care Outcome - Pt Positioning OUTCOME STATEMENT: Goal met Absence of signs and symptoms of positioning injury. Plan of Care Outcome - Skin Prep OUTCOME STATEMENT: Goal met Intraoperative care is consistent with measures to prevent infection Plan of Care Outcome - Xray/Images OUTCOME STATEMENT: Goal met Absence of observable signs or symptoms of radiation injury Plan of Care Outcome - Counts OUTCOME STATEMENT: Goal met Absence of signs and symptoms of injury related to extraneous objects Last Modified By: KATHY MULLEN RN 06/28/19 09:15:05 [facility] IntraOp Sign Out Audit 06/28/19 09:15:05 Corn Cooker: HAJALUPEXIN Modifier: WASSONSY <+> 1 RN Sign Out Signature Date/Time [facility] IntraOp Skin Prep Entry 1 Procedure Spinal Cord Stimulator Removal Prescribed Yes Pre-Surgical Prep Completed Prep Area BACK Intraop Prep Integumentary WDL Assessment WDL Prep Agents Chloraprep Prep by Gay Wall Rn Hair Removal Methods No hair removal performed Last Modified By: KATHY MULLEN RN 06/28/19 08:31:33 [facility] IntraOp Surgical Procedures Entry 1 Procedure Spinal Cord Stimulator Removal Additional (REMOVAL OF MEDTRONIC Procedure SPINAL CORD STIMULATOR) Description Primary Procedure Yes Primary Surgeon EUN MONSON MD-SNU Start 06/28/19 08:28:00 Stop 06/28/19 09:05:00 Anesthesia Type General Specialty SN Neurosurgery Wound Class II - Clean-Contaminated Last Modified By: KATHY MULLEN RN 06/28/19 09:06:13 General Comments: CLINDAMYCIN 900 MG IV PER ANESTHESIA [facility] IntraOp Surgical Procedures Audit 06/28/19 09:06:13 Corn Cooker: VANE Modifier: WASLUPESY <+> 1 Stop [facility] IntraOp Temp Regulation Devices Entry 1 Temp Regulation Temperature Warm blankets, Forced Regulation Device Air Warming device Temperature 70377 Regulation Device Serial/Unit Number Temperature Upper body Regulation Site Temperature Device 43 C Setting Temperature GRZEGORZ CARDOZO APRN, Regulation Device SENIOR UX DEVELOPER Applied by Last Modified By: KATHY MULLEN RN 06/28/19 08:34:12 [facility] IntraOP Time Out Entry 1 Procedure to be Spinal Cord Stimulator Performed Removal Time Out Time Out Pause Time 06/28/19 08:28:00 All activity Yes suspended (unless life threatening emergency) Team Verbally Correct patient Confirms Information identity, Consent form is present and accurate, Agreement on the procedure to be done, Correct patient position, Relevant images/results properly labeled/appropriately displayed, Confirm antibiotics have been administered, Confirm the skin prep has dried, Confirm prosthesis/implant/devic e is present, Performed in location of procedure after prepped/draped Antibiotic Yes Prophylaxis Administered Or In Progress Within the Last 60 Minutes Beta Bety N/A Administered Venous Yes Thromboembolism Prophylaxis Required Anticipated Critical Events Surgeon None expected Anesthesia Provider Patient specific concerns Nursing Assures Sterility of instruments Essential Imaging Yes Labeled and Displayed Last Modified By: KATHY MULLEN RN 06/28/19 08:28:43 [facility] IntraOP Time Out Audit 06/28/19 08:28:43 Corn Cooker: VANE Modifier: WASSONSY 1 <+> Time Out Pause Time 1 <*> Procedure to be Performed Spinal Cord Stimulator Removal [facility] IntraOp X-Ray and Images Entry 1 X-Ray/Imaging Type Fluoroscopy Fluoroscopy Type C-Arm Site OP SITE Java Developer Name Bhavani Nicole, Diagnostic Coal Screener Last Modified By: KATHY MULLEN RN 06/28/19 08:33:42 Case Comments <None> Finalized By: CHENG JEAN Document Signatures Signed By: KATHY MULLEN RN 06/28/19 09:15 CHENG JEAN 06/29/19 13:04 Unfinalized History Date/Time Username Reason for Unfinalizing Freetext Reason for Unfinalizing 06/29/19 13:03 RIKI Correct Billing documented in this encounter Plan of Treatment Not on file documented as of this encounter Visit Diagnoses Not on filedocumented in this encounter
--- OUTSIDE RECORDS SUMMARY | 2024-08-20 11:59 | XMS_ITS | Encounter Summary ---
Author Organization [employer] ([place], [place], [place], [place]) Address [address] [place] [address] Care Team Providers Care Lead Architect Name Role Phone Unavailable Primary Care Provider Unavailabl e Encounter Details Date Type Department Care Team (Late st Contact Info) Description 06/28/2019 Transcribed Document [facility] [place] Medicine [facility] [place] [address] ProviderMono MD [address] [place] [address] Social History Tobacco Use Types Packs/Day Years Used Date Smoking Tobacco: Never Assessed Comments Unknown Sex and Gender Information Value Date Recorded Sex Assigned at Not on file Legal Sex Female 6:26 PM CDT Gender Identity Not on file Sexual Orientation Not on file documented as of this encounter Miscellaneous Notes * Cerner Conversion Note - Historical ProviderMD - 06/28/2019 7:15 AM CDT Height and Weight, Clinical Dosing Entered On: 06/28/2019 7:15 EDT Performed On: 06/28/2019 7:15 EDT by JANETH Cassidy RN Height and Weight, Clinical Dosing Height Source : Measured Height Entry Format : [place] Height, Feet : 5 ft(Converted to: 152 cm, 60 Inch) Height, Inches : 6 Inch(Converted to: 0 ft 6 Inch, 15.24 cm) Clinical Height : 167.64 cm Weight Source : Standing scale Weight Entry Format : [place] Clinical Dosing Weight : 82.27 kg Weight, Pounds : 181 lb Body Surface Area (BSA) : 1.92 m2 Body Mass Index : 29.3 kg/m2 (HI) [place] Body Weight : 59 kg JANETH Cassidy RN - 06/28/2019 7:15 EDT documented in this encounter Plan of Treatment Not on file documented as of this encounter Visit Diagnoses Not on filedocumented in this encounter
--- OUTSIDE RECORDS SUMMARY | 2024-08-20 11:59 | XMS_ITS | Encounter Summary ---
Author Organization Healthcare Address [address] [place] [address] Care Team Providers Care Heatset Winder Operator Name Role Phone Jl Santoro MD Primary Care Provider [phone] Noman Awan MD Unavailable [phone] Encounter Details Date Type Department Care Team (Late st Contact Info) Description 01/26/2023 Orders Only External Location [address] [place] [id number] Denise Franklin, PA [address] [facility] [address] [place] [address] Social History Tobacco Use Types Packs/Day Years Used Date Smoking Tobacco: Never Smokeless Tobacco: Never Alcohol Use Standard Drinks/Week Comments Never 0 (1 standard drink = 0.6 oz pur e alcohol) PHQ-2 Answer Date Recorded Patient Health Questionnaire-2 Score 0 01/18/2023 CAGE ASSESSMENT Answer Date Recorded Cage unable [...] drink first t brendan in the morning (EYE-PAPER CUP MACHINE TENDER) to steady your nerves or to get [...] Procedure Name Priority Date/Time Associated Diagnosis Comments CT NEURO OUTSIDE IMAGES 01/26/2023 1:13 PM EST documented in this encounter Results * CT NEURO OUTSIDE IMAGES (01/26/2023 1:13 PM EST) Anatomical Region Laterality Modality Computed Tomogra phy 01/26/2023 1:13 PM EST Denise RICHARDS IMG CT PROCEDURES Final Result documented in this encounter Visit Diagnoses Not on filedocumented in this encounter Additional Health Concerns Assessment Noted Time A fall risk assessment has been complete d for the patient 01/18/2023 1:51 PM EST A Body Mass Index follow-up plan has been documented for the patient 01/18/2023 2:42 PM EST documented as of this encounter Care Teams Heatset Winder Operator Relationship Specialty Start Date End Date Jl Santoro MD [address] [place] [id number] PCP - General 09/22/20 Noman Awan MD [address] [address] Surgeon Neurosurgery 09/27/21 documented as of this encounter
--- OUTSIDE RECORDS SUMMARY | 2024-08-20 11:59 | XMS_ITS | Encounter Summary ---
Author Organization [employer] ([place], [place], [place], [place]) Address [address] [place] [address] Care Team Providers Care Customs Brokerage Manager Name Role Phone Unavailable Primary Care Provider Unavailabl e Encounter Details Date Type Department Care Team (Late st Contact Info) Description 01/29/2019 Transcribed Document [facility] [place] [facility] [place] [address] ProviderMono MD [facility] [place] [address] Social History Tobacco Use Types Packs/Day Years Used Date Smoking Tobacco: Never Assessed Comments Unknown Sex and Gender Information Value Date Recorded Sex Assigned at Not on file Legal Sex Female 6:26 PM CDT Gender Identity Not on file Sexual Orientation Not on file documented as of this encounter Miscellaneous Notes * Cerner Conversion Note - Historical ProviderMD - 01/29/2019 1:29 PM RUG MEASURER COSME Puri IntraOp Summary Primary Physician: NATASHA CORDERO MD-GAE Finalized Date/Time: 01/29/19 13:55:26 Pt. Name: EZE ANJANA Nuvia /Sex: 1965 Female Med Rec #: [id number] Physician: NATASHA CORDERO MD-GAE Financial #: [id number] Pt. Type: O Room/Bed: [facility]/ Admit/Disch: 01/29/19 12:04:00 - Institution: [facility] [place]axson - Case Attendance Entry 1 Entry 2 Entry 3 Case Attendee Zaid CORDERO Ashley, FAN MARMOLEJO, FIRE PROTECTION INSPECTOR HANNAH KAUR Role Performed Surgeon/Proceduralist, Media Relations Coordinator, First FIRE PROTECTION INSPECTOR/Nurse Record Retrieval Specialist First Time In 01/29/19 13:27:00 01/29/19 13:20:00 01/29/19 13:20:00 Time Out 01/29/19 13:56:00 01/29/19 13:56:00 01/29/19 13:56:00 Procedure Esophagogastroduodenosco Esophagogastroduodenosco Esophagogastroduodenosco py, Colonoscopy, py, Colonoscopy, py, Colonoscopy, Duodenal Biopsy Duodenal Biopsy Duodenal Biopsy Other Attendee Superficial Wound Closed By: Last Modified By: Chel Mar, Chel New, Chel New, ELVIN 01/29/19 13:54:55 01/29/19 13:54:55 01/29/19 13:54:55 Entry 4 Entry 5 Case Attendee INDIO DE LA CRUZ, Shaniqua Mahan RN Role Performed Scrub, First Media Relations Coordinator, First Time In 01/29/19 13:20:00 01/29/19 13:28:00 Time Out 01/29/19 13:56:00 01/29/19 13:56:00 Procedure Esophagogastroduodenosco Duodenal Biopsy py, Colonoscopy, Duodenal Biopsy Other Attendee Superficial Wound Closed By: Last Modified By: Chel Mar, Chel New, ELVIN 01/29/19 13:54:55 01/29/19 13:54:55 [facility] - Case Attendance Audit 01/29/19 13:54:55 Larder Cook: JIE Modifier: BICKNEA 1 <+> Time Out 1 <*> Procedure Esophagogastroduodenoscopy, Colonoscopy, Duodenal Biopsy 2 <+> Time Out 2 <*> Procedure Esophagogastroduodenoscopy, Colonoscopy, Duodenal Biopsy 3 <+> Time Out 3 <*> Procedure Esophagogastroduodenoscopy, Colonoscopy, Duodenal Biopsy 4 <+> Time Out 4 <*> Procedure Esophagogastroduodenoscopy, Colonoscopy, Duodenal Biopsy 5 <+> Time Out 5 <*> Procedure Duodenal Biopsy 01/29/19 13:37:10 Larder Cook: SUDEEPEA Modifier: CHINOKNEA 1 <*> Time In 01/29/19 13:20:00 1 <*> Procedure Duodenal Biopsy 01/29/19 13:31:12 Larder Cook: BICKNEA Modifier: BICKNEA <+> 1 Procedure 2 <*> Procedure Esophagogastroduodenoscopy, Colonoscopy 3 <*> Procedure Esophagogastroduodenoscopy, Colonoscopy 4 <*> Procedure Esophagogastroduodenoscopy, Colonoscopy <+> 5 Procedure 01/29/19 13:28:53 Larder Cook: BICKNEA Modifier: BICKNEA <+> 5 Case Attendee <+> 5 Role Performed <+> 5 Time In [facility] - Case Times Entry 1 Patient In Room Time 01/29/19 13:20:00 Out Room Time 01/29/19 13:56:00 Anesthesia Start Time 01/29/19 13:20:00 Stop Time 01/29/19 13:56:00 Anesthesia Ready 01/29/19 13:20:00 Surgery / Procedure Times Start Time 01/29/19 13:29:00 Stop Time 01/29/19 13:54:00 Last Modified By: Chel Mar RN 01/29/19 13:54:43 [facility] - Case Times Audit 01/29/19 13:54:43 Larder Cook: BICKNEA Modifier: BICKNEA <+> 1 Out Room Time <+> 1 Stop Time <+> 1 Stop Time 01/29/19 13:38:23 Larder Cook: BICKNEA Modifier: BICKNEA 1 <-> Stop Time 01/29/19 13:34:00 01/29/19 13:36:29 Larder Cook: BICKNEA Modifier: BICKNEA <+> 1 Stop Time 01/29/19 13:29:27 Larder Cook: BICKNEA Modifier: BICKNEA <+> 1 Start Time <+> 1 Anesthesia Ready [facility] - Cultures and Spec Summary Entry 1 Cultrures and Specimens Specimen Ordered: Yes Test(s) Routine/Path-Lab Requested/Final Disposition Last Modified By: Chel Mar RN 01/29/19 13:36:17 General Comments: duodenal biopsy, GA bx, DE bx [facility] - Delays Entry 1 Delay Reason Other Duration 0 Minute(s) Comment NO DELAY Last Modified By: Chel Mar RN 01/29/19 13:20:35 [facility] - Departure from OR Entry 1 Integumentary Assessment Integumentary WDL Assessment WDL Transfer/Handoff Transfer to PACU Phase I Handoff Reported to Radha Bazzi RN Post-op Transport Stretcher/Gurney Via Patient Transport Chel Mar RN, Accompanied by FAN INFANTE CRNA Last Modified By: Chel Mar RN 01/29/19 13:22:40 [facility] - Endoscopy Details Entry 1 Abdomen Procedure Soft, Non-Tender Assessment Procedure Abdomen 01/29/19 13:22:00 Assessment D/T Radio Frequency Ablation Last Modified By: Chel Mar RN 01/29/19 13:22:08 [facility] - Fire Risk Assessment Entry 1 Fire Info Surgical Site or 0- No Incision Above the Xyphoid Open O2 Source 1- Yes (Mask or Cannula) Available Ignition 1- Yes (ESU, Laser, Light Source) Fire Risk 2 Assessment Score Fire Score Fire Risk Yes Assessment Complete Fire Risk Chel Mar RN Assessment Verified By Fire Risk 01/29/19 13:22:00 Assessment Verified Date/Time Fire Risk High Risk Protocol Yes Implemented Standard Fire Yes Safety Precautions Followed Last Modified By: Chel Mar RN 01/29/19 13:22:48 E Endo - General Case Chop Saw Operator 1 Case Information OR Endo 02 [facility] Case Level 1 Room Verified Yes Wound Class III - Contaminated Specialty SN Gastroenterology Anesthesia Type MAC ASA Class 3 Diagnosis Preop Diagnosis abdominal pain, constipation, nausea, vomiting Postop Diagnosis esophagitis Last Modified By: Chel Mar RN 01/29/19 13:29:34 [facility] - General Case Data Audit 01/29/19 13:29:34 Larder Cook: JIE Modifier: BICKNEA <+> 1 Postop Diagnosis [facility] - Intraoperative Assessment Entry 1 Valid History / Yes Physical in Chart Preoperative Yes Checklist Reviewed/Evaluated Allergies Reviewed Yes Patient is Latex No Sensitive Level of WDL Consciousness (WDL = Alert, Oriented to Person, Place, and Time) Present Upon IVs, ECG monitored Arrival to OR Last Modified By: Chel Mar RN 01/29/19 13:21:20 [facility] - Intraoperative Equipment Entry 1 Entry 2 Type Scope Scope Equipment Equipment ID Number Setting Intraop Monitoring Electrocardiogram Three lead placement (ECG) Electrode Placement Blood Pressure Source Blood Pressure Arm, left upper Arm, left upper Location Pulse Oximeter Hand, right Hand, right Probe Site Antiembolic Devices Antiembolic Devices Antiembolic Device Location Antiembolic Device ID Number Antiembolic Device Setting Scopes Flexible Endoscopes Colonoscope, Peds Gastroscope Used Scope Serial [id number] Number/Identificatio n Number Photo/Video Documentation Photo Yes Yes Video No No Intraop Equipment Comment Last Modified By: Chel Mar RN Bicknell, Ashley, RN 01/29/19 13:21:48 01/29/19 13:22:03 E Endo - Intraoperative Equipment Audit 01/29/19 13:22:03 Larder Cook: JIE Modifier: BICKNEA <+> 2 Photo <+> 2 Video <+> 2 Electrocardiogram (ECG) Electrode Placement <+> 2 Blood Pressure Location <+> 2 Pulse Oximeter Probe Site <+> 2 Flexible Endoscopes Used <+> 2 Scope Serial Number/Identification Number <+> 2 Type 01/29/19 13:21:48 Larder Cook: JIE Modifier: BICKNEA <+> 1 Photo <+> 1 Video <+> 1 Blood Pressure Location <+> 1 Pulse Oximeter Probe Site <+> 1 Flexible Endoscopes Used <+> 1 Scope Serial Number/Identification Number [facility] - Patient Positioning Entry 1 Procedure Colonoscopy, Duodenal Biopsy Body Position Lateral, right side up Left Arm Position Resting at side Right Arm Position Resting at side Left Leg Position Other Right Leg Position Other Position Comments Right leg over Left leg uncrossed Feet Uncrossed Yes Pressure Points Yes Checked Positioned By Chel Mar RN, INDIO DE LA CRUZ Position Verified Positioning Yes Verified by Anesthesia Positioning Yes Verified by Surgeon Last Modified By: Chel Mar RN 01/29/19 13:31:13 [facility] - Patient Positioning Audit 01/29/19 13:31:13 Larder Cook: JIE Modifier: JIE 1 <*> Procedure Colonoscopy [facility] - Sign In Entry 1 Patient, Site, Yes Procedure Identified Surgical Consent Yes Confirmed Relevant Surgical Yes Documents Available Surgical Site N/A Marked by person performing procedure Allergies Yes Airway Hypothermia Risk No Warming Measures No Taken Last Modified By: Chel Mar RN 01/29/19 13:23:00 [facility] - Sign Out Entry 1 RN Confirmation Surgical Yes Procedure(s) Identified Instrument, Sponge N/A and Sharps Counts Correct/Documented Equipment Problems N/A Documented Specimen Labeled Yes Correctly Urinary Catheter N/A Documented in IView Safety Checklist Yes Elements Complete? RN Sign Out Shaniqua Garcia RN Signature RN Sign Out 01/29/19 13:55:00 Signature Date/Time Plan of Care Outcome - [...] of Care Outcome - Xray/Images OUTCOME STATEMENT: N/A Absence of observable signs or symptoms of radiation injury Plan of Care Outcome - Counts OUTCOME STATEMENT: N/A Absence of signs and symptoms of injury related to extraneous objects Last Modified By: Chel Mar RN 01/29/19 13:55:16 [facility] - Sign Out Audit 01/29/19 13:55:16 Larder Cook: JIE Modifier: BICKNEA 1 <*> Specimen Labeled Correctly N/A 1 <*> RN Sign Out Signature Chel Mar RN 1 <+> RN Sign Out Signature Date/Time 1 <+> Urinary Catheter Documented in IView [facility] - Surgical Procedures Entry 1 Entry 2 Entry 3 Procedure Esophagogastroduodenosco Colonoscopy Duodenal Biopsy py Modifiers Additional Procedure Description Primary Procedure Yes No No Primary Surgeon CONSUELO CORDERO JENNINGS-CONKLIN, KAREN, MD-GAE KAREN, MD-GAE KAREN, MD-GAE Start 01/29/19 13:29:00 01/29/19 13:38:00 01/29/19 13:29:00 Stop 01/29/19 13:34:00 01/29/19 13:54:00 01/29/19 13:34:00 Physician States 01/29/19 13:45:00 Cecum Reached Anesthesia Type MAC MAC MAC Specialty SN Gastroenterology SN Gastroenterology SN Gastroenterology Wound Class II - Clean-Contaminated III - Contaminated II - Clean-Contaminated Last Modified By: Chel Mar, Chel New, Chel New RN 01/29/19 13:38:15 01/29/19 13:55:01 01/29/19 13:38:15 [facility] - Surgical Procedures Audit 01/29/19 13:55:01 Larder Cook: BICKNEA Modifier: BICKNEA <+> 2 Stop 01/29/19 13:45:42 Larder Cook: BICKNEA Modifier: BICKNEA 2 <*> Procedure Colonoscopy 2 <+> Physician States Cecum Reached 01/29/19 13:41:59 Larder Cook: BICKNEA Modifier: BICKNEA 2 <*> Procedure Colonoscopy 2 <*> Start 01/29/19 13:29:00 2 <-> Stop 01/29/19 13:34:00 01/29/19 13:38:15 Larder Cook: BICKNEA Modifier: BICKNEA <+> 1 Stop <+> 2 Stop <+> 3 Stop 01/29/19 13:33:35 Larder Cook: BICKNEA Modifier: BICKNEA 1 <*> Procedure Esophagogastroduodenoscopy 1 <+> Specialty 2 <*> Procedure Colonoscopy 2 <+> Specialty 01/29/19 13:31:09 Larder Cook: BICKNEA Modifier: BICKNEA <+> 1 Start <+> 2 Start <+> 3 Procedure <+> 3 Primary Procedure <+> 3 Primary Surgeon <+> 3 Specialty <+> 3 Start <+> 3 Wound Class <+> 3 Anesthesia Type [facility] - Time Out Entry 1 Procedure to be Esophagogastroduodenosco Performed py, Colonoscopy, Duodenal Biopsy Time Out Time Out Pause Time 01/29/19 13:27:00 All activity Yes suspended (unless life threatening emergency) Team Verbally Correct patient Confirms Information identity, Correct side and site are marked, Consent form is present and accurate, Agreement on the procedure to be done, Correct patient position, Relevant images/results properly labeled/appropriately displayed Antibiotic N/A Prophylaxis Administered Or In Progress Within the Last 60 Minutes Beta Bety N/A Administered Venous N/A Thromboembolism Prophylaxis Required Anticipated Critical Events Surgeon None expected Last Modified By: Chel Mar RN 01/29/19 13:37:34 Case Comments <None> Finalized By: Chel Mar, RN Document Signatures Signed By: Chel Mar RN 01/29/19 13:55 documented in this encounter Plan of Treatment Not on file documented as of this encounter Visit Diagnoses Not on filedocumented in this encounter
--- OUTSIDE RECORDS SUMMARY | 2024-08-20 11:59 | XMS_ITS | Encounter Summary ---
Author Organization [employer] ([place], [place], [place], [place]) Address [address] [place] [address] Care Team Providers Care Teleservices Representative Name Role Phone Unavailable Primary Care Provider Unavailabl e Encounter Details Date Type Department Care Team (Late st Contact Info) Description 06/27/2019 Transcribed Document [facility] [place] [facility] [place] [address] ProviderMono MD [address] [place] [address] Social History Tobacco Use Types Packs/Day Years Used Date Smoking Tobacco: Never Assessed Comments Unknown Sex and Gender Information Value Date Recorded Sex Assigned at Not on file Legal Sex Female 6:26 PM CDT Gender Identity Not on file Sexual Orientation Not on file documented as of this encounter Miscellaneous Notes * Cerner Conversion Note - Historical ProviderMD - 06/27/2019 3:23 PM CDT PAT Adult Entered On: 06/27/2019 15:27 EDT Performed On: 06/27/2019 15:23 EDT by Mariposa Amador RN Height and Weight, Clinical Dosing Height Source : Measured Height Entry Format : [place] Height, Feet : 5 ft(Converted to: 152 cm, 60 Inch) Height, Inches : 6 Inch(Converted to: 0 ft 6 Inch, 15.24 cm) Clinical Height : 167.64 cm Weight Source : Standing scale Weight Entry Format : [place] Clinical Dosing Weight : 82.27 kg Weight, Pounds : 181 lb Body Surface Area (BSA) : 1.92 m2 Body Mass Index : 29.3 kg/m2 (HI) [place] Body Weight : 59 kg JANETH Cassidy RN - 06/28/2019 7:20 EDT Health Histories Smoking Status : Never (less than 100 in lifetime; none in last 30 days) Smokeless Tobacco Status : Never Mariposa Amador RN - 06/27/2019 15:23 EDT Social History (As Of: 06/28/2019 07:22:06 EDT) Tobacco: Smoking Status Never smoker. (Last Updated: 11/26/2015 10:25:32 EDT by BEATRICE JACK RN) Alcohol: Alcohol Use Frequency Socially. (Last Updated: 11/26/2015 10:25:58 EDT by BEATRICE JACK, ELVIN) Substance Abuse: Drug Use Hx: No. Use in Last 12 Months: No. (Last Updated: 01/13/2015 10:19:07 EST by LORETO ELLIS, ELVIN) Nutrition/Health: Caffeine intake amount: 3-4 daily. (Last Updated: 11/26/2015 10:26:22 EDT by BEATRICE JACK RN) Exercise: Exercise frequency: 3-4 times/week. Exercise type: Walking. (Last Updated: 11/06/2017 12:11:35 EDT by Lili Murphy RN) Home/Environment: Lives with Spouse. Living situation: Home/Independent. (Last Updated: 10/30/2017 11:52:22 EDT by MUSA MALIK RN) Employment/School: Unemployed (Last Updated: 11/06/2017 12:11:56 EDT by Lili Murphy RN) Infectious Disease History Has the patient ever been tested for COVID-19? : Yes, Patient stated results pending Date of COVID-19 Test : 06/26/19 @1030 COVID19 Screening : No Experiencing Infectious Disease Symptoms : No symptoms Physical contact outside [place] in the last 30 days : No Infectious Disease Symptoms Score : 0 Infectious Disease History : None Tuberculosis Symptoms : None Mariposa Amador RN - 06/27/2019 15:23 EDT Anesthesia/Transfusion History Blood Transfusion Acceptable to Patient : No JANETH Cassidy RN - 06/28/2019 7:20 EDT Family History of Anesthesia Reaction : No prior transfusion(s) Transfusion History : Prior anesthesia without reaction Family History of Anesthesia Reaction : None Mariposa Amador RN - 06/27/2019 15:23 EDT Advance Directive Copy Advance Directive Verified/on Chart : No Patient has Advance Directive *Q : Yes, Advance Directive not with the patient JANETH Cassidy RN - 06/28/2019 7:20 EDT Advance Directive Type : Living will Mariposa Amador RN - 06/27/2019 15:23 EDT [place] Suicide Severity Rating Scale (C-SSRS) CSSRS Past Month Wish to be : No CSSRS Past Month Suicidal Thoughts : No CSSRS Lifetime Suicide Behavior : No Suicide Severity Rating Score : 0 Suicide Severity Rating : No Additional Care Required at this time Mariposa Amador RN - 06/27/2019 15:23 EDT Psychosocial History Do You Have a History of the Following? 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 : Yes Support Person/Pt Rep Name : Carlton Ag - spouse Support Person/Pt Rep Contact Information : [phone] Want Family/Rep/Phys Notified of Admit : No Emergency Contact #1 : x Emergency Contact #1 Phone Number : x Emergency Contact #1 Relationship : x Emergency Contact #2 : x Emergency Contact #2 Phone Number : x Emergency Contact #2 Relationship : x Primary Language : Tuvaluan Communication Barrier : None Mariposa Amador RN - 06/27/2019 15:23 EDT Abdiaziz Scale Abdiaziz Sensory Perception : No impairment Abdiaziz Moisture : Rarely moist Abdiaziz Activity : Walks occasionally Abdiaziz Mobility : No limitation Abdiaziz Nutrition : Adequate Abdiaziz Friction and Shear : No apparent problem Abdiaziz Score : 21 Mariposa Amador RN - 06/27/2019 15:23 EDT Sleep Apnea Risk Assmt BMI Greater Than 35 kg/m2 : No Neck Circumference Greater Than 40 cm : No STOP-BANG Sleep Apnea Risk Level Score : 1 JANETH Cassidy RN - 06/28/2019 7:20 EDT Hx of Obstructive Sleep Apnea Diagnosis : No Snore Loudly : No Tired, Fatigued, or Sleepy During Day : No Observed Stopping Breathing During Sleep : No Have/Are Being Treated for Hypertension : No Age over 50 Years Old : Yes Gender Male : No Mariposa Amador RN - 06/27/2019 15:23 EDT Electronically signed by Yahaira Luevano Conversion Team Leader/Research Psychologist Cerner at 06/03/2022 12:54 PM CDT documented in this encounter Plan of Treatment Not on file documented as of this encounter Visit Diagnoses Not on filedocumented in this encounter
--- OUTSIDE RECORDS SUMMARY | 2024-08-20 11:59 | XMS_ITS | Encounter Summary ---
Author Organization [employer] ([place], [place], [place], [place]) Address [address] [place] [address] Care Team Providers Care Machine Builder Name Role Phone Unavailable Primary Care Provider Unavailabl e Encounter Details Date Type Department Care Team (Late st Contact Info) Description 06/28/2019 Transcribed Document [facility] Neurology - [address] [facility] [address] [place] [address] Felix Branham Jr., MD [address] [place] [id number] Social History Tobacco Use Types Packs/Day Years Used Date Smoking Tobacco: Never Assessed Comments Unknown Sex and Gender Information Value Date Recorded Sex Assigned at Not on file Legal Sex Female 6:26 PM CDT Gender Identity Not on file Sexual Orientation Not on file documented as of this encounter Miscellaneous Notes * Cerner Conversion Note - Felix Branham Jr., MD - 06/28/2019 9:02 AM EDT Patient: WENDY LOO Age: 54 Years Sex: Female : 1965 Please update the History and Physical on your patient by completing the appropriate section (H&Ps performed within 30 days prior to admission must be updated prior to surgery/procedure) __X_ UPDATE: The History and Physical performed by:_Dr. Felix Branham on 06/13/19_ has been reviewed; patient was examined; there have been no clinically significant changes since the prior History and Physical was completed. ___ UPDATE: The History and Physical performed by:__ has been reviewed; patient was examined; clinically significant changes since the prior History and Physical was completed are indicated below: Significant Changes: documented in this encounter Plan of Treatment Not on file documented as of this encounter Visit Diagnoses Not on filedocumented in this encounter
--- OUTSIDE RECORDS SUMMARY | 2024-08-20 11:59 | XMS_ITS | Encounter Summary ---
Author Organization [employer] ([place], [place], [place], [place]) Address [address] [place] [address] Care Team Providers Care Business Services Specialist Sales Name Role Phone Unavailable Primary Care Provider Unavailabl e Encounter Details Date Type Department Care Team (Late st Contact Info) Description 06/28/2019 Transcribed Document [facility] Family Medicine [address] [place] [address] ProviderMono MD [address] [place] [address] Social History Tobacco Use Types Packs/Day Years Used Date Smoking Tobacco: Never Assessed Comments Unknown Sex and Gender Information Value Date Recorded Sex Assigned at Not on file Legal Sex Female 6:26 PM CDT Gender Identity Not on file Sexual Orientation Not on file documented as of this encounter Miscellaneous Notes * Cerner Conversion Note - Mono ProviderMD - 06/28/2019 11:[address] [facility] [place] [address] ANJANA LOO :1965 Visit Time:06/28/2019 What to do next Your Diagnosis Chronic pain syndrome, Chronic pain syndrome Instructions From Your Care Team Diet after Discharge: Resume usual diet as tolerated, Do not drink any alcoholic beverages, Drink at least 8-10 glasses of water per day Activity after Discharge: _, Rest and relax today, No strenuous activity walk frequently Lifting Restrictions: No heavy lifting over 10 pounds 1 week Driving after Discharge: Do not drive until 24 hours after no longer taking pain medications Showering/Bathing: May shower, keep incision dry for 1 week , cover with plastic, no soaking or submerging in water Notify Provider of: fever or chills , excessive bleeding pain swelling or pus like drainage, loss of sensation Wound/Incision Care after Discharge: Keep operative site/wound site clean and dry, remove dressing i 3 days leave steri strips in place_ Medical Equipment for Home Use: ice pack 20 min every hour as needed for 2 days take pain medication with food , take stool softener 2 to 3 times a day while on pain medication Follow-Up Appointments Follow Up with EUN MONSON When 07/30/2019 03:30 PM EDT Where: [address] [place] [phone]- Business (1) Follow Up with EUN MONSON When 07/12/2019 10:13 AM EDT Comments staple removal Appointment has been made Where: [address] [place] [phone] [employer] (1) Medications What How Much When Instructions Next Dose acetaminophen (Tylenol) 650 Milligram(s) Oral Every 4 Hours as needed for as needed for pain clonazePAM (clonazePAM 1 mg oral tablet) 1 Tablet(s) Oral Two Times A Day cyclobenzaprine (Flexeril) 10 Milligram(s) Oral Two Times A Day docusate (docusate sodium 250 mg oral capsule) 1 Capsule(s) Oral Two Times A Day levothyroxine (Synthroid) 0.1 Milligram(s) Oral Every Day milnacipran (Savella) 50 Milligram(s) Oral Two Times A Day omega-3 polyunsaturated fatty acids (Prescott-3 1000 mg oral capsule) Oral Two Times A Day pantoprazole (pantoprazole 40 mg oral delayed release tablet) 1 Tablet(s) Oral Every Day Duration: 30 Day(s) polyethylene glycol 3350 (MiraLax) 17 gm Oral Every Other Day at bedtime rOPINIRole 2 Milligram(s) Oral Two Times A Day simvastatin (Zocor) 40 Milligram(s) Oral At Bedtime SUMAtriptan (Imitrex) 100 Milligram(s) Oral Every Day as needed for as needed for migraine headache as directed traMADol (traMADol 50 mg oral tablet) Oral Every 4 Hours as needed for as needed for pain traZODone (traZODone 100 mg oral tablet) Oral [...] and medications per pharmacy guidance. Education Materials Outpatient Surgery, Adult, Care After These instructions provide you with [...] procedure, it is common to have: ??? Tenderness and numbness at the surgical site. ??? Swelling and bruising around the surgical site. ??? Nausea. Follow these instructions at home: For at [...] Take care of children on your own. Activity ??? Return to your normal activities as told by your health care provider. Ask your health care provider what activities are safe for you. ??? Do not lift anything that is heavier than 10 lb (4.5 kg), or the limit that your health care provider tells you, until your health care provider says it is okay. ??? Do not play contact sports until your health care provider says it is okay. Incision care ??? Follow instructions from your health care provider about how to take care of an incision, if you have one. Make sure you: ? Wash your hands with soap and water before you change your bandage (dressing). If soap and water are not available, use hand marketing performance analyst. ? Change your dressing as told by your health care provider. ? Leave stitches (sutures), skin glue, or adhesive strips in place. These skin closures may need to stay in place for 2 weeks or longer. If adhesive strip edges start to loosen and curl up, you may trim the loose edges. Do not remove adhesive strips completely unless your health care provider tells you to do that. ??? Check your incision area every day for signs of infection. Check for: ? More redness, swelling, or pain. ? More fluid or blood. ? Warmth. ? Pus or a bad smell. Medicines ??? Take zdui-mjy-wbjjgvn and prescription medicines only as told by your health care provider. ??? Do not drive or use heavy machinery while taking prescription pain medicines. Eating and drinking ??? Follow the diet recommended by your health care provider. ??? When you are hungry, begin eating light and bland foods such as toast. Gradually return to your regular diet. ??? If you vomit: ? Drink water, juice, or soup when you can drink without vomiting. ? Make sure you have little or no nausea before eating solid foods. General instructions ??? If you have sleep apnea, surgery and certain medicines can increase your risk for breathing problems. Follow instructions from your HCP about wearing your sleep device: ? Anytime you are sleeping, including during daytime naps. ? While taking prescription pain medicines, sleeping medicines, or medicines that make you drowsy. ??? Do not use any tobacco products, such as cigarettes, chewing tobacco, and e-cigarettes, for as long as possible. ??? If you smoke, do not smoke without supervision. ??? Keep all follow-up visits as told by your health care provider. This is important. Contact a health care provider if: ??? You have more redness, swelling, or pain around your incision. ??? You have more fluid or blood coming from your incision. ??? Your incision feels warm to the touch. ??? You have pus or a bad smell coming from your incision. ??? You have a fever. ??? You feel light-headed or you faint. ??? You develop a rash. ??? You keep feeling nauseous or keep vomiting. ??? You have very bad pain, even after taking the medicines your health care provider has prescribed or recommended. ??? You have constipation. Get help right away if: ??? You are unable to pass urine. ??? You have trouble breathing. Summary ??? Have a responsible adult stay with you for at least 24 hours after the procedure. ??? Nausea is common after a procedure. Make sure you have little or no nausea before eating solid foods. Follow the diet recommended by your health care provider. ??? Ask your health care provider what activities are safe for you. This information is not intended to replace advice given to you by your health care provider. Make sure you discuss any questions you have with your health care provider. Document Released: 05/22/2016 Document Revised: 09/07/2017 Document Reviewed: 05/22/2016 [employer] Interactive Patient Education ?? 2019 [employer] Devices. Outpatient Surgery, Adult, Care After These instructions provide you with [...] procedure, it is common to have: ??? Tenderness and numbness at the surgical site. ??? Swelling and bruising around the surgical site. ??? Nausea. Follow these instructions at home: For at [...] Take care of children on your own. Activity ??? Return to your normal activities as told by your health care provider. Ask your health care provider what activities are safe for you. ??? Do not lift anything that is heavier than 10 lb (4.5 kg), or the limit that your health care provider tells you, until your health care provider says it is okay. ??? Do not play contact sports until your health care provider says it is okay. Incision care ??? Follow instructions from your health care provider about how to take care of an incision, if you have one. Make sure you: ? Wash your hands with soap and water before you change your bandage (dressing). If soap and water are not available, use hand marketing performance analyst. ? Change your dressing as told by your health care provider. ? Leave stitches (sutures), skin glue, or adhesive strips in place. These skin closures may need to stay in place for 2 weeks or longer. If adhesive strip edges start to loosen and curl up, you may trim the loose edges. Do not remove adhesive strips completely unless your health care provider tells you to do that. ??? Check your incision area every day for signs of infection. Check for: ? More redness, swelling, or pain. ? More fluid or blood. ? Warmth. ? Pus or a bad smell. Medicines ??? Take yaix-ral-ojgecvw and prescription medicines only as told by your health care provider. ??? Do not drive or use heavy machinery while taking prescription pain medicines. Eating and drinking ??? Follow the diet recommended by your health care provider. ??? When you are hungry, begin eating light and bland foods such as toast. Gradually return to your regular diet. ??? If you vomit: ? Drink water, juice, or soup when you can drink without vomiting. ? Make sure you have little or no nausea before eating solid foods. General instructions ??? If you have sleep apnea, surgery and certain medicines can increase your risk for breathing problems. Follow instructions from your HCP about wearing your sleep device: ? Anytime you are sleeping, including during daytime naps. ? While taking prescription pain medicines, sleeping medicines, or medicines that make you drowsy. ??? Do not use any tobacco products, such as cigarettes, chewing tobacco, and e-cigarettes, for as long as possible. ??? If you smoke, do not smoke without supervision. ??? Keep all follow-up visits as told by your health care provider. This is important. Contact a health care provider if: ??? You have more redness, swelling, or pain around your incision. ??? You have more fluid or blood coming from your incision. ??? Your incision feels warm to the touch. ??? You have pus or a bad smell coming from your incision. ??? You have a fever. ??? You feel light-headed or you faint. ??? You develop a rash. ??? You keep feeling nauseous or keep vomiting. ??? You have very bad pain, even after taking the medicines your health care provider has prescribed or recommended. ??? You have constipation. Get help right away if: ??? You are unable to pass urine. ??? You have trouble breathing. Summary ??? Have a responsible adult stay with you for at least 24 hours after the procedure. ??? Nausea is common after a procedure. Make sure you have little or no nausea before eating solid foods. Follow the diet recommended by your health care provider. ??? Ask your health care provider what activities are safe for you. This information is not intended to replace advice given to you by your health care provider. Make sure you discuss any questions you have with your health care provider. Document Released: 05/22/2016 Document Revised: 09/07/2017 Document Reviewed: 05/22/2016 [employer] Interactive Patient Education ?? 2019 [employer] ondansetron (oral) (on MARICRUZ se natalie) Clayton Arnold Zuplenz What is the most important information I should know about ondansetron? You should not use ondansetron if you are also using apomorphine (Apokyn). What is ondansetron? Ondansetron blocks the actions of chemicals in the body that can trigger nausea and vomiting. Ondansetron is used to prevent nausea and vomiting that may be caused by surgery, cancer chemotherapy, or radiation treatment. Ondansetron may be used for purposes not listed in this medication guide. What should I discuss with my health care provider before taking ondansetron? You should not use ondansetron if: ?? you are also using apomorphine (Apokyn); or ?? you are allergic to ondansetron or similar medicines (dolasetron, granisetron, palonosetron). To make sure ondansetron is safe for you, tell your doctor if you have: ?? liver disease; ?? an electrolyte imbalance (such as low levels of potassium or magnesium in your blood); ?? congestive heart failure, slow heartbeats; ?? a personal or family history of long QT syndrome; or ?? a blockage in your digestive tract (stomach or intestines). Ondansetron is not expected to harm an unborn baby. Tell your doctor if you are . It is not known whether ondansetron passes into breast milk or if it could harm a nursing baby. Tell your doctor if you are breast-feeding a baby. Ondansetron is not approved for use by anyone younger than 4 years old. Ondansetron orally disintegrating tablets may contain phenylalanine. Tell your doctor if you have phenylketonuria (PKU). How should I take ondansetron? Follow all directions on your prescription label. Do not take this medicine in larger or smaller amounts or for longer than recommended. Ondansetron can be taken with or without food. The first dose of ondansetron is usually taken before the start of your surgery, chemotherapy, or radiation treatment. Follow your doctor's dosing instructions very carefully. Take the ondansetron regular tablet with a full glass of water. To take the orally disintegrating tablet (Zofran ODT): ?? Keep the tablet in its blister pack until you are ready to take it. Open the package and peel back the foil. Do not push a tablet through the foil or you may damage the tablet. ?? Use dry hands to remove the tablet and place it in your mouth. ?? Do not swallow the tablet whole. Allow it to dissolve in your mouth without chewing. ?? Swallow several times as the tablet dissolves. To use ondansetron oral soluble film (strip) (Zuplenz): ?? Keep the strip in the foil pouch until you are ready to use the medicine. ?? Using dry hands, remove the strip and place it on your tongue. It will begin to dissolve right away. ?? Do not swallow the strip whole. Allow it to dissolve in your mouth without chewing. ?? Swallow several times after the strip dissolves. If desired, you may drink liquid to help swallow the dissolved strip. ?? Wash your hands after using Zuplenz. Measure liquid medicine with the dosing syringe provided, or with a special dose-measuring spoon or medicine cup. If you do not have a dose-measuring device, ask your pharmacist for one. Store at room temperature away from moisture, heat, and light. Store liquid medicine in an upright position. What happens if I miss a dose? Take the missed dose as soon as you remember. Skip the missed dose if it is almost time for your next scheduled dose. Do not take extra medicine to make up the missed dose. What happens if I overdose? Seek emergency medical attention or call the Poison Help line at . Overdose symptoms may include sudden loss of vision, severe constipation, feeling light-headed, or fainting. What should I avoid while taking ondansetron? Ondansetron may impair your thinking or reactions. Be careful if you drive or do anything that requires you to be alert. What are the possible side effects of ondansetron? Get emergency medical help if you have signs of an allergic reaction: rash, hives; fever, chills, difficult breathing; swelling of your face, lips, tongue, or throat. Call your doctor at once if you have: ?? severe constipation, stomach pain, or bloating; ?? headache with chest pain and severe dizziness, fainting, fast or pounding heartbeats; ?? fast or pounding heartbeats; ?? jaundice (yellowing of the skin or eyes); ?? blurred vision or temporary vision loss (lasting from only a few minutes to several hours); ?? high levels of serotonin in the body--agitation, hallucinations, fever, fast heart rate, overactive reflexes, nausea, vomiting, diarrhea, loss of coordination, fainting. Common side effects may include: ?? diarrhea or constipation; ?? headache; ?? drowsiness; or ?? tired feeling. This is not a complete list of side effects and others may occur. Call your doctor for medical advice about side effects. You may report side effects to FDA at 1-385-WZN-6175. What other drugs will affect ondansetron? Ondansetron can cause a serious heart problem, especially if you use certain medicines at the same time, including antibiotics, antidepressants, heart rhythm medicine, antipsychotic medicines, and medicines to treat cancer, malaria, HIV or AIDS. Tell your doctor about all medicines you use, and those you start or stop using during your treatment with ondansetron. Taking ondansetron while you are using certain other medicines can cause high levels of serotonin to build up in your body, a condition called 'serotonin syndrome,' which can be fatal. Tell your doctor if you also use: ?? medicine to treat depression; ?? medicine to treat a psychiatric disorder; ?? a narcotic (opioid) medication; or ?? medicine to prevent nausea and vomiting. This list is not complete and many other drugs can interact with ondansetron. This includes prescription and voik-ddl-lveqpxc medicines, vitamins, and herbal products. Give a list of all your medicines to any healthcare provider who treats you. Where can I get more information? Your pharmacist can provide more information about ondansetron. Remember, keep this and all other medicines out of the reach of children, never share your medicines with others, and use this medication only for the indication prescribed. Every effort has been made to ensure that the information provided by [employer]. ('[employer]') is accurate, up-to-date, and complete, but no guarantee is made to that effect. Drug information contained herein may be time sensitive. [employer] information has been compiled for use by healthcare practitioners and consumers in the [place] and therefore [employer] does not warrant that uses outside of the [place] are appropriate, unless specifically indicated otherwise. [employer] drug information does not endorse drugs, diagnose patients or recommend therapy. [employer] drug information is an informational resource designed [...] effective or appropriate for any given patient. [facility] does not assume any responsibility for any aspect of healthcare administered with the aid of information [facility] provides. The information contained herein is not intended to cover all possible uses, directions, precautions, warnings, drug interactions, allergic reactions, or adverse effects. If you have questions about the drugs you are taking, check with your doctor, nurse or pharmacist. Copyright 3088-7177 [email or web address]. Version: 13.01. Revision Date: 12/04/2015. 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 What [...] take medicine that contains rilpivirine (Edurant, Complera, Juluca, Odefsey); or ?? you are allergic to pantoprazole [...] may report side effects to FDA at 0-385-GSD-9786. What other drugs will affect pantoprazole? Tell your doctor about all your other medicines, especially: ?? digoxin; ?? methotrexate; or ?? a diuretic or 'water pill.' This list is not complete. Other drugs may affect pantoprazole, including prescription and gubw-ham-lyrelqq medicines, vitamins, and herbal products. Not all [...] to ensure that the information provided by [employer]. ('[employer]') is accurate, up-to-date, and complete, but no guarantee is made to that effect. Drug information contained herein may be time sensitive. [employer] information has been compiled for use by healthcare practitioners and consumers in the [place] and therefore [employer] does not warrant that uses outside of the [place] are appropriate, unless specifically indicated otherwise. [employer] drug information does not endorse drugs, diagnose patients or recommend therapy. [employer] drug information is an informational resource designed [...] effective or appropriate for any given patient. [employer] does not assume any responsibility for any aspect of healthcare administered with the aid of information [employer] provides. The information contained herein is not intended to cover all possible uses, directions, precautions, warnings, drug interactions, allergic reactions, or adverse effects. If you have questions about the drugs you are taking, check with your doctor, nurse or pharmacist. Copyright 4282-0440 [employer]. Version: 19.02. Revision Date: 08/08/2017. docusate (oral/rectal) (DOK ue sate) Colace, Diocto, Doc-Q-Lace, Docu, Doculase, Docusil, Docusoft S, DocuSol, Dulcolax Stool Softener, Enemeez Mini, Toño-Tin, Pedia-Lax Stool Softener, Luciano Stool Softener, Promolaxin, Silace, Surfak Stool Softener, Durga-Q-Lax What is the most important information I should know about docusate? You should not use docusate if you also use mineral oil, unless your doctor tells you to. What is docusate? Docusate is a stool softener that makes bowel movements softer and easier to pass. Docusate is used to relieve occasional constipation (irregularity). There are many brands and forms of docusate available. Not all brands are listed on this leaflet. Docusate may also be used for purposes not listed in this medication guide. What should I discuss with my healthcare provider before using docusate? You should not use docusate if you are allergic to it. Ask a doctor or pharmacist if this medicine is safe to use if you have: ?? stomach pain; ?? nausea; ?? vomiting; or ?? a sudden change in bowel habits that lasts over 2 weeks. Ask a doctor before using this medicine if you are or . Do not give this medicine to a child without medical advice. How should I use docusate? Use exactly as directed on the label, or as prescribed by your doctor. Drink plenty of liquids while you are using docusate. Measure liquid medicine carefully. Use the dosing syringe provided, or use a medicine dose-measuring device (not a kitchen spoon). Do not take the rectal enema by mouth. Rectal medicine is for use only in the rectum. Wash your hands before and after using the enema. To use the enema, lie on your left side with your left leg extended and your right leg slightly bent. Remove the cap from the applicator tip and gently insert the tip into your rectum. Slowly squeeze the bottle to empty the contents into the rectum. After using the enema, lie down on your left side for at least 30 minutes to allow the liquid to distribute throughout your intestines. Avoid using the bathroom, and hold in the enema at least 1 hour, or all night if possible. Read and carefully follow any Instructions for Use provided with your medicine. Ask your doctor or pharmacist if you do not understand these instructions. Docusate generally produces bowel movement in 12 to 72 hours. Call your doctor if your symptoms do not improve after 72 hours. You should not use docusate for longer than 1 week, unless your doctor tells you to. Store at room temperature away from moisture and heat. Do not freeze liquid medicine. What happens if I miss a dose? Since docusate is used when needed, you may not be on a dosing schedule. Skip any missed dose if it's almost time for your next dose. Do not use two doses at one time. What happens if I overdose? Seek emergency medical attention or call the Poison Help line at . What should I avoid while using docusate? Avoid using mineral oil, unless told to do so by a doctor. What are the possible side effects of docusate? Get emergency medical help if you have signs of an allergic reaction: hives; difficult breathing; swelling of your face, lips, tongue, or throat. Stop using docusate and call your doctor at once if you have: ?? rectal bleeding or irritation; or ?? no bowel movement after 72 hours. Less serious side effects may be more likely, and you may have none at all. This is not a complete list of side effects and others may occur. Call your doctor for medical advice about side effects. You may report side effects to FDA at 8-922-CRN-5656. What other drugs will affect docusate? Other drugs may affect docusate, including prescription and ebuq-zux-ehtvhrv medicines, vitamins, and herbal products. Tell your doctor about all your current medicines and any medicine you start or stop using. Where can I get more information? Your pharmacist can provide more information about docusate. Remember, keep this and all other medicines out of the reach of children, never share your medicines with others, and use this medication only for the indication prescribed. Every effort has been made to ensure that the information provided by [employer]. ('[employer]') is accurate, up-to-date, and complete, but no guarantee is made to that effect. Drug information contained herein may be time sensitive. [employer] information has been compiled for use by healthcare practitioners and consumers in the [place] and therefore [employer] does not warrant that uses outside of the [place] are appropriate, unless specifically indicated otherwise. [employer] drug information does not endorse drugs, diagnose patients or recommend therapy. [employer] drug information is an informational resource designed [...] effective or appropriate for any given patient. [facility] does not assume any responsibility for any aspect of healthcare administered with the aid of information [facility] provides. The information contained herein is not intended to cover all possible uses, directions, precautions, warnings, drug interactions, allergic reactions, or adverse effects. If you have questions about the drugs you are taking, check with your doctor, nurse or pharmacist. Copyright 7062-1183 [facility]. Version: 4.01. Revision Date: 08/20/2018. acetaminophen and oxycodone (a SEET a MIN oh fen and OX i KOE done) Endocet 10/325, Endocet 2.5/325, Endocet 5/325, Endocet 7.5/325, Nalocet, Percocet, Primlev What is the most important information I should know about acetaminophen and oxycodone? MISUSE OF OPIOID MEDICINE CAN CAUSE ADDICTION, OVERDOSE, OR . Keep the medication in a place where others cannot get to it. An overdose of acetaminophen can damage your liver or cause . Call your doctor at once if you have pain in your upper stomach, loss of appetite, dark urine, or jaundice (yellowing of your skin or eyes). Taking opioid medicine during may cause life-threatening withdrawal symptoms in the . Fatal side effects can occur if you use opioid medicine with alcohol, or with other drugs that cause drowsiness or slow your breathing. Stop taking this medicine and call your doctor right away if you have skin redness or a rash that spreads and causes blistering and peeling. What is acetaminophen and oxycodone? Acetaminophen and oxycodone is a combination medicine used to relieve moderate to severe pain. Acetaminophen and oxycodone may also be used for purposes not listed in this medication guide. What should I discuss with my healthcare provider before taking acetaminophen and oxycodone? You should not use this medicine if you are allergic to acetaminophen or oxycodone, or if you have: ?? severe asthma or breathing problems; or ?? a blockage in your stomach or intestines. Tell your doctor if you have ever had: ?? breathing problems, sleep apnea; ?? liver disease; ?? a drug or alcohol addiction; ?? kidney disease; ?? a head injury or seizures; ?? urination problems; or ?? problems with your thyroid, pancreas, or gallbladder. If you use opioid medicine while you are , your baby could become dependent on the drug. This can cause life-threatening withdrawal symptoms in the baby after it is born. Babies born dependent on opioids may need medical treatment for several weeks. Do not breastfeed. This medicine can pass into breast milk and cause drowsiness, breathing problems, or in a nursing baby. How should I take acetaminophen and oxycodone? Follow all directions on your prescription label. Never take this medicine in larger amounts, or for longer than prescribed. An overdose can damage your liver or cause . Tell your doctor if you feel an increased urge to use more of this medicine. Never share this medicine with another person, especially someone with a history of drug abuse or addiction. MISUSE CAN CAUSE ADDICTION, OVERDOSE, OR . Keep the medicine in a place where others cannot get to it. Selling or giving away acetaminophen and oxycodone is against the law. Measure liquid medicine carefully. Use the dosing syringe provided, or use a medicine dose-measuring device (not a kitchen spoon). If you need surgery or medical tests, tell the doctor ahead of time that you are using this medicine. You should not stop using this medicine suddenly. Follow your doctor's instructions about tapering your dose. Store at room temperature away from moisture and heat. Keep track of your medicine. You should be aware if anyone is using it improperly or without a prescription. Do not keep leftover opioid medication. Just one dose can cause in someone using this medicine accidentally or improperly. Ask your pharmacist where to locate a drug take-back disposal program. If there is no take-back program, flush the unused medicine down the toilet. What happens if I miss a dose? Since this medicine is used for pain, you are not likely to miss a dose. Skip any missed dose if it is almost time for your next dose. Do not use two doses at one time. What happens if I overdose? Seek emergency medical attention or call the Poison Help line at . An overdose of acetaminophen and oxycodone can be fatal. The first signs of an acetaminophen overdose include loss of appetite, nausea, vomiting, stomach pain, sweating, and confusion or weakness. Later symptoms may include pain in your upper stomach, dark urine, and yellowing of your skin or the whites of your eyes. Overdose can also cause severe muscle weakness, pinpoint pupils, very slow breathing, extreme drowsiness, or coma. What should I avoid while taking acetaminophen and oxycodone? Avoid driving or operating machinery until you know how this medicine will affect you. Dizziness or drowsiness can cause falls, accidents, or severe injuries. Do not drink alcohol. Dangerous side effects or could occur. Ask a doctor or pharmacist before using any other medicine that may contain acetaminophen (sometimes abbreviated as APAP). Taking certain medications together can lead to a fatal overdose. What are the possible side effects of acetaminophen and oxycodone? Get emergency medical help if you have signs of an allergic reaction: hives; difficulty breathing; swelling of your face, lips, tongue, or throat. Opioid medicine can slow or stop your breathing, and may occur. A person caring for you should seek emergency medical attention if you have slow breathing with long pauses, blue colored lips, or if you are hard to wake up. In rare cases, acetaminophen may cause a severe skin reaction that can be fatal. This could occur even if you have taken acetaminophen in the past and had no reaction. Stop taking this medicine and call your doctor right away if you have skin redness or a rash that spreads and causes blistering and peeling. Call your doctor at once if you have: ?? noisy breathing, sighing, shallow breathing, breathing that stops during sleep; ?? a light-headed feeling, like you might pass out; ?? weakness, tiredness, fever, unusual bruising or bleeding; ?? confusion, unusual thoughts or behavior; ?? problems with urination; ?? liver problems--nausea, upper stomach pain, tiredness, loss of appetite, dark urine, adele-colored stools, jaundice (yellowing of the skin or eyes); or ?? low cortisol levels-- nausea, vomiting, loss of appetite, dizziness, worsening tiredness or weakness. Seek medical attention right away if you have symptoms of serotonin syndrome, such as: agitation, hallucinations, fever, sweating, shivering, fast heart rate, muscle stiffness, twitching, loss of coordination, nausea, vomiting, or diarrhea. Serious side effects may be more likely in older adults and those who are overweight, malnourished, or debilitated. Long-term use of opioid medication may affect fertility (ability to have children) in men or women. It is not known whether opioid effects on fertility are permanent. Common side effects include: ?? dizziness, drowsiness, feeling tired; ?? feelings of extreme happiness or sadness; ?? nausea, vomiting, stomach pain; ?? constipation; or ?? headache. This is not a complete list of side effects and others may occur. Call your doctor for medical advice about side effects. You may report side effects to FDA at 2-760-SPP-0638. What other drugs will affect acetaminophen and oxycodone? You may have breathing problems or withdrawal symptoms if you start or stop taking certain other medicines. Tell your doctor if you also use an antibiotic, antifungal medication, heart or blood pressure medication, seizure medication, or medicine to treat HIV or hepatitis C. Opioid medication can interact with many other drugs and cause dangerous side effects or . Be sure your doctor knows if you also use: ?? cold or allergy medicines, bronchodilator asthma/COPD medication, or a diuretic ('water pill'); ?? medicines for motion sickness, irritable bowel syndrome, or overactive bladder; ?? other narcotic medications--opioid pain medicine or prescription cough medicine; ?? a sedative like Valium--diazepam, alprazolam, lorazepam, Xanax, Klonopin, Versed, and others; ?? drugs that make you sleepy or slow your breathing--a sleeping pill, muscle relaxer, medicine to treat mood disorders or mental illness; ?? drugs that affect serotonin levels in your body--a stimulant, or medicine for depression, Parkinson's disease, migraine headaches, serious infections, or nausea and vomiting. This list is not complete. Other drugs may affect acetaminophen and oxycodone, including prescription and poqn-pvs-urmknzb medicines, vitamins, and herbal products. Not all possible interactions are listed here. Where can I get more information? Your doctor or pharmacist can provide more information about acetaminophen and oxycodone. Remember, keep this and all other medicines out of the reach of children, never share your medicines with others, and use this medication only for the indication prescribed. Every effort has been made to ensure that the information provided by [employer]. ('[employer]') is accurate, up-to-date, and complete, but no guarantee is made to that effect. Drug information contained herein may be time sensitive. [employer] information has been compiled for use by healthcare practitioners and consumers in the [place] and therefore [employer] does not warrant that uses outside of the [place] are appropriate, unless specifically indicated otherwise. [employer] drug information does not endorse drugs, diagnose patients or recommend therapy. [employer] drug information is an informational resource designed [...] effective or appropriate for any given patient. [employer] does not assume any responsibility for any aspect of healthcare administered with the aid of information [employer] provides. The information contained herein is not intended to cover all possible uses, directions, precautions, warnings, drug interactions, allergic reactions, or adverse effects. If you have questions about the drugs you are taking, check with your doctor, nurse or pharmacist. Copyright 5087-8331 [employer]. Version: .. Revision Date: 03/06/2019. Emergency Awareness and Preventative Care STROKE is [...] Assistance with quitting is available by contacting 2-193-MFZI-NOW. This is a free resource providing counseling, [...] This Visit (last charted value for your 06/28/2019 visit) Hematology 06/28/2019 7:50 AM WBC: 6.4 K/uL -- Normal range between ( 4.5 and 10.5 ) RBC: 3.96 Million/uL -- Normal range between ( 3.93 and 5.22 ) Hct: 36.3 % -- Normal range between ( 34.1 and 44.9 ) Hgb: 12.5 g/dL -- Normal range between ( 11.2 and 15.7 ) Platelet Count: 195 K/uL -- Normal range between ( 163 and 369 ) MCH: 31.6 pg -- Normal range between ( 25.6 and 32.2 ) MCHC: 34.4 Gram/dL -- Normal range between ( 32.2 and 36.5 ) MCV: 91.7 fL -- Normal range between ( 79.0 and 94.8 ) Slide Review: No Eos %: 4.1 % -- Normal range between ( 0.0 and 7.0 ) Weber #: 0.66 K/uL -- Normal range between ( 0.16 and 1.00 ) Eos #: 0.26 x10(3)/uL -- Normal range between ( 0.00 and 0.80 ) Weber %: 10.3 % -- Normal range between ( 3.0 and 9.0 ) Baso %: 0.6 % -- Normal range between ( 0.0 and 1.5 ) Baso #: 0.04 x10(3)/uL -- Normal range between ( 0.00 and 0.20 ) RDW: 11.7 % -- Normal range between ( 11.7 and 14.9 ) Neut %: 51.8 % -- Normal range between ( 34.0 and 71.0 ) Neut #: 3.31 K/uL -- Normal range between ( 1.56 and 6.13 ) Lymph %: 32.9 % -- Normal range between ( 19.3 and 53.1 ) Lymph #: 2.10 x10(3)/uL -- Normal range between ( 1.00 and 3.90 ) MPV: 10.9 fL -- Normal range between ( 9.4 and 12.4 ) IG#: 0.02 x10(3)/uL -- Normal range between ( 0.00 and 0.05 ) IG%: 0.30 % -- Normal range between ( 0.00 and 0.60 ) Microbiology 06/26/2019 10:30 AM Novel Coronavirus 2019: Negative General Chemistry 06/28/2019 7:50 AM Creatinine Level: 1.10 mg/dL -- Normal range between ( 0.55 and 1.02 ) Sodium Level: 140 mmol/L -- Normal range between ( 136 and 146 ) Potassium Level: 3.1 mmol/L -- Normal range between ( 3.5 and 5.1 ) Chloride Level: 104 mmol/L -- Normal range between ( 102 and 112 ) Carbon Dioxide Level: 30 mmol/L -- Normal range between ( 21 and 32 ) Anion Gap: 9 -- Normal range between ( 9 and 20 ) Bun/Creatinine: 16.4 -- Normal range between ( 8.0 and 20.0 ) Calcium Level: 8.9 mg/dL -- Normal range between ( 8.4 and 10.1 ) eGFR : >60 mL/min/1.73m2 eGFR NonAfrican: 51 mL/min/1.73m2 Glucose Level: 91 mg/dL -- Normal range between ( 74 and 106 ) Blood Urea Nitrogen: 18 mg/dL -- Normal range between ( 7 and 22 ) Patient Name:LOO ANJANA Nuvia I have received this information and was given the opportunity to ask questions. Patient/Coagulating Drying Supervisor Name: Patient/Coagulating Drying Supervisor Signature: Relationship to Patient: Clinician/Hospital Coagulating Drying Supervisor Signature: Date: documented in this encounter Plan of Treatment Not on file documented as of this encounter Visit Diagnoses Not on filedocumented in this encounter
--- OUTSIDE RECORDS SUMMARY | 2024-08-20 11:59 | XMS_ITS | Encounter Summary ---
Author Organization [employer] ([place], [place], [place], [place]) Address [address] [place] [address] Care Team Providers Care Shroudman Name Role Phone Unavailable Primary Care Provider Unavailabl e Encounter Details Date Type Department Care Team (Late st Contact Info) Description 06/28/2019 Transcribed Document [facility] [place] [facility] [place] [address] ProviderMono MD [address], [place] [id number] Social History Tobacco Use Types Packs/Day Years Used Date Smoking Tobacco: Never Assessed Comments Unknown Sex and Gender Information Value Date Recorded Sex Assigned at Not on file Legal Sex Female 6:26 PM CDT Gender Identity Not on file Sexual Orientation Not on file documented as of this encounter Miscellaneous Notes * Cerner Conversion Note - Mono ProviderMD - 06/28/2019 8:28 AM CDT [facility] Main OR Preop Summary Primary Physician: EUN MONSON MD-LEXX Finalized Date/Time: 06/28/19 10:38:04 Pt. Name: ANJANA LOO D.O.B./Sex: 1965 Female Med Rec #: [id number] Physician: EUN MONSON MD- Financial #: [id number] Pt. Type: O Room/Bed: /16 Admit/Disch: 06/28/19 06:18:00 - Institution: [facility] PreOp Case Times Entry 1 In Preop 06/28/19 06:30:00 Ready for Holding n/a Room Patient Ready for 06/28/19 07:45:00 Surgery Patient Out of Preop 06/28/19 08:06:00 Patient Out of n/a Holding Room Last Modified By: JANETH Cassidy RN 06/28/19 10:38:02 Finalized By: JANETH Cassidy RN Document Signatures Signed By: JANETH Cassidy RN 06/28/19 10:38 Electronically signed by Chloé [facility] Conversion Parking Ramp Attendant Cerner at 06/03/2022 1:03 PM CDT documented in this encounter Plan of Treatment Not on file documented as of this encounter Visit Diagnoses Not on filedocumented in this encounter
--- OUTSIDE RECORDS SUMMARY | 2024-08-20 11:59 | XMS_ITS | Encounter Summary ---
Author Organization [facility] ([place], [place], [place], [place]) Address [address] [place] [address] Care Team Providers Care Coding Machine Operator Name Role Phone Unavailable Primary Care Provider Unavailabl e Encounter Details Date Type Department Care Team (Late st Contact Info) Description 01/29/2019 Transcribed Document [facility] [place] [facility] [place] [address] Mono Arevalo MD [address] [place] [address] Social History Tobacco Use Types Packs/Day Years Used Date Smoking Tobacco: Never Assessed Comments Unknown Sex and Gender Information Value Date Recorded Sex Assigned at Not on file Legal Sex Female 6:26 PM CDT Gender Identity Not on file Sexual Orientation Not on file documented as of this encounter Miscellaneous Notes * Cerner Conversion Note - Mono Arevalo MD - 01/29/2019 2:15 PM ENTHONE SOLDER STRIPPER Patient Education Materials Follows: Monitored Anesthesia Care, Care After These instructions [...] eating solid foods. General instructions ??? Take awqj-wlb-owfgoco and prescription medicines only as told by [...] 05/22/2016 Document Revised: 09/15/2017 Document Reviewed: 05/22/2016 [employer] Interactive Patient Education ? 2019 [employer] Colonoscopy, Adult, Care After This sheet gives [...] soft and easy to digest. ??? Take ypcs-qqo-zklreia or prescription medicines only as told by [...] source. ? Leave the heat on for 20?30 minutes. ? Remove the heat if your [...] You have blood in your poop (stool) 2?3 days after the procedure. Get help right [...] 03/04/2011 Document Revised: 11/30/2017 Document Reviewed: 10/24/2016 [employer] Interactive Patient Education ? 2019 [employer] Esophagogastroduodenoscopy, Care After Refer to this [...] 01/16/2013 Document Revised: 07/07/2016 Document Reviewed: 12/24/2015 [employer] Interactive Patient Education ? 2019 [employer] Hemorrhoids Hemorrhoids are swollen veins in [...] about taking products that have added fiber (fiber?supplements). ??? Drink enough fluid to keep your pee (urine) clear or pale yellow. For Pain and Swelling ??? Take a warm-water bath (sitz bath) for 20 minutes to ease pain. Do this 3?4 times a day. ??? If directed, put ice on the painful area. It may be helpful to use ice between your warm baths. ? Put ice in a plastic bag. ? Place a towel between your skin and the bag. ? Leave the ice on for 20 minutes, 2?3 times a day. General instructions ??? Take ismu-ukt-ebustrp and prescription medicines only as told by [...] 11/08/2008 Document Revised: 07/07/2016 Document Reviewed: 10/14/2015 [employer] Interactive Patient Education ? 2019 [employer]. Gastritis, Adult Gastritis is swelling (inflammation) of [...] Follow these instructions at home: ??? Take emos-fmd-opbzdjo and prescription medicines only as told by [...] sores (ulcers) in your stomach. ??? Take bmro-elp-vtxbqdj and prescription medicines only as told by your doctor. This information is not intended to replace advice given to you by your health care provider. Make sure you discuss any questions you have with your health care provider. Document Released: 07/18/2008 Document Revised: 09/12/2017 Document Reviewed: 10/24/2015 [employer] Interactive Patient Education ? 2019 [employer] Esophagitis Esophagitis is inflammation of the esophagus. [...] alcohol use. ??? An infection of the esophagus.?This most often occurs in people who have [...] vinegar, hot sauces, and barbecue sauce. ? [place] fruit juices and citrus fruits, such as oranges, alona, and limes. ? Tomato-based foods, such as red sauce, chili, salsa, and pizza with red sauce. ? Fried and fatty foods, such as donuts, kinyarwanda fries, potato chips, and high-fat dressings. ? [...] meals. ??? Avoid eating meals during the 2?3 hours before bedtime. ??? Avoid lying down right after you eat. ??? Do not exercise right after you eat. ??? Avoid foods and drinks that seem to make your symptoms worse. General instructions ??? Pay attention to any changes in your symptoms. ??? Take pyeb-ywh-hwqwyes and prescription medicines only as told by [...] 03/09/2005 Document Revised: 07/07/2016 Document Reviewed: 05/27/2015 [employer] Interactive Patient Education ? 2019 [employer]. documented in this encounter Plan of Treatment Not on file documented as of this encounter Visit Diagnoses Not on filedocumented in this encounter
--- OUTSIDE RECORDS SUMMARY | 2024-08-20 11:59 | XMS_ITS | Encounter Summary ---
Author Organization [employer] ([place], [place], [place], [place]) Address [address] [place] [address] Care Team Providers Care Supervisor Metal Cans Name Role Phone Unavailable Primary Care Provider Unavailabl e Encounter Details Date Type Department Care Team (Late st Contact Info) Description 06/28/2019 Transcribed Document [facility] [place] Family Medicine [facility] [place] [address] ProviderMono MD [address] [place] [address] Social History Tobacco Use Types Packs/Day Years Used Date Smoking Tobacco: Never Assessed Comments Unknown Sex and Gender Information Value Date Recorded Sex Assigned at Not on file Legal Sex Female 6:26 PM CDT Gender Identity Not on file Sexual Orientation Not on file documented as of this encounter Miscellaneous Notes * Cerner Conversion Note - Mono Arevalo MD - 06/28/2019 11:29 AM CDT Patient Education Materials Follows: Outpatient Surgery, Adult, Care After These instructions [...] and water are not available, use hand it infrastructure consultant. ? Change your dressing as told by [...] or a bad smell. Medicines ??? Take ykgp-dad-dywiooo and prescription medicines only as told by [...] 05/22/2016 Document Revised: 09/07/2017 Document Reviewed: 05/22/2016 [employer] Patient Education ? 2019 [employer] Outpatient Surgery, Adult, Care After These instructions [...] and water are not available, use hand it infrastructure consultant. ? Change your dressing as told by [...] or a bad smell. Medicines ??? Take wrql-tap-opbrmcu and prescription medicines only as told by [...] 05/22/2016 Document Revised: 09/07/2017 Document Reviewed: 05/22/2016 [employer] Interactive Patient Education ? 2019 [employer] documented in this encounter Plan of Treatment Not on file documented as of this encounter Visit Diagnoses Not on filedocumented in this encounter
--- OUTSIDE RECORDS SUMMARY | 2024-08-20 11:59 | XMS_ITS | Encounter Summary ---
Author Organization [email or web address] ([place], [place], [place], [place]) Address [address] [place] [address] Care Team Providers Care Front Desk Worker Name Role Phone Unavailable Primary Care Provider Unavailabl e Encounter Details Date Type Department Care Team (Late st Contact Info) Description 06/28/2019 Transcribed Document [facility] [place] [facility] [address] [place] [address] ProviderMono MD [address], [place] [id number] Social History Tobacco Use Types Packs/Day Years Used Date Smoking Tobacco: Never Assessed Comments Unknown Sex and Gender Information Value Date Recorded Sex Assigned at Not on file Legal Sex Female 6:26 PM CDT Gender Identity Not on file Sexual Orientation Not on file documented as of this encounter Miscellaneous Notes * Cerner Conversion Note - Historical ProviderMD - 06/28/2019 8:31 AM CDT Pain Assessment Entered On: 06/28/2019 11:07 EDT Performed On: 06/28/2019 10:34 EDT by DOMINIQUE BROOKS RN Intervention Information: fentaNYL Performed by DOMINIQUE BROOKS RN on 06/28/2019 10:04:00 EDT fentaNYL,25mcg IV Push,Left Wrist,Pain (Severe 7-10) Pain Assessment Onset : Acute Pain Improved by Intervention : No DOMINIQUE BROOKS RN - 06/28/2019 11:07 EDT documented in this encounter Plan of Treatment Not on file documented as of this encounter Visit Diagnoses Not on filedocumented in this encounter
--- OUTSIDE RECORDS SUMMARY | 2024-08-20 11:59 | XMS_ITS | Encounter Summary ---
Author Organization [employer] ([place], [place], [place], [place]) Address [address] [place] [address] Care Team Providers Care Supervisor Rod Placing Name Role Phone Unavailable Primary Care Provider Unavailabl e Encounter Details Date Type Department Care Team (Late st Contact Info) Description 01/29/2019 Transcribed Document [facility] [place] [facility] [place] [address] ProviderMono MD [address] [place], [place] [id number] Social History Tobacco Use Types Packs/Day Years Used Date Smoking Tobacco: Never Assessed Comments Unknown Sex and Gender Information Value Date Recorded Sex Assigned at Not on file Legal Sex Female 6:26 PM CDT Gender Identity Not on file Sexual Orientation Not on file documented as of this encounter Miscellaneous Notes * Cerner Conversion Note - Historical ProviderMD - 01/29/2019 1:29 PM WILDLIFE 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 Name: ANJANA LOO/Sex: 1965 Female Med Rec #: [id number] Physician: NATASHA CORDERO MD-GAE Financial #: [id number] Pt. Type: O Room/Bed: N/13 Admit/Disch: 01/29/19 12:04:00 - Institution: [facility] PACU Case Times Entry 1 In PACU I 01/29/19 13:58:00 Ready for PACU 01/29/19 14:42:00 Discharge Discharge from PACU 01/29/19 14:43:00 I [facility] PACU Case Times Audit 01/29/19 14:43:59 Programmer Business: IRINEO Modifier: BRYANTHE <+> 1 Discharge from PACU I 01/29/19 14:43:54 Programmer Business: [email or web address] Modifier: BRYANTHE <+> 1 Ready for PACU Discharge Finalized By: OG ROBERTSON RN Document Signatures Signed By: OG ROBERTSON RN 01/29/19 14:44 documented in this encounter Plan of Treatment Not on file documented as of this encounter Visit Diagnoses Not on filedocumented in this encounter
--- OUTSIDE RECORDS SUMMARY | 2024-08-20 11:59 | XMS_ITS | Clinical Summary ---
Author Organization [employer] ([place], [place], [place], [place]) Address [address] [place] [address] Care Team Providers Care Mutuel Machine Operator Name Role Phone Unavailable Primary [...]
--- OUTSIDE RECORDS SUMMARY | 2024-08-20 11:59 | XMS_ITS | Encounter Summary ---
Author Organization [employer] ([place], [place], [place], [place]) Address [address] [place] [address] Care Team Providers Care Corrections Cadet Name Role Phone Unavailable Primary Care Provider Unavailabl e Encounter Details Date Type Department Care Team (Late st Contact Info) Description 06/28/2019 Transcribed Document [facility] Neurology - [address] [facility] [address] [place] [id number] Felix Branham Jr., MD [facility] [place], [place] [id number] Social History Tobacco Use Types Packs/Day Years Used Date Smoking Tobacco: Never Assessed Comments Unknown Sex and Gender Information Value Date Recorded Sex Assigned at Not on file Legal Sex Female 6:26 PM CDT Gender Identity Not on file Sexual Orientation Not on file documented as of this encounter Miscellaneous Notes * Cerner Conversion Note - Felix Branham Jr., MD - 06/28/2019 10:20 AM EDT DATE OF PROCEDURE: 06/28/2019 SURGEON: Felix Branham Jr, MD PREOPERATIVE DIAGNOSIS: Chronic pain syndrome. POSTOPERATIVE DIAGNOSIS: Chronic pain syndrome. PROCEDURE PERFORMED: Removal of [employer]onic spinal cord stimulator system via thoracic laminectomy. PREVENTION RN: Daniela Lebron PA-C. ANESTHESIA: General endotracheal anesthesia. BLOOD LOSS: Less than 25 mL. COMPLICATIONS: None. SPECIMEN: Stimulator battery and electrode wiring. CONDITION: Stable to PACU. INDICATIONS FOR PROCEDURE: Ms. Ag is a 54 years old, I have known her for years. She had an indwelling thoracic spinal cord stimulator system. I placed a cervical system, this did not help. We ultimately removed it. Her thoracic stimulator gave her suboptimal relief, need to revise and I revised it. She was unhappy with the revision. She came back to see me stating that she continues to have coverage in the legs but not enough coverage in the back. She wanted me to revise the system again, I declined to do this because I think with how many revisions she has had and ultimately the poor outcome that she has had with being happy with the results, I thought I was not comfortable with proceeding with another revision. I did not think the risk of surgery outweighed the benefit. She stated that she was unhappy with the stimulator and wanted to remove them. I thought this was reasonable because this is much less invasive procedure overall. I met with her prior to the operation and we went over everything again. DESCRIPTION OF PROCEDURE: After informed consent was obtained, the patient was brought to the operating room. General endotracheal anesthesia was induced routinely. I marked the thoracic incision at the bottom of the electrode paddle. The incision in the thoracic region was marked out. The battery incision on the right side was marked out. The back was prepped and draped in usual fashion. Prophylactic antibiotics were given. The thoracic incision was opened with scalpel. Bovie cautery was used to dissect down to the subcutaneous wiring. The anchors were found. I followed the anchors proximally to the epidural space. I had to drill away about the inferior half or quarter of the lamina to get to the base of the paddle. This allowed me to slide the paddle out of the epidural space. The wiring was cut as it coursed subcutaneously towards the gluteal incision on the right. All of the lead came out with no difficulty or resistance at all. Bone edges were waxed. A piece of Gelfoam was placed in the epidural region. Things were nice and dry. The battery incision was opened with a scalpel. Bovie cautery was used to dissect down the battery and the battery was pulled out. Redundant wire was pulled out. We removed the entire battery and all the wiring in the pocket and the wiring that coursed from the gluteal incision up to the thoracic incision. We made sure hemostasis was meticulous in the fascia, Won's layer and the dermis were closed with interrupted Vicryl sutures at the thoracic incision and the Won's layer and the dermis were closed with interrupted Vicryl sutures at the gluteal incision. The skin level was closed with kvng. Dressings were applied and the patient went to recovery room in good condition. Daniela Lebron PA-C assisted through the entire operation with tasks such as suctioning soft tissue, retraction, exposure of stimulator system, laminectomy, and wound closure. /[id number] Felix Branham Jr, MD RDO/AQ / RDO / MODL /[id number] documented in this encounter Plan of Treatment Not on file documented as of this encounter Visit Diagnoses Not on filedocumented in this encounter
[2024-08-20 12:05] LABS: Hematocrit 35.3 % (37.0-47.0); Hemoglobin 11.6 g/dL (12.2-16.2); Immature Granulocytes % 0.3 %; Mean Corpuscular HGB Conc 32.9 g/dL (31.8-35.4); Mean Corpuscular Hemoglobin 31.6 pg (27.0-31.2); Mean Corpuscular Volume 96.2 fl (81-99); Nucleated Red Blood Cells % 0 %; Platelet Count 160 K/mm3 (142-424); Red Blood Count 3.67 M/mm3 (4.20-5.40); Red Cell Distribution Width-SD 52.2 fL; White Blood Count 3.8 K/mm3 (4.8-10.8)
[2024-08-20 12:16] LABS: Alanine Aminotransferase 16 U/L (12-78); Albumin Level 4.1 g/dl (3.5-5.0); Albumin/Globulin Ratio 1.6 (1.1-1.8); Alkaline Phosphatase 73 U/L (38-126); Anion Gap 13.5 mEq/L (5-15); Aspartate Amino Transferase 24 U/L (14-36); Bilirubin,Total 0.5 mg/dl (0.2-1.3); Blood Urea Nitrogen 14 mg/dl (7-17); Calcium 9.5 mg/dl (8.4-10.2); Carbon Dioxide 29 mmol/L (22.0-30.0); Chloride 99 mmol/L (98-107); Creatinine,Serum 0.90 mg/dl (0.52-1.04); Estimated Glomerular Filt Rate 64 ml/min (>60); GFR (African American) 77 ML/MIN (>60); Globulin 2.5 g/dL (1.3-3.2); Glucose 83 mg/dl (74-100); Potassium 3.5 mmoL/L (3.5-5.1); Sodium 138 mmol/L (136-145); Total Protein,Serum 6.6 g/dl (6.3-8.2)
[2024-08-20] MEDS: SODIUM CHLORIDE 0.9% 10ML FLUSH SYRINGE 10 ML IV (12:19)
== END 2024-08-20 12:00 | disposition home or self-care (01) ==
LOC: INF 11:57
PROVIDERS: PCP Family Medicine; Visit Provider Internal Medicine Medical Oncology
DX: C21.0 Malignant neoplasm of anus, unspecified (principal)
CPT/HCPCS: 36591; 80053; 85025; J1642

== ENCOUNTER 2024-10-04 11:43 | Outpatient (CLI) | payer MEDICARE, SELFPAY ==
--- OUTSIDE RECORDS SUMMARY | 2024-10-04 11:45 | XMS_ITS | Encounter Summary ---
Author Organization Healthcare Address [address] [place] [address] Care Team Providers Care Court Officer Name Role Phone Jl Santoro MD Primary Care Provider [phone] Noman Awan MD Unavailable [phone] Reason for Visit * Reason Onset Date Comments HCN - Patient Message 07/17/2024 Encounter Details Date Type Department Care Team (Late st Contact Info) Description 07/17/2024 [address]phone [facility] Orthopaedic Surgery & Sports Medicine [address] [facility] [place] [address] Vineet Fam MD [address] [facility] [place] [address] HCN - Patient Message Social [...] drink first t brendan in the morning (EYE-3D DESIGNER) to steady your nerves or to get [...] to move appointment to. Best contact number: [phone] (home) Optimal time of day to reach caller: ANYTIME Additional comments/information from caller: None Note: Please do not reply to this message. Follow-up communication and further actions as a result of this message need to be communicated with the patient directly, if the patient is not active onMyChart. If the patient is active on MyChart, they will receive notification of the communication/outcome via Positront. documented in this encounter Plan of Treatment Upcoming Encounters Date Type Department Care Team (Late st Contact Info) Description 11/05/2024 8:30 AM EDT Procedure Visit [facility] Orthopaedic Surgery & Sports Medicine [address] [place] [address] Vineet Fam MD [address] [place] [address] documented as of this encounter Visit Diagnoses Not on filedocumented in this encounter Additional Health Concerns Assessment Noted Time A fall risk assessment has been complete d for the patient 06/20/2024 11:02 AM EDT A Body Mass Index follow-up plan has been documented for the patient 06/28/2024 1:16 PM EDT documented as of this encounter Care Teams Court Officer Relationship Specialty Start Date End Date Jl Santoro MD [address] [place] [address] PCP - General 09/22/20 Noman Awan MD [address] [facility] [address] [place] [address] Surgeon Neurosurgery 09/27/21 documented as of this encounter
--- OUTSIDE RECORDS SUMMARY | 2024-10-04 11:46 | XMS_ITS | Encounter Summary ---
Author Organization [employer] ([place], [place], [place], [place]) Address [address] [place] [address] Care Team Providers Care Welding Process Engineer Name Role Phone Unavailable Primary Care Provider Unavailabl e Encounter Details Date Type Department Care Team (Late st Contact Info) Description 06/28/2019 Transcribed Document [facility] [place] [address] [place] [address] ProviderMono MD [address] [place], [place] [id number] Social History Tobacco Use Types Packs/Day Years [...] Intervention Information: fentaNYL Performed by DOMINIQUE BROOKS, ELVIN on 06/28/2019 10:31:00 EDT fentaNYL,25mcg IV Push,Left [...]
--- OUTSIDE RECORDS SUMMARY | 2024-10-04 11:46 | XMS_ITS | Encounter Summary ---
Author Organization Healthcare Address [address] [place] [address] Care Team Providers Care Operator Prefinish Name Role Phone Jl Santoro MD Primary Care Provider [phone] Noman Awan MD Unavailable [phone] Reason for Visit * Reason Onset Date Comments HCN Clinical Concern/Question 09/09/2024 Encounter Details Date Type Department Care Team (Late st Contact Info) Description 09/09/[address] [facility] Orthopaedic Surgery & Sports Medicine [address] [facility] [place] [address] Vineet Fam MD [address] 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 Fam is requesting a call back to reschedule shoulder injection Best contact number: [phone] (home) Optimal time of day to reach caller: ANYTIME Additional comments/information from caller: None Note: Please do not reply to this message. Follow-up communication and further actions as a result of this message need to be communicated with the patient directly, if the patient is not active onMyChart. If the patient is active on MyChart, they will receive notification of the communication/outcome via Luxolat. documented in this encounter Plan of Treatment Upcoming Encounters Date Type Department Care Team (Late st Contact Info) Description 11/05/2024 8:30 AM EDT Procedure Visit [facility] Orthopaedic Surgery & Sports Medicine [address] [place] [address] Vineet Fam MD [address] [place] [address] documented as of this encounter Visit Diagnoses Not on filedocumented in this encounter Additional Health Concerns Assessment Noted Time A fall risk assessment has been complete d for the patient 06/20/2024 11:02 AM EDT A Body Mass Index follow-up plan has been documented for the patient 06/28/2024 1:16 PM EDT documented as of this encounter Care Teams Operator Prefinish Relationship Specialty Start Date End Date Jl Santoro MD [address] [place] [address] PCP - General 09/22/20 Noman Awan MD [address] [facility] [address] [place] [id number] Surgeon Neurosurgery 09/27/21 documented as of this encounter
--- OUTSIDE RECORDS SUMMARY | 2024-10-04 11:46 | XMS_ITS | Encounter Summary ---
Author Organization [employer] ([place], [place], [place], [place]) Address [address] [place] [address] Care Team Providers Care Lithograph Press Feeder Name Role Phone Unavailable Primary Care Provider Unavailabl e Encounter Details Date Type Department Care Team (Late st Contact Info) Description 01/29/2019 Transcribed Document [facility] [place] Family Medicine [address] [place] [address] ProviderMono MD [address] [place] [address] Social History Tobacco Use Types [...] - Historical ProviderMD - 01/29/2019 12:42 PM VENEER SPLICER Pre Procedure Adult Entered On: 01/29/2019 12:52 EST Performed On: 01/29/2019 12:42 EST by Shona Webb RN Height and Weight, Clinical Dosing Height Source : Measured Height Entry Format : Henderson Height, Feet : 5 ft(Converted to: 152 cm, 60 Inch) Height, Inches : 6 Inch(Converted to: 0 ft 6 Inch, 15.24 cm) Clinical Height : 167.64 cm Weight Source : Standing scale Weight Entry Format : Henderson Clinical Dosing Weight : 81.82 kg Weight, Pounds : 180 lb Body Surface Area (BSA) : 1.91 m2 Body Mass Index : 29.1 kg/m2 (HI) Cadet Body Weight : 59 kg Shona Webb [...] Shona Webb RN - 01/29/2019 12:42 EST [place] Suicide Severity Rating Scale (C-SSRS) CSSRS Past [...] Ambulatory Legal Guardian : Spouse Support Person/Patient Hydroblaster : Yes Support Person/Pt Rep Name : Carlton Ag - spouse Support Person/Pt Rep Contact Information : [phone] Want Family/Rep/Phys Notified of Admit : Yes Name/Contact Info Fam/Rep Notified Adm : Carlton Spann Name/Contact Info Physician Notified Adm : Jl Santoro Emergency Contact #1 : Carlton Spann Emergency Contact #1 Emergency Contact #1 Relationship : spouse Emergency Contact #2 : na Emergency Contact #2 Phone Number : na Emergency Contact #2 Relationship : na Primary Language : Irish Communication Barrier : None Shona Webb RN [...] Scale Risk Level : 0-24 Low Risk [place] Fall Interventions : Bed in low position, Personal items within reach, Upper side-rails up, Wheels locked Shona Webb RN - 01/29/2019 12:42 EST Valuables and Belongings Valuables and Belongings : Clothing Clothing : Common streetwear Clothing Disposition : With patient Shona Webb RN - 01/29/2019 12:42 EST Electronically signed by [facility], [facility] Conversion Tag Press Operator Cerner at 06/03/2022 12:55 PM CDT documented in this encounter Plan of Treatment Not on file documented as of this encounter Visit Diagnoses Not on filedocumented in this encounter
--- OUTSIDE RECORDS SUMMARY | 2024-10-04 11:46 | XMS_ITS | Encounter Summary ---
Author Organization [employer] ([place], [place], [place], [place]) Address [address] [place] [address] Care Team Providers Care Director Of Security Name Role Phone Unavailable Primary Care Provider Unavailabl e Encounter Details Date Type Department Care Team (Late st Contact Info) Description 06/28/2019 Transcribed Document [facility] [place] [facility] [place] [address] ProviderMono MD [address] [place] [address] Social History Tobacco Use Types [...] Source : Measured Height Entry Format : [place] Height, Feet : 5 ft(Converted to: 152 cm, 60 Inch) Height, Inches : 6 Inch(Converted to: 0 ft 6 Inch, 15.24 cm) Clinical Height : 167.64 cm Weight Source : Standing scale Weight Entry Format : [place] Clinical Dosing Weight : 82.27 kg Weight, Pounds : 181 lb Body Surface Area (BSA) : 1.92 m2 Body Mass Index : 29.3 kg/m2 (HI) [place] Flat Body Weight : 59 kg JANETH Cassidy RN - 06/28/2019 7:15 EDT Electronically signed by [facility] Conversion Farmworker Rice Cerner at 06/03/2022 12:58 PM CDT documented in this encounter Plan of Treatment Not on file documented as of this encounter Visit Diagnoses Not on filedocumented in this encounter
--- OUTSIDE RECORDS SUMMARY | 2024-10-04 11:46 | XMS_ITS | Encounter Summary ---
Author Organization [employer] ([place], [place], [place], [place]) Address [address] [place] [address] Care Team Providers Care Grades 9 12 Tutor Name Role Phone Unavailable Primary Care Provider Unavailabl e Encounter Details Date Type Department Care Team (Late st Contact Info) Description 06/28/2019 Transcribed Document [facility] [place] Family Medicine [facility] [place] [address] ProviderMono MD [address], [place] [id number] Social History Tobacco Use Types Packs/Day Years Used Date Smoking Tobacco: Never Assessed Comments Unknown Sex and Gender Information Value Date Recorded Sex Assigned at Not on file Legal Sex Female 6:26 PM CDT Gender Identity Not on file Sexual Orientation Not on file documented as of this encounter Miscellaneous Notes * Cerner Conversion Note - Mono ProviderMD - 06/28/2019 8:28 AM CDT [facility] Main OR IntraOp Summary Primary Physician: EUN MONSON MD-SNU Finalized Date/Time: 06/29/19 13:04:01 Pt. Name: ANJANA LOOO.B./Sex: 1965 Female Med Rec #: [id number] Physician: EUN MONSON MD-SNU Financial #: [id number] Pt. Type: O Room/Bed: Admit/Disch: 06/28/19 06:18:00 - 06/28/19 12:02:00 Institution: [facility] IntraOp Case Attendance Entry 1 Entry 2 Entry 3 Case Attendee EUN MONSON MD-SNU WASSON, SANDRA D, Gay Jacobsen Rn Role Performed Surgeon/Proceduralist, Superintendent Measurement, First Superintendent Measurement, Second First Time In 06/28/19 08:09:00 06/28/19 08:09:00 06/28/19 08:09:00 Time Out 06/28/19 09:14:00 06/28/19 09:14:00 06/28/19 09:14:00 Procedure Spinal Cord Stimulator Spinal Cord Stimulator Spinal Cord Stimulator Removal Removal Removal Other Attendee Superficial Wound Closed By: Last Modified By: KATHY MULLEN, KATHY CARDOZA, KATHY CARDOZA, RN 06/28/19 09:14:48 06/28/19 09:14:48 06/28/19 09:14:48 Entry 4 Entry 5 Entry 6 Case Attendee DEN RODRÍGUEZ, GRZEGORZ GOTTI APRN, HANCOCK SMITH, SCHOOL INSPECTOR DIONTE WALKER Role Performed Scrub, First SCHOOL INSPECTOR/Nurse Worker'S Compensation Claims Examiner Physician animal care assistant Time In 06/28/19 08:09:00 06/28/19 08:09:00 06/28/19 08:09:00 Time Out 06/28/19 09:14:00 06/28/19 09:14:00 06/28/19 09:14:00 Procedure Spinal Cord Stimulator Spinal Cord Stimulator Spinal Cord Stimulator Removal Removal Removal Other Attendee Superficial Wound Closed By: Last Modified By: KATHY MULLEN, KATHY CARDOZA, KATHY CARDOZA, ELVIN 06/28/19 09:14:48 06/28/19 09:14:48 06/28/19 09:14:48 Entry 7 Case Attendee Bhavani Nicole, Diagnostic Acoustical Material Worker Role Performed Veneer Taping Machine Operator Time In 06/28/19 08:09:00 Time Out 06/28/19 09:14:00 Procedure Spinal Cord Stimulator Removal Other Attendee Superficial Wound Closed By: Last Modified By: KATHY MULLEN RN 06/28/19 09:14:48 [facility] IntraOp Case Attendance Audit 06/28/19 09:14:48 Log Loader: VANE Modifier: SEBASSY 1 <+> Time Out [...] Procedure Spinal Cord Stimulator Removal 06/28/19 08:14:41 Log Loader: WASSONSY Modifier: WASSONSY 1 <+> Time In [...] <+> 7 Role Performed <+> 7 Procedure [facility] IntraOp Case Times Entry 1 Patient In Room Time 06/28/19 08:09:00 Out Room Time 06/28/19 09:14:00 Anesthesia Start Time 06/28/19 08:09:00 Stop Time 06/28/19 09:14:00 Surgery / Procedure Times Start Time 06/28/19 08:28:00 Stop Time 06/28/19 09:05:00 Last Modified By: KATHY MULLEN RN 06/28/19 09:14:45 [facility] IntraOp Case Times Audit 06/28/19 09:14:45 Log Loader: WASSONSY Modifier: WASSONSY <+> 1 Out Room Time <+> 1 Stop Time 06/28/19 09:06:09 Log Loader: WASSONSY Modifier: WASSONSY <+> 1 Stop Time 06/28/19 08:29:36 Log Loader: WASSONSY Modifier: WASSONSY <+> 1 Start Time [facility] IntraOp Cautery Entry 1 Entry 2 ESU Identification Cautery Type Monopolar ESU BiPolar ESU Cautery Type Comments ID Number [id number] ID Type Hospital Number Hospital Number Cautery [...] SANDRA D, RN 06/28/19 08:31:09 06/28/19 08:31:09 [facility] IntraOp Communication Entry 1 Communication To Family/Significant other Comment START Communication By KATHY MULLEN RN Date and Time 06/28/19 08:30:00 Last Modified By: KATHY MULLEN RN 06/28/19 08:30:07 [facility] IntraOp Counts Verification Entry 1 Procedure Spinal Cord Stimulator Removal Count Info Count Type Sponge, Sharps, Miscellaneous Counts Verification Baseline/pre-procedure Sequence Count Results Not Applicable Counts Performed By Count Performed By DEN RODRÍGUEZ ST (Scrub) Count Performed By KATHY MULLEN RN (RN) Last Modified By: KATHY MULLEN RN 06/28/19 08:30:21 [facility] IntraOp Counts Final Entry 1 Procedure Spinal Cord Stimulator Removal Final Count Info Count Type Sponge, Sharps, Miscellaneous Counts Verification Skin Closure/end of Sequence procedure Count Results Correct, surgeon notified Counts Performed By Count Performed By DEN RODRÍGUEZ ST (Scrub) Count Performed By KATHY UMLLEN RN (RN) Last Modified By: KATHY MULLEN RN 06/28/19 09:04:20 [facility] IntraOp Cultures and Spec Summary Entry 1 Cultrures and Specimens Specimen Ordered: Yes Test(s) Routine/Path-Lab Requested/Final Disposition Last Modified By: KATHY MULLEN RN 06/28/19 08:12:04 General Comments: a. 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 [facility] IntraOp Delays Entry 1 Delay Reason Surgeon late - did not call Duration 7 Minute(s) Last Modified By: KATHY MULLEN RN 06/28/19 08:11:49 [facility] IntraOp Departure from OR Entry 1 Integumentary Assessment Integumentary WDL Assessment WDL Transfer/Handoff Transfer to PACU Phase I Handoff Method Phone call Post-op Transport Stretcher/Lars Via Patient Transport GRZEGORZ CARDOZO APRN, Accompanied by MANISHA, DENISE CARRERA PA-INT Last Modified By: KATHY MULLEN RN 06/28/19 08:33:19 [facility] IntraOp Dressing and Packing Entry 1 Type Dressing Location OP SITE Wound Dressing Item Other Applied By DENISE CARRERA PA-INT Other Comments NEOSPORIN OINTMENT, COVADERMS Last Modified By: KATHY MULLEN RN 06/28/19 08:34:48 [facility] IntraOp Fire Risk Assessment Entry 1 Fire [...] Yes Safety Precautions Followed Last Modified By: KAHTY MULLEN RN 06/28/19 08:14:21 [facility] IntraOp General Case Wharf Builder 1 Case Information OR OR 09 [facility] Case Level 1 Room Verified Yes Wound Class II - Clean-Contaminated Specialty SN Neurosurgery Anesthesia Type General ASA Class 2 Diagnosis Preop Diagnosis CHRONIC PAIN SYNDROME Postop Same As Preop No Postop Diagnosis SEE MD POST OP NOTE Last Modified By: KATHY MULLEN RN 06/28/19 07:59:18 [facility] IntraOp General Case Data Audit 06/28/19 07:59:18 Log Loader: VANE Modifier: WASSONSY <+> 1 ASA Class [facility] IntraOp Intraoperative Assessment Entry 1 Handoff Method [...] Modified By: KATHY MULLEN RN 06/28/19 08:00:50 [facility] IntraOp Intraoperative Equipment Entry 1 Type Equipment Equipment Equipment Jessica Suction System ID Number [id number] Setting 200 MM HG Intraop Monitoring Electrocardiogram Five lead placement (ECG) Electrode Placement Blood Pressure Non-Invasive BP Device Source Blood Pressure Arm, right upper Location Pulse Oximeter Hand, left Probe Site Antiembolic Devices Antiembolic Devices Sequential compression device, knee high Antiembolic Device Bilateral Location Antiembolic Device [id number] ID Number Scopes Photo/Video Documentation Photo No Video No Last Modified By: KATHY MULLEN RN 06/28/19 08:12:52 [facility] IntraOp Medication Admin Entry 1 Entry 2 Entry 3 Medication/Irrigant NEOSPORIN OINTMENT GELFOAM SZ-100 --[id number] Thrombin 5,000 unit vial -- [id number] Combo Med List 1 - Combo Med [...] RN 06/28/19 08:13:37 06/28/19 08:56:47 06/28/19 08:56:47 [facility] IntraOp Medication Admin Audit 06/28/19 08:56:47 Log Loader: WASSONSY Modifier: WASSONSY <+> 2 Medication/Irrigant <+> 2 Route of Administration <+> 2 Time Administered <+> 2 Combo Med List <+> 3 Medication/Irrigant <+> 3 Route of Administration <+> 3 Dose <+> 3 Time Administered <+> 3 Combo Med List <+> 3 Unit of Measure [facility] IntraOp Patient Positioning Entry 1 Procedure Spinal [...] Modified By: KATHY MULLEN RN 06/28/19 08:32:38 [facility] IntraOp Sign In Entry 1 Patient, Site, [...] Modified By: KATHY MULLEN RN 06/28/19 08:13:11 [facility] IntraOp Sign Out Entry 1 RN Confirmation [...] Modified By: KATHY MULLEN RN 06/28/19 09:15:05 [facility] IntraOp Sign Out Audit 06/28/19 09:15:05 Log Loader: HAJALUPEXIN Modifier: WASSONSY <+> 1 RN Sign Out Signature Date/Time [facility] IntraOp Skin Prep Entry 1 Procedure Spinal Cord Stimulator Removal Prescribed Yes Pre-Surgical Prep Completed Prep Area BACK Intraop Prep Integumentary WDL Assessment WDL Prep Agents Chloraprep Prep by Gay Wall Rn Hair Removal Methods No hair removal performed Last Modified By: KATHY MULLEN RN 06/28/19 08:31:33 [facility] IntraOp Surgical Procedures Entry 1 Procedure Spinal Cord Stimulator Removal Additional (REMOVAL OF MEDTRONIC Procedure SPINAL CORD STIMULATOR) Description Primary Procedure Yes Primary Surgeon EUN MONSON MD-SNU Start 06/28/19 08:28:00 Stop 06/28/19 09:05:00 Anesthesia Type General Specialty SN Neurosurgery Wound Class II - Clean-Contaminated Last Modified By: KATHY MULLEN RN 06/28/19 09:06:13 General Comments: CLINDAMYCIN 900 MG IV PER ANESTHESIA [facility] IntraOp Surgical Procedures Audit 06/28/19 09:06:13 Log Loader: VANE Modifier: WASLUPESY <+> 1 Stop [facility] IntraOp Temp Regulation Devices Entry 1 Temp Regulation Temperature Warm blankets, Forced Regulation Device Air Warming device Temperature 94149 Regulation Device Serial/Unit Number Temperature Upper body Regulation Site Temperature Device 43 C Setting Temperature GRZEGORZ CARDOZO APRN, Regulation Device SCHOOL INSPECTOR Applied by Last Modified By: KATHY MULLEN RN 06/28/19 08:34:12 [facility] IntraOP Time Out Entry 1 Procedure to [...] Modified By: KATHY MULLEN RN 06/28/19 08:28:43 [facility] IntraOP Time Out Audit 06/28/19 08:28:43 Log Loader: VANE Modifier: WASSONSY 1 <+> Time Out Pause Time 1 <*> Procedure to be Performed Spinal Cord Stimulator Removal [facility] IntraOp X-Ray and Images Entry 1 X-Ray/Imaging Type Fluoroscopy Fluoroscopy Type C-Arm Site OP SITE Railroad Design Consultant Name Bhavani Nicole, Diagnostic Acoustical Material Worker Last Modified By: KATHY MULLEN RN 06/28/19 08:33:42 Case Comments <None> Finalized By: CHENG JEAN Document Signatures Signed By: KATHY MULLEN RN 06/28/19 09:15 CHENG JEAN 06/29/19 13:04 Unfinalized History Date/Time Username Reason for Unfinalizing Freetext Reason for Unfinalizing 06/29/19 13:03 RIKI Correct Billing Electronically signed by Yahaira Luevano Conversion Marine Equipment Test Engineer Cerner at 06/03/2022 1:09 PM CDT documented in this encounter Plan of Treatment Not on file documented as of this encounter Visit Diagnoses Not on filedocumented in this encounter
--- OUTSIDE RECORDS SUMMARY | 2024-10-04 11:46 | XMS_ITS | Encounter Summary ---
Author Organization [employer] ([place], [place], [place], [place]) Address [address] [place] [address] Care Team Providers Care Veterinary Parasitologist Name Role Phone Unavailable Primary Care Provider Unavailabl e Encounter Details Date Type Department Care Team (Late st Contact Info) Description 06/28/2019 Transcribed Document [facility] [place] Family Medicine [address] [place] [address] ProviderMono MD [address] [place] [address] Social History Tobacco Use Types [...] Mono ProviderMD - 06/28/2019 11:29 AM CDT [facility] [place] [address] ANJANA LOO :1965 Visit Time:06/28/2019 [...] MONSON When 07/30/2019 03:30 PM EDT Where: [address] [place] [phone] Business (1) Follow Up with EUN MONSON When 07/12/2019 10:13 AM EDT Comments staple removal Appointment has been made Where: [address] [place] [address] [employer] (1) Medications What How Much When Instructions [...] Times A Day omega-3 polyunsaturated fatty acids ([place]-3 1000 mg oral capsule) Oral Two Times [...] and water are not available, use hand senior animal trainer. ? Change your dressing as told by [...] or a bad smell. Medicines ??? Take cuob-kcz-nyusirs and prescription medicines only as told by [...] 05/22/2016 Document Revised: 09/07/2017 Document Reviewed: 05/22/2016 [employer] Interactive Patient Education ?? 2019 [employer]. Outpatient Surgery, Adult, Care After These instructions [...] and water are not available, use hand senior animal trainer. ? Change your dressing as told by [...] or a bad smell. Medicines ??? Take posv-ixx-tfwuhrm and prescription medicines only as told by [...] 05/22/2016 Document Revised: 09/07/2017 Document Reviewed: 05/22/2016 [employer] Interactive Patient Education ?? 2019 [employer] ondansetron (oral) (on MARICRUZ se natalie) [...] may report side effects to FDA at 0-919-AFP-7965. What other drugs will affect ondansetron? Ondansetron [...] interact with ondansetron. This includes prescription and vlkz-ueb-kmevbvi medicines, vitamins, and herbal products. Give a [...] to ensure that the information provided by [employer]. ('[employer]') is accurate, up-to-date, and complete, but no guarantee is made to that effect. Drug information contained herein may be time sensitive. [employer] information has been compiled for use by healthcare practitioners and consumers in the [place] and therefore [employer] does not warrant that uses outside of the [place] are appropriate, unless specifically indicated otherwise. [employer] drug information does not endorse drugs, diagnose patients or recommend therapy. [employer] drug information is an informational resource designed [...] effective or appropriate for any given patient. [facility] does not assume any responsibility for any aspect of healthcare administered with the aid of information [employer] provides. The information contained herein is not intended to cover all possible uses, directions, precautions, warnings, drug interactions, allergic reactions, or adverse effects. If you have questions about the drugs you are taking, check with your doctor, nurse or pharmacist. Copyright 1674-2691 [facility] [employer]. Version: 13.01. Revision Date: 12/04/2015. pantoprazole (oral/injection) [...] a broken bone while taking this medicine intermodal owner operator truck driver or more than once per day. What [...] may report side effects to FDA at 9-269-ESR-3218. What other drugs will affect pantoprazole? Tell your doctor about all your other medicines, especially: ?? digoxin; ?? methotrexate; or ?? a diuretic or 'water pill.' This list is not complete. Other drugs may affect pantoprazole, including prescription and kxwv-mqg-mytxvtt medicines, vitamins, and herbal products. Not all [...] to ensure that the information provided by [employer]. ('[employer]') is accurate, up-to-date, and complete, but no guarantee is made to that effect. Drug information contained herein may be time sensitive. [employer] information has been compiled for use by healthcare practitioners and consumers in the [place] and therefore [employer] does not warrant that uses outside of the [place] are appropriate, unless specifically indicated otherwise. [employer] drug information does not endorse drugs, diagnose patients or recommend therapy. [employer] drug information is an informational resource designed [...] effective or appropriate for any given patient. [employer] does not assume any responsibility for any aspect of healthcare administered with the aid of information [employer] provides. The information contained herein is not intended to cover all possible uses, directions, precautions, warnings, drug interactions, allergic reactions, or adverse effects. If you have questions about the drugs you are taking, check with your doctor, nurse or pharmacist. Copyright 1051-8029 [employer]. Version: 19.02. Revision Date: 08/08/2017. docusate (oral/rectal) [...] may report side effects to FDA at 2-154-NGU-5489. What other drugs will affect docusate? Other drugs may affect docusate, including prescription and ppqb-gor-qlniksi medicines, vitamins, and herbal products. Tell your [...] to ensure that the information provided by [employer]. ('[employer]') is accurate, up-to-date, and complete, but no guarantee is made to that effect. Drug information contained herein may be time sensitive. [employer] information has been compiled for use by healthcare practitioners and consumers in the [place] and therefore [employer] does not warrant that uses outside of the [place] are appropriate, unless specifically indicated otherwise. [employer] drug information does not endorse drugs, diagnose patients or recommend therapy. [employer] drug information is an informational resource designed [...] effective or appropriate for any given patient. [facility] does not assume any responsibility for any aspect of healthcare administered with the aid of information [employer] provides. The information contained herein is not intended to cover all possible uses, directions, precautions, warnings, drug interactions, allergic reactions, or adverse effects. If you have questions about the drugs you are taking, check with your doctor, nurse or pharmacist. Copyright 0830-9794 [facility]. Version: 4.01. Revision Date: 08/20/2018. acetaminophen and [...] may report side effects to FDA at 7-946-XFQ-0707. What other drugs will affect acetaminophen and [...] affect acetaminophen and oxycodone, including prescription and ivdb-ynv-kkkryfi medicines, vitamins, and herbal products. Not all [...] to ensure that the information provided by [employer]. ('[employer]') is accurate, up-to-date, and complete, but no guarantee is made to that effect. Drug information contained herein may be time sensitive. [employer] information has been compiled for use by healthcare practitioners and consumers in the [place] and therefore [employer] does not warrant that uses outside of the [place] are appropriate, unless specifically indicated otherwise. [employer] drug information does not endorse drugs, diagnose patients or recommend therapy. [employer] drug information is an informational resource designed [...] effective or appropriate for any given patient. [employer] does not assume any responsibility for any aspect of healthcare administered with the aid of information [employer] provides. The information contained herein is not intended to cover all possible uses, directions, precautions, warnings, drug interactions, allergic reactions, or adverse effects. If you have questions about the drugs you are taking, check with your doctor, nurse or pharmacist. Copyright 7269-9134 [employer]. Version: .. Revision Date: 03/06/2019. Emergency Awareness [...] Assistance with quitting is available by contacting 8-149-VKQC-NOW. This is a free resource providing counseling, [...] range between ( 0.0 and 7.0 ) Blanco #: 0.66 K/uL -- Normal range between ( 0.16 and 1.00 ) Eos #: 0.26 x10(3)/uL -- Normal range between ( 0.00 and 0.80 ) Blanco %: 10.3 % -- Normal range between [...] was given the opportunity to ask questions. Patient/Last Repairer Name: Patient/Last Repairer Signature: Relationship to Patient: Clinician/Hospital Last Repairer Signature: Date: documented in this encounter Plan of Treatment Not on file documented as of this encounter Visit Diagnoses Not on filedocumented in this encounter
--- OUTSIDE RECORDS SUMMARY | 2024-10-04 11:46 | XMS_ITS | Encounter Summary ---
Author Organization [employer] ([place], [place], [place], [place]) Address [address] [place] [address] Care Team Providers Care County Historian Name Role Phone Unavailable Primary Care Provider Unavailabl e Encounter Details Date Type Department Care Team (Late st Contact Info) Description 01/29/2019 Transcribed Document [facility] [place] [facility] [place] [address] ProviderMono MD [address], [place] [id number] Social History Tobacco Use Types Packs/Day Years Used Date Smoking Tobacco: Never Assessed Comments Unknown Sex and Gender Information Value Date Recorded Sex Assigned at Not on file Legal Sex Female 6:26 PM CDT Gender Identity Not on file Sexual Orientation Not on file documented as of this encounter Miscellaneous Notes * Cerner Conversion Note - Historical ProviderMD - 01/29/2019 1:29 PM OFFSHORING MANAGER [facility] PACU Summary Primary Physician: NATASHA CORDERO MD-GAE Finalized Date/Time: 01/29/19 14:44:00 Pt. Name: ANJANA LOO/Sex: 1965 Female Med Rec #: [id number] Physician: NATASHA CORDERO MD-GAE Financial #: [id number] Pt. Type: O Room/Bed: [facility]/13 Admit/Disch: 01/29/19 12:04:00 - Institution: [facility] PACU Case Times Entry 1 In PACU I 01/29/19 13:58:00 Ready for PACU 01/29/19 14:42:00 Discharge Discharge from PACU 01/29/19 14:43:00 I [facility] PACU Case Times Audit 01/29/19 14:43:59 Music Specialist: IRINEO Modifier: BRYANTHE <+> 1 Discharge from PACU I 01/29/19 14:43:54 Music Specialist: LEIGHTONE Modifier: BRYANTHE <+> 1 Ready for PACU Discharge Finalized By: OG ROBERTSON RN Document Signatures Signed By: OG ROBERTSON RN 01/29/19 14:44 documented in this encounter Plan of Treatment Not on file documented as of this encounter Visit Diagnoses Not on filedocumented in this encounter
--- OUTSIDE RECORDS SUMMARY | 2024-10-04 11:46 | XMS_ITS | Encounter Summary ---
Author Organization [employer] ([place], [place], [place], [place]) Address [address] [place] [address] Care Team Providers Care Rig Builder Helper Name Role Phone Unavailable Primary Care Provider Unavailabl e Encounter Details Date Type Department Care Team (Late st Contact Info) Description 01/29/2019 Transcribed Document [facility] [place] [facility] [place] [address] ProviderMono MD [facility] [place] [address] Social History Tobacco Use Types [...] - Historical ProviderMD - 01/29/2019 1:29 PM NUTRITION MANAGER COSME Puri IntraOp Summary Primary Physician: NATASHA CORDERO MD-GAE Finalized Date/Time: 01/29/19 13:55:26 Pt. Name: EZE ANJANA Nuvia /Sex: 1965 Female Med Rec #: [id number] Physician: NATASHA CORDERO MD-GAE Financial #: [id number] Pt. Type: O Room/Bed: [facility]/ Admit/Disch: 01/29/19 12:04:00 - Institution: [facility] [place] Jaxson - Case Attendance Entry 1 Entry 2 Entry 3 Case Attendee Zaid CORDERO Ashley, FAN MARMOLEJO, LAWN MOWER OPERATOR HANNAH KAUR Role Performed Surgeon/Proceduralist, Elevator Erector, First LAWN MOWER OPERATOR/Nurse Printer Assistant First Time In 01/29/19 13:27:00 01/29/19 13:20:00 [...] Shaniqua Mahan RN Role Performed Scrub, First Elevator Erector, First Time In 01/29/19 13:20:00 01/29/19 13:28:00 Time Out 01/29/19 13:56:00 01/29/19 13:56:00 Procedure Esophagogastroduodenosco Duodenal Biopsy py, Colonoscopy, Duodenal Biopsy Other Attendee Superficial Wound Closed By: Last Modified By: Chel Mar, Chel New, ELVIN 01/29/19 13:54:55 01/29/19 13:54:55 [facility] Endo - Case Attendance Audit 01/29/19 13:54:55 Brake Repairer Bus: JIE Modifier: BICKNEA 1 <+> Time Out 1 <*> Procedure Esophagogastroduodenoscopy, Colonoscopy, Duodenal Biopsy 2 <+> Time Out 2 <*> Procedure Esophagogastroduodenoscopy, Colonoscopy, Duodenal Biopsy 3 <+> Time Out 3 <*> Procedure Esophagogastroduodenoscopy, Colonoscopy, Duodenal Biopsy 4 <+> Time Out 4 <*> Procedure Esophagogastroduodenoscopy, Colonoscopy, Duodenal Biopsy 5 <+> Time Out 5 <*> Procedure Duodenal Biopsy 01/29/19 13:37:10 Brake Repairer Bus: SUDEEPEA Modifier: CHINOKNEA 1 <*> Time In 01/29/19 13:20:00 1 <*> Procedure Duodenal Biopsy 01/29/19 13:31:12 Brake Repairer Bus: BICKNEA Modifier: BICKNEA <+> 1 Procedure 2 <*> Procedure Esophagogastroduodenoscopy, Colonoscopy 3 <*> Procedure Esophagogastroduodenoscopy, Colonoscopy 4 <*> Procedure Esophagogastroduodenoscopy, Colonoscopy <+> 5 Procedure 01/29/19 13:28:53 Brake Repairer Bus: BICKNEA Modifier: BICKNEA <+> 5 Case Attendee [...] Endo - Case Times Audit 01/29/19 13:54:43 Brake Repairer Bus: BICKNEA Modifier: BICKNEA <+> 1 Out Room Time <+> 1 Stop Time <+> 1 Stop Time 01/29/19 13:38:23 Brake Repairer Bus: BICKNEA Modifier: BICKNEA 1 <-> Stop Time 01/29/19 13:34:00 01/29/19 13:36:29 Brake Repairer Bus: BICKNEA Modifier: BICKNEA <+> 1 Stop Time 01/29/19 13:29:27 Brake Repairer Bus: BICKNEA Modifier: BICKNEA <+> 1 Start Time [...] 01/29/19 13:22:48 E Endo - General Case Anode Rebuilder 1 Case Information OR Endo 02 [facility] Case Level 1 Room Verified Yes Wound Class III - Contaminated Specialty SN Gastroenterology Anesthesia Type MAC ASA Class 3 Diagnosis Preop Diagnosis abdominal pain, constipation, nausea, vomiting Postop Diagnosis esophagitis Last Modified By: Chel Mar RN 01/29/19 13:29:34 [facility] Endo - General Case Data Audit 01/29/19 13:29:34 Brake Repairer Bus: JIE Modifier: BICKNEA <+> 1 Postop Diagnosis [...] Endo - Intraoperative Equipment Audit 01/29/19 13:22:03 Brake Repairer Bus: JIE Modifier: BICKNEA <+> 2 Photo <+> 2 Video <+> 2 Electrocardiogram (ECG) Electrode Placement <+> 2 Blood Pressure Location <+> 2 Pulse Oximeter Probe Site <+> 2 Flexible Endoscopes Used <+> 2 Scope Serial Number/Identification Number <+> 2 Type 01/29/19 13:21:48 Brake Repairer Bus: JIE Modifier: BICKNEA <+> 1 Photo <+> [...] Endo - Patient Positioning Audit 01/29/19 13:31:13 Brake Repairer Bus: JIE Modifier: JIE 1 <*> Procedure Colonoscopy [...] Endo - Sign Out Audit 01/29/19 13:55:16 Brake Repairer Bus: JIE Modifier: BICKNEA 1 <*> Specimen Labeled [...] Endo - Surgical Procedures Audit 01/29/19 13:55:01 Brake Repairer Bus: BICKNEA Modifier: BICKNEA <+> 2 Stop 01/29/19 13:45:42 Brake Repairer Bus: BICKNEA Modifier: BICKNEA 2 <*> Procedure Colonoscopy 2 <+> Physician States Cecum Reached 01/29/19 13:41:59 Brake Repairer Bus: BICKNEA Modifier: BICKNEA 2 <*> Procedure Colonoscopy 2 <*> Start 01/29/19 13:29:00 2 <-> Stop 01/29/19 13:34:00 01/29/19 13:38:15 Brake Repairer Bus: BICKNEA Modifier: BICKNEA <+> 1 Stop <+> 2 Stop <+> 3 Stop 01/29/19 13:33:35 Brake Repairer Bus: BICKNEA Modifier: BICKNEA 1 <*> Procedure Esophagogastroduodenoscopy 1 <+> Specialty 2 <*> Procedure Colonoscopy 2 <+> Specialty 01/29/19 13:31:09 Brake Repairer Bus: BICKNEA Modifier: BICKNEA <+> 1 Start <+> [...]
--- OUTSIDE RECORDS SUMMARY | 2024-10-04 11:46 | XMS_ITS | Encounter Summary ---
Author Organization [employer] ([place], [place], [place], [place]) Address [address] [place] [address] Care Team Providers Care Pouch Making Machine Operator Name Role Phone Unavailable Primary Care Provider Unavailabl e Encounter Details Date Type Department Care Team (Late st Contact Info) Description 06/28/2019 Transcribed Document [facility] [place] Family Medicine [facility] [place] [address] ProviderMono MD [address] [place], [place] [id number] Social History Tobacco Use Types Packs/Day Years Used Date Smoking Tobacco: Never Assessed Comments Unknown Sex and Gender Information Value Date Recorded Sex Assigned at Not on file Legal Sex Female 6:26 PM CDT Gender Identity Not on file Sexual Orientation Not on file documented as of this encounter Miscellaneous Notes * Cerner Conversion Note - Mono ProviderMD - 06/28/2019 8:28 AM CDT [facility] Main OR PACU Summary Primary Physician: EUN MONSON MD-[facility] Finalized Date/Time: 06/28/19 11:08:12 Pt. Name: ANJANA LOO D.O.B./Sex: 1965 Female Med Rec #: [id number] Physician: EUN MONSON MD-SNU Financial #: [id number] Pt. Type: O Room/Bed: Admit/Disch: 06/28/19 06:18:00 - Institution: [facility] Main OR PACU I Case Times Entry 1 In PACU I 06/28/19 09:16:00 Ready for PACU 06/28/19 11:04:00 Discharge Discharge from PACU 06/28/19 11:04:00 I Last Modified By: DOMINIQUE BROOKS RN 06/28/19 11:04:05 Finalized By: DOMINIQUE BROOKS, RN Document Signatures Signed By: DOMINIQUE BROOKS RN 06/28/19 11:08 Electronically signed by Chloé [facility] Conversion Licensing Engineer Cerner at 06/03/2022 1:17 PM CDT documented in this encounter Plan of Treatment Not on file documented as of this encounter Visit Diagnoses Not on filedocumented in this encounter
--- OUTSIDE RECORDS SUMMARY | 2024-10-04 11:46 | XMS_ITS | Encounter Summary ---
Author Organization [employer] ([place], [place], [place], [place]) Address [address] [place] [address] Care Team Providers Care Tin Can Laborer Name Role Phone Unavailable Primary Care Provider Unavailabl e Encounter Details Date Type Department Care Team (Late st Contact Info) Description 06/28/2019 Transcribed Document [facility] [place] [facility] [place] [address] ProviderMono MD [address] [place] [address] Social History Tobacco Use Types [...] and water are not available, use hand health and fitness instructor. ? Change your dressing as told by [...] or a bad smell. Medicines ??? Take zwyp-ksl-nmhidkd and prescription medicines only as told by [...] 05/22/2016 Document Revised: 09/07/2017 Document Reviewed: 05/22/2016 [employer] Interactive Patient Education ? 2019 [employer] Outpatient Surgery, Adult, Care After These [...] and water are not available, use hand health and fitness instructor. ? Change your dressing as told by [...] or a bad smell. Medicines ??? Take lgst-fxi-jhhxjoq and prescription medicines only as told by [...] 05/22/2016 Document Revised: 09/07/2017 Document Reviewed: 05/22/2016 [employer] Interactive Patient Education ? 2019 [employer] documented in this encounter Plan of Treatment Not on file documented as of this encounter Visit Diagnoses Not on filedocumented in this encounter
--- OUTSIDE RECORDS SUMMARY | 2024-10-04 11:46 | XMS_ITS | Encounter Summary ---
Author Organization [employer] ([place], [place], [place], [place]) Address [address] [place] [address] Care Team Providers Care Competitive Shopper Name Role Phone Unavailable Primary Care Provider Unavailabl e Encounter Details Date Type Department Care Team (Late st Contact Info) Description 06/28/2019 Transcribed Document [facility] Neurology - [address] [facility] [address] [place] [address] Eun Monson Jr., MD [address] [place] [address] [address] [place] [address] Social History Tobacco Use Types Packs/Day Years [...]
--- OUTSIDE RECORDS SUMMARY | 2024-10-04 11:46 | XMS_ITS | Encounter Summary ---
Author Organization [employer] ([place], [place], [place], [place]) Address [address] [place] [address] Care Team Providers Care Event Sales Manager Name Role Phone Unavailable Primary Care Provider Unavailabl e Encounter Details Date Type Department Care Team (Late st Contact Info) Description 06/27/2019 Transcribed Document [facility] [place] [facility] [place] [address] ProviderMono MD [address] [place] [address] Social History Tobacco Use Types [...] Source : Measured Height Entry Format : [place] Height, Feet : 5 ft(Converted to: 152 cm, 60 Inch) Height, Inches : 6 Inch(Converted to: 0 ft 6 Inch, 15.24 cm) Clinical Height : 167.64 cm Weight Source : Standing scale Weight Entry Format : [place] Clinical Dosing Weight : 82.27 kg Weight, Pounds : 181 lb Body Surface Area (BSA) : 1.92 m2 Body Mass Index : 29.3 kg/m2 (HI) [place] Body Weight : 59 kg JANETH Cassidy [...] Mariposa Amador RN - 06/27/2019 15:23 EDT [place] Suicide Severity Rating Scale (C-SSRS) CSSRS Past [...] RN - 06/28/2019 7:20 EDT Support Person/Patient Barback : Yes Support Person/Pt Rep Name : Carlton Ag - spouse Support Person/Pt Rep Contact Information : [phone] Want Family/Rep/Phys Notified of Admit : No Emergency Contact #1 : x Emergency Contact #1 Phone Number : x Emergency Contact #1 Relationship : x Emergency Contact #2 : x Emergency Contact #2 Phone Number : x Emergency Contact #2 Relationship : x Primary Language : Georgian Communication Barrier : None Mariposa Amador RN [...] EDT Electronically signed by Yahaira Luevano Conversion Exhaust Emissions Automotive Technician Cerner at 06/03/2022 12:54 PM CDT documented in this encounter Plan of Treatment Not on file documented as of this encounter Visit Diagnoses Not on filedocumented in this encounter
--- OUTSIDE RECORDS SUMMARY | 2024-10-04 11:46 | XMS_ITS | Referral Summary ---
Author Organization [employer] ([place], [place], [place], [place]) Address [address] [place] [address] Care Team Providers Care Nematology Teacher Name Role Phone Unavailable Primary Care Provider [...]
--- OUTSIDE RECORDS SUMMARY | 2024-10-04 11:46 | XMS_ITS | Clinical Summary ---
Author Organization [facility] Address [address] [place] [address] Care Team Providers Care Postpartum Nurse Name Role Phone Jl Santoro MD Primary Care Provider [phone] Allergies Active Allergy Reactions Criticality Noted Date Comments Codeine Mental Status Change Low 11/30/2015 Hydromorphone Hcl Hives Medium 11/30/2015 Nsaids Other (See Comments) High 11/30/2015 Kidney failure Penicillins Anaphylaxis High 11/30/2015 Beta lactam allergy details Antibiotic reaction: (!) swollen tongue Age at reaction: child Dose to reaction time: (!) hours Reason for antibiotic: sore throat Epinephrine required for reaction?: no Tolerated antibiotics: cephalexin, augmentin, amoxicillin Sulfa Antibiotics Anaphylaxis High 11/30/2015 Medications Multiple Vitamins-Minerals (QC WOMENS DAILY MULTIVITAMIN PO) Take 1 tablet by mouth Daily. Active docusate sodium (COLACE) 100 MG capsule Take 1 capsule by mouth Every Night. Active polyethylene glycol (MIRALAX) packet Take 17 g by mouth Daily As Needed (constipatio n). Active SUMAtriptan (IMITREX) 100 MG tablet Take 1 tablet by mouth Every 2 (Two) Hours As Needed for Migraine. Active acetaminophen (TYLENOL) 650 MG 8 hr tablet Take 2 tablets by mouth Every 8 (Eight) Hours As Needed for Mild Pain. Active atorvastatin (LIPITOR) 80 MG tablet Take 0.5 tablets by mouth Daily. Active triamterene-hydro chlorothiazide (MAXZIDE-25) 37.5-25 MG per tablet Take 1 tablet by mouth Daily. Active rOPINIRole (REQUIP) 2 MG tablet Take 1 tablet by mouth Every Night. Active Turmeric Curcumin 500 MG capsule Take 500 mg by mouth Daily. Active alendronate (FOSAMAX) 70 MG tablet Take 1 tablet by mouth 1 (One) Time Per Week. 1 Active promethazine (PHENERGAN) 25 MG tablet Take 1 tablet by mouth Every 6 (Six) Hours As Needed for Nausea or Vomiting. for nausea 1 Active pantoprazole (PROTONIX) 40 MG EC tablet Take 1 tablet by mouth Daily. Active buPROPion SR (WELLBUTRIN SR) 150 MG 12 hr tablet Take 1 tablet by mouth Daily. Active levothyroxine (SYNTHROID, LEVOTHROID) 175 MCG tablet Take 1 tablet by mouth Daily. Active naloxone (NARCAN) 4 MG/0.1ML nasal spray Call 911. Don't prime. [place] in 1 nostril for overdose. Repeat in 2-3 minutes in other nostril if no or minimal breathing/re sponsiveness . 2 each 4 Active Active Problems Problem Noted Date Diagnosed Date Anal cancer 10/27/2023 Moderate aortic regurgitation 11/03/2020 Overview (11/03/2020): Echo 05/2020 MCKENZIE (dyspnea on exertion) 11/02/2020 Overview (11/02/2020): 06/08/20 Echo: LVEF 61-65%, mod AVR, mod MVR, RVSP <35 mmHg Hyperlipidemia LDL goal <100 03/19/2020 Mitral valve regurgitation 03/19/2020 Overview (11/03/2020): 05/2020 echo moderate. Chest pain 03/19/2020 Overview (11/02/2020): 06/08/2020 Negative stress test 02/19/14 Stress test: normal with no evidence of ischemia Syncope 03/19/2020 CKD (chronic kidney disease) stage 4, GFR 15-29 ml/min 03/19/2020 Essential hypertension 03/19/2020 Bradycardia 03/19/2020 Palpitations 03/19/2020 Overview (11/02/2020): 04/2020 14-day Holter: 6 short episodes of SVT, longest 12 beats. Family History Medical History Relation Name Comments Heart attack Maternal Grandfather Fran Tuttle Heart disease Maternal Grandfather Fran Tuttle Alzheimer's disease Mother Susan Angel Heart attack Mother Susan Angel Stroke Mother Susan Angel Stroke Paternal Grandmother Hypertension Sister Claudia Beers Relation Name Status Comments Father Other Maternal Grandfather Fran Tuttle Mother Susan Angel Alive Paternal Grandmother Sister Claudia Beers Alive Social History Tobacco Use Types Packs/Day Years Used Date Smoking Tobacco: Never Smokeless Tobacco: Never Alcohol Use Standard Drinks/Week Comments Never 0 (1 standard drink = 0.6 oz pur e alcohol) AUDIT-C Answer Date Recorded Q1: How often do you have a drink containing alc ohol? Never 05/01/2020 Average Number of Drinks Not on file 021 Frequency of Binge Drinking Not on file 04/13 Abuse Screen Answer Date Recorded Feels Unsafe at Home or Work/School no 10/27/2023 Feels Threatened by Someone no 10/14 Does Anyone Try to Keep You From Having Contact with Others or Doing Things Outside Your Home? no 10/27/2023 Physical Signs of Abuse Present no 10/27/2023 Housing Stability Answer Date Recorded Current Living Arrangements home 10/14 Potentially Unsafe Housing Conditions Not on sid e 10/27/2023 Family and Community Support Answer Jigar e Recorded Help with Day-to-Day Activities Not on file 11/21/2022 Lonely or Isolated Not on file 11/21/2022 Employment Answer Date Recorded Do you want help finding or keeping work or a rosalio b? Not on file 11/21/2022 Disabilities Answer Date Recorded Difficulty Concentrating, Remembering or Making Decisions no 10/27/2023 Difficulty Managing Errands Independently no 10/27/2023 Education Answer Date Recorded Help with school or training? Not on file Preferred Language Mozambican 10/26/2023 Comments No Sex and Gender Information Value Date Recorded Sex Assigned at Not on file Legal Sex Female 10:58 AM EDT Gender Identity Not on file Sexual Orientation Not on file Last Filed Vital Signs Vital Sign Reading Time Taken Comments Blood Pressure 136/80 10/27/2023 3:00 PM EDT Pulse 62 10/27/2023 3:00 PM EDT Temperature 36.6 C (97.8 F) 10/27/2023 3:00 PM EDT Respiratory Rate 16 10/27/2023 3:00 PM EDT Oxygen Saturation 100% 10/27/2023 3:00 PM EDT Inhaled Oxygen Concentration - - Weight 81.6 kg (180 lb) 10/26/2023 1:59 PM EDT Height 165.1 cm (5' 5 ) 10/26/2023 1:59 PM EDT Body Mass Index 29.95 10/26/2023 1:59 PM EDT Plan of Treatment Health Maintenance Due Date Last Done Comments Annual Gynecologic Pelvic an d Breast Exam 1965 LIPID PANEL 1965 TDAP/TD VACCINES (1 - Tdap) 1982 MAMMOGRAM 2003 COLOGUARD 2008 COLON CANCER SCREENING 5 YEA R SIGMOIDOSCOPY 2008 COLONOSCOPY 2008 [address] CANCER SCREENING 2008 CT COLONOGRAPHY 2008 FECAL OCCULT BLOOD TEST 2008 FIT Testing (1 year) 2008 Pneumococcal Vaccine 50+ (1 of 1 - PCV) 2013 ZOSTER VACCINE (1 of 2) 2013 ANNUAL WELLNESS VISIT 03/19/2020 HEPATITIS C SCREENING 03/19/2020 COVID-19 Vaccine (5 - 2023-2 5 season) 2023 12/08/2022, 12/24/2021, 05/07/2020, Additional history exists INFLUENZA VACCINE 11/13/2024 12/08/2022, , 11/07/2017 Medical Devices Explanted Type Area Grounding Engineer Device Identifier Shelf Expiration Date Model / Serial / Lot Medtronic Spine Stimulator-01/13 Implanted:01/26 (Quantity not on file) Implant [employer] [id number] / / Insurance [employer] PPO Advance Directives Documents on File Type Date Recorded Patient Optometric Tech Expl anation LIVING WILL - SCAN 05/07/2020 6:33 AM OMAR NG WILL 12/10/2018 Care Teams Postpartum Nurse Relationship Specialty Start Date End Date Jl Santoro MD [address] [place] [address] PCP - General Family Medicine 11/30/15
--- OUTSIDE RECORDS SUMMARY | 2024-10-04 11:46 | XMS_ITS | Clinical Summary ---
Author Organization [employer] ([place], [place], [place], [place]) Address [address] [place] [address] Care Team Providers Care Retort Load Expediter Name Role Phone Unavailable Primary Care Provider [...]
--- OUTSIDE RECORDS SUMMARY | 2024-10-04 11:46 | XMS_ITS | Encounter Summary ---
Author Organization [employer] ([place], [place], [place], [place]) Address [address] [place] [address] Care Team Providers Care Field Property Loss Specialist Name Role Phone Unavailable Primary Care Provider Unavailabl e Encounter Details Date Type Department Care Team (Late st Contact Info) Description 06/28/2019 Transcribed Document [facility] [place] Family Medicine [facility] [place] [address] ProviderMono MD [address] [place] [id number] Social History Tobacco Use Types Packs/Day Years Used Date Smoking Tobacco: Never Assessed Comments Unknown Sex and Gender Information Value Date Recorded Sex Assigned at Not on file Legal Sex Female 6:26 PM CDT Gender Identity Not on file Sexual Orientation Not on file documented as of this encounter Miscellaneous Notes * Cerner Conversion Note - Mono ProviderMD - 06/28/2019 8:28 AM CDT [facility] Main OR Preop Summary Primary Physician: EUN MONSON MD-LEXX Finalized Date/Time: 06/28/19 10:38:04 Pt. Name: ANJANA LOO D.O.B./Sex: 1965 Female Med Rec #: [id number] Physician: EUN MONSON MD- Financial #: [id number] Pt. Type: O Room/Bed: /16 Admit/Disch: 06/28/19 06:18:00 - Institution: [facility] PreOp Case Times Entry 1 In Preop 06/28/19 06:30:00 Ready for Holding n/a Room Patient Ready for 06/28/19 07:45:00 Surgery Patient Out of Preop 06/28/19 08:06:00 Patient Out of n/a Holding Room Last Modified By: JANETH Cassidy RN 06/28/19 10:38:02 Finalized By: JANETH Cassidy RN Document Signatures Signed By: JANETH Cassidy RN 06/28/19 10:38 Electronically signed by Chloé [facility] Conversion Headend Technician Cerner at 06/03/2022 1:03 PM CDT documented in this encounter Plan of Treatment Not on file documented as of this encounter Visit Diagnoses Not on filedocumented in this encounter
--- OUTSIDE RECORDS SUMMARY | 2024-10-04 11:46 | XMS_ITS | Encounter Summary ---
Author Organization [employer] ([place], [place], [place], [place]) Address [address] [place] [address] Care Team Providers Care Vice President Of Brand Management Name Role Phone Unavailable Primary Care Provider Unavailabl e Encounter Details Date Type Department Care Team (Late st Contact Info) Description 01/29/2019 Transcribed Document [facility] [place] [address] [place] [address] ProviderMono MD [address] [place], [place] [id number] Social History Tobacco Use Types Packs/Day Years Used Date Smoking Tobacco: Never Assessed Comments Unknown Sex and Gender Information Value Date Recorded Sex Assigned at Not on file Legal Sex Female 6:26 PM CDT Gender Identity Not on file Sexual Orientation Not on file documented as of this encounter Miscellaneous Notes * Cerner Conversion Note - Historical ProviderMD - 01/29/2019 12:30 PM DISTRIBUTED ENERGY SYSTEMS CONSULTANT COSME Puri PreOp Summary Primary Physician: NATASHA CORDERO MD-GAE Finalized Date/Time: 01/29/19 13:01:56 Pt. Name: ANJANA LOO D.O.B./Sex: 1965 Female Med Rec #: [id number] Physician: NATASHA CORDERO MD-GAE Financial #: [id number] Pt. Type: O Room/Bed: N/13 Admit/Disch: 01/29/19 12:04:00 - Institution: [employer] [facility] PreOp Case Times Entry 1 In Preop 01/29/19 12:35:00 Ready for Holding n/a Room Patient Ready for 01/29/19 12:59:00 Surgery Patient Out of Preop 01/29/19 12:59:00 Patient Out of n/a Holding Room Finalized By: Shona Webb RN Document Signatures Signed By: Shona Webb RN 01/29/19 13:01 Electronically signed by Yahaira Luevano Conversion Green Building Design Specialist Cerner at 06/03/2022 12:54 PM CDT documented in this encounter Plan of Treatment Not on file documented as of this encounter Visit Diagnoses Not on filedocumented in this encounter
--- OUTSIDE RECORDS SUMMARY | 2024-10-04 11:46 | XMS_ITS | Encounter Summary ---
Author Organization [employer] ([place], [place], [place], [place]) Address [address] [place] [address] Care Team Providers Care Manager Inpatient Name Role Phone Unavailable Primary Care Provider Unavailabl e Encounter Details Date Type Department Care Team (Late st Contact Info) Description 06/28/2019 Transcribed Document [facility] [facility] [address] [place] [phone] Felix Branham Jr., MD [address] [place] [address] [address] [place] [address] Social History Tobacco Use Types [...] spinal cord stimulator system via thoracic laminectomy. TELEVISION NEWS ANCHOR: Daniela Lebron PA-C. ANESTHESIA: General endotracheal anesthesia. [...] of stimulator system, laminectomy, and wound closure. /[id number] Felix Branham Jr, MD RDO/AQ / RDO / MODL /[id number] documented in this encounter Plan of Treatment Not on file documented as of this encounter Visit Diagnoses Not on filedocumented in this encounter
--- OUTSIDE RECORDS SUMMARY | 2024-10-04 11:46 | XMS_ITS | Encounter Summary ---
Author Organization [employer] ([place], [place], [place], [place]) Address [address] [place] [address] Care Team Providers Care Med Spa Manager Name Role Phone Unavailable Primary Care Provider Unavailabl e Encounter Details Date Type Department Care Team (Late st Contact Info) Description 06/28/2019 Transcribed Document [facility] Neurology - [address] [place] [phone] Felix Branham Jr., MD [address] [place] [address] Social History Tobacco Use Types Packs/Day [...]
--- OUTSIDE RECORDS SUMMARY | 2024-10-04 11:46 | XMS_ITS | Encounter Summary ---
Author Organization [employer] ([place], [place], [place], [place]) Address [address] [place] [address] Care Team Providers Care Bilingual Manager Name Role Phone Unavailable Primary Care Provider Unavailabl e Encounter Details Date Type Department Care Team (Late st Contact Info) Description 01/29/2019 Transcribed Document [facility] [place] Family Medicine [address] [place] [address] ProviderMono MD [address] [place] [address] Social History Tobacco Use Types [...] - Historical ProviderMD - 01/29/2019 2:23 PM DIRECTOR OF PURCHASING [place] [id number] ANJANA LOO :1965 Visit Time:01/29/2019 What to [...] your 6 week follow-up appointment. Where: [address] [place] [address]- Business (1) Medications What How Much When [...] Oral Every Day omega-3 polyunsaturated fatty acids (Dawson-3 1000 mg oral capsule) Oral Two Times [...] eating solid foods. General instructions ??? Take okft-krh-bouqpwq and prescription medicines only as told by [...] 05/22/2016 Document Revised: 09/15/2017 Document Reviewed: 05/22/2016 Zibby Interactive Patient Education ?? 2019 Inter[employer] Solutions. Colonoscopy, Adult, Care After This sheet [...] soft and easy to digest. ??? Take thdi-zef-frngecu or prescription medicines only as told by [...] 03/04/2011 Document Revised: 11/30/2017 Document Reviewed: 10/24/2016 Zibby Interactive Patient Education ?? 2019 Zibby Inc. Esophagogastroduodenoscopy, Care After Refer to this [...] 01/16/2013 Document Revised: 07/07/2016 Document Reviewed: 12/24/2015 Zibby Interactive Patient Education ?? 2019 Zibby Inc. Hemorrhoids Hemorrhoids are swollen veins in [...] times a day. General instructions ??? Take gepz-zcb-khjtfro and prescription medicines only as told by [...] 11/08/2008 Document Revised: 07/07/2016 Document Reviewed: 10/14/2015 Zibby Interactive Patient Education ?? 2019 [employer]. Gastritis, Adult Gastritis is swelling (inflammation) [...] Follow these instructions at home: ??? Take vewz-etv-jwzyawv and prescription medicines only as told by [...] sores (ulcers) in your stomach. ??? Take jmtl-ued-zmuzoyy and prescription medicines only as told by your doctor. This information is not intended to replace advice given to you by your health care provider. Make sure you discuss any questions you have with your health care provider. Document Released: 07/18/2008 Document Revised: 09/12/2017 Document Reviewed: 10/24/2015 AVST Patient Education ?? 2019 [employer] Solutions. Esophagitis Esophagitis is inflammation of the [...] vinegar, hot sauces, and barbecue sauce. ? [place] fruit juices and citrus fruits, such as oranges, alona, and limes. ? Tomato-based foods, such as red sauce, chili, salsa, and pizza with red sauce. ? Fried and fatty foods, such as donuts, yemeni fries, potato chips, and high-fat dressings. ? [...] any changes in your symptoms. ??? Take wtol-auu-ozmuhdg and prescription medicines only as told by [...] 03/09/2005 Document Revised: 07/07/2016 Document Reviewed: 05/27/2015 Zibby Interactive Patient Education ?? 2019 Inter[employer] Solutions. prucalopride (proo FLAVIO oh pride) Motegrity [...] may report side effects to FDA at 2-597-YZP-0469. What other drugs will affect prucalopride? Other drugs may affect prucalopride, including prescription and ednl-dpk-mspevbj medicines, vitamins, and herbal products. Tell your [...] to ensure that the information provided by [employer]. ('Multum') is accurate, up-to-date, and complete, but no guarantee is made to that effect. Drug information contained herein may be time sensitive. [employer] information has been compiled for use by healthcare practitioners and consumers in the [place] and therefore [employer] does not warrant that uses outside of the [place] are appropriate, unless specifically indicated otherwise. [employer] drug information does not endorse drugs, diagnose patients or recommend therapy. [employer]es drug information is an informational resource designed [...] effective or appropriate for any given patient. [employer] does not assume any responsibility for any aspect of healthcare administered with the aid of information [employer] provides. The information contained herein is not intended to cover all possible uses, directions, precautions, warnings, drug interactions, allergic reactions, or adverse effects. If you have questions about the drugs you are taking, check with your doctor, nurse or pharmacist. Copyright 8476-2514 [employer]. Version: 1.01. Revision Date: 03/27/2018. pantoprazole (oral/injection) [...] a broken bone while taking this medicine exterminator helper or more than once per day. What [...] may report side effects to FDA at 9-884-QYO-7643. What other drugs will affect pantoprazole? Tell your doctor about all your other medicines, especially: ?? digoxin; ?? methotrexate; or ?? a diuretic or 'water pill.' This list is not complete. Other drugs may affect pantoprazole, including prescription and kgte-qzd-vfoycev medicines, vitamins, and herbal products. Not all [...] to ensure that the information provided by [employer]. ('Multum') is accurate, up-to-date, and complete, but no guarantee is made to that effect. Drug information contained herein may be time sensitive. [employer]akaz information has been compiled for use by healthcare practitioners and consumers in the [place] and therefore [employer] does not warrant that uses outside of the [place] are appropriate, unless specifically indicated otherwise. Yak[employer]'s drug information does not endorse drugs, diagnose patients or recommend therapy. TRUSTes drug information is an informational resource designed [...] effective or appropriate for any given patient. [facility] does not assume any responsibility for any aspect of healthcare administered with the aid of information [facility] provides. The information contained herein is not intended to cover all possible uses, directions, precautions, warnings, drug interactions, allergic reactions, or adverse effects. If you have questions about the drugs you are taking, check with your doctor, nurse or pharmacist. Copyright 2310-8716 [facility]. Version: 19.02. Revision Date: 08/08/2017. Emergency Awareness [...] Assistance with quitting is available by contacting 8-313-CEBP-NOW. This is a free resource providing counseling, [...] was given the opportunity to ask questions. Patient/Plush Weaver Name: Patient/Plush Weaver Signature: Relationship to Patient: Clinician/Hospital Plush Weaver Signature: Date: documented in this encounter Plan of Treatment Not on file documented as of this encounter Visit Diagnoses Not on filedocumented in this encounter
--- OUTSIDE RECORDS SUMMARY | 2024-10-04 11:46 | XMS_ITS | Encounter Summary ---
Author Organization [employer] ([place], [place], [place], [place]) Address [address] [place] [address] Care Team Providers Care It Portfolio Manager Name Role Phone Unavailable Primary Care Provider Unavailabl e Encounter Details Date Type Department Care Team (Late st Contact Info) Description 06/28/[address] [facility] [place] Family Medicine [address] [place] [address] ProviderMono MD [address] [place], [place] [id number] Social History Tobacco Use Types Packs/Day Years [...]
--- OUTSIDE RECORDS SUMMARY | 2024-10-04 11:46 | XMS_ITS | Encounter Summary ---
Author Organization Healthcare Address [address] [place] [address] Care Team Providers Care Counting Machine Operator Name Role Phone Jl Santoro MD Primary Care Provider [phone] Noman Awan MD Unavailable [phone] Encounter Details Date Type Department Care Team (Late st Contact Info) Description 01/26/2023 Orders Only External Location [address] [place] [id number] Denise Franklin, PA [address] [facility] [address] [place] [address] Social History Tobacco Use Types [...] drink first t brendan in the morning (EYE-COTTON FACTOR) to steady your nerves or to get [...] as of this encounter Plan of Treatment Upcoming Encounters Date Type Department Care Team (Late st Contact Info) Description 11/05/2024 8:30 AM EDT Procedure Visit [facility] [address], [address] [place] [address] Vineet Fam MD [address] [place] [address] documented as of this encounter Procedures Procedure Name Priority Date/Time Associated Diagnosis Comments CT NEURO OUTSIDE IMAGES 01/26/2023 1:13 PM EST documented in this encounter Results * CT NEURO OUTSIDE IMAGES (01/26/2023 1:13 PM EST) Anatomical Region Laterality Modality Computed Tomogra phy 01/26/2023 1:13 PM EST Denise RICHARDS IM CT PROCEDURES Final Result documented in this encounter Visit Diagnoses Not on filedocumented in this encounter Additional Health Concerns Assessment Noted Time A fall risk assessment has been complete d for the patient 01/18/2023 1:51 PM EST A Body Mass Index follow-up plan has been documented for the patient 01/18/2023 2:42 PM EST documented as of this encounter Care Teams Counting Machine Operator Relationship Specialty Start Date End Date Jl Santoro MD [address] [place] [address] PCP - General 09/22/20 Noman Awan MD [address] [place] [id number] Surgeon Neurosurgery 09/27/21 documented as of this encounter
--- OUTSIDE RECORDS SUMMARY | 2024-10-04 11:46 | XMS_ITS | Clinical Summary ---
Author Organization Healthcare Address [address] [place] [address] Care Team Providers Care Tobacco Sampler Name Role Phone Jl Santoro MD Primary Care Provider [phone] Noman Awan MD Unavailable [phone] Allergies Active Allergy Reactions Criticality Noted [...] & PSO on 11/12 per Neurosurgery IV CONCRETE POLISHER, cyclobenzaprine, gabapentin, tylenol Post-op CXR pending Post-op [...] difficulty 11/12/2021 Overview (11/12/2021): [facility] post-op 11/12 NG/OG as necessary for PO access Nutrition consulted for TF recs, appreciate coordination of care Tube feeding per nutritional recommendations via [facility] DIRECTOR consult as indicated Encounter for weaning from [...] (10/01/2021): Added automatically from request for surgery [id number] Fusion of spine, lumbosacral region 07/01/2021 11/12/2021 Cervical spondylolysis 01/14/202011/12 Cervical spondylosis with radiculopathy 12/09/2019 11/12/2021 Lumbar radicular pain 12/09/20192021 Overview (11/12/2021): Resume home medications as appropriate Complicates all aspects of care. Encounters Date Type Department Care Team Description 09/09/2024 Telephone [facility] Orthopaedic Surgery & Sports Medicine [address] [place] [address] Vineet Fam MD [facility] Clinical Concern/Question 07/23/2024 Travel 07/17/2024 Telephone [facility] Orthopa[facility] Surgery [facility] Medicine [address] [place] [address] Vineet Fam MD [facility] - Patient Message from Last 3 Months Immunizations Immunization Administration [...] drink first t brendan in the morning (EYE-CLAIM SPECIALIST) to steady your nerves or to get [...] 06/20/2024 11:04 AM EDT Plan of Treatment Upcoming Encounters Date Type Department Care Team (Late st Contact Info) Description 11/05/2024 8:30 AM EDT Procedure Visit [facility] Orthopa[facility] Surgery [facility] Sports Medicine [address] [place] [address] Vineet Fam MD [address] [place] [address] Health Maintenance Due Date Last Done Comments [...] of 2) 2013 UKY-Depression Screening 03/17/2024 03/17/2023 [id number] Vaccine (6 - Pfizer risk 2023- season) [...] this topic Medical Devices Implanted Type Area Broadcast Meteorologist Device Identifier Shelf Expiration Date Model / Serial / Lot Plate Plate N/A: Back Screw Exp Viper Lg Tit 9x100 - S. - [id number] Implanted:Qty: 1 on 11/12/2021 by Noman Awan MD at [facility] Screw N/A: Spine Lumbar DePuy Spine Sales LP-[id number] 11/12/2022 [id number] / . / Screw 5.5mm Viper Ti Fen Crtcl Polyax 8mm X 45mm - S. - [id number] Implanted:Qty: 3 on 11/12/2021 by Noman Awan MD at [facility] Screw N/A: Spine Lumbar DePuy Spine Sales LP-[id number] 11/12/2022 [id number] / . / Screw 5.5mm Viper Ti Fen Crtcl Polyax 6mm X 45mm - S. - [id number] Implanted:Qty: 2 on 11/12/2021 by Noman Awan MD at [facility] Screw N/A: Spine Lumbar DePuy Spine Sales LP-[id number] 11/12/2022 [id number] / . / Screw 5.5mm Viper Ti Fen Crtcl Polyax 6mm X 50mm - S. - [id number] Implanted:Qty: 5 on 11/12/2021 by Noman Awan MD at [facility] Screw N/A: Spine Lumbar DePuy Spine Sales LP-094824 11/12/2022 [id number] / . / Screw 5.5mm Viper Ti Fen Crtcl Polyax 7mm X 45mm - S. - [id number] Implanted:Qty: 2 on 11/12/2021 by Noman Awan MD at [facility] Screw N/A: Spine Lumbar DePuy Spine Sales LP-375570 11/12/2022 [id number] / . / Screw 5.5mm Viper Ti Fen Crtcl Polyax 7mm X 50mm - S. - [id number] Implanted:Qty: 3 on 11/12/2021 by Noman Awan MD at [facility] Screw N/A: Spine Lumbar DePuy Spine Sales LP-[id number] 11/12/2022 [id number] / . / Tomas 5.5 Expedium Cocr Precontoured Medium - [id number] Implanted:Qty: 2 on 11/12/2021 by Noman Awan MD at [facility] N/A: Spine Lumbar DePuy Spine Sales LP-[id number] 11/12/2022 [id number] / / Single Inner Setscrew - [id number] Implanted:Qty: 17 on 11/12/2021 by Noman Awan MD at [facility] N/A: Spine Lumbar DePuy Spine Sales LP-240748 11/12/2022 [id number] / / Chip Bone 20cc - [id number] - [id number] Implanted:Qty: 1 on 11/12/2021 by Noman Awan MD at [facility] N/A: Spine Lumbar [facility]-[id number] 06/02/2026 PCAN1/4 / [id number] / [id number] Chip Bone 20cc - [id number] - [id number] Implanted:Qty: 1 on 11/12/2021 by Noman Awan MD at [facility] N/A: Spine Lumbar [facility]-741633 05/16/2026 PCAN1/4 / [id number] / [id number] Matrix Fibergraft Bg Lg 12.5cc - [id number] Implanted:Qty: 1 on 11/12/2021 by Noman Awan MD at [facility] DePuy Spine Sales LP-605769 10/30/2023 [id number] / / [id number] Matrix Fibergraft Bg Lg 12.5cc - [id number] Implanted:Qty: 1 on 11/12/2021 by Noman Awan MD at [facility] DePuy Spine Sales LP-[id number] 12/17/2023 [id number] / / [id number] Kit Jazz Pranav Connector 5.5mm - [id number] Implanted:Qty: 1 on 11/12/2021 by Noman Awan MD at [facility] N/A: Spine Lumbar Implanet Emilia Inc-[id number] 07/10/2025 [id number] / / Kit Jazz Pranav Connector 5.5mm - [id number] Implanted:Qty: 1 on 11/12/2021 by Noman Awan MD at [facility] N/A: Spine Lumbar Implanet Emilia Inc-948135 07/10/2025 [id number] / / Band Jazz Lock Open Braid V3 - [id number] Implanted:Qty: 1 on 11/12/2021 by Noman Awan MD at [facility] N/A: Spine Lumbar Implanet Emilia Inc-[id number] 08/10/2025 [id number] / / Band Jazz Lock Open Braid V3 - [id number] Implanted:Qty: 1 on 11/12/2021 by Noman Awan MD at [facility] N/A: Spine Lumbar Implanet Emilia Inc-162356 08/10/2025 [id number] / / Graft Vivigen 5cc - [id number] - [id number] Implanted:Qty: 1 on 09/23/2022 by Noman Awan MD at [facility] N/A: Spine Lumbar [facility]-557988 08/01/2023 BL-1500-002 / [id number] / [id number] Screw Aegis Ant Lumbar Ti Fuchsia 5.2x36mm - [id number] Implanted:Qty: 2 on 09/23/2022 by Noman Awan MD at [facility] N/A: Spine Lumbar Transonic Systems Inc-353763 [id number] / / Llif Ui H 8mm 8deg 50/18 - [id number] Implanted:Qty: 1 on 09/23/2022 by Noman Awan MD at [facility] N/A: Spine Lumbar DePuy Spine Sales LP-[id number] / / [id number] Graft Vivigen 15cc - [id number] - [id number] Implanted:Qty: 1 on 09/23/2022 by Noman Awan MD at [facility] N/A: Spine Lumbar [facility]-[id number] 07/15/2023 BL-1500-004 / [id number] / [id number] Tomas Viper2 Cocr Exp Str 480mm - [id number] Implanted:Qty: 1 on 09/23/2022 by Noman Awan MD at [facility] N/A: Spine Lumbar DePuy Spine Sales LP-621902 [id number] / / Connector Top Notch 5.5x5.5 - [id number] Implanted:Qty: 5 on 09/23/2022 by Noman Awan MD at [facility] N/A: Spine Lumbar DePuy Spine Sales LP-797904 [id number] / / Single Inner Setscrew - [id number] Implanted:Qty: 8 on 09/23/2022 by Noman Awan MD at [facility] N/A: Spine Lumbar DePuy Spine Sales LP-222672 [id number] / / Chip Bone 40cc - [id number] - [id number] Implanted:Qty: 1 on 09/23/2022 by Noman Awan MD at [facility] N/A: Spine Lumbar [facility]-093208 07/27/2027 PCAN1/2 / [id number] / [id number] Implant Ifuse [place] 10.5mm X 110mm - [id number] - [id number] Implanted:Qty: 1 on 09/23/2022 by Noman Awan MD at [facility] N/A: Spine Lumbar SI-BONE Inc-[id number] 04/29/2027 [id number] / [id number] / Implant Ifuse [place] 10.5mm X 110mm - [id number] - [id number] Implanted:Qty: 1 on 09/23/2022 by Noman Awan MD at [facility] N/A: Spine Lumbar SI-BONE Inc-[id number] 04/29/2027 [id number] / [id number] / Switchplate Conduit Lat Ti Sm Green 2h/26.5mm - [id number] Implanted:Qty: 1 on 09/23/2022 by Noman Awan MD at [facility] N/A: Spine Lumbar Transonic Systems Inc-[id number] 02/12/2027 [id number] / / [id number] Explanted Type Area Broadcast Meteorologist Device Identifier Shelf Expiration Date Model / Serial / Lot Single Inner Setscrew - [id number] Explanted:Qty : 4 on 11/12/2021 by Javier Peña MD at [facility] N/A: Spine Lumbar DePuy Spine Sales LP-205575 11/12/2022 [id number] / / Insurance H[employer]AN MEDICARE Advance Directives * Full Code (Latest Code Status on File) Date Activated Date Inactivated Comments 09/23/2022 3:46 PM 09/29/2022 4:41 PM Question Answer Comments Patient has decision-making capacity? Yes Care Teams Tobacco Sampler Relationship Specialty Start Date End Date Jl Santoro MD [address] [place] [address] PCP - General 09/22/20 Noman Awan MD [address] [address] Surgeon Neurosurgery 09/27/21
--- OUTSIDE RECORDS SUMMARY | 2024-10-04 11:46 | XMS_ITS | Encounter Summary ---
Author Organization [employer] ([place], [place], [place], [place]) Address [address] [place] [address] Care Team Providers Care Spanish Interpreter Name Role Phone Unavailable Primary Care Provider Unavailabl e Encounter Details Date Type Department Care Team (Late st Contact Info) Description 01/29/2019 Transcribed Document [facility] [place] [facility] [place] [address] Mono Arevalo MD [address] [place] [address] Social History Tobacco Use [...] Mono Arevalo MD - 01/29/2019 2:15 PM BUDGET AND POLICY ANALYST Patient Education Materials Follows: Monitored Anesthesia Care, [...] eating solid foods. General instructions ??? Take drgj-uuu-qmevzpv and prescription medicines only as told by [...] 05/22/2016 Document Revised: 09/15/2017 Document Reviewed: 05/22/2016 Revizer Interactive Patient Education ? 2019 Revizer Inc. Colonoscopy, Adult, Care After This sheet [...] soft and easy to digest. ??? Take ioyo-mef-zyknpaq or prescription medicines only as told by [...] 03/04/2011 Document Revised: 11/30/2017 Document Reviewed: 10/24/2016 Revizer Interactive Patient Education ? 2019 Revizer Inc. Esophagogastroduodenoscopy, Care After Refer to this [...] 01/16/2013 Document Revised: 07/07/2016 Document Reviewed: 12/24/2015 Revizer Interactive Patient Education ? 2019 Revizer Inc. Hemorrhoids Hemorrhoids are swollen veins in [...] times a day. General instructions ??? Take mddd-xen-szzvcka and prescription medicines only as told by [...] 11/08/2008 Document Revised: 07/07/2016 Document Reviewed: 10/14/2015 Revizer Interactive Patient Education ? 2019 [employer]. Gastritis, Adult Gastritis is swelling (inflammation) of [...] Follow these instructions at home: ??? Take xxmy-pga-qckmtnm and prescription medicines only as told by [...] sores (ulcers) in your stomach. ??? Take htss-kjx-wybuojw and prescription medicines only as told by your doctor. This information is not intended to replace advice given to you by your health care provider. Make sure you discuss any questions you have with your health care provider. Document Released: 07/18/2008 Document Revised: 09/12/2017 Document Reviewed: 10/24/2015 Revizer Interactive Patient Education ? 2019 Revizer Inc. Esophagitis Esophagitis is inflammation of the [...] vinegar, hot sauces, and barbecue sauce. ? [place] fruit juices and citrus fruits, such as oranges, alona, and limes. ? Tomato-based foods, such as red sauce, chili, salsa, and pizza with red sauce. ? Fried and fatty foods, such as donuts, bhutanese fries, potato chips, and high-fat dressings. ? High-fat meats, such as hot dogs and fatty cuts of red and white meats, such as rib eye steak, sausage, ham, and ery. ? High-fat dairy items, such as whole [...] any changes in your symptoms. ??? Take qpqd-nta-pjmweob and prescription medicines only as told by [...] 03/09/2005 Document Revised: 07/07/2016 Document Reviewed: 05/27/2015 Revizer Interactive Patient Education ? 2019 [employer]. documented in this encounter Plan of Treatment Not on file documented as of this encounter Visit Diagnoses Not on filedocumented in this encounter
[2024-10-04] MEDS: SODIUM CHLORIDE 0.9% 10ML FLUSH SYRINGE 10 ML IV (11:50)
[2024-10-04 12:04] LABS: Hematocrit 34.5 % (37.0-47.0); Hemoglobin 11.4 g/dL (12.2-16.2); Immature Granulocytes % 0.5 %; Mean Corpuscular HGB Conc 33.0 g/dL (31.8-35.4); Mean Corpuscular Hemoglobin 32.5 pg (27.0-31.2); Mean Corpuscular Volume 98.3 fl (81-99); Nucleated Red Blood Cells % 0 %; Platelet Count 152 K/mm3 (142-424); Red Blood Count 3.51 M/mm3 (4.20-5.40); Red Cell Distribution Width-SD 45.1 fL; White Blood Count 4.3 K/mm3 (4.8-10.8)
[2024-10-04 12:16] LABS: Albumin Level 3.9 g/dl (3.5-5.0); Chloride 103 mmol/L (98-107); Sodium 136 mmol/L (136-145)
[2024-10-04 12:17] LABS: Potassium 4.2 mmoL/L (3.5-5.1)
[2024-10-04 12:19] LABS: Alanine Aminotransferase 19 U/L (12-78); Anion Gap 10.2 mEq/L (5-15); Aspartate Amino Transferase 28 U/L (14-36); Blood Urea Nitrogen 15 mg/dl (7-17); Carbon Dioxide 27 mmol/L (22.0-30.0); Creatinine,Serum 0.90 mg/dl (0.52-1.04); Estimated Glomerular Filt Rate 64 ml/min (>60); GFR (African American) 77 ML/MIN (>60)
[2024-10-04 12:20] LABS: Albumin/Globulin Ratio 1.6 (1.1-1.8); Alkaline Phosphatase 96 U/L (38-126); Bilirubin,Total 0.5 mg/dl (0.2-1.3); Calcium 9.3 mg/dl (8.4-10.2); Globulin 2.5 g/dL (1.3-3.2); Glucose 91 mg/dl (74-100); Total Protein,Serum 6.4 g/dl (6.3-8.2)
== END 2024-10-04 12:00 | disposition home or self-care (01) ==
LOC: INF 11:44
PROVIDERS: Internal Medicine Medical Oncology; PCP Family Medicine; Visit Provider Internal Medicine
DX: C21.0 Malignant neoplasm of anus, unspecified (principal)
CPT/HCPCS: 36591; 80053; 85025; J1642

== ENCOUNTER 2024-10-17 14:14 | Outpatient (CLI) | payer MEDICARE, SELFPAY ==
--- OUTSIDE RECORDS SUMMARY | 2024-10-17 14:17 | XMS_ITS | Encounter Summary ---
Author Organization [employer] ([place], [place], [place], [place]) Address [address] [place] [address] Care Team Providers Care Metal Bending Machine Operator Name Role Phone Unavailable Primary Care Provider Unavailabl e Encounter Details Date Type Department Care Team (Late st Contact Info) Description 06/28/2019 Transcribed Document [facility] [place] [facility] [place] [address] ProviderMono MD [address] [place] [address] Social History Tobacco Use Types [...] Source : Measured Height Entry Format : [place] Height, Feet : 5 ft(Converted to: 152 cm, 60 Inch) Height, Inches : 6 Inch(Converted to: 0 ft 6 Inch, 15.24 cm) Clinical Height : 167.64 cm Weight Source : Standing scale Weight Entry Format : [place] Clinical Dosing Weight : 82.27 kg Weight, Pounds : 181 lb Body Surface Area (BSA) : 1.92 m2 Body Mass Index : 29.3 kg/m2 ([place]) [place] Body Weight : 59 kg JANETH Cassidy RN - 06/28/2019 7:15 EDT Electronically signed by Chloé [facility] Conversion Metalizer Field Operation Cerner at 06/03/2022 12:58 PM CDT documented in this encounter Plan of Treatment Not on file documented as of this encounter Visit Diagnoses Not on filedocumented in this encounter
--- OUTSIDE RECORDS SUMMARY | 2024-10-17 14:17 | XMS_ITS | Encounter Summary ---
Author Organization [employer] ([place], [place], [place], [place]) Address [address] [place] [address] Care Team Providers Care Supervisor Roller Printing Name Role Phone Unavailable Primary Care Provider Unavailabl e Encounter Details Date Type Department Care Team (Late st Contact Info) Description 06/28/2019 Transcribed Document [facility] [place] Medicine [address] [place] [address] ProviderMono MD [address] [place], [place] [id number] Social History Tobacco Use Types Packs/Day Years [...]
--- OUTSIDE RECORDS SUMMARY | 2024-10-17 14:17 | XMS_ITS | Encounter Summary ---
Author Organization [employer] ([place], [place], [place], [place]) Address [address] [place] [address] Care Team Providers Care Logistics Loss Prevention Manager Name Role Phone Unavailable Primary Care Provider Unavailabl e Encounter Details Date Type Department Care Team (Late st Contact Info) Description 01/29/2019 Transcribed Document [facility] [place] [facility] [place] [address] ProviderMono MD [facility] [place] [address] Social History Tobacco Use Types [...] - Historical ProviderMD - 01/29/2019 1:29 PM MOUSE BREEDER COSME [facility] IntraOp Summary Primary Physician: NATASHA CORDERO MD-GAE Finalized Date/Time: 01/29/19 13:55:26 Pt. Name: ANJANA LOO Nuvia /Sex: 1965 Female Med Rec #: [id number] Physician: NATASHA CORDERO MD-GAE Financial #: [id number] Pt. Type: O Room/Bed: [facility]/ Admit/Disch: 01/29/19 12:04:00 - Institution: [facility] - Case Attendance Entry 1 Entry 2 Entry 3 Case Attendee Zaid CORDERO Ashley, FAN MARMOLEJO, ODD JOB WORKER HANNAH KAUR Role Performed Surgeon/Proceduralist, Curb Builder, First ODD JOB WORKER/Nurse Barrel Line Operator First Time In 01/29/19 13:27:00 01/29/19 13:20:00 [...] Shaniqua Mahan RN Role Performed Scrub, First Curb Builder, First Time In 01/29/19 13:20:00 01/29/19 13:28:00 Time Out 01/29/19 13:56:00 01/29/19 13:56:00 Procedure Esophagogastroduodenosco Duodenal Biopsy py, Colonoscopy, Duodenal Biopsy Other Attendee Superficial Wound Closed By: Last Modified By: Chel Mar, Chel New, ELVIN 01/29/19 13:54:55 01/29/19 13:54:55 [facility] Endo - Case Attendance Audit 01/29/19 13:54:55 Field Technical Specialist: JIE Modifier: BICKNEA 1 <+> Time Out 1 <*> Procedure Esophagogastroduodenoscopy, Colonoscopy, Duodenal Biopsy 2 <+> Time Out 2 <*> Procedure Esophagogastroduodenoscopy, Colonoscopy, Duodenal Biopsy 3 <+> Time Out 3 <*> Procedure Esophagogastroduodenoscopy, Colonoscopy, Duodenal Biopsy 4 <+> Time Out 4 <*> Procedure Esophagogastroduodenoscopy, Colonoscopy, Duodenal Biopsy 5 <+> Time Out 5 <*> Procedure Duodenal Biopsy 01/29/19 13:37:10 Field Technical Specialist: SUDEEPEA Modifier: CHINOKNEA 1 <*> Time In 01/29/19 13:20:00 1 <*> Procedure Duodenal Biopsy 01/29/19 13:31:12 Field Technical Specialist: BICKNEA Modifier: BICKNEA <+> 1 Procedure 2 <*> Procedure Esophagogastroduodenoscopy, Colonoscopy 3 <*> Procedure Esophagogastroduodenoscopy, Colonoscopy 4 <*> Procedure Esophagogastroduodenoscopy, Colonoscopy <+> 5 Procedure 01/29/19 13:28:53 Field Technical Specialist: BICKNEA Modifier: BICKNEA <+> 5 Case Attendee [...] Endo - Case Times Audit 01/29/19 13:54:43 Field Technical Specialist: BICKNEA Modifier: BICKNEA <+> 1 Out Room Time <+> 1 Stop Time <+> 1 Stop Time 01/29/19 13:38:23 Field Technical Specialist: BICKNEA Modifier: BICKNEA 1 <-> Stop Time 01/29/19 13:34:00 01/29/19 13:36:29 Field Technical Specialist: BICKNEA Modifier: BICKNEA <+> 1 Stop Time 01/29/19 13:29:27 Field Technical Specialist: BICKNEA Modifier: BICKNEA <+> 1 Start Time [...] 01/29/19 13:22:48 E Endo - General Case Charge Account Clerk 1 Case Information OR Endo 02 [facility] Case Level 1 Room Verified Yes Wound Class III - Contaminated Specialty SN Gastroenterology Anesthesia Type MAC ASA Class 3 Diagnosis Preop Diagnosis abdominal pain, constipation, nausea, vomiting Postop Diagnosis esophagitis Last Modified By: Chel Mar RN 01/29/19 13:29:34 [facility] End[facility] - General Case Data Audit 01/29/19 13:29:34 Field Technical Specialist: JIE Modifier: BICKNEA <+> 1 Postop Diagnosis [...] Endo - Intraoperative Equipment Audit 01/29/19 13:22:03 Field Technical Specialist: JIE Modifier: BICKNEA <+> 2 Photo <+> 2 Video <+> 2 Electrocardiogram (ECG) Electrode Placement <+> 2 Blood Pressure Location <+> 2 Pulse Oximeter Probe Site <+> 2 Flexible Endoscopes Used <+> 2 Scope Serial Number/Identification Number <+> 2 Type 01/29/19 13:21:48 Field Technical Specialist: JIE Modifier: BICKNEA <+> 1 Photo <+> [...] Endo - Patient Positioning Audit 01/29/19 13:31:13 Field Technical Specialist: JIE Modifier: JIE 1 <*> Procedure Colonoscopy [...] Endo - Sign Out Audit 01/29/19 13:55:16 Field Technical Specialist: JIE Modifier: BICKNEA 1 <*> Specimen Labeled [...] Endo - Surgical Procedures Audit 01/29/19 13:55:01 Field Technical Specialist: BICKNEA Modifier: BICKNEA <+> 2 Stop 01/29/19 13:45:42 Field Technical Specialist: BICKNEA Modifier: BICKNEA 2 <*> Procedure Colonoscopy 2 <+> Physician States Cecum Reached 01/29/19 13:41:59 Field Technical Specialist: BICKNEA Modifier: BICKNEA 2 <*> Procedure Colonoscopy 2 <*> Start 01/29/19 13:29:00 2 <-> Stop 01/29/19 13:34:00 01/29/19 13:38:15 Field Technical Specialist: BICKNEA Modifier: BICKNEA <+> 1 Stop <+> 2 Stop <+> 3 Stop 01/29/19 13:33:35 Field Technical Specialist: BICKNEA Modifier: BICKNEA 1 <*> Procedure Esophagogastroduodenoscopy 1 <+> Specialty 2 <*> Procedure Colonoscopy 2 <+> Specialty 01/29/19 13:31:09 Field Technical Specialist: BICKNEA Modifier: BICKNEA <+> 1 Start <+> [...]
--- OUTSIDE RECORDS SUMMARY | 2024-10-17 14:17 | XMS_ITS | Encounter Summary ---
Author Organization [employer] ([place], [place], [place], [place]) Address [address] [place] [address] Care Team Providers Care Staff Mechanical Engineer Name Role Phone Unavailable Primary Care Provider Unavailabl e Encounter Details Date Type Department Care Team (Late st Contact Info) Description 06/28/2019 Transcribed Document [facility] Neurology - [address] [facility] [address] [place] [address] Eun Monson Jr., MD [address] [place] [address] [address] [place] [address] Social History Tobacco Use Types [...]
--- OUTSIDE RECORDS SUMMARY | 2024-10-17 14:17 | XMS_ITS | Encounter Summary ---
Author Organization [employer] ([place], [place], [place], [place]) Address [address] [place] [address] Care Team Providers Care Eeg Technician Name Role Phone Unavailable Primary Care Provider Unavailabl e Encounter Details Date Type Department Care Team (Late st Contact Info) Description 06/28/2019 Transcribed Document [facility] [place] Medicine [facility] [place] [address] ProviderMono MD [address] [place], [place] [id number] Social History Tobacco Use Types Packs/Day Years [...] LOO D.O.B./Sex: 1965 Female Med Rec #: [id number] Physician: EUN MONSON MD- Financial #: [id number] Pt. Type: O Room/Bed: /16 Admit/Disch: 06/28/19 [...] 06/28/19 10:38 Electronically signed by Chloé [facility] Conversion Curatorial Assistant Cerner at 06/03/2022 1:03 PM CDT documented in this encounter Plan of Treatment Not on file documented as of this encounter Visit Diagnoses Not on filedocumented in this encounter
--- OUTSIDE RECORDS SUMMARY | 2024-10-17 14:17 | XMS_ITS | Encounter Summary ---
Author Organization [employer] ([place], [place], [place], [place]) Address [address] [place] [address] Care Team Providers Care Park Guard Name Role Phone Unavailable Primary Care Provider Unavailabl e Encounter Details Date Type Department Care Team (Late st Contact Info) Description 01/29/2019 Transcribed Document [facility] [place] [facility] [place] [address] Mono Arevalo MD [address] [place] [address] Social History Tobacco Use Types [...] Mono Arevalo MD - 01/29/2019 2:15 PM SAND FILLER Patient Education Materials Follows: Monitored Anesthesia Care, [...] eating solid foods. General instructions ??? Take otrl-hxz-ypibxwf and prescription medicines only as told by [...] 05/22/2016 Document Revised: 09/15/2017 Document Reviewed: 05/22/2016 [employer] Interactive Patient Education ? 2019 [employer] Colonoscopy, Adult, Care After This sheet [...] soft and easy to digest. ??? Take iiln-qjb-pccnhle or prescription medicines only as told by [...] 03/04/2011 Document Revised: 11/30/2017 Document Reviewed: 10/24/2016 [employer] Interactive Patient Education ? 2019 [employer] Esophagogastroduodenoscopy, Care After Refer to this [...] 01/16/2013 Document Revised: 07/07/2016 Document Reviewed: 12/24/2015 [employer] Interactive Patient Education ? 2019 [employer] Hemorrhoids Hemorrhoids are swollen veins in [...] times a day. General instructions ??? Take aahc-qiy-kclxfaj and prescription medicines only as told by [...] 11/08/2008 Document Revised: 07/07/2016 Document Reviewed: 10/14/2015 [employer] Interactive Patient Education ? 2019 [employer]. Gastritis, Adult Gastritis is swelling (inflammation) of [...] Follow these instructions at home: ??? Take siaj-zoi-kevkywo and prescription medicines only as told by [...] sores (ulcers) in your stomach. ??? Take flrh-obd-exubttr and prescription medicines only as told by your doctor. This information is not intended to replace advice given to you by your health care provider. Make sure you discuss any questions you have with your health care provider. Document Released: 07/18/2008 Document Revised: 09/12/2017 Document Reviewed: 10/24/2015 [employer] Interactive Patient Education ? 2019 [employer] Esophagitis Esophagitis is inflammation of the [...] vinegar, hot sauces, and barbecue sauce. ? [place] fruit juices and citrus fruits, such as oranges, alona, and limes. ? Tomato-based foods, such as red sauce, chili, salsa, and pizza with red sauce. ? Fried and fatty foods, such as donuts, cymraes fries, potato chips, and high-fat dressings. ? [...] any changes in your symptoms. ??? Take rhka-yne-dttraws and prescription medicines only as told by [...] 03/09/2005 Document Revised: 07/07/2016 Document Reviewed: 05/27/2015 [employer] Interactive Patient Education ? 2019 [employer]. documented in this encounter Plan of Treatment Not on file documented as of this encounter Visit Diagnoses Not on filedocumented in this encounter
--- OUTSIDE RECORDS SUMMARY | 2024-10-17 14:17 | XMS_ITS | Encounter Summary ---
Author Organization Healthcare Address [address] [place] [address] Care Team Providers Care Diabetes Trainer Name Role Phone Jl Santoro MD Primary Care Provider [phone] Noman Awan MD Unavailable Reason for Visit * Reason Onset Date Comments HCN Clinical Concern/Question 09/09/2024 Encounter Details Date Type Department Care Team (Late st Contact Info) Description 09/09/2024 Telephone [facility] Orthopaedic Surgery & Sports Medicine [address], [address] [place] [address] Vineet Fam MD [address] [place] [address] HCN Clinical Concern/Question Social History [...] drink first t brendan in the morning (EYE-INDUSTRIAL EDUCATION INSTRUCTOR) to steady your nerves or to get [...] to reschedule shoulder injection Best contact number: [phone] (home) Optimal time of day to reach caller: ANYTIME Additional comments/information from caller: None Note: Please do not reply to this message. Follow-up communication and further actions as a result of this message need to be communicated with the patient directly, if the patient is not active onMyChart. If the patient is active on MyChart, they will receive notification of the communication/outcome via [employer]. documented in this encounter Plan of Treatment Upcoming Encounters Date Type Department Care Team (Late st Contact Info) Description 11/05/2024 11:20 AM EDT Procedure Visit [facility] Orthopaedic Surgery & Sports Medicine [address], [address] [place] [address] Vineet Fam MD [address] [place] [address] documented as of this encounter Visit Diagnoses Not on filedocumented in this encounter Additional Health Concerns Assessment Noted Time A fall risk assessment has been complete d for the patient 06/20/2024 11:02 AM EDT A Body Mass Index follow-up plan has been documented for the patient 06/28/2024 1:16 PM EDT documented as of this encounter Care Teams Diabetes Trainer Relationship Specialty Start Date End Date Jl Santoro MD [address] [place] [address] PCP - General 09/22/20 Noman Awan MD [address] [facility] [address] [place] [address] Surgeon Neurosurgery 09/27/21 documented as of this encounter
--- OUTSIDE RECORDS SUMMARY | 2024-10-17 14:17 | XMS_ITS | Clinical Summary ---
Author Organization Healthcare Address [address] [place] [address] Care Team Providers Care Sawmill Worker Name Role Phone Jl Santoro MD Primary Care Provider [phone] Noman Awan MD Unavailable [phone] Allergies Active Allergy Reactions Criticality Noted [...] & PSO on 11/12 per Neurosurgery IV PLUMBING TECHNICIAN, cyclobenzaprine, gabapentin, tylenol Post-op CXR pending Post-op [...] difficulty 11/12/2021 Overview (11/12/2021): [facility]12 NG/OG as necessary for PO access Nutrition consulted for TF recs, appreciate coordination of care Tube feeding per nutritional recommendations via [facility] SCIENCE TECHNICAL OFFICER consult as indicated Encounter for weaning from [...] (10/01/2021): Added automatically from request for surgery [id number] Fusion of spine, lumbosacral region 07/01/2021 11/12/2021 Cervical spondylolysis 01/14/202011/12 Cervical spondylosis with radiculopathy 12/09/2019 11/12/2021 Lumbar radicular pain 12/09/20192021 Overview (11/12/2021): Resume home medications as appropriate Complicates all aspects of care. Encounters Date Type Department Care Team Description 09/09/2024 Telephone [facility] Orthopaedic Surgery & Sports Medicine [address] [facility] [address] [facility] [place] [address] Vineet Fam MD HCN Clinical Concern/Question 07/23/2024 Travel 07/17/2024 Telephone [facility] Orthopa[facility] Surgery [facility] Medicine [address] [place] [address] Vineet Fam MD HCN - [...] drink first t brendan in the morning (EYE-JITTERBUG OPERATOR) to steady your nerves or to [...] Description 11/05/2024 11:20 AM EDT Procedure Visit [facility] Surgery [facility] Medicine [address] [place] [address] Vineet Fam MD [address] [place] [address] Health Maintenance Due Date Last [...] of 2) 2013 UKY-Depression Screening 03/17/2024 03/17/2023 [id number] Vaccine (6 - Pfizer risk 2023- season) [...] this topic Medical Devices Implanted Type Area Fan Installer Device Identifier Shelf Expiration Date Model / Serial / Lot Plate Plate N/A: Back Screw Exp Viper Lg Tit 9x100 - S. - [id number] Implanted:Qty: 1 on 11/12/2021 by Noman Awan MD at [facility] Screw N/A: Spine Lumbar De[employer] Sp[employer] LP-[id number] 11/12/2022 [id number] / . / Screw 5.5mm Viper Ti Fen Crtcl Polyax 8mm X 45mm - S. - [id number] Implanted:Qty: 3 on 11/12/2021 by Noman Awan MD at [facility] Screw N/A: Spine Lumbar [employer] LP-[id number] 11/12/2022 [id number] / . / Screw 5.5mm Viper Ti Fen Crtcl Polyax 6mm X 45mm - S. - [id number] Implanted:Qty: 2 on 11/12/2021 by Noman Awan MD at [facility] Screw N/A: Spine Lumbar [employer] LP-297977 11/12/2022 [id number] / . / Screw 5.5mm Viper Ti Fen Crtcl Polyax 6mm X 50mm - S. - [id number] Implanted:Qty: 5 on 11/12/2021 by Noman Awan MD at [facility] Screw N/A: Spine Lumbar [employer] LP-[id number] 11/12/2022 [id number] / . / Screw 5.5mm Viper Ti Fen Crtcl Polyax 7mm X 45mm - S. - [id number] Implanted:Qty: 2 on 11/12/2021 by Noman Awan MD at [facility] Screw N/A: Spine Lumbar [employer] LP-[id number] 11/12/2022 [id number] / . / Screw 5.5mm Viper Ti Fen Crtcl Polyax 7mm X 50mm - S. - [id number] Implanted:Qty: 3 on 11/12/2021 by Noman Awan MD at [facility] Screw N/A: Spine Lumbar [employer] LP-[id number] 11/12/2022 [id number] / . / Tomas 5.5 Expedium Cocr Precontoured Medium - [id number] Implanted:Qty: 2 on 11/12/2021 by Noman Awan MD at [facility] N/A: Spine Lumbar [employer] LP-332553 11/12/2022 [id number] / / Single Inner Setscrew - [id number] Implanted:Qty: 17 on 11/12/2021 by Noman Awan MD at [facility] N/A: Spine Lumbar [employer] LP-[id number] 11/12/2022 [id number] / / Chip Bone 20cc - [id number] - [id number] Implanted:Qty: 1 on 11/12/2021 by Noman Awan MD at [facility] N/A: Spine Lumbar [facility]-210979 06/02/2026 PCAN1/4 / [id number] / [id number] Chip Bone 20cc - [id number] - [id number] Implanted:Qty: 1 on 11/12/2021 by Noman Awan MD at [facility] N/A: Spine Lumbar [facility]-[id number] 05/16/2026 PCAN1/4 / [id number] / [id number] Matrix Fibergraft Bg Lg 12.5cc - [id number] Implanted:Qty: 1 on 11/12/2021 by Noman Awan MD at [facility] De[employer]uy Spine Sales LP-[id number] 10/30/2023 [id number] / / [id number] Matrix Fibergraft Bg Lg 12.5cc - [id number] Implanted:Qty: 1 on 11/12/2021 by Noman Awan MD at [facility] DePuy Spine Sales LP-[id number] 12/17/2023 [id number] / / [id number] Kit Jazz Pranav Connector 5.5mm - [id number] Implanted:Qty: 1 on 11/12/2021 by Noman Awan MD at [facility] N/A: Spine Lumbar [employer] Inc-[id number] 07/10/2025 [id number] / / Kit Jazz Pranav Connector 5.5mm - [id number] Implanted:Qty: 1 on 11/12/2021 by Noman Awan MD at [facility] N/A: Spine Lumbar [employer] Inc-858737 07/10/2025 [id number] / / Band Jazz Lock Open Braid V3 - [id number] Implanted:Qty: 1 on 11/12/2021 by Noman Awan MD at [facility] N/A: Spine Lumbar [employer] Inc-[id number] 08/10/2025 [id number] / / Band Jazz Lock Open Braid V3 - [id number] Implanted:Qty: 1 on 11/12/2021 by Noman Awan MD at [facility] N/A: Spine Lumbar Im[employer] Inc-[id number] 08/10/2025 [id number] / / Graft Vivigen 5cc - [id number] - [id number] Implanted:Qty: 1 on 09/23/2022 by Noman Awan MD at [facility] N/A: Spine Lumbar [facility]-856550 08/01/2023 BL-1500-002 / [id number] / [id number] Screw Aegis Ant Lumbar Ti Fuchsia 5.2x36mm - [id number] Implanted:Qty: 2 on 09/23/2022 by Noman Awan MD at [facility] N/A: Spine Lumbar [employer] Inc-133462 [id number] / / Llif Ui H 8mm 8deg 50/18 - [id number] Implanted:Qty: 1 on 09/23/2022 by Noman Awan MD at [facility] N/A: Spine Lumbar DePuy Sp[employer] LP-[id number] / / [id number] Graft Vivigen 15cc - [id number] - [id number] Implanted:Qty: 1 on 09/23/2022 by Noman Awan MD at [facility] N/A: Spine Lumbar [id number] 07/15/2023 BL-1500-004 / [id number] / [id number] Tomas Viper2 Cocr Exp Str 480mm - [id number] Implanted:Qty: 1 on 09/23/2022 by Noman Awan MD at [facility] N/A: Spine Lumbar DePuy Spine [employer] LP-[id number] / / Connector Top Notch 5.5x5.5 - [id number] Implanted:Qty: 5 on 09/23/2022 by Noman Awan MD at [facility] N/A: Spine Lumbar DePuy Spine Sales LP-192912 [id number] / / Single Inner Setscrew - [id number] Implanted:Qty: 8 on 09/23/2022 by Noman Awan MD at [facility] N/A: Spine Lumbar DePuy Spine Sales LP-542930 [id number] / / Chip Bone 40cc - [id number] - [id number] Implanted:Qty: 1 on 09/23/2022 by Noman Awan MD at [facility] N/A: Spine Lumbar [facility]-855720 07/27/2027 PCAN1/2 / [id number] / [id number] Implant Ifuse Bedrock Derby 10.5mm X 110mm - [id number] - [id number] Implanted:Qty: 1 on 09/23/2022 by Noman Awan MD at [facility] N/A: Spine Lumbar [employer] Inc-[id number] 04/29/2027 [id number] / [id number] / Implant Ifuse Bedrock [place] 10.5mm X 110mm - [id number] - [id number] Implanted:Qty: 1 on 09/23/2022 by Noman Awan MD at [facility] N/A: Spine Lumbar [employer] Inc-[id number] 04/29/2027 [id number] / [id number] / Switchplate Conduit Lat Ti Sm Green 2h/26.5mm - [id number] Implanted:Qty: 1 on 09/23/2022 by Noman Awan MD at [facility] N/A: Spine Lumbar [employer]onic Systems Inc-244629 02/12/2027 [id number] / / [id number] Explanted Type Area Fan Installer Device Identifier Shelf Expiration Date Model / Serial / Lot Single Inner Setscrew - [id number] Explanted:Qty : 4 on 11/12/2021 by Javier Peña MD at [facility] N/A: Spine Lumbar DePuy Spine [employer] LP-835696 11/12/2022 [id number] / / Insurance [employer] MEDIC[employer] Advance Directives * Full Code (Latest Code Status on File) Date Activated Date Inactivated Comments 09/23/2022 3:46 PM 09/29/2022 4:41 PM Question Answer Comments Patient has decision-making capacity? Yes Care Teams Sawmill Worker Relationship Specialty Start Date End Date Jl Santoro MD [address] [place] [address] PCP - General 09/22/20 Noman Awan MD [address] [address] Surgeon Neurosurgery 09/27/21
--- OUTSIDE RECORDS SUMMARY | 2024-10-17 14:17 | XMS_ITS | Encounter Summary ---
Author Organization [employer] ([place], [place], [place], [place]) Address [address] [place] [address] Care Team Providers Care Hand Weaver Name Role Phone Unavailable Primary Care Provider Unavailabl e Encounter Details Date Type Department Care Team (Late st Contact Info) Description 06/28/2019 Transcribed Document [facility] [place] [facility] [address] ProviderMono MD [address] [place] [address] Social History Tobacco Use Types [...] and water are not available, use hand junior accountant bookkeeper. ? Change your dressing as told by [...] or a bad smell. Medicines ??? Take cvlx-qgf-irnbosy and prescription medicines only as told by [...] 05/22/2016 Document Revised: 09/07/2017 Document Reviewed: 05/22/2016 Resource Interactive Interactive Patient Education ? 2019 [employer] Outpatient Surgery, Adult, Care After These [...] and water are not available, use hand junior accountant bookkeeper. ? Change your dressing as told by [...] or a bad smell. Medicines ??? Take ckar-ihe-aioshnx and prescription medicines only as told by [...] 05/22/2016 Document Revised: 09/07/2017 Document Reviewed: 05/22/2016 Else[employer] Interactive Patient Education ? 2019 [employer] documented in this encounter Plan of Treatment Not on file documented as of this encounter Visit Diagnoses Not on filedocumented in this encounter
--- OUTSIDE RECORDS SUMMARY | 2024-10-17 14:17 | XMS_ITS | Encounter Summary ---
Author Organization [employer] ([place], [place], [place], [place]) Address [address] [place] [address] Care Team Providers Care Rate Setter Name Role Phone Unavailable Primary Care Provider Unavailabl e Encounter Details Date Type Department Care Team (Late st Contact Info) Description 06/28/2019 Transcribed Document [facility] [place] [facility] [place] [address] ProviderMono MD [address] [id number] Social History Tobacco Use Types Packs/Day Years Used Date Smoking Tobacco: Never Assessed Comments Unknown Sex and Gender Information Value Date Recorded Sex Assigned at Not on file Legal Sex Female 6:26 PM CDT Gender Identity Not on file Sexual Orientation Not on file documented as of this encounter Miscellaneous Notes * Cerner Conversion Note - Mono ProviderMD - 06/28/2019 8:28 AM CDT [facility] Main OR IntraOp Summary Primary Physician: EUN MONSON MD-SNU Finalized Date/Time: 06/29/19 13:04:01 Pt. Name: ANJANA LOOO.B./Sex: 1965 Female Med Rec #: [id number] Physician: EUN MONSON MD-SNU Financial #: [id number] Pt. Type: O Room/Bed: Admit/Disch: 06/28/19 06:18:00 - 06/28/19 12:02:00 Institution: [facility] IntraOp Case Attendance Entry 1 Entry 2 Entry 3 Case Attendee EUN MONSON MD-SNU WASSON, SANDRA D, Gay Jacobsen Rn Role Performed Surgeon/Proceduralist, Detective Chief, First Detective Chief, Second First Time In 06/28/19 08:09:00 06/28/19 [...] DEN RODRÍGUEZ, GRZEGORZ GOTTI APRN, HANCOCK SMITH, CLINICAL BIOCHEMIST DIONTE WALKER Role Performed Scrub, First CLINICAL BIOCHEMIST/Nurse Ticket Taker Physician senior office support assistant sosa Time In 06/28/19 08:09:00 06/28/19 08:09:00 06/28/19 08:09:00 Time Out 06/28/19 09:14:00 06/28/19 09:14:00 06/28/19 09:14:00 Procedure Spinal Cord Stimulator Spinal Cord Stimulator Spinal Cord Stimulator Removal Removal Removal Other Attendee Superficial Wound Closed By: Last Modified By: KATHY MULLEN, KATHY CARDOZA, KATHY CARDOZA, ELVIN 06/28/19 09:14:48 06/28/19 09:14:48 06/28/19 09:14:48 Entry 7 Case Attendee Bhavani Nicole, Diagnostic Paste Maker Role Performed Steel Post Installer Supervisor Time In 06/28/19 08:09:00 Time Out 06/28/19 09:14:00 Procedure Spinal Cord Stimulator Removal Other Attendee Superficial Wound Closed By: Last Modified By: KATHY MULLEN RN 06/28/19 09:14:48 [facility] IntraOp Case Attendance Audit 06/28/19 09:14:48 Roofing Plant Supervisor: VANE Modifier: SEBASSY 1 <+> Time Out [...] Procedure Spinal Cord Stimulator Removal 06/28/19 08:14:41 Roofing Plant Supervisor: WASSONSY Modifier: WASSONSY 1 <+> Time In [...] <+> 7 Role Performed <+> 7 Procedure [facility] IntraOp Case Times Entry 1 Patient In Room Time 06/28/19 08:09:00 Out Room Time 06/28/19 09:14:00 Anesthesia Start Time 06/28/19 08:09:00 Stop Time 06/28/19 09:14:00 Surgery / Procedure Times Start Time 06/28/19 08:28:00 Stop Time 06/28/19 09:05:00 Last Modified By: KATHY MULLEN RN 06/28/19 09:14:45 [facility] IntraOp Case Times Audit 06/28/19 09:14:45 Roofing Plant Supervisor: WASSONSY Modifier: WASSONSY <+> 1 Out Room Time <+> 1 Stop Time 06/28/19 09:06:09 Roofing Plant Supervisor: WASSONSY Modifier: WASSONSY <+> 1 Stop Time 06/28/19 08:29:36 Roofing Plant Supervisor: WASSONSY Modifier: WASSONSY <+> 1 Start Time [facility] IntraOp Cautery Entry 1 Entry 2 ESU Identification Cautery Type Monopolar ESU BiPolar ESU Cautery Type Comments ID Number [id number] ID Type Hospital Number Hospital Number Cautery [...] SANDRA D, RN 06/28/19 08:31:09 06/28/19 08:31:09 [facility] IntraOp Communication Entry 1 Communication To Family/Significant other Comment START Communication By KATHY MULLEN RN Date and Time 06/28/19 08:30:00 Last Modified By: KATHY MULLEN RN 06/28/19 08:30:07 [facility] IntraOp Counts Verification Entry 1 Procedure Spinal Cord Stimulator Removal Count Info Count Type Sponge, Sharps, Miscellaneous Counts Verification Baseline/pre-procedure Sequence Count Results Not Applicable Counts Performed By Count Performed By DEN RODRÍGUEZ ST (Scrub) Count Performed By KATHY MULLEN RN (RN) Last Modified By: KATHY MULLEN RN 06/28/19 08:30:21 [facility] IntraOp Counts Final Entry 1 Procedure Spinal Cord Stimulator Removal Final Count Info Count Type Sponge, Sharps, Miscellaneous Counts Verification Skin Closure/end of Sequence procedure Count Results Correct, surgeon notified Counts Performed By Count Performed By DEN RODRÍGUEZ ST (Scrub) Count Performed By KATHY MULLEN RN (RN) Last Modified By: KATHY MULLEN RN 06/28/19 09:04:20 [facility] IntraOp Cultures and Spec Summary Entry 1 Cultrures and Specimens Specimen Ordered: Yes Test(s) Routine/Path-Lab Requested/Final Disposition Last Modified By: KATHY MULLEN RN 06/28/19 08:12:04 General Comments: a. explanted manager medical device [facility] IntraOp Delays Entry 1 Delay Reason Surgeon late - did not call Duration 7 Minute(s) Last Modified By: KATHY MULLEN RN 06/28/19 08:11:49 [facility] IntraOp Departure from OR Entry 1 Integumentary Assessment Integumentary WDL Assessment WDL Transfer/Handoff Transfer to PACU Phase I Handoff Method Phone call Post-op Transport Stretcher/Lars Via Patient Transport GRZEGORZ CARDOZO APRN, Accompanied by MANISHA, DENISE CARRERA PA-INT Last Modified By: KATHY MULLEN RN 06/28/19 08:33:19 [facility] IntraOp Dressing and Packing Entry 1 Type Dressing Location OP SITE Wound Dressing Item Other Applied By DENISE CARRERA PA-INT Other Comments NEOSPORIN OINTMENT, COVADERMS Last Modified By: KATHY MULLEN RN 06/28/19 08:34:48 [facility] IntraOp Fire Risk Assessment Entry 1 [...] Modified By: KATHY MULLEN RN 06/28/19 08:14:21 [facility] IntraOp General Case Side Door Man 1 Case Information OR OR 09 [facility] Case Level 1 Room Verified Yes Wound Class II - Clean-Contaminated Specialty SN Neurosurgery Anesthesia Type General ASA Class 2 Diagnosis Preop Diagnosis CHRONIC PAIN SYNDROME Postop Same As Preop No Postop Diagnosis SEE MD POST OP NOTE Last Modified By: KATHY MULLEN RN 06/28/19 07:59:18 [facility] IntraOp General Case Data Audit 06/28/19 07:59:18 Roofing Plant Supervisor: VANE Modifier: WASSONSY <+> 1 ASA Class [facility] IntraOp Intraoperative Assessment Entry 1 Handoff [...] Modified By: KATHY MULLEN RN 06/28/19 08:00:50 [facility] IntraOp Intraoperative Equipment Entry 1 Type Equipment Equipment Equipment Jessica Suction System ID Number [id number] Setting 200 MM HG Intraop Monitoring Electrocardiogram Five lead placement (ECG) Electrode Placement Blood Pressure Non-Invasive BP Device Source Blood Pressure Arm, right upper Location Pulse Oximeter Hand, left Probe Site Antiembolic Devices Antiembolic Devices Sequential compression device, knee high Antiembolic Device Bilateral Location Antiembolic Device [id number] ID Number Scopes Photo/Video Documentation Photo No Video No Last Modified By: KATHY MULLEN RN 06/28/19 08:12:52 [facility] IntraOp Medication Admin Entry 1 Entry 2 Entry 3 Medication/Irrigant NEOSPORIN OINTMENT GELFOAM SZ-100 --[id number] Thrombin 5,000 unit vial -- [id number] Combo Med List 1 - Combo Med [...] RN 06/28/19 08:13:37 06/28/19 08:56:47 06/28/19 08:56:47 [facility] IntraOp Medication Admin Audit 06/28/19 08:56:47 Roofing Plant Supervisor: WASSONSY Modifier: WASSONSY <+> 2 Medication/Irrigant <+> 2 Route of Administration <+> 2 Time Administered <+> 2 Combo Med List <+> 3 Medication/Irrigant <+> 3 Route of Administration <+> 3 Dose <+> 3 Time Administered <+> 3 Combo Med List <+> 3 Unit of Measure [facility] IntraOp Patient Positioning Entry 1 Procedure [...] Modified By: KATHY MULLEN RN 06/28/19 08:32:38 [facility] IntraOp Sign In Entry 1 Patient, [...] Modified By: KATHY MULLEN RN 06/28/19 08:13:11 [facility] IntraOp Sign Out Entry 1 RN [...] Modified By: KATHY MULLEN RN 06/28/19 09:15:05 [facility] IntraOp Sign Out Audit 06/28/19 09:15:05 Roofing Plant Supervisor: HAJALUPEXIN Modifier: WASSONSY <+> 1 RN Sign Out Signature Date/Time [facility] IntraOp Skin Prep Entry 1 Procedure Spinal Cord Stimulator Removal Prescribed Yes Pre-Surgical Prep Completed Prep Area BACK Intraop Prep Integumentary WDL Assessment WDL Prep Agents Chloraprep Prep by Gay Wall Rn Hair Removal Methods No hair removal performed Last Modified By: KATHY MULLEN RN 06/28/19 08:31:33 [facility] IntraOp Surgical Procedures Entry 1 Procedure Spinal Cord Stimulator Removal Additional (REMOVAL OF MEDTRONIC Procedure SPINAL CORD STIMULATOR) Description Primary Procedure Yes Primary Surgeon EUN MONSON MD-SNU Start 06/28/19 08:28:00 Stop 06/28/19 09:05:00 Anesthesia Type General Specialty SN Neurosurgery Wound Class II - Clean-Contaminated Last Modified By: KATHY MULLEN RN 06/28/19 09:06:13 General Comments: CLINDAMYCIN 900 MG IV PER ANESTHESIA [facility] IntraOp Surgical Procedures Audit 06/28/19 09:06:13 Roofing Plant Supervisor: VANE Modifier: WASLUPESY <+> 1 Stop [facility] IntraOp Temp Regulation Devices Entry 1 Temp Regulation Temperature Warm blankets, Forced Regulation Device Air Warming device Temperature 61819 Regulation Device Serial/Unit Number Temperature Upper body Regulation Site Temperature Device 43 C Setting Temperature GRZEGORZ CARDOZO APRN, Regulation Device CLINICAL BIOCHEMIST Applied by Last Modified By: KATHY MULLEN RN 06/28/19 08:34:12 [facility] IntraOP Time Out Entry 1 Procedure [...] Modified By: KATHY MULLEN RN 06/28/19 08:28:43 [facility] IntraOP Time Out Audit 06/28/19 08:28:43 Roofing Plant Supervisor: VANE Modifier: WASSONSY 1 <+> Time Out Pause Time 1 <*> Procedure to be Performed Spinal Cord Stimulator Removal [facility] IntraOp X-Ray and Images Entry 1 X-Ray/Imaging Type Fluoroscopy Fluoroscopy Type C-Arm Site OP SITE Steel Layer Name Bhavani Nicole, Diagnostic Paste Maker Last Modified By: KATHY MULLEN RN 06/28/19 08:33:42 Case Comments <None> Finalized By: CHENG JEAN Document Signatures Signed By: KATHY MULLEN RN 06/28/19 09:15 CHENG JEAN 06/29/19 13:04 Unfinalized History Date/Time Username Reason for Unfinalizing Freetext Reason for Unfinalizing 06/29/19 13:03 RIKI Correct Billing Electronically signed by Yahaira Luevano Conversion Community Integration Specialist Cerner at 06/03/2022 1:09 PM CDT documented in this encounter Plan of Treatment Not on file documented as of this encounter Visit Diagnoses Not on filedocumented in this encounter
--- OUTSIDE RECORDS SUMMARY | 2024-10-17 14:17 | XMS_ITS | Encounter Summary ---
Author Organization [employer] ([place], [place], [place], [place]) Address [address] [place] [address] Care Team Providers Care Blasting Clay Miner Name Role Phone Unavailable Primary Care Provider Unavailabl e Encounter Details Date Type Department Care Team (Late st Contact Info) Description 01/29/2019 Transcribed Document [facility] [place] [address] [place] [address] ProviderMono MD [address] [place] [address] Social History Tobacco Use Types [...] - Historical ProviderMD - 01/29/2019 2:23 PM ASSOCIATE PROFESSOR OF PATHOLOGY [place] [id number] ANJANA LOO :1965 Visit Time:01/29/2019 What to [...] your 6 week follow-up appointment. Where: [address] [place] [address]- Business (1) Medications What How Much When [...] Oral Every Day omega-3 polyunsaturated fatty acids (Portage-3 1000 mg oral capsule) Oral Two Times [...] eating solid foods. General instructions ??? Take mgya-lvl-vnyykts and prescription medicines only as told by [...] 05/22/2016 Document Revised: 09/15/2017 Document Reviewed: 05/22/2016 [employer] Interactive Patient Education ?? 2019 [employer]. Colonoscopy, Adult, Care After This sheet gives [...] soft and easy to digest. ??? Take zsfn-kvr-lrwzkyd or prescription medicines only as told by [...] 03/04/2011 Document Revised: 11/30/2017 Document Reviewed: 10/24/2016 [employer] Interactive Patient Education ?? 2019 [employer] Esophagogastroduodenoscopy, Care After Refer to this [...] 01/16/2013 Document Revised: 07/07/2016 Document Reviewed: 12/24/2015 [employer] Interactive Patient Education ?? 2019 [employer] Hemorrhoids Hemorrhoids are swollen veins in [...] times a day. General instructions ??? Take vhfb-gmi-gwpwqui and prescription medicines only as told by [...] 11/08/2008 Document Revised: 07/07/2016 Document Reviewed: 10/14/2015 [employer] Interactive Patient Education ?? 2019 [employer]. Gastritis, Adult Gastritis is swelling (inflammation) of [...] Follow these instructions at home: ??? Take hpzd-pop-skqmsgt and prescription medicines only as told by [...] sores (ulcers) in your stomach. ??? Take cmer-zoj-rwjublg and prescription medicines only as told by your doctor. This information is not intended to replace advice given to you by your health care provider. Make sure you discuss any questions you have with your health care provider. Document Released: 07/18/2008 Document Revised: 09/12/2017 Document Reviewed: 10/24/2015 [employer] Patient Education ?? 2019 [employer]. Esophagitis Esophagitis is inflammation of the esophagus. [...] vinegar, hot sauces, and barbecue sauce. ? Hopkins fruit juices and citrus fruits, such as oranges, alona, and limes. ? Tomato-based foods, such as red sauce, chili, salsa, and pizza with red sauce. ? Fried and fatty foods, such as donuts, indonesian fries, potato chips, and high-fat dressings. ? [...] any changes in your symptoms. ??? Take foyd-bvb-cfedmpe and prescription medicines only as told by [...] 03/09/2005 Document Revised: 07/07/2016 Document Reviewed: 05/27/2015 [employer] Interactive Patient Education ?? 2019 [employer]. prucalopride (proo FLAVIO oh pride) Motegrity What [...] may report side effects to FDA at 9-027-VQT-0699. What other drugs will affect prucalopride? Other drugs may affect prucalopride, including prescription and mzyf-gft-ebawffl medicines, vitamins, and herbal products. Tell your [...] to ensure that the information provided by [employer]. ('[employer]') is accurate, up-to-date, and complete, but no guarantee is made to that effect. Drug information contained herein may be time sensitive. [employer] information has been compiled for use by healthcare practitioners and consumers in the [place] and therefore [employer] does not warrant that uses outside of the [place] are appropriate, unless specifically indicated otherwise. [employer] drug information does not endorse drugs, diagnose patients or recommend therapy. [employer] drug information is an informational resource designed [...] effective or appropriate for any given patient. [employer] does not assume any responsibility for any aspect of healthcare administered with the aid of information [employer] provides. The information contained herein is not intended to cover all possible uses, directions, precautions, warnings, drug interactions, allergic reactions, or adverse effects. If you have questions about the drugs you are taking, check with your doctor, nurse or pharmacist. Copyright 9847-5996 [employer]. Version: 1.01. Revision Date: 03/27/2018. pantoprazole (oral/injection) [...] a broken bone while taking this medicine senior living or more than once per day. What [...] may report side effects to FDA at 4-110-XDD-5945. What other drugs will affect pantoprazole? Tell your doctor about all your other medicines, especially: ?? digoxin; ?? methotrexate; or ?? a diuretic or 'water pill.' This list is not complete. Other drugs may affect pantoprazole, including prescription and vnai-bhh-kjusgnm medicines, vitamins, and herbal products. Not all [...] to ensure that the information provided by [employer] ('[employer]') is accurate, up-to-date, and complete, but no guarantee is made to that effect. Drug information contained herein may be time sensitive. [employer] information has been compiled for use by healthcare practitioners and consumers in the [place] and therefore [employer] does not warrant that uses outside of the [place] are appropriate, unless specifically indicated otherwise. [employer]'s drug information does not endorse drugs, diagnose patients or recommend therapy. [employer] drug information is an informational resource designed [...] effective or appropriate for any given patient. [facility] does not assume any responsibility for any aspect of healthcare administered with the aid of information [facility] provides. The information contained herein is not intended to cover all possible uses, directions, precautions, warnings, drug interactions, allergic reactions, or adverse effects. If you have questions about the drugs you are taking, check with your doctor, nurse or pharmacist. Copyright 8526-6469 [facility]. Version: 19.02. Revision Date: 08/08/2017. Emergency Awareness [...] Assistance with quitting is available by contacting 8-875-NIPY-NOW. This is a free resource providing counseling, [...] was given the opportunity to ask questions. Patient/Gis Application Developer Name: Patient/Gis Application Developer Signature: Relationship to Patient: Clinician/Hospital Gis Application Developer Signature: Date: Electronically signed by Yahaira Luevano Conversion Avionics Electronics Technician Saige at 06/03/2022 1:10 PM CDT documented in this encounter Plan of Treatment Not on file documented as of this encounter Visit Diagnoses Not on filedocumented in this encounter
--- OUTSIDE RECORDS SUMMARY | 2024-10-17 14:17 | XMS_ITS | Encounter Summary ---
Author Organization Healthcare Address [address] [place] [address] Care Team Providers Care Food Demonstrator Name Role Phone Jl Santoro MD Primary Care Provider [phone] Noman Awan MD Unavailable [phone] Encounter Details Date Type Department Care Team (Late st Contact Info) Description 01/26/2023 Orders Only External Location [address] [place] [id number] Denise Franklin, PA [address] [place] [address] Social History Tobacco Use Types [...] drink first t brendan in the morning (EYE-PHYSICAL SCIENCE AIDE) to steady your nerves or to get [...] Description 11/05/2024 11:20 AM EDT Procedure Visit [facility] Orthopaedic Surgery & Sports Medicine [address], [address] [place] [address] Vineet Fam MD [address] [place] [address] documented as of this encounter [...] documented as of this encounter Care Teams Food Demonstrator Relationship Specialty Start Date End Date Jl Santoro MD [address] [place] [address] PCP - General 09/22/20 Noman Awan MD [address] [place] [id number] Surgeon Neurosurgery 09/27/21 documented as of this encounter
--- OUTSIDE RECORDS SUMMARY | 2024-10-17 14:17 | XMS_ITS | Encounter Summary ---
Author Organization [email or web address] ([place], [place], [place], [place]) Address [address] [place] [address] Care Team Providers Care Fisher Sponge Hooking Name Role Phone Unavailable Primary Care Provider Unavailabl e Encounter Details Date Type Department Care Team (Late st Contact Info) Description 01/29/2019 Transcribed Document [facility] [place] Medicine [address] [place] [address] ProviderMono MD [address], [place] [id number] Social History Tobacco Use Types Packs/Day Years Used Date Smoking Tobacco: Never Assessed Comments Unknown Sex and Gender Information Value Date Recorded Sex Assigned at Not on file Legal Sex Female 6:26 PM CDT Gender Identity Not on file Sexual Orientation Not on file documented as of this encounter Miscellaneous Notes * Cerner Conversion Note - Historical ProviderMD - 01/29/2019 12:30 PM ELECTRONIC IMAGER COSME Puri PreOp Summary Primary Physician: NATASHA CORDERO MD-GAE Finalized Date/Time: 01/29/19 13:01:56 Pt. Name: ANJANA LOO D.O.B./Sex: 1965 Female Med Rec #: [id number] Physician: NATASHA CORDERO MD-GAE Financial #: [id number] Pt. Type: O Room/Bed: N/13 Admit/Disch: 01/29/19 [...]
--- OUTSIDE RECORDS SUMMARY | 2024-10-17 14:17 | XMS_ITS | Encounter Summary ---
Author Organization [employer] ([place], [place], [place], [place]) Address [address] [place] [address] Care Team Providers Care Varnish Inspector Name Role Phone Unavailable Primary Care Provider Unavailabl e Encounter Details Date Type Department Care Team (Late st Contact Info) Description 06/28/2019 Transcribed Document [facility] [place] Family Medicine [address] [place] [address] ProviderMono MD [address] [place] [address] Social History Tobacco Use Types [...] Mono ProviderMD - 06/28/2019 11:29 AM CD[place] [address] ANJANA LOO :1965 Visit Time:06/28/2019 [...] MONSON When 07/30/2019 03:30 PM EDT Where: [address] [place] [address]- Business (1) Follow Up with EUN MONSON When 07/12/2019 10:13 AM EDT Comments staple removal Appointment has been made Where: [address] [place] [address] (1) Medications What How Much When Instructions [...] Times A Day omega-3 polyunsaturated fatty acids ([place]-3 1000 mg oral capsule) Oral Two Times [...] and water are not available, use hand machine repairer maintenance. ? Change your dressing as told by [...] or a bad smell. Medicines ??? Take ptgi-gqr-hdcqiny and prescription medicines only as told by [...] 05/22/2016 Document Revised: 09/07/2017 Document Reviewed: 05/22/2016 Smart[employer]Today[employer] Interactive Patient Education ?? 2019 [employer] Solutions. Outpatient Surgery, Adult, Care After These instructions [...] and water are not available, use hand machine repairer maintenance. ? Change your dressing as told by [...] or a bad smell. Medicines ??? Take jdra-bzr-qeneoqc and prescription medicines only as told by [...] 05/22/2016 Document Revised: 09/07/2017 Document Reviewed: 05/22/2016 [employer]Today[employer] Interactive Patient Education ?? 2019 Smart[employer]Today.com Inc. ondansetron (oral) (on MARICRUZ se natalie) [...] may report side effects to FDA at 9-099-EPO-9838. What other drugs will affect ondansetron? Ondansetron [...] interact with ondansetron. This includes prescription and qgpr-nxy-ixiqbbx medicines, vitamins, and herbal products. Give a [...] to ensure that the information provided by [employer]. ('Glo Bagstum') is accurate, up-to-date, and complete, but no guarantee is made to that effect. Drug information contained herein may be time sensitive. Happy Days information has been compiled for use by healthcare practitioners and consumers in the [place] and therefore [employer] Days does not warrant that uses outside of the [place] are appropriate, unless specifically indicated otherwise. [employer] drug information does not endorse drugs, diagnose patients or recommend therapy. [employer] drug information is an informational resource designed [...] effective or appropriate for any given patient. [facility] does not assume any responsibility for any aspect of healthcare administered with the aid of information [facility] provides. The information contained herein is not intended to cover all possible uses, directions, precautions, warnings, drug interactions, allergic reactions, or adverse effects. If you have questions about the drugs you are taking, check with your doctor, nurse or pharmacist. Copyright 2379-6758 [facility]. Version: 13.01. Revision Date: 12/04/2015. 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 What [...] may report side effects to FDA at 7-399-RRS-7506. What other drugs will affect pantoprazole? Tell your doctor about all your other medicines, especially: ?? digoxin; ?? methotrexate; or ?? a diuretic or 'water pill.' This list is not complete. Other drugs may affect pantoprazole, including prescription and pndm-sho-efelzze medicines, vitamins, and herbal products. Not all [...] to ensure that the information provided by [employer]. ('Multum') is accurate, up-to-date, and complete, but no guarantee is made to that effect. Drug information contained herein may be time sensitive. [employer] Days information has been compiled for use by healthcare practitioners and consumers in the [place] and therefore [employer] Days does not warrant that uses outside of the [place] are appropriate, unless specifically indicated otherwise. [employer] drug information does not endorse drugs, diagnose patients or recommend therapy. [employer] drug information is an informational resource designed [...] effective or appropriate for any given patient. [employer] does not assume any responsibility for any aspect of healthcare administered with the aid of information Happy Days provides. The information contained herein is not intended to cover all possible uses, directions, precautions, warnings, drug interactions, allergic reactions, or adverse effects. If you have questions about the drugs you are taking, check with your doctor, nurse or pharmacist. Copyright 8012-7268 [employer]. Version: 19.02. Revision Date: 08/08/2017. docusate [...] may report side effects to FDA at 7-615-GZJ-3746. What other drugs will affect docusate? Other drugs may affect docusate, including prescription and qqsw-jnq-kruzmcr medicines, vitamins, and herbal products. Tell your [...] to ensure that the information provided by [employer]. ('Multum') is accurate, up-to-date, and complete, but no guarantee is made to that effect. Drug information contained herein may be time sensitive. Happy Days information has been compiled for use by healthcare practitioners and consumers in the [place] and therefore [employer] Days does not warrant that uses outside of the [place] are appropriate, unless specifically indicated otherwise. [employer] drug information does not endorse drugs, diagnose patients or recommend therapy. [employer] drug information is an informational resource designed [...] effective or appropriate for any given patient. [facility] does not assume any responsibility for any aspect of healthcare administered with the aid of information [facility] provides. The information contained herein is not intended to cover all possible uses, directions, precautions, warnings, drug interactions, allergic reactions, or adverse effects. If you have questions about the drugs you are taking, check with your doctor, nurse or pharmacist. Copyright 8858-1747 [facility]. Version: 4.01. Revision Date: 08/20/2018. acetaminophen and [...] may report side effects to FDA at 1-734-EII-7321. What other drugs will affect acetaminophen and [...] affect acetaminophen and oxycodone, including prescription and vvzh-yko-ojunesz medicines, vitamins, and herbal products. Not all [...] to ensure that the information provided by [employer]. ('Multum') is accurate, up-to-date, and complete, but no guarantee is made to that effect. Drug information contained herein may be time sensitive. Happy Days information has been compiled for use by healthcare practitioners and consumers in the [place] and therefore [employer] Days does not warrant that uses outside of the [place] are appropriate, unless specifically indicated otherwise. [employer] drug information does not endorse drugs, diagnose patients or recommend therapy. [employer] drug information is an informational resource designed [...] effective or appropriate for any given patient. [employer] does not assume any responsibility for any aspect of healthcare administered with the aid of information [employer] Days provides. The information contained herein is not intended to cover all possible uses, directions, precautions, warnings, drug interactions, allergic reactions, or adverse effects. If you have questions about the drugs you are taking, check with your doctor, nurse or pharmacist. Copyright 4958-6751 [employer]. Version: .. Revision Date: 03/06/2019. Emergency [...] Assistance with quitting is available by contacting 4-071-BWZZ-NOW. This is a free resource providing counseling, [...] range between ( 0.0 and 7.0 ) [place] #: 0.66 K/uL -- Normal range between ( 0.16 and 1.00 ) Eos #: 0.26 x10(3)/uL -- Normal range between ( 0.00 and 0.80 ) [place] %: 10.3 % -- Normal range between [...] was given the opportunity to ask questions. Patient/Block Layer Name: Patient/Block Layer Signature: Relationship to Patient: Clinician/Hospital Block Layer Signature: Date: documented in this encounter Plan of Treatment Not on file documented as of this encounter Visit Diagnoses Not on filedocumented in this encounter
--- OUTSIDE RECORDS SUMMARY | 2024-10-17 14:17 | XMS_ITS | Encounter Summary ---
Author Organization [employer] ([place], [place], [place], [place]) Address [address] [place] [address] Care Team Providers Care Page Makeup System Operator Name Role Phone Unavailable Primary Care Provider Unavailabl e Encounter Details Date Type Department Care Team (Late st Contact Info) Description 01/29/2019 Transcribed Document [facility] [place] [facility] [place] [address] ProviderMono MD [address], [place] [id number] Social History Tobacco Use Types Packs/Day Years Used Date Smoking Tobacco: Never Assessed Comments Unknown Sex and Gender Information Value Date Recorded Sex Assigned at Not on file Legal Sex Female 6:26 PM CDT Gender Identity Not on file Sexual Orientation Not on file documented as of this encounter Miscellaneous Notes * Cerner Conversion Note - Historical ProviderMD - 01/29/2019 1:29 PM BAKER APPRENTICE [facility] PACU Summary Primary Physician: NATASHA CORDERO MD-GAE Finalized Date/Time: 01/29/19 14:44:00 Pt. Name: ANJANA LOO/Sex: 1965 Female Med Rec #: [id number] Physician: NATASHA CORDERO MD-GAE Financial #: [id number] Pt. Type: O Room/Bed: [facility] [place]/13 Admit/Disch: 01/29/19 12:04:00 - Institution: [facility] PACU Case Times Entry 1 In PACU I 01/29/19 13:58:00 Ready for PACU 01/29/19 14:42:00 Discharge Discharge from PACU 01/29/19 14:43:00 I [facility] PACU Case Times Audit 01/29/19 14:43:59 Terminal System Operator: IRINEO Modifier: BRYANTHE <+> 1 Discharge from PACU I 01/29/19 14:43:54 Terminal System Operator: LEIGHTONE Modifier: BRYANTHE <+> 1 Ready for PACU Discharge Finalized By: GO ROBERTSON RN Document Signatures Signed By: OG ROBERTSON RN 01/29/19 14:44 documented in this encounter Plan of Treatment Not on file documented as of this encounter Visit Diagnoses Not on filedocumented in this encounter
--- OUTSIDE RECORDS SUMMARY | 2024-10-17 14:17 | XMS_ITS | Clinical Summary ---
Author Organization [facility] Address [address] [place] [address] Care Team Providers Care Camper Assembler Name Role Phone Jl Santoro MD Primary Care Provider [phone] Allergies Active Allergy Reactions Criticality Noted Date [...] MG/0.1ML nasal spray Call 911. Don't prime. [place] in 1 nostril for overdose. Repeat in [...] Relation Name Comments Heart attack Maternal Grandfather Farn Tuttle Heart disease Maternal Grandfather Fran Tuttle [...] or training? Not on file Preferred Language Macedonian 10/26/2023 Comments No Sex and Gender Information [...] C SCREENING 03/19/2020 COVID-19 Vaccine (5 - 2024-2 6 season) 2024 12/08/2022, 12/24/2021, 05/07/2020, Additional history exists INFLUENZA VACCINE 11/13/2024 12/08/2022, , 11/07/2017 Medical Devices Explanted Type Area Electrical Accessories Assembler Device Identifier Shelf Expiration Date Model / Serial / Lot Medtronic Spine Stimulator-01/13 Implanted:01/26 (Quantity not on file) Implant MED[employer]ONIC [id number] / / Insurance [employer] PPO Advance Directives Documents on File Type Date Recorded 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
--- OUTSIDE RECORDS SUMMARY | 2024-10-17 14:17 | XMS_ITS | Encounter Summary ---
Author Organization [employer] ([place], [place], [place], [place]) Address [address] [place] [address] Care Team Providers Care Cloth Bleaching Range Tender Name Role Phone Unavailable Primary Care Provider Unavailabl e Encounter Details Date Type Department Care Team (Late st Contact Info) Description 06/28/2019 Transcribed Document [facility] Neurology - [address] [place] [id number] Felix Branham Jr., MD [address] [place] [address] Social History Tobacco Use Types Packs/Day [...]
--- OUTSIDE RECORDS SUMMARY | 2024-10-17 14:17 | XMS_ITS | Encounter Summary ---
Author Organization [employer] ([place], [place], [place], [place]) Address [address] [place] [address] Care Team Providers Care Process Cheese Cooker Name Role Phone Unavailable Primary Care Provider Unavailabl e Encounter Details Date Type Department Care Team (Late st Contact Info) Description 06/28/2019 Transcribed Document [facility] [place] [facility] [place] [address] ProviderMono MD [address], [place] [id number] Social History Tobacco Use Types Packs/Day Years Used Date Smoking Tobacco: Never Assessed Comments Unknown Sex and Gender Information Value Date Recorded Sex Assigned at Not on file Legal Sex Female 6:26 PM CDT Gender Identity Not on file Sexual Orientation Not on file documented as of this encounter Miscellaneous Notes * Cerner Conversion Note - Mono ProviderMD - 06/28/2019 8:28 AM CDT [facility] Main OR PACU Summary Primary Physician: EUN MONSON MD-[facility] Finalized Date/Time: 06/28/19 11:08:12 Pt. Name: ANJANA LOO D.O.B./Sex: 1965 Female Med Rec #: [id number] Physician: EUN MONSON MD-SNU Financial #: [id number] Pt. Type: O Room/Bed: Admit/Disch: 06/28/19 06:18:00 - Institution: [facility] Main OR PACU I Case Times Entry 1 In PACU I 06/28/19 09:16:00 Ready for PACU 06/28/19 11:04:00 Discharge Discharge from PACU 06/28/19 11:04:00 I Last Modified By: DOMINIQUE BROOKS RN 06/28/19 11:04:05 Finalized By: DOMINIQUE BROOKS, RN Document Signatures Signed By: DOMINIQUE BROOKS RN 06/28/19 11:08 documented in this encounter Plan of Treatment Not on file documented as of this encounter Visit Diagnoses Not on filedocumented in this encounter
--- OUTSIDE RECORDS SUMMARY | 2024-10-17 14:17 | XMS_ITS | Encounter Summary ---
Author Organization [employer] ([place], [place], [place], [place]) Address [address] [place] [address] Care Team Providers Care Cook Railroad Name Role Phone Unavailable Primary Care Provider Unavailabl e Encounter Details Date Type Department Care Team (Late st Contact Info) Description 06/27/2019 Transcribed Document [facility] [place] Family Medicine [facility] [place] [address] ProviderMono MD [address] [place] [address] Social History Tobacco Use Types [...] Source : Measured Height Entry Format : [place] Height, Feet : 5 ft(Converted to: 152 cm, 60 Inch) Height, Inches : 6 Inch(Converted to: 0 ft 6 Inch, 15.24 cm) Clinical Height : 167.64 cm Weight Source : Standing scale Weight Entry Format : [place] Clinical Dosing Weight : 82.27 kg Weight, Pounds : 181 lb Body Surface Area (BSA) : 1.92 m2 Body Mass Index : 29.3 kg/m2 (HI) [place] Body Weight : 59 kg JANETH Cassidy [...] Mariposa Amador RN - 06/27/2019 15:23 EDT [place] Suicide Severity Rating Scale (C-SSRS) CSSRS Past [...] RN - 06/28/2019 7:20 EDT 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 Support Person/Pt Rep Name : Carlton Ag - spouse Support Person/Pt Rep Contact Information : [phone] Want Family/Rep/Phys Notified of Admit : No Emergency Contact #1 : x Emergency Contact #1 Phone Number : x Emergency Contact #1 Relationship : x Emergency Contact #2 : x Emergency Contact #2 Phone Number : x Emergency Contact #2 Relationship : x Primary Language : Bahraini Communication Barrier : None Mariposa Amador RN [...] Apnea Risk Level Score : 1 JANETH Casisdy RN - 06/28/2019 7:20 EDT Hx of Obstructive Sleep Apnea Diagnosis : No Snore Loudly : No Tired, Fatigued, or Sleepy During Day : No Observed Stopping Breathing During Sleep : No Have/Are Being Treated for Hypertension : No Age over 50 Years Old : Yes Gender Male : No Mariposa Amador RN - 06/27/2019 15:23 EDT documented in this encounter Plan of Treatment Not on file documented as of this encounter Visit Diagnoses Not on filedocumented in this encounter
--- OUTSIDE RECORDS SUMMARY | 2024-10-17 14:17 | XMS_ITS | Encounter Summary ---
Author Organization [employer] ([place], [place], [place], [place]) Address [address] [place] [address] Care Team Providers Care Project Estimator Name Role Phone Unavailable Primary Care Provider Unavailabl e Encounter Details Date Type Department Care Team (Late st Contact Info) Description 06/28/2019 Transcribed Document [facility] [address] [facility] [address] [place] [id number] Felix Branham Jr., MD [address] [place] [address] [address] [place] [address] Social History Tobacco Use Types [...] spinal cord stimulator system via thoracic laminectomy. EMERGENCY VEHICLE DISPATCHER: Daniela Lebron PA-C. ANESTHESIA: General endotracheal anesthesia. [...] of stimulator system, laminectomy, and wound closure. /[id number] Felix Branham Jr, MD RDO/AQ / RDO / MODL /[id number] documented in this encounter Plan of Treatment Not on file documented as of this encounter Visit Diagnoses Not on filedocumented in this encounter
--- OUTSIDE RECORDS SUMMARY | 2024-10-17 14:17 | XMS_ITS | Encounter Summary ---
Author Organization [employer] ([place], [place], [place], [place]) Address [address] [place] [address] Care Team Providers Care Nurse Intern Name Role Phone Unavailable Primary Care Provider Unavailabl e Encounter Details Date Type Department Care Team (Late st Contact Info) Description 06/28/2019 Transcribed Document [facility] [place] [address] [place] [address] ProviderMono MD [address] [place], [place] [phone] Social History Tobacco Use Types Packs/Day Years [...] BROOKS RN Intervention Information: [email or web address] Performed by DMOINIQUE BROOKS, ELVIN on 06/28/2019 10:31:00 EDT [email or web address],[id number] [...]
--- OUTSIDE RECORDS SUMMARY | 2024-10-17 14:17 | XMS_ITS | Encounter Summary ---
Author Organization [facility] Address [address] [place] [address] Care Team Providers Care Ore Puncher Name Role Phone Jl Santoro MD Primary Care Provider [phone] Noman Awan MD Unavailable [phone] Reason for Visit * Reason Onset Date Comments HCN - Patient Message 07/17/2024 Encounter Details Date Type Department Care Team (Late st Contact Info) Description 07/17/2024 Telephone [facility] Orthopaedic Surgery & Sports Medicine [address], [address] [place] [address] Vineet Fam MD [address] [place] [address] HCN - Patient Message Social [...] drink first t brendan in the morning (EYE-CHEESE WEIGHER) to steady your nerves or to get [...] to move appointment to. Best contact number: [phone] (home) Optimal time of day to reach caller: ANYTIME Additional comments/information from caller: None Note: Please do not reply to this message. Follow-up communication and further actions as a result of this message need to be communicated with the patient directly, if the patient is not active onMyChart. If the patient is active on MyChart, they will receive notification of the communication/outcome via Dashbookt. documented in this encounter Plan of Treatment Upcoming Encounters Date Type Department Care Team (Late st Contact Info) Description 11/05/2024 11:20 AM EDT Procedure Visit [facility] Orthopaedic Surgery & Sports Medicine [address] [place] [address] Vineet Fam MD [address] [place] [address] documented as of this encounter Visit Diagnoses Not on filedocumented in this encounter Additional Health Concerns Assessment Noted Time A fall risk assessment has been complete d for the patient 06/20/2024 11:02 AM EDT A Body Mass Index follow-up plan has been documented for the patient 06/28/2024 1:16 PM EDT documented as of this encounter Care Teams Ore Puncher Relationship Specialty Start Date End Date Jl Santoro MD [address] [place] [address] PCP - General 09/22/20 Noman Awan MD [address] [facility] [address] [place] [address] Surgeon Neurosurgery 09/27/21 documented as of this encounter
--- OUTSIDE RECORDS SUMMARY | 2024-10-17 14:18 | XMS_ITS | Referral Summary ---
Author Organization [employer] ([place], [place], [place], [place]) Address [address] [place] [address] Care Team Providers Care Shotgun Shell Assembly Machine Adjuster Name Role Phone Unavailable Primary Care Provider [...]
--- OUTSIDE RECORDS SUMMARY | 2024-10-17 14:18 | XMS_ITS | Encounter Summary ---
Author Organization [employer] ([place], [place], [place], [place]) Address [address] [place] [address] Care Team Providers Care Machine Pie Maker Name Role Phone Unavailable Primary Care Provider Unavailabl e Encounter Details Date Type Department Care Team (Late st Contact Info) Description 01/29/2019 Transcribed Document [facility] [place] [facility] Family Medicine [facility] [place] [address] ProviderMono MD [address] [place] [address] Social History Tobacco Use Types [...] - Historical ProviderMD - 01/29/2019 12:42 PM SILVICULTURE TEACHER Pre Procedure Adult Entered On: 01/29/2019 12:52 EST Performed On: 01/29/2019 12:42 EST by hSona Webb RN Height and Weight, Clinical Dosing Height Source : Measured Height Entry Format : [place] Height, Feet : 5 ft(Converted to: 152 cm, 60 Inch) Height, Inches : 6 Inch(Converted to: 0 ft 6 Inch, 15.24 cm) Clinical Height : 167.64 cm Weight Source : Standing scale Weight Entry Format : [place] Clinical Dosing Weight : 81.82 kg Weight, Pounds : 180 lb Body Surface Area (BSA) : 1.91 m2 Body Mass Index : 29.1 kg/m2 (HI) [place] Body Weight : 59 kg Shona Webb [...] Webb RN - 01/29/2019 12:42 EST [place] Suicide Severity Rating Scale (C-SSRS) CSSRS Past [...] Ambulatory Legal Guardian : Spouse Support Person/Patient Curling Machine Operator : Yes Support Person/Pt Rep Name : Carlton Ag - spouse Support Person/Pt Rep Contact Information : [phone] Want Family/Rep/Phys Notified of Admit : Yes Name/Contact Info Fam/Rep Notified Adm : Carlton Spann Name/Contact Info Physician Notified Adm : Jl Santoro Emergency Contact #1 : Carlton Spann Emergency Contact #1 Emergency Contact #1 Relationship : spouse Emergency Contact #2 : na Emergency Contact #2 Phone Number : na Emergency Contact #2 Relationship : na Primary Language : Greek Communication Barrier : None Shona Webb RN [...] Scale Risk Level : 0-24 Low Risk [place] Fall Interventions : Bed in low position, Personal items within reach, Upper side-rails up, Wheels locked Shona Webb RN - 01/29/2019 12:42 EST Valuables and Belongings Valuables and Belongings : Clothing Clothing : Common streetwear Clothing Disposition : With patient Shona Webb RN - 01/29/2019 12:42 EST Electronically signed by [facility] Conversion Chief Controller Tower Cerner at 06/03/2022 12:55 PM CDT documented in this encounter Plan of Treatment Not on file documented as of this encounter Visit Diagnoses Not on filedocumented in this encounter
--- OUTSIDE RECORDS SUMMARY | 2024-10-17 14:18 | XMS_ITS | Clinical Summary ---
Author Organization [employer] ([place], [place], [place], [place]) Address [address] [place] [address] Care Team Providers Care String Winding Machine Operator Name Role Phone Unavailable Primary [...]
--- NOTE | 2024-10-17 14:30 | CA_ITS ---
FINAL REPORT TECHNIQUE: Multiple transverse and longitudinal images were performed of the right femoral-popliteal deep venous system with augmentation and compression maneuvers. CLINICAL HISTORY: EDEMA RIGHT CALF X SEVERAL WEEKS,NKI FINDINGS: Right lower extremity duplex ultrasound demonstrates normal flow in the deep venous system. There is no abnormal echogenicity to suggest thrombus. There is normal compression and augmentation. IMPRESSION: No evidence of right DVT. Reviewed, Interpreted and Dictated by Carlitos Amado MD Transcribed by Shelli Villafuerte Authenticated and [facility]
== END 2024-10-17 23:59 | disposition home or self-care (01) ==
LOC: RT 14:15
PROVIDERS: PCP Family Medicine; Visit Provider Physician Assistant
DX: M79.89 Other specified soft tissue disorders (principal); R60.0 Localized edema
CPT/HCPCS: 93971

== ENCOUNTER 2024-11-19 11:19 | Outpatient (CLI) | payer MEDICARE, SELFPAY ==
--- OUTSIDE RECORDS SUMMARY | 2024-11-05 11:20 | XMS_ITS | Encounter Summary ---
Author Organization Healthcare Address [address] [place] [address] Care Team Providers Care Automotive Parts Counter Person Name Role Phone Jl Santoro MD Primary Care Provider [phone] Noman Awan MD Unavailable [phone] Reason for Referral * Other Medical (Routine) - Pending Review Specialty Diagnoses / Procedures Referred By Contac t Referred To Contact Diagnoses Rotator cuff tendinitis, right Procedures Injection - Large Joint: R subacromial bursa Vineet Fam MD [address] [address] Phone: tel: fax: Referral ID Status Reason Start Date Expiration Date V isits Requested Visits Authorized [id number] Pending Review 11/05/2024 05/07/2026 1 1 Reason for Visit * Reason Comments Follow-up Encounter Details Date Type Department Care Team (Late st Contact Info) Description 11/05/2024 11:20 AM EDT Procedure Visit 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) to steady your nerves or to [...] Sign Reading Time Taken Comments Blood Pressure 112/73 11/05/2024 11:25 AM EDT Pulse - - Temperature - - Respiratory Rate - - Oxygen Saturation - - Inhaled Oxygen Concentration - - Weight 70.8 kg (156 lb) 11/05/2024 11:25 AM EDT Height 165.1 cm (5' 5 ) 11/05/2024 11:25 AM EDT Body Mass Index 25.96 11/05/2024 11:25 AM EDT documented in this encounter Miscellaneous Notes * Progress Notes - Pepe Ruiz MD - 11/05/2024 11:20 AM EDTAssociated Order(s): Injection - Large Joint: R subacromial bursa Post-Procedure Diagnose(s): Rotator cuff tendinitis, right Images from the original note were not included. Sports Medicine Clinic Note Encounter Date: 11/05/2024 Subjective: Chief Complaint: Shoulder pain History of Present Illness: Anjana Ag is a 59 y.o. 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 She gets injections for her chronic shoulder pain, last received a biceps tendon sheath about 4.5 months ago that was beneficial. She's had worsening of pain for the past month associated with taking care of family affairs secondary to family deaths, packing things, etc. She states that her pain is more posterior now. 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 Medications Patient's Medications [...] (150 mg) by mouth 1 (one) time eachday in the morning. CLONAZEPAM (KLONOPIN) 1 MG [...] History[1] Allergies Allergies[2] Objective: Visit Vitals BP 112/73 Ht 1.651 m (5' 5 ) Wt 70.8 kg (156 lb) BMI 25.96 kg/m?? OB Status Postmenopausal Smoking Status Never BSA 1.8 m?? GEN: Alert, cooperative, in no acute distress. MSK: Right Shoulder --Inspection: No erythema, ecchymosis, or swelling appreciated. --Palpation: No tenderness to palpation along the anterior, posterior, or lateral aspects of the shoulder. --Range of motion: 0-90 flexion, 0-90 abduction, painful with overhead movements --Strength: Shoulder: 5/5 strength with flexion, internal/external rotation, abduction, adduction of the shoulder. Pain with resisted abduction --Neurovascular: Sensation intact to light touch. 2+ radial pulses. --Special Tests: Neer's and Hawkin's maneuvers painful. pain with empty can testing., no pain with speed's today Imaging: plain radiographs of the shoulder were personally reviewed by myself and Dr. Fam which were significant for AC degeneration without significant GH degeneration. Assessment and Plan: Diagnosis Plan 1. Rotator cuff tendinitis, right 2. History of repair of right rotator cuff No orders of the defined types were placed in this encounter. Patient ID: Anjana Ag is a 59 y.o. female. Encounter Diagnoses Name Primary? Rotator cuff tendinitis, right Yes History of repair of right rotator cuff Injection - Large Joint: R subacromial bursa Indications: pain Details: 25 G needle, lateral approach Medications: 50 mg lidocaine 1 %; 2 mL ropivacaine 5 MG/ML; 40 mg Kenalog-40 40 MG/ML Outcome: tolerated well, no immediate complications US Guided Procedure Note: Indication: Shoulder pain Procedure: Sonographically guided right subacromial-subdeltoid bursa corticosteroid injection Informed Consent: Following denial of [...] in the usual sterile fashion. Patient position: lateral decubitus Approach: in plane Local anesthesia: 5 mL 1% Lidocaine Aspiration/Injection: Live sonographic guidance with a 12-5 mHz linear array transducer was used throughout the procedure. A 25g 2 inch needle was used for local anesthesia and was guided into the subacromial-subdeltoid bursa. With the needle in place, syringes were exchanged. After reconfirmation of needle placement, a mixture of 2cc 1% Ropivicaine and 1cc 40mg/mL Kenalog was injected into the sub-acromial sub-deltoid bursa. Post-Procedure Instructions:. The patient was instructed to contact me with any questions pertaining to the procedure and to inform me of the results of the procedure in approximately 7-10 days, as needed. Questions regarding general management should be directed to the patient's referring providerand the patient should keep all previously scheduled follow up appointments. Multiple don images were saved. Impression: Successful sonographically-guided right subacromial-subdeltoid bursa corticosteroid injection. Procedure, treatment alternatives, risks and benefits explained, specific risks discussed. Consent was given by the patient. Immediately prior to procedure a time out was called to verify the correctpatient, procedure, equipment, credit support counselor and site/side marked as required. Patient was prepped and draped in the usual sterile fashion. In summary, patient is a 59 y.o. year old female who presents to clinic for right shoulder pain. Based on the physical exam findings above and imaging this patient has rotator cuff tendinopathy without substantial GH degeneration or pain over the AC. Given these findings, discussed risks and benefits of injection including pain, infection, bleeding, damage to surrounding structures, increase in blood sugars. Patient opted to proceed with injection and knows not to soak for 3-5 days after injection after discussion. Opted for ultrasound guided subacromial subdeltoid bursa injection based on exam today. Follow up as needed for new or worsening symptoms or inadequate response. Patient verbalized understanding of the plan and were agreeable with no further questions. Records Reviewed: Plain Radiographs. and Prior office visits. Electronically Signed by: Pepe Ruiz MD - 11/05/2024 [1] Past Surgical History: Procedure Laterality Date ANTERIOR CERVICAL DISCECTOMY W/ FUSION 2005 BACK SURGERY x 4. CARPAL TUNNEL RELEASE CERVICAL FUSION CERVICAL LAMINECTOMY 1988 SECTION, CLASSIC HAND SURGERY LUMBAR LAMINECTOMY 2009 SHOULDER SURGERY SPINAL CORD STIMULATOR IMPLANT 2010 SPINAL FUSION 11/12/2021 [id number] fusion for deformity, L4 PSO SPINAL FUSION [...] details Cosigned by Vineet Fam MD at 11/05/2024 4:13 PM EDT Associated attestation - Vineet Fam MD - 11/05/2024 4:13 PM EDT I saw and evaluated the patient with the resident/fellow. I discussed the case with the resident/fellow and agree with the findings and plan as documented and I was present for the entirety of the procedure(s). documented in this encounter Plan of Treatment Not on file documented as of this encounter Procedures Procedure Name Priority Date/Time Associated Diagnosis Comments [place] ARTHROCENTESIS ASPIR&/INJ MAJOR JT/BURSA W/O US Routine 11/05/2024 11:20 AM EDT Rotator cuff tendinitis, right documented in this encounter Results * [place] ARTHROCENTESIS ASPIR&/INJ MAJOR JT/BURSA W/O US (11/05/2024 11:20 AM EDT) Narrative Vineet Fam MD - 11/05/2024 11:20 AM EDT Vineet Fam MD 11/05/2024 4:13 PM Injection - Large Joint: R subacromial bursa Indications: pain Details: 25 G needle, lateral approach Medications: 50 mg lidocaine 1 %; 2 mL ropivacaine 5 MG/ML; 40 mg Kenalog-40 40 MG/ML Outcome: tolerated well, no immediate complications US Guided Procedure Note: Indication: Shoulder pain Procedure: Sonographically guided right subacromial-subdeltoid bursa corticosteroid injection Informed Consent: Following denial of [...] in the usual sterile fashion. Patient position: lateral decubitus Approach: in plane Local anesthesia: 5 mL 1% Lidocaine Aspiration/Injection: Live sonographic guidance with a 12-5 mHz linear array transducer was used throughout the procedure. A 25g 2 inch needle was used for local anesthesia and was guided into the subacromial-subdeltoid bursa. With the needle in place, syringes were exchanged. After reconfirmation of needle placement, a mixture of 2cc 1% Ropivicaine and 1cc 40mg/mL Kenalog was injected into the sub-acromial sub-deltoid bursa. Post-Procedure Instructions:. The patient was instructed to contact me with any questions pertaining to the procedure and to inform me of the results of the procedure in approximately 7-10 days, as needed. Questions regarding general management should be directed to the patient's referring provider and the patient should keep all previously scheduled follow up appointments. Multiple don images were saved. Impression: Successful sonographically-guided right subacromial-subdeltoid bursa corticosteroid injection. Procedure, treatment alternatives, risks and benefits explained, specific risks discussed. Consent was given by the patient. Immediately prior to procedure a time out was called to verify the correct patient, procedure, equipment, credit support counselor and site/side marked as required. Patient was prepped and draped in the usual sterile fashion. us Vineet Fam MD IN CLINIC/BEDSIDE ORDERABLES F inal Result documented in this encounter Visit Diagnoses Diagnosis Rotator cuff tendinitis, right- Primary History of repair of right rotator cuff documented in this encounter Administered Medications Inactive Administered Medications - up to 3 most recent administrations Medication Order MAR Action Action Date Dose Rate Site lidocaine (Xylocaine) 1 % injection 50 mg 50 mg, Intra-articular, Once PRN Procedure, 1 dose, Starting on Mon11/05/24 at 1120, Until Mon11/05/24 at 1120, RoutineIndications:Rotator cuff tendinitis, right Given 11/05/2024 11:20 AM EDT 50 mg ropivacaine (Naropin) injection 2 mL 2 mL, Injection, Once PRN Procedure, 1 dose, Starting on Mon11/05/24 at 1120, Until Mon11/05/24 at 1120, RoutineIndications:Rotator cuff tendinitis, right Given 11/05/2024 11:20 AM EDT 2 mL triamcinolone acetonide (Kenalog-40) injection 40 mg 40 mg, Intra-articular, Once PRN Procedure, 1 dose, Starting on Mon11/05/24 at 1120, Until Mon11/05/24 at 1120, RoutineIndications:Rotator cuff tendinitis, right Given 11/05/2024 11:20 AM EDT 40 mg documented in this encounter Additional Health Concerns Assessment Noted Time A fall risk assessment has been complete d for the patient 11/05/2024 11:25 AM EDT A Body Mass Index follow-up plan has been documented for the patient 11/05/2024 4:13 PM EDT documented as of this encounter Care Teams Automotive Parts Counter Person Relationship Specialty Start Date End Date Jl Santoro MD [address] [place] [id number] PCP - General 09/22/20 Noman Awan MD [address] [facility] [address] [place] [id number] Surgeon Neurosurgery 09/27/21 documented as of this encounter
--- OUTSIDE RECORDS SUMMARY | 2024-11-19 11:22 | XMS_ITS | Clinical Summary ---
Author Organization [facility] Address [address] [place] [address] Care Team Providers Care Marine Operations Coordinator Name Role Phone Jl Santoro MD Primary Care Provider [phone] Allergies Active Allergy Reactions Criticality Noted Date [...] MG/0.1ML nasal spray Call 911. Don't prime. [place] in 1 nostril for overdose. Repeat in [...] or training? Not on file Preferred Language Malay 10/26/2023 Comments No Sex and Gender Information [...] WELLNESS VISIT 03/19/2020 HEPATITIS C SCREENING 03/19/2020 INFLUENZA VACCINE 09/13/2024 12/08/2022, , 11/07/2017 Medical Devices Explanted Type Area It Program Manager Device Identifier Shelf Expiration Date Model / Serial / Lot Medtronic Spine Stimulator-01/13 Implanted:01/26 (Quantity not on file) Implant [employer] [id number] / / Insurance [facility] [employer] [place] [address] Advance Directives Documents on File Type Date Recorded Patient [place] Opener Expl anation LIVING WILL - SCAN 05/07/2020 6:33 AM OMAR NG WILL 12/10/2018 Care Teams Marine Operations Coordinator Relationship Specialty Start Date End Date Jl Santoro MD [address] [place] [address] PCP - General Family Medicine 11/30/15
--- OUTSIDE RECORDS SUMMARY | 2024-11-19 11:22 | XMS_ITS | Encounter Summary ---
Author Organization [employer] ([place], [place], [place], [place]) Address [address] [place] [address] Care Team Providers Care Machine Preservative Filler Name Role Phone Unavailable Primary Care Provider Unavailabl e Encounter Details Date Type Department Care Team (Late st Contact Info) Description 01/29/2019 Transcribed Document [facility] Family Medicine Replaced by [facility] [place] [address] ProviderMono MD [address] [id number] Social History Tobacco Use Types Packs/Day Years Used Date Smoking Tobacco: Never Assessed Comments Unknown Sex and Gender Information Value Date Recorded Sex Assigned at Not on file Legal Sex Female 6:26 PM CDT Gender Identity Not on file Sexual Orientation Not on file documented as of this encounter Miscellaneous Notes * Cerner Conversion Note - Historical ProviderMD - 01/29/2019 1:29 PM RN [facility] PACU Summary Primary Physician: NATASHA CORDERO MD-GAE Finalized Date/Time: 01/29/19 14:44:00 Pt. Name: ANJANA LOO/Sex: 1965 Female Med Rec #: [id number] Physician: NATASHA CORDERO MD-GAE Financial #: [id number] Pt. Type: O Room/Bed: [facility]/13 Admit/Disch: 01/29/19 12:04:00 - Institution: [facility] PACU Case Times Entry 1 In PACU I 01/29/19 13:58:00 Ready for PACU 01/29/19 14:42:00 Discharge Discharge from PACU 01/29/19 14:43:00 I [facility] PACU Case Times Audit 01/29/19 14:43:59 Bisque Ware Dipper: IRINEO Modifier: BRYANTHE <+> 1 Discharge from PACU I 01/29/19 14:43:54 Bisque Ware Dipper: LEIGHTONE Modifier: BRYANTHE <+> 1 Ready for PACU Discharge Finalized By: OG ROBERTSON RN Document Signatures Signed By: OG ROBERTSON RN 01/29/19 14:44 documented in this encounter Plan of Treatment Not on file documented as of this encounter Visit Diagnoses Not on filedocumented in this encounter
--- OUTSIDE RECORDS SUMMARY | 2024-11-19 11:22 | XMS_ITS | Clinical Summary ---
Author Organization Healthcare Address [address] [place] [address] Care Team Providers Care Wheel Press Clerk Name Role Phone Jl Santoro MD Primary Care Provider [phone] Noman Awan MD Unavailable [phone] Allergies Active Allergy Reactions Criticality Noted [...] sertraline (Zoloft) 100 MG tablet 4 Active Hospital, Clinic, or Other Facility Administered Medication Ordered Dose Route Frequency Start Date End Date Status triamcinolone acetonide (Kenalog-40) injection 40 mgIndications:Rotato r cuff tendinitis, right 40 mg IX Once PRN Procedure 11/05/2024 11/05/2024 Ended ropivacaine (Naropin) injection 2 mLIndications:Rotato r cuff tendinitis, right 2 mL IJ Once PRN Procedure 11/05/2024 11/05/2024 Ended lidocaine (Xylocaine) 1 % injection 50 mgIndications:Rotato r cuff tendinitis, right 50 mg IX Once PRN Procedure 11/05/2024 11/05/2024 Ended Active Problems Problem Noted Date Diagnosed Date [...] syndrome 11/13/2021 Overview (11/13/2021): Continue home requip Fibromyalgia 11/13/2021 Overview (11/13/2021): Resume home medications as approrpiate Flat back syndrome 10/01/2021 Overview (11/13/2021): S/p L4 pedicle subtraction osteotomy with T10 to pelvis fusion & PSO on 11/12 per Neurosurgery IV NURSE RECRUITER, cyclobenzaprine, gabapentin, tylenol Post-op CXR pending Post-op [...] Loosening of hardware in spine 09/22/2022 09/29/2022 Insomnia 11/13/2021 11/03/2024 Overview (11/13/2021): Continue home meds as appropriate Backache 11/12/2021 11/13/2021 Overview (11/12/2021): Chronic, Resume home medications as appropriate Complicates all aspects of care. S/p L4 pedicle subtraction osteotomy with T10 to pelvis fusion & PSO on 11/12 per Neurosurgery Pain team consult, pending extubation post-op Rest of management per primary team Feeding difficulty 11/12/2021 Overview (11/12/2021): As related to mech vent weaning post-op 11/12 NG/OG as necessary for PO access Nutrition consulted for TF recs, appreciate coordination of care Tube feeding per nutritional recommendations via DHT BRINE PURIFIER consult as indicated Encounter for weaning from [...] appropriate Continue close monitoring and supportive care Post-op pain 11/12/2021 11/03/2024 Overview (11/13/2021): See flat back syndrome History of lumbar fusion 10/01/2021 Overview (10/01/2021): Added automatically from request for surgery [id number] Fusion of spine, lumbosacral region 07/01/2021 11/12/2021 Cervical spondylolysis 01/14/202011/12 Cervical spondylosis with radiculopathy 12/09/2019 11/12/2021 Lumbar radicular pain 12/09/20192021 Overview (11/12/2021): Resume home medications as appropriate Complicates all aspects of care. Encounters Date Type Department Care Team Description 11/05/2024 11:20 AM EDT Procedure Visit [facility] [address], [address] [place] [address] Vineet Fam MD Rotator cuff tendinitis, right (Primary Dx); History of repair of right rotator cuff 11/05/2024 Travel 11/04/2024 Travel 11/02/2024 Orders Only External Location [address] [place] [address] Provider, External 09/09/[address] [facility] [address], [address] [place] [address] Vineet Fam MD [facility] Clinical Concern/Question from Last 3 Months Immunizations Immunization Administration [...] drink first t brendan in the morning (EYE-MAIN ENTREE COOK AND CASHIER) to steady your nerves or to get [...] Pressure 112/73 11/05/2024 11:25 AM EDT Pulse 59 03/23/2023 11:10 AM EST Temperature 36.1 C (96.9 F) 03/23/2023 10:04 AM EST Respiratory Rate 18 03/23/2023 11:10 AM EST Oxygen Saturation 95% 03/23/2023 11:10 AM EST Inhaled Oxygen Concentration - - Weight 70.8 kg (156 lb) 11/05/2024 11:25 AM EDT Height 165.1 cm (5' 5 ) 11/05/2024 11:25 AM EDT Body Mass Index 25.96 11/05/2024 11:25 AM EDT Plan of Treatment Health Maintenance [...] of 2) 2013 [facility]-Depression Screening 03/17/2024 03/17/2023 [facility]-HPCCN-13 Vaccine (6 - Pfizer risk 2023- season) 2024 11/23/2023, 12/08/2022, 12/24/2021, Additional history exists [facility]-Influenza Vaccine (#1) 10/14/202411/22, 12/08/2022, 11/28/2018, Additional history exists [facility]-RSV Vaccine: 60+ Years or Completed 11/23/2023 [facility]-Obesity Intervention Completed 025, 06/20/2024, 10/25/2023, Additional history exists HPV Vaccines Aged Out [...] this topic Medical Devices Implanted Type Area Paper Conservator Device Identifier Shelf Expiration Date Model / Serial / Lot Plate Plate N/A: Back Screw Exp Viper Lg Tit 9x100 - S. - [id number] Implanted:Qty: 1 on 11/12/2021 by Noman Awan MD at [facility] Screw N/A: Spine Lumbar DePuy Spine Sales LP-[id number] 11/12/2022 [id number] / . / Screw 5.5mm Viper Ti Fen Crtcl Polyax 8mm X 45mm - S. - [id number] Implanted:Qty: 3 on 11/12/2021 by Noman Awna MD at [facility] Screw N/A: Spine Lumbar DePuy Spine Sales LP-[id number] 11/12/2022 [id number] / . / Screw 5.5mm Viper Ti Fen Crtcl Polyax 6mm X 45mm - S. - [id number] Implanted:Qty: 2 on 11/12/2021 by Noman Awan MD at [facility] Screw N/A: Spine Lumbar DePuy Spine [employer] LP-[id number] 11/12/2022 [id number] / . / Screw 5.5mm Viper Ti Fen Crtcl Polyax 6mm X 50mm - S. - [id number] Implanted:Qty: 5 on 11/12/2021 by Noman Awan MD at [facility] Screw N/A: Spine Lumbar DePuy Spine Sales LP-[id number] 11/12/2022 [id number] / . / Screw 5.5mm Viper Ti Fen Crtcl Polyax 7mm X 45mm - S. - [id number] Implanted:Qty: 2 on 11/12/2021 by Noman Awan MD at [facility] Screw N/A: Spine Lumbar DePuy Spine [employer] LP-[id number] 11/12/2022 [id number] / . / Screw 5.5mm Viper Ti Fen Crtcl Polyax 7mm X 50mm - S. - [id number] Implanted:Qty: 3 on 11/12/2021 by Noman Awan MD at [facility] Screw N/A: Spine Lumbar DePuy Spine Sales LP-[id number] 11/12/2022 [id number] / . / Tomas 5.5 Expedium Cocr Precontoured Medium - [id number] Implanted:Qty: 2 on 11/12/2021 by Noman Awan MD at [facility] N/A: Spine Lumbar DePuy Spine Sales LP-[id number] 11/12/2022 [id number] / / Single Inner Setscrew - [id number] Implanted:Qty: 17 on 11/12/2021 by Noman Awan MD at [facility] N/A: Spine Lumbar DePuy Spine Sales LP-365023 11/12/2022 [id number] / / Chip Bone 20cc - [id number] - [id number] Implanted:Qty: 1 on 11/12/2021 by Noman Awan MD at [facility] N/A: Spine Lumbar [facility]-541830 06/02/2026 PCAN1/4 / [id number] / [id number] Chip Bone 20cc - [id number] - [id number] Implanted:Qty: 1 on 11/12/2021 by Noman Awan MD at [facility] N/A: Spine Lumbar [facility]-915807 05/16/2026 PCAN1/4 / [id number] / [id number] Matrix Fibergraft Bg Lg 12.5cc - [id number] Implanted:Qty: 1 on 11/12/2021 by Noman Awan MD at [facility] DePuy Spine Sales LP-[id number] 10/30/2023 [id number] / / [id number] Matrix Fibergraft Bg Lg 12.5cc - [id number] Implanted:Qty: 1 on 11/12/2021 by Noman Awan MD at [facility] Spine Sales LP-397417 12/17/2023 [id number] / / [id number] Kit Jazz Pranav Connector 5.5mm - [id number] Implanted:Qty: 1 on 11/12/2021 by Noman Awan MD at [facility] N/A: Spine Lumbar Implanet Em[employer] Inc-[id number] 07/10/2025 [id number] / / Kit Jazz Pranav Connector 5.5mm - [id number] Implanted:Qty: 1 on 11/12/2021 by Noman Awan MD at [facility] N/A: Spine Lumbar Implanet [employer] Inc-[id number] 07/10/2025 [id number] / / Band Jazz Lock Open Braid V3 - [id number] Implanted:Qty: 1 on 11/12/2021 by Noman Awan MD at [facility] N/A: Spine Lumbar Implanet [employer] Inc-[id number] 08/10/2025 [id number] / / Band Jazz Lock Open Braid V3 - [id number] Implanted:Qty: 1 on 11/12/2021 by Noman Awan MD at [facility] N/A: Spine Lumbar Implanet [employer] Inc-[id number] 08/10/2025 [id number] / / Graft Vivigen 5cc - [id number] - [id number] Implanted:Qty: 1 on 09/23/2022 by Noman Awan MD at [facility] N/A: Spine [facility]-288596 08/01/2023 BL-1500-002 / [id number] / [id number] Screw Aegis Ant Lumbar Ti Fuchsia 5.2x36mm - [id number] Implanted:Qty: 2 on 09/23/2022 by Noman Awan MD at [facility] N/A: Spine Lumbar [employer]onic Systems Inc-[id number] / / Llif Ui H 8mm 8deg 50/18 - [id number] Implanted:Qty: 1 on 09/23/2022 by Noman Awan MD at [facility] N/A: Spine Lumbar DePuy Spine Sales LP-[id number] [id number] / / [id number] Graft Vivigen 15cc - [id number] - [id number] Implanted:Qty: 1 on 09/23/2022 by Noman Awan MD at [facility] N/A: Spine Lumbar [facility]-029154 07/15/2023 BL-1500-004 / [id number] / [id number] Tomas Viper2 Cocr Exp Str 480mm - [id number] Implanted:Qty: 1 on 09/23/2022 by Noman Awan MD at [facility] N/A: Spine Lumbar DePuy Spine Sales LP-691012 [id number] / / Connector Top Notch 5.5x5.5 - [id number] Implanted:Qty: 5 on 09/23/2022 by Noman Awan MD at [facility] N/A: Spine Lumbar DePuy Spine Sales LP-[id number] / / Single Inner Setscrew - [id number] Implanted:Qty: 8 on 09/23/2022 by Noman Awan MD at [facility] N/A: Spine Lumbar DePuy Spine Sales LP-735825 [id number] / / Chip Bone 40cc - [id number] - [id number] Implanted:Qty: 1 on 09/23/2022 by Noman Awan MD at [facility] N/A: Spine Lumbar [facility]-465897 07/27/2027 PCAN1/2 / [id number] / [id number] Implant Ifuse Bedrock [place] 10.5mm X 110mm - [id number] - [id number] Implanted:Qty: 1 on 09/23/2022 by Noman Awan MD at [facility] N/A: Spine Lumbar SI-BONE Inc-[id number] 04/29/2027 [id number] / [id number] / Implant Ifuse Bedrock [place] 10.5mm X 110mm - [id number] - [id number] Implanted:Qty: 1 on 09/23/2022 by Noman Awan MD at [facility] N/A: Spine Lumbar SI-BONE Inc-[id number] 04/29/2027 [id number] / [id number] / Switchplate Conduit Lat Ti Sm Green 2h/26.5mm - [id number] Implanted:Qty: 1 on 09/23/2022 by Noman Awan MD at [facility] N/A: Spine Lumbar Transonic Systems Inc-[id number] 02/12/2027 [id number] / / [id number] Explanted Type Area Paper Conservator Device Identifier Shelf Expiration Date Model / Serial / Lot Single Inner Setscrew - [id number] Explanted:Qty : 4 on 11/12/2021 by Javier Peña MD at [facility] N/A: Spine Lumbar Beaminguy Spine Sales LP-132873 11/12/2022 [id number] / / Procedures Procedure Name Priority Date/Time Associated Diagnosis Comments CO ARTHROCENTESIS ASPIR&/INJ MAJOR JT/BURSA W/O US Routine 11/05/2024 11:20 AM EDT Rotator cuff tendinitis, right POC ULTRASOUND 11/02/2024 from Last 3 Months Results * CO ARTHROCENTESIS ASPIR&/INJ MAJOR JT/BURSA W/O US (11/05/2024 [...] to verify the correct patient, procedure, equipment, technical support engineer and site/side marked as required. Patient was prepped and draped in the usual sterile fashion. Vineet Fam MD IN CLINIC/BEDSIDE ORDERABLES F inal Result * POC Imaging (11/02/2024) Anatomical Region Laterality Modality Pelvis Other 11/02/2024 us External Provider IMG POINT OF CARE ULTRASOUND E dited Result - Final from Last 3 Months Insurance [employer] MEDICARE Advance Directives * Full Code (Latest Code Status on File) Date Activated Date Inactivated Comments 09/23/2022 3:46 PM 09/29/2022 4:41 PM Question Answer Comments Patient has decision-making capacity? Yes Care Teams Wheel Press Clerk Relationship Specialty Start Date End Date Jl Santoro MD [address] [place] [address] PCP - General 09/22/20 Noman Awan MD [address] [place] [address] Surgeon Neurosurgery 09/27/21
--- OUTSIDE RECORDS SUMMARY | 2024-11-19 11:22 | XMS_ITS | Encounter Summary ---
Author Organization [employer] ([place], [place], [place], [place]) Address [address] [place] [address] Care Team Providers Care Assistant Track And Field Coach Name Role Phone Unavailable Primary Care Provider Unavailabl e Encounter Details Date Type Department Care Team (Late st Contact Info) Description 06/27/2019 Transcribed Document [facility] Family Medicine [facility] [address] ProviderMono MD [address] [place] [address] Social History Tobacco Use Types [...] Source : Measured Height Entry Format : Sharkey Height, Feet : 5 ft(Converted to: 152 cm, 60 Inch) Height, Inches : 6 Inch(Converted to: 0 ft 6 Inch, 15.24 cm) Clinical Height : 167.64 cm Weight Source : Standing scale Weight Entry Format : Sharkey Clinical Dosing Weight : 82.27 kg Weight, Pounds : 181 lb Body Surface Area (BSA) : 1.92 m2 Body Mass Index : 29.3 kg/m2 (HI) [place] Body Weight : 59 kg JANETH Cassidy [...] Mariposa Amador RN - 06/27/2019 15:23 EDT [place] Suicide Severity Rating Scale (C-SSRS) CSSRS Past [...] RN - 06/28/2019 7:20 EDT Support Person/Patient Insulator Cutter And Former : Yes Support Person/Pt Rep Name : Carlton Ag - spouse Support Person/Pt Rep Contact Information : [phone] Want Family/Rep/Phys Notified of Admit : No Emergency Contact #1 : x Emergency Contact #1 Phone Number : x Emergency Contact #1 Relationship : x Emergency Contact #2 : x Emergency Contact #2 Phone Number : x Emergency Contact #2 Relationship : x Primary Language : Maltese Communication Barrier : None Mariposa Amador RN [...]
--- OUTSIDE RECORDS SUMMARY | 2024-11-19 11:22 | XMS_ITS | Encounter Summary ---
Author Organization [employer] ([place], [place], [place], [place]) Address [address] [place] [address] Care Team Providers Care Climatology Professor Name Role Phone Unavailable Primary Care Provider Unavailabl e Encounter Details Date Type Department Care Team (Late st Contact Info) Description 06/28/2019 Transcribed Document [facility] [address] [address] [place] [id number] Felix Branham Jr., MD [address] [place] [address] [address] [place] [address] Social History Tobacco Use Types [...] spinal cord stimulator system via thoracic laminectomy. HEALTH SERVICE WORKER: Daniela Lebron PA-C. ANESTHESIA: General endotracheal anesthesia. [...] of stimulator system, laminectomy, and wound closure. /[id number] Felix Branham Jr, MD RDO/AQ / RDO / MODL /[id number] documented in this encounter Plan of Treatment Not on file documented as of this encounter Visit Diagnoses Not on filedocumented in this encounter
--- OUTSIDE RECORDS SUMMARY | 2024-11-19 11:22 | XMS_ITS | Encounter Summary ---
Author Organization [employer] ([place], [place], [place], [place]) Address [address] [place] [address] Care Team Providers Care Chief Merchandising Officer Name Role Phone Unavailable Primary Care Provider Unavailabl e Encounter Details Date Type Department Care Team (Late st Contact Info) Description 06/28/2019 Transcribed Document [facility] Family Medicine [place] [address] ProviderMono MD [address] [place] [address] Social History Tobacco Use Types [...] and water are not available, use hand public health officer. ? Change your dressing as told by [...] or a bad smell. Medicines ??? Take udmw-msf-rerzhfz and prescription medicines only as told by [...] 05/22/2016 Document Revised: 09/07/2017 Document Reviewed: 05/22/2016 [employer] Patient Education ? 2019 [employer] Outpatient Surgery, Adult, Care After These [...] and water are not available, use hand public health officer. ? Change your dressing as told by [...] or a bad smell. Medicines ??? Take icle-wsr-stghzlk and prescription medicines only as told by [...] 05/22/2016 Document Revised: 09/07/2017 Document Reviewed: 05/22/2016 [employer] Patient Education ? 2019 [employer] documented in this encounter Plan of Treatment Not on file documented as of this encounter Visit Diagnoses Not on filedocumented in this encounter
--- OUTSIDE RECORDS SUMMARY | 2024-11-19 11:22 | XMS_ITS | Encounter Summary ---
Author Organization [employer] ([place], [place], [place], [place]) Address [address] [place] [address] Care Team Providers Care Trash Truck Driver Name Role Phone Unavailable Primary Care Provider Unavailabl e Encounter Details Date Type Department Care Team (Late st Contact Info) Description 06/28/2019 Transcribed Document [facility] Neurology - [address] [place] [address] Felix Branham Jr., MD [address] [place] [address] Social History Tobacco Use Types Packs/Day [...]
--- OUTSIDE RECORDS SUMMARY | 2024-11-19 11:22 | XMS_ITS | Encounter Summary ---
Author Organization Healthcare Address [address] [place] [address] Care Team Providers Care Rib Bender Name Role Phone Jl Santoro MD Primary Care Provider [phone] Noman Awan MD Unavailable [phone] Encounter Details Date Type Department Care Team (Latest Contact Info) Description 11/04/2024 Travel Social History Tobacco Use Types Packs/Day [...] Have you had a drink first t rbendan in the morning (EYE-TEACHERS ASSISTANT) to steady your nerves or to get [...] documented as of this encounter Care Teams Rib Bender Relationship Specialty Start Date End Date Jl Santoro MD [address] [place] [address] PCP - General 09/22/20 Noman Awan MD [address] [facility] [address] [place] [address] Surgeon Neurosurgery 09/27/21 documented as of this encounter
--- OUTSIDE RECORDS SUMMARY | 2024-11-19 11:22 | XMS_ITS | Encounter Summary ---
Author Organization Healthcare Address [address] [place] [address] Care Team Providers Care Logistics Account Manager Name Role Phone Jl Santoro MD Primary Care Provider Noman Awan MD Unavailable Encounter Details Date Type Department Care Team (Latest Contact Info) Description 11/05/2024 Travel Social History Tobacco Use Types Packs/Day [...] drink first t brendan in the morning (EYE-CORPORATE PARALEGAL) to steady your nerves or to get [...] documented as of this encounter Care Teams Logistics Account Manager Relationship Specialty Start Date End Date Jl Santoro MD [address] [place] [address] PCP - General 09/22/20 Noman Awan MD [address] [facility] [address] [place] [address] Surgeon Neurosurgery 09/27/21 documented as of this encounter
--- OUTSIDE RECORDS SUMMARY | 2024-11-19 11:22 | XMS_ITS | Encounter Summary ---
Author Organization [employer] ([place], [place], [place], [place]) Address [address] [place] [address] Care Team Providers Care Sales Center Associate Name Role Phone Unavailable Primary Care Provider Unavailabl e Encounter Details Date Type Department Care Team (Late st Contact Info) Description 06/28/2019 Transcribed Document [facility] Neurology - [address] [facility] [address] [place] [address] Eun Monson Jr., MD [address] [place] [address] [address] [place] [address] Social History Tobacco Use Types [...]
--- OUTSIDE RECORDS SUMMARY | 2024-11-19 11:22 | XMS_ITS | Encounter Summary ---
Author Organization [employer] ([place], [place], [place], [place]) Address [address] [place] [address] Care Team Providers Care Car Conditioner Name Role Phone Unavailable Primary Care Provider Unavailabl e Encounter Details Date Type Department Care Team (Late st Contact Info) Description 06/28/2019 Transcribed Document [facility] [place] [address] [place] [address] ProviderMono MD [address] [place], [place] [id number] Social History Tobacco Use Types Packs/Day Years [...] DOMINIQUE BROOKS RN - 06/28/2019 11:06 EDT Electronically signed by Yahaira Luevano Conversion Aviation Tactical Readiness Officer Cerner at 06/05/2022 12:45 PM CDT documented in this encounter Plan of Treatment Not on file documented as of this encounter Visit Diagnoses Not on filedocumented in this encounter
--- OUTSIDE RECORDS SUMMARY | 2024-11-19 11:22 | XMS_ITS | Encounter Summary ---
Author Organization [employer] ([place], [place], [place], [place]) Address [address] [place] [address] Care Team Providers Care Wrapper Dipper Name Role Phone Unavailable Primary Care Provider Unavailabl e Encounter Details Date Type Department Care Team (Late st Contact Info) Description 06/28/2019 Transcribed Document [facility] [place] [facility] [place] [address] ProviderMono MD [address] [place] [id number] Social History Tobacco Use Types Packs/Day Years Used Date Smoking Tobacco: Never Assessed Comments Unknown Sex and Gender Information Value Date Recorded Sex Assigned at Not on file Legal Sex Female 6:26 PM CDT Gender Identity Not on file Sexual Orientation Not on file documented as of this encounter Miscellaneous Notes * Cerner Conversion Note - Mono ProviderMD - 06/28/2019 8:28 AM CDT [facility] Main OR Preop Summary Primary Physician: EUN MONSON MD-LEXX Finalized Date/Time: 06/28/19 10:38:04 Pt. Name: ANJANA LOO D.O.B./Sex: 1965 Female Med Rec #: [id number] Physician: EUN MONSON MD- Financial #: [id number] Pt. Type: O Room/Bed: /16 Admit/Disch: 06/28/19 06:18:00 - Institution: [facility] PreOp Case Times Entry 1 In Preop 06/28/19 06:30:00 Ready for Holding n/a Room Patient Ready for 06/28/19 07:45:00 Surgery Patient Out of Preop 06/28/19 08:06:00 Patient Out of n/a Holding Room Last Modified By: JANETH Cassidy RN 06/28/19 10:38:02 Finalized By: JANETH Cassidy RN Document Signatures Signed By: JANETH Cassidy RN 06/28/19 10:38 Electronically signed by Chloé [facility] Conversion Grader Operator Cerner at 06/03/2022 1:03 PM CDT documented in this encounter Plan of Treatment Not on file documented as of this encounter Visit Diagnoses Not on filedocumented in this encounter
--- OUTSIDE RECORDS SUMMARY | 2024-11-19 11:22 | XMS_ITS | Encounter Summary ---
Author Organization [employer] ([place], [place], [place], [place]) Address [address] [place] [address] Care Team Providers Care Package Winder Name Role Phone Unavailable Primary Care Provider Unavailabl e Encounter Details Date Type Department Care Team (Late st Contact Info) Description 01/29/[address] 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 Where: [address] [place] [address]- Business (1) Medications What How Much When [...] Oral Every Day omega-3 polyunsaturated fatty acids ([place]-3 1000 mg oral capsule) Oral Two Times [...] eating solid foods. General instructions ??? Take hwju-dfc-kteicvl and prescription medicines only as told by [...] 05/22/2016 Document Revised: 09/15/2017 Document Reviewed: 05/22/2016 [employer] Patient Education ?? 2019 [employer]. Colonoscopy, Adult, Care After This sheet gives [...] soft and easy to digest. ??? Take stfe-iot-tsargqw or prescription medicines only as told by [...] 03/04/2011 Document Revised: 11/30/2017 Document Reviewed: 10/24/2016 [employer] Patient Education ?? 2019 [employer] Esophagogastroduodenoscopy, Care After Refer to this [...] 01/16/2013 Document Revised: 07/07/2016 Document Reviewed: 12/24/2015 [employer] Interactive Patient Education ?? 2019 [employer] Hemorrhoids Hemorrhoids are swollen veins in [...] times a day. General instructions ??? Take jkil-iru-hmcmfjy and prescription medicines only as told by [...] 11/08/2008 Document Revised: 07/07/2016 Document Reviewed: 10/14/2015 [employer] Interactive Patient Education ?? 2019 [employer]. Gastritis, Adult Gastritis is swelling (inflammation) of [...] Follow these instructions at home: ??? Take amwo-xfh-rmlofjt and prescription medicines only as told by [...] sores (ulcers) in your stomach. ??? Take fvig-sga-efuurdk and prescription medicines only as told by your doctor. This information is not intended to replace advice given to you by your health care provider. Make sure you discuss any questions you have with your health care provider. Document Released: 07/18/2008 Document Revised: 09/12/2017 Document Reviewed: 10/24/2015 [employer] Patient Education ?? 2019 [employer]. Esophagitis Esophagitis is inflammation of the esophagus. [...] vinegar, hot sauces, and barbecue sauce. ? [place] fruit juices and citrus fruits, such as oranges, alona, and limes. ? Tomato-based foods, such as red sauce, chili, salsa, and pizza with red sauce. ? Fried and fatty foods, such as donuts, estonian fries, potato chips, and high-fat dressings. ? [...] any changes in your symptoms. ??? Take dfag-vkr-hvfqbyh and prescription medicines only as told by [...] 03/09/2005 Document Revised: 07/07/2016 Document Reviewed: 05/27/2015 [employer] Interactive Patient Education ?? 2019 [employer]. prucalopride (proo FLAVIO oh pride) Motegrity What [...] may report side effects to FDA at 5-057-JVF-3667. What other drugs will affect prucalopride? Other drugs may affect prucalopride, including prescription and rblk-zfd-bvchpmz medicines, vitamins, and herbal products. Tell your [...] to ensure that the information provided by [employer] ('[employer]') is accurate, up-to-date, and complete, but no guarantee is made to that effect. Drug information contained herein may be time sensitive. [facility] information has been compiled for use by healthcare practitioners and consumers in the [place] and therefore [facility] does not warrant that uses outside of the [place] are appropriate, unless specifically indicated otherwise. [facility] drug information does not endorse drugs, diagnose patients or recommend therapy. [facility] drug information is an informational resource designed [...] effective or appropriate for any given patient. [facility] does not assume any responsibility for any aspect of healthcare administered with the aid of information [facility] provides. The information contained herein is not intended to cover all possible uses, directions, precautions, warnings, drug interactions, allergic reactions, or adverse effects. If you have questions about the drugs you are taking, check with your doctor, nurse or pharmacist. Copyright 9099-1493 [employer]. Version: 1.01. Revision Date: 03/27/2018. pantoprazole (oral/injection) [...] a broken bone while taking this medicine terminal carman or more than once per day. What [...] may report side effects to FDA at 9-804-ULA-0328. What other drugs will affect pantoprazole? Tell your doctor about all your other medicines, especially: ?? digoxin; ?? methotrexate; or ?? a diuretic or 'water pill.' This list is not complete. Other drugs may affect pantoprazole, including prescription and hagr-kza-ccuvkzi medicines, vitamins, and herbal products. Not all [...] to ensure that the information provided by [employer]') is accurate, up-to-date, and complete, but no guarantee is made to that effect. Drug information contained herein may be time sensitive. [facility] information has been compiled for use by healthcare practitioners and consumers in the [place] and therefore [employer] [facility] does not warrant that uses outside of the [place] are appropriate, unless specifically indicated otherwise. [facility] drug information does not endorse drugs, diagnose patients or recommend therapy. [facility] drug information is an informational resource designed [...] effective or appropriate for any given patient. [facility] does not assume any responsibility for any aspect of healthcare administered with the aid of information [facility] provides. The information contained herein is not intended to cover all possible uses, directions, precautions, warnings, drug interactions, allergic reactions, or adverse effects. If you have questions about the drugs you are taking, check with your doctor, nurse or pharmacist. Copyright 8810-4442 [facility]. Version: 19.02. Revision Date: 08/08/2017. Emergency Awareness [...] Assistance with quitting is available by contacting 6-521-RIIL-NOW. This is a free resource providing counseling, [...] was given the opportunity to ask questions. Patient/Licensed Veterinary Technician Name: Patient/Licensed Veterinary Technician Signature: Relationship to Patient: Clinician/Hospital Licensed Veterinary Technician Signature: Date: documented in this encounter Plan of Treatment Not on file documented as of this encounter Visit Diagnoses Not on filedocumented in this encounter
--- OUTSIDE RECORDS SUMMARY | 2024-11-19 11:22 | XMS_ITS | Encounter Summary ---
Author Organization [employer] ([place], [place], [place], [place]) Address [address] [place] [address] Care Team Providers Care Florist'S Decorator Name Role Phone Unavailable Primary Care Provider Unavailabl e Encounter Details Date Type Department Care Team (Late st Contact Info) Description 06/28/2019 Transcribed Document [facility] [place] [address] ProviderMono MD [address] [place] [address] Social History Tobacco Use Types [...] Source : Measured Height Entry Format : [place] Height, Feet : 5 ft(Converted to: 152 cm, 60 Inch) Height, Inches : 6 Inch(Converted to: 0 ft 6 Inch, 15.24 cm) Clinical Height : 167.64 cm Weight Source : Standing scale Weight Entry Format : [place] Clinical Dosing Weight : 82.27 kg Weight, Pounds : 181 lb Body Surface Area (BSA) : 1.92 m2 Body Mass Index : 29.3 kg/m2 (HI) [place] Body Weight : 59 kg JANETH Cassidy RN - 06/28/2019 7:15 EDT Electronically signed by Chloé [facility] Conversion Cardiac Care Nurse Cerner at 06/03/2022 12:58 PM CDT documented in this encounter Plan of Treatment Not on file documented as of this encounter Visit Diagnoses Not on filedocumented in this encounter
--- OUTSIDE RECORDS SUMMARY | 2024-11-19 11:22 | XMS_ITS | Encounter Summary ---
Author Organization [employer] ([place], [place], [place], [place]) Address [address] [place] [address] Care Team Providers Care Shading Painter Name Role Phone Unavailable Primary Care Provider Unavailabl e Encounter Details Date Type Department Care Team (Late st Contact Info) Description 06/28/2019 Transcribed Document [facility] [place] [facility] [place] [address] ProviderMono MD [address] [place], [place] [id number] Social History Tobacco Use Types Packs/Day Years Used Date Smoking Tobacco: Never Assessed Comments Unknown Sex and Gender Information Value Date Recorded Sex Assigned at Not on file Legal Sex Female 6:26 PM CDT Gender Identity Not on file Sexual Orientation Not on file documented as of this encounter Miscellaneous Notes * Cerner Conversion Note - Mono ProviderMD - 06/28/2019 8:28 AM CDT [facility] Main OR IntraOp Summary Primary Physician: EUN MONSON MD-SNU Finalized Date/Time: 06/29/19 13:04:01 Pt. Name: ANJANA LOOO.B./Sex: 1965 Female Med Rec #: [id number] Physician: EUN MONSON MD-SNU Financial #: [id number] Pt. Type: O Room/Bed: Admit/Disch: 06/28/19 06:18:00 - 06/28/19 12:02:00 Institution: [facility] IntraOp Case Attendance Entry 1 Entry 2 Entry 3 Case Attendee EUN MONSON MD-SNU WASSON, SANDRA D, Gay Jacobsen Rn Role Performed Surgeon/Proceduralist, Client Service And Consulting Manager, First Client Service And Consulting Manager, Second First Time In 06/28/19 08:09:00 06/28/19 [...] DEN RODRÍGUEZ, GRZEGORZ GOTTI APRN, HANCOCK SMITH, EARLY YEARS TEACHER DIONTE WALKER Role Performed Scrub, First EARLY YEARS TEACHER/Nurse Director Of Photography Physician tax assistant Time In 06/28/19 08:09:00 06/28/19 08:09:00 06/28/19 08:09:00 Time Out 06/28/19 09:14:00 06/28/19 09:14:00 06/28/19 09:14:00 Procedure Spinal Cord Stimulator Spinal Cord Stimulator Spinal Cord Stimulator Removal Removal Removal Other Attendee Superficial Wound Closed By: Last Modified By: KATHY MULLEN, KATHY CARDOZA, KATHY CARDOZA, ELVIN 06/28/19 09:14:48 06/28/19 09:14:48 06/28/19 09:14:48 Entry 7 Case Attendee Bhavani Nicole, Diagnostic Report Clerk Role Performed Certified Hyperbaric Technician Time In 06/28/19 08:09:00 Time Out 06/28/19 09:14:00 Procedure Spinal Cord Stimulator Removal Other Attendee Superficial Wound Closed By: Last Modified By: KATHY MULLEN RN 06/28/19 09:14:48 [facility] IntraOp Case Attendance Audit 06/28/19 09:14:48 Room Clerk: VANE Modifier: SEBASSY 1 <+> Time Out [...] Procedure Spinal Cord Stimulator Removal 06/28/19 08:14:41 Room Clerk: WASSONSY Modifier: WASSONSY 1 <+> Time In [...] <+> 7 Role Performed <+> 7 Procedure [facility] IntraOp Case Times Entry 1 Patient In Room Time 06/28/19 08:09:00 Out Room Time 06/28/19 09:14:00 Anesthesia Start Time 06/28/19 08:09:00 Stop Time 06/28/19 09:14:00 Surgery / Procedure Times Start Time 06/28/19 08:28:00 Stop Time 06/28/19 09:05:00 Last Modified By: KATHY MLULEN RN 06/28/19 09:14:45 [facility] IntraOp Case Times Audit 06/28/19 09:14:45 Room Clerk: WASSONSY Modifier: WASSONSY <+> 1 Out Room Time <+> 1 Stop Time 06/28/19 09:06:09 Room Clerk: WASSONSY Modifier: WASSONSY <+> 1 Stop Time 06/28/19 08:29:36 Room Clerk: WASSONSY Modifier: WASSONSY <+> 1 Start Time [facility] IntraOp Cautery Entry 1 Entry 2 ESU Identification Cautery Type Monopolar ESU BiPolar ESU Cautery Type Comments ID Number [id number] ID Type Hospital Number Hospital Number Cautery [...] SANDRA D, RN 06/28/19 08:31:09 06/28/19 08:31:09 [facility] IntraOp Communication Entry 1 Communication To Family/Significant other Comment START Communication By KATHY MULLEN RN Date and Time 06/28/19 08:30:00 Last Modified By: KATHY MULLEN RN 06/28/19 08:30:07 [facility] IntraOp Counts Verification Entry 1 Procedure Spinal Cord Stimulator Removal Count Info Count Type Sponge, Sharps, Miscellaneous Counts Verification Baseline/pre-procedure Sequence Count Results Not Applicable Counts Performed By Count Performed By DEN RODRÍGUEZ ST (Scrub) Count Performed By KATHY MULLEN RN (RN) Last Modified By: KATHY MULLEN RN 06/28/19 08:30:21 [facility] IntraOp Counts Final Entry 1 Procedure Spinal Cord Stimulator Removal Final Count Info Count Type Sponge, Sharps, Miscellaneous Counts Verification Skin Closure/end of Sequence procedure Count Results Correct, surgeon notified Counts Performed By Count Performed By DEN RODRÍGUEZ ST (Scrub) Count Performed By KATHY MULLEN RN (RN) Last Modified By: KATHY MULLEN RN 06/28/19 09:04:20 [facility] IntraOp Cultures and Spec Summary Entry 1 Cultrures and Specimens Specimen Ordered: Yes Test(s) Routine/Path-Lab Requested/Final Disposition Last Modified By: KATHY MULLEN RN 06/28/19 08:12:04 General Comments: a. 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 [facility] IntraOp Delays Entry 1 Delay Reason Surgeon late - did not call Duration 7 Minute(s) Last Modified By: KATHY MULLEN RN 06/28/19 08:11:49 [facility] IntraOp Departure from OR Entry 1 Integumentary Assessment Integumentary WDL Assessment WDL Transfer/Handoff Transfer to PACU Phase I Handoff Method Phone call Post-op Transport Stretcher/Lars Via Patient Transport GRZEGORZ CARDOZO APRN, Accompanied by MANISHA, DENISE CARRERA PA-INT Last Modified By: KATHY MULLEN RN 06/28/19 08:33:19 [facility] IntraOp Dressing and Packing Entry 1 Type Dressing Location OP SITE Wound Dressing Item Other Applied By DENISE CARRERA PA-INT Other Comments NEOSPORIN OINTMENT, COVADERMS Last Modified By: KATHY MULLEN RN 06/28/19 08:34:48 [facility] IntraOp Fire Risk Assessment Entry 1 Fire [...] Modified By: KATHY MULLEN RN 06/28/19 08:14:21 [facility] IntraOp General Case Founder / Ceo 1 Case Information OR OR 09 [facility] Case Level 1 Room Verified Yes Wound Class II - Clean-Contaminated Specialty SN Neurosurgery Anesthesia Type General ASA Class 2 Diagnosis Preop Diagnosis CHRONIC PAIN SYNDROME Postop Same As Preop No Postop Diagnosis SEE MD POST OP NOTE Last Modified By: KATHY MULLEN RN 06/28/19 07:59:18 [facility] IntraOp General Case Data Audit 06/28/19 07:59:18 Room Clerk: VANE Modifier: WASSONSY <+> 1 ASA Class [facility] IntraOp Intraoperative Assessment Entry 1 Handoff Method [...] Modified By: KATHY MULLEN RN 06/28/19 08:00:50 [facility] IntraOp Intraoperative Equipment Entry 1 Type Equipment Equipment Equipment Jessica Suction System ID Number [id number] Setting 200 MM HG Intraop Monitoring Electrocardiogram Five lead placement (ECG) Electrode Placement Blood Pressure Non-Invasive BP Device Source Blood Pressure Arm, right upper Location Pulse Oximeter Hand, left Probe Site Antiembolic Devices Antiembolic Devices Sequential compression device, knee high Antiembolic Device Bilateral Location Antiembolic Device [id number] ID Number Scopes Photo/Video Documentation Photo No Video No Last Modified By: KATHY MULLEN RN 06/28/19 08:12:52 [facility] IntraOp Medication Admin Entry 1 Entry 2 Entry 3 Medication/Irrigant NEOSPORIN OINTMENT GELFOAM SZ-100 [id number] Thrombin 5,000 unit vial -- [id number] Combo Med List 1 - Combo Med [...] RN 06/28/19 08:13:37 06/28/19 08:56:47 06/28/19 08:56:47 [facility] IntraOp Medication Admin Audit 06/28/19 08:56:47 Room Clerk: WASSONSY Modifier: WASSONSY <+> 2 Medication/Irrigant <+> 2 Route of Administration <+> 2 Time Administered <+> 2 Combo Med List <+> 3 Medication/Irrigant <+> 3 Route of Administration <+> 3 Dose <+> 3 Time Administered <+> 3 Combo Med List <+> 3 Unit of Measure [facility] IntraOp Patient Positioning Entry 1 Procedure Spinal [...] Modified By: KATHY MULLEN RN 06/28/19 08:32:38 [facility] IntraOp Sign In Entry 1 Patient, Site, [...] Modified By: KATHY MULLEN RN 06/28/19 08:13:11 [facility] IntraOp Sign Out Entry 1 RN Confirmation [...] Modified By: KATHY MULLEN RN 06/28/19 09:15:05 [facility] IntraOp Sign Out Audit 06/28/19 09:15:05 Room Clerk: HAJALUPEXIN Modifier: WASSONSY <+> 1 RN Sign Out Signature Date/Time [facility] IntraOp Skin Prep Entry 1 Procedure Spinal Cord Stimulator Removal Prescribed Yes Pre-Surgical Prep Completed Prep Area BACK Intraop Prep Integumentary WDL Assessment WDL Prep Agents Chloraprep Prep by Gay Wall Rn Hair Removal Methods No hair removal performed Last Modified By: KATHY MULLEN RN 06/28/19 08:31:33 [facility] IntraOp Surgical Procedures Entry 1 Procedure Spinal Cord Stimulator Removal Additional (REMOVAL OF [employer] Procedure SPINAL CORD STIMULATOR) Description Primary Procedure Yes Primary Surgeon EUN MONSON MD-SNU Start 06/28/19 08:28:00 Stop 06/28/19 09:05:00 Anesthesia Type General Specialty SN Neurosurgery Wound Class II - Clean-Contaminated Last Modified By: KATHY MULLEN RN 06/28/19 09:06:13 General Comments: CLINDAMYCIN 900 MG IV PER ANESTHESIA [facility] IntraOp Surgical Procedures Audit 06/28/19 09:06:13 Room Clerk: VANE Modifier: WASLUPESY <+> 1 Stop [facility] IntraOp Temp Regulation Devices Entry 1 Temp Regulation Temperature Warm blankets, Forced Regulation Device Air Warming device Temperature 32617 Regulation Device Serial/Unit Number Temperature Upper body Regulation Site Temperature Device 43 C Setting Temperature GRZEGORZ CARDOZO APRN, Regulation Device EARLY YEARS TEACHER Applied by Last Modified By: KATHY MULLEN RN 06/28/19 08:34:12 [facility] IntraOP Time Out Entry 1 Procedure to [...] Modified By: KATHY MULLEN RN 06/28/19 08:28:43 [facility] IntraOP Time Out Audit 06/28/19 08:28:43 Room Clerk: VANE Modifier: WASSONSY 1 <+> Time Out Pause Time 1 <*> Procedure to be Performed Spinal Cord Stimulator Removal [facility] IntraOp X-Ray and Images Entry 1 X-Ray/Imaging Type Fluoroscopy Fluoroscopy Type C-Arm Site OP SITE Network Support Manager Name Bhavani Nicole, Diagnostic Report Clerk Last Modified By: KATHY MULLEN RN 06/28/19 [...]
--- OUTSIDE RECORDS SUMMARY | 2024-11-19 11:22 | XMS_ITS | Encounter Summary ---
Author Organization [employer] ([place], [place], [place], [place]) Address [address] [place] [address] Care Team Providers Care Data Support Specialist Name Role Phone Unavailable Primary Care Provider Unavailabl e Encounter Details Date Type Department Care Team (Late st Contact Info) Description 01/29/2019 Transcribed Document [facility] [facility] [place] [address] ProviderMono MD [facility] [place] [address] Social History Tobacco Use Types [...] - Historical ProviderMD - 01/29/2019 1:29 PM SOLAR TECH COSME Puri IntraOp Summary Primary Physician: NATASHA CORDERO MD-GAE Finalized Date/Time: 01/29/19 13:55:26 Pt. Name: EZE ANJANA Nuvia /Sex: 1965 Female Med Rec #: [id number] Physician: NATASHA CORDERO MD-GAE Financial #: [id number] Pt. Type: O [place] [facility] [place] [place]mit/Disch: 01/29/19 12:04:00 - Institution: [facility] [place] Jaxson - Case Attendance Entry 1 Entry 2 Entry 3 Case Attendee Zaid CORDERO Ashley, FAN MARMOLEJO, SCHOOL COOK HANNAH KAUR Role Performed Surgeon/Proceduralist, Contracts Manager, First SCHOOL C[employer] First Time In 01/29/19 13:27:00 01/29/19 13:20:00 [...] Shaniqua Mahan RN Role Performed Scrub, First Contracts Manager, First Time In 01/29/19 13:20:00 01/29/19 13:28:00 Time Out 01/29/19 13:56:00 01/29/19 13:56:00 Procedure Esophagogastroduodenosco Duodenal Biopsy py, Colonoscopy, Duodenal Biopsy Other Attendee Superficial Wound Closed By: Last Modified By: Chel Mar, Chel New, ELVIN 01/29/19 13:54:55 01/29/19 13:54:55 [facility] Endo - Case Attendance Audit 01/29/19 13:54:55 Vp Corporate Partnerships: JIE Modifier: BICKNEA 1 <+> Time Out 1 <*> Procedure Esophagogastroduodenoscopy, Colonoscopy, Duodenal Biopsy 2 <+> Time Out 2 <*> Procedure Esophagogastroduodenoscopy, Colonoscopy, Duodenal Biopsy 3 <+> Time Out 3 <*> Procedure Esophagogastroduodenoscopy, Colonoscopy, Duodenal Biopsy 4 <+> Time Out 4 <*> Procedure Esophagogastroduodenoscopy, Colonoscopy, Duodenal Biopsy 5 <+> Time Out 5 <*> Procedure Duodenal Biopsy 01/29/19 13:37:10 Vp Corporate Partnerships: SUDEEPEA Modifier: CHINOKNEA 1 <*> Time In 01/29/19 13:20:00 1 <*> Procedure Duodenal Biopsy 01/29/19 13:31:12 Vp Corporate Partnerships: BICKNEA Modifier: BICKNEA <+> 1 Procedure 2 <*> Procedure Esophagogastroduodenoscopy, Colonoscopy 3 <*> Procedure Esophagogastroduodenoscopy, Colonoscopy 4 <*> Procedure Esophagogastroduodenoscopy, Colonoscopy <+> 5 Procedure 01/29/19 13:28:53 Vp Corporate Partnerships: BICKNEA Modifier: BICKNEA <+> 5 Case Attendee [...] Endo - Case Times Audit 01/29/19 13:54:43 Vp Corporate Partnerships: BICKNEA Modifier: BICKNEA <+> 1 Out Room Time <+> 1 Stop Time <+> 1 Stop Time 01/29/19 13:38:23 Vp Corporate Partnerships: BICKNEA Modifier: BICKNEA 1 <-> Stop Time 01/29/19 13:34:00 01/29/19 13:36:29 Vp Corporate Partnerships: BICKNEA Modifier: BICKNEA <+> 1 Stop Time 01/29/19 13:29:27 Vp Corporate Partnerships: BICKNEA Modifier: BICKNEA <+> 1 Start Time [...] 01/29/19 13:22:48 E Endo - General Case Physical Therapy Aid 1 Case Information OR Endo 02 SJE Case Level 1 Room Verified Yes Wound Class III - Contaminated Specialty SN Gastroenterology Anesthesia Type MAC ASA Class 3 Diagnosis Preop Diagnosis abdominal pain, constipation, nausea, vomiting Postop Diagnosis esophagitis Last Modified By: Chel Mar RN 01/29/19 13:29:34 [facility] Endo - General Case Data Audit 01/29/19 13:29:34 Vp Corporate Partnerships: JIE Modifier: BICKNEA <+> 1 Postop Diagnosis [...] Endo - Intraoperative Equipment Audit 01/29/19 13:22:03 Vp Corporate Partnerships: JIE Modifier: BICKNEA <+> 2 Photo <+> 2 Video <+> 2 Electrocardiogram (ECG) Electrode Placement <+> 2 Blood Pressure Location <+> 2 Pulse Oximeter Probe Site <+> 2 Flexible Endoscopes Used <+> 2 Scope Serial Number/Identification Number <+> 2 Type 01/29/19 13:21:48 Vp Corporate Partnerships: JIE Modifier: BICKNEA <+> 1 Photo <+> [...] By Chel Mar RN, [place]IO DE [place] CRZU Position Verified Positioning Yes Verified by Anesthesia Positioning Yes Verified by Surgeon Last Modified By: Chel Mar RN 01/29/19 13:31:13 [facility] Endo - Patient Positioning Audit 01/29/19 13:31:13 Vp Corporate Partnerships: JIE Modifier: JIE 1 <*> Procedure Colonoscopy [...] Endo - Sign Out Audit 01/29/19 13:55:16 Vp Corporate Partnerships: JIE Modifier: BICKNEA 1 <*> Specimen Labeled [...] Endo - Surgical Procedures Audit 01/29/19 13:55:01 Vp Corporate Partnerships: BICKNEA Modifier: BICKNEA <+> 2 Stop 01/29/19 13:45:42 Vp Corporate Partnerships: BICKNEA Modifier: BICKNEA 2 <*> Procedure Colonoscopy 2 <+> Physician States Cecum Reached 01/29/19 13:41:59 Vp Corporate Partnerships: BICKNEA Modifier: BICKNEA 2 <*> Procedure Colonoscopy 2 <*> Start 01/29/19 13:29:00 2 <-> Stop 01/29/19 13:34:00 01/29/19 13:38:15 Vp Corporate Partnerships: BICKNEA Modifier: BICKNEA <+> 1 Stop <+> 2 Stop <+> 3 Stop 01/29/19 13:33:35 Vp Corporate Partnerships: BICKNEA Modifier: BICKNEA 1 <*> Procedure Esophagogastroduodenoscopy 1 <+> Specialty 2 <*> Procedure Colonoscopy 2 <+> Specialty 01/29/19 13:31:09 Vp Corporate Partnerships: BICKNEA Modifier: BICKNEA <+> 1 Start <+> [...]
--- OUTSIDE RECORDS SUMMARY | 2024-11-19 11:22 | XMS_ITS | Encounter Summary ---
Author Organization [employer] ([place], [place], [place], [place]) Address [address] [place] [address] Care Team Providers Care Tower Dragline Operator Name Role Phone Unavailable Primary Care Provider Unavailabl e Encounter Details Date Type Department Care Team (Late st Contact Info) Description 01/29/2019 Transcribed Document [facility] [place] [facility] [place] [address] Mono Arevalo MD [address] [place] [address] Social History Tobacco Use Types [...] Mono Arevalo MD - 01/29/2019 2:15 PM WAFER FABRICATOR Patient Education Materials Follows: Monitored Anesthesia Care, [...] eating solid foods. General instructions ??? Take biyt-hqk-ckqvpfi and prescription medicines only as told by [...] 05/22/2016 Document Revised: 09/15/2017 Document Reviewed: 05/22/2016 [employer] Interactive Patient Education ? 2019 [employer] Colonoscopy, Adult, Care After This sheet [...] soft and easy to digest. ??? Take saqd-xuo-hrndoti or prescription medicines only as told by [...] 03/04/2011 Document Revised: 11/30/2017 Document Reviewed: 10/24/2016 [employer] Interactive Patient Education ? 2019 [employer] Esophagogastroduodenoscopy, Care After Refer to this [...] 01/16/2013 Document Revised: 07/07/2016 Document Reviewed: 12/24/2015 [employer] Interactive Patient Education ? 2019 [employer] Hemorrhoids Hemorrhoids are swollen veins in [...] times a day. General instructions ??? Take lpcr-bvk-tyrpqop and prescription medicines only as told by [...] 11/08/2008 Document Revised: 07/07/2016 Document Reviewed: 10/14/2015 [employer] Interactive Patient Education ? 2019 [employer]. Gastritis, Adult Gastritis is swelling (inflammation) [...] Follow these instructions at home: ??? Take lhtd-quf-dxcovva and prescription medicines only as told by [...] sores (ulcers) in your stomach. ??? Take gfsj-yjt-bvxvmjf and prescription medicines only as told by your doctor. This information is not intended to replace advice given to you by your health care provider. Make sure you discuss any questions you have with your health care provider. Document Released: 07/18/2008 Document Revised: 09/12/2017 Document Reviewed: 10/24/2015 [employer] Interactive Patient Education ? 2019 [employer] Esophagitis Esophagitis is inflammation of the [...] vinegar, hot sauces, and barbecue sauce. ? Spalding fruit juices and citrus fruits, such as oranges, alona, and limes. ? Tomato-based foods, such as red sauce, chili, salsa, and pizza with red sauce. ? Fried and fatty foods, such as donuts, omani fries, potato chips, and high-fat dressings. ? [...] any changes in your symptoms. ??? Take mboe-pfa-cyfynfo and prescription medicines only as told by [...] 03/09/2005 Document Revised: 07/07/2016 Document Reviewed: 05/27/2015 [employer] Interactive Patient Education ? 2019 [employer]. documented in this encounter Plan of Treatment Not on file documented as of this encounter Visit Diagnoses Not on filedocumented in this encounter
--- OUTSIDE RECORDS SUMMARY | 2024-11-19 11:22 | XMS_ITS | Encounter Summary ---
Author Organization [employer] ([place], [place], [place], [place]) Address [address] [place] [address] Care Team Providers Care Camp Head Counselor Name Role Phone Unavailable Primary Care Provider Unavailabl e Encounter Details Date Type Department Care Team (Late st Contact Info) Description 06/28/2019 Transcribed Document [facility] [place] [address] [place] [address] ProviderMono MD [address] [place] [address] Social History Tobacco Use Types [...] ProviderMD - 06/28/2019 11:29 AM CDT [facility] [place] [address] ANJANA LOO :1965 Visit Time:06/28/2019 [...] MONSON When 07/30/2019 03:30 PM EDT Where: [address] [place] [address]- Business (1) Follow Up with EUN MONSON When 07/12/2019 10:13 AM EDT Comments staple removal Appointment has been made Where: [address] [place] [address] [employer] (1) Medications What How Much When Instructions [...] Times A Day omega-3 polyunsaturated fatty acids ([place]-3 1000 mg oral capsule) Oral Two Times [...] and water are not available, use hand crawler tractor operator. ? Change your dressing as told by [...] or a bad smell. Medicines ??? Take eznr-smm-fnbjiim and prescription medicines only as told by [...] 05/22/2016 Document Revised: 09/07/2017 Document Reviewed: 05/22/2016 [employer] Interactive Patient Education ?? 2019 [employer]. Outpatient Surgery, Adult, Care After These instructions [...] and water are not available, use hand crawler tractor operator. ? Change your dressing as told by [...] or a bad smell. Medicines ??? Take rfwa-pdx-betnjlu and prescription medicines only as told by [...] 05/22/2016 Document Revised: 09/07/2017 Document Reviewed: 05/22/2016 [employer] Interactive Patient Education ?? 2019 [employer] ondansetron (oral) (on MARICRUZ se natalie) [...] may report side effects to FDA at 8-020-YKM-8659. What other drugs will affect ondansetron? Ondansetron [...] interact with ondansetron. This includes prescription and xwrq-kxt-gcmnwxa medicines, vitamins, and herbal products. Give a [...] to ensure that the information provided by [employer] ('[employer]') is accurate, up-to-date, and complete, but no guarantee is made to that effect. Drug information contained herein may be time sensitive. [employer] information has been compiled for use by healthcare practitioners and consumers in the [place] and therefore [employer] does not warrant that uses outside of the [place] are appropriate, unless specifically indicated otherwise. [employer] drug information does not endorse drugs, diagnose patients or recommend therapy. [employer] drug information is an informational resource designed [...] effective or appropriate for any given patient. [facility] does not assume any responsibility for any aspect of healthcare administered with the aid of information [facility] provides. The information contained herein is not intended to cover all possible uses, directions, precautions, warnings, drug interactions, allergic reactions, or adverse effects. If you have questions about the drugs you are taking, check with your doctor, nurse or pharmacist. Copyright 6913-3563 [facility]. Version: 13.01. Revision Date: 12/04/2015. pantoprazole (oral/injection) [...] a broken bone while taking this medicine statistical methods professor or more than once per day. What [...] may report side effects to FDA at 8-237-BPY-4131. What other drugs will affect pantoprazole? Tell your doctor about all your other medicines, especially: ?? digoxin; ?? methotrexate; or ?? a diuretic or 'water pill.' This list is not complete. Other drugs may affect pantoprazole, including prescription and drib-ggv-fwrrafy medicines, vitamins, and herbal products. Not all [...] to ensure that the information provided by [employer] ('[employer]') is accurate, up-to-date, and complete, but no guarantee is made to that effect. Drug information contained herein may be time sensitive. [employer] information has been compiled for use by healthcare practitioners and consumers in the [place] and therefore [employer] does not warrant that uses outside of the [place] are appropriate, unless specifically indicated otherwise. [employer] drug information does not endorse drugs, diagnose patients or recommend therapy. [employer] drug information is an informational resource designed [...] effective or appropriate for any given patient. [employer] does not assume any responsibility for any aspect of healthcare administered with the aid of information [employer] provides. The information contained herein is not intended to cover all possible uses, directions, precautions, warnings, drug interactions, allergic reactions, or adverse effects. If you have questions about the drugs you are taking, check with your doctor, nurse or pharmacist. Copyright 0109-2227 [employer]. Version: 19.02. Revision Date: 08/08/2017. docusate (oral/rectal) [...] may report side effects to FDA at 0-673-XBC-9786. What other drugs will affect docusate? Other drugs may affect docusate, including prescription and ktog-aei-bqkgmkk medicines, vitamins, and herbal products. Tell your [...] to ensure that the information provided by [employer]') is accurate, up-to-date, and complete, but no guarantee is made to that effect. Drug information contained herein may be time sensitive. [employer] information has been compiled for use by healthcare practitioners and consumers in the [place] and therefore [employer] does not warrant that uses outside of the [place] are appropriate, unless specifically indicated otherwise. [employer] drug information does not endorse drugs, diagnose patients or recommend therapy. [employer] drug information is an informational resource designed [...] effective or appropriate for any given patient. [facility] does not assume any responsibility for any aspect of healthcare administered with the aid of information [facility] provides. The information contained herein is not intended to cover all possible uses, directions, precautions, warnings, drug interactions, allergic reactions, or adverse effects. If you have questions about the drugs you are taking, check with your doctor, nurse or pharmacist. Copyright 8164-8291 [facility]. Version: 4.01. Revision Date: 08/20/2018. acetaminophen and [...] may report side effects to FDA at 7-619-LNF-5962. What other drugs will affect acetaminophen and [...] affect acetaminophen and oxycodone, including prescription and omol-hpu-uxqqmbk medicines, vitamins, and herbal products. Not all [...] to ensure that the information provided by [employer] ('[employer]') is accurate, up-to-date, and complete, but no guarantee is made to that effect. Drug information contained herein may be time sensitive. [employer] information has been compiled for use by healthcare practitioners and consumers in the [place] and therefore [employer] does not warrant that uses outside of the [place] are appropriate, unless specifically indicated otherwise. [employer] drug information does not endorse drugs, diagnose patients or recommend therapy. [employer] drug information is an informational resource designed [...] effective or appropriate for any given patient. [employer] does not assume any responsibility for any aspect of healthcare administered with the aid of information [employer] provides. The information contained herein is not intended to cover all possible uses, directions, precautions, warnings, drug interactions, allergic reactions, or adverse effects. If you have questions about the drugs you are taking, check with your doctor, nurse or pharmacist. Copyright 8599-1563 [employer]. Version: .. Revision Date: 03/06/2019. Emergency Awareness [...] Assistance with quitting is available by contacting 3-512-RFZF-NOW. This is a free resource providing counseling, [...] range between ( 0.0 and 7.0 ) Brooks #: 0.66 K/uL -- Normal range between ( 0.16 and 1.00 ) Eos #: 0.26 x10(3)/uL -- Normal range between ( 0.00 and 0.80 ) Brooks %: 10.3 % -- Normal range between [...] between ( 7 and 22 ) Patient Name:OLO ANJANA Nuvia I have received this information and was given the opportunity to ask questions. Patient/Lifter Name: Patient/Lifter Signature: Relationship to Patient: Clinician/Hospital Lifter Signature: Date: documented in this encounter Plan of Treatment Not on file documented as of this encounter Visit Diagnoses Not on filedocumented in this encounter
--- OUTSIDE RECORDS SUMMARY | 2024-11-19 11:22 | XMS_ITS | Encounter Summary ---
Author Organization Healthcare Address [address] [place] [address] Care Team Providers Care Learning Center Coordinator Name Role Phone Jl Santoro MD Primary Care Provider [phone] Noman Awan MD Unavailable [phone] Encounter Details Date Type Department Care Team (Late st Contact Info) Description 01/26/2023 Orders Only External Location [address] [place] [id number] Denise Franklin, PA [address] [facility] [address] [place] [address] Social History Tobacco Use Types [...] drink first t brendan in the morning (EYE-GRANULATOR) to steady your nerves or to get [...] documented as of this encounter Care Teams Learning Center Coordinator Relationship Specialty Start Date End Date Jl Santoro MD [address] [place] [address] PCP - General 09/22/20 Noman Awan MD [address] [address] Surgeon Neurosurgery 09/27/21 documented as of this encounter
--- OUTSIDE RECORDS SUMMARY | 2024-11-19 11:22 | XMS_ITS | Encounter Summary ---
Author Organization [employer] ([place], [place], [place], [place]) Address [address] [place] [address] Care Team Providers Care Sheep Boner Name Role Phone Unavailable Primary Care Provider Unavailabl e Encounter Details Date Type Department Care Team (Late st Contact Info) Description 06/28/2019 Transcribed Document [facility] [place] [facility] [place] [address] ProviderMono MD [address] [place], [place] [id number] Social History Tobacco Use Types Packs/Day Years Used Date Smoking Tobacco: Never Assessed Comments Unknown Sex and Gender Information Value Date Recorded Sex Assigned at Not on file Legal Sex Female 6:26 PM CDT Gender Identity Not on file Sexual Orientation Not on file documented as of this encounter Miscellaneous Notes * Cerner Conversion Note - Mono ProviderMD - 06/28/2019 8:28 AM CDT [facility] Main OR PACU Summary Primary Physician: EUN MONSON MD-[facility] Finalized Date/Time: 06/28/19 11:08:12 Pt. Name: ANJANA LOO D.O.B./Sex: 1965 Female Med Rec #: [id number] Physician: EUN MONSON MD-SNU Financial #: [id number] Pt. Type: O Room/Bed: Admit/Disch: 06/28/19 06:18:00 - Institution: [facility] Main OR PACU I Case Times Entry 1 In PACU I 06/28/19 09:16:00 Ready for PACU 06/28/19 11:04:00 Discharge Discharge from PACU 06/28/19 11:04:00 I Last Modified By: DOMINIQUE BROOKS RN 06/28/19 11:04:05 Finalized By: DOMINIQUE BROOKS, RN Document Signatures Signed By: DOMINIQUE BROOKS RN 06/28/19 11:08 Electronically signed by [facility] Conversion Assistant Community Director Cerner at 06/03/2022 1:17 PM CDT documented in this encounter Plan of Treatment Not on file documented as of this encounter Visit Diagnoses Not on filedocumented in this encounter
--- OUTSIDE RECORDS SUMMARY | 2024-11-19 11:22 | XMS_ITS | Encounter Summary ---
Author Organization [employer] ([place], [place], [place], [place]) Address [address] [place] [address] Care Team Providers Care Cream Dipper Name Role Phone Unavailable Primary Care Provider Unavailabl e Encounter Details Date Type Department Care Team (Late st Contact Info) Description 06/28/2019 Transcribed Document [facility] [place] [address] [place] [address] ProviderMono MD [address] [place], [place] [id number] Social History Tobacco Use Types Packs/Day Years [...] DOMINIQUE BROOKS RN - 06/28/2019 11:07 EDT Electronically signed by Yahaira Luevano Conversion Overhead Garage Door Hanger Cerner at 06/03/2022 1:18 PM CDT documented in this encounter Plan of Treatment Not on file documented as of this encounter Visit Diagnoses Not on filedocumented in this encounter
--- OUTSIDE RECORDS SUMMARY | 2024-11-19 11:22 | XMS_ITS | Encounter Summary ---
Author Organization Healthcare Address [address] [place] [address] Care Team Providers Care Single Needle Tufting Machine Operator Name Role Phone Jl Santoro MD Primary Care Provider [phone] Noman Awan MD Unavailable [phone] Encounter Details Date Type Department Care Team ([facility] st Contact Info) Description 11/02/2024 Orders Only External Location [address] [place] [address] Provider, External Social History Tobacco Use Types Packs/Day Years [...] drink first t brendan in the morning (EYE-STAFF ENGINEER) to steady your nerves or to get [...] Procedure Name Priority Date/Time Associated Diagnosis Comments POC ULTRASOUND 11/02/2024 documented in this encounter Results * POC Imaging (11/02/2024) Anatomical Region Laterality Modality Pelvis Other 11/02/2024 us External Provider IMG POINT OF CARE ULTRASOUND E dited Result - Final documented in this encounter Visit Diagnoses Not on filedocumented in this encounter Additional Health Concerns Assessment Noted Time A fall risk assessment has been complete d for the patient 06/20/2024 11:02 AM EDT A Body Mass Index follow-up plan has been documented for the patient 06/28/2024 1:16 PM EDT documented as of this encounter Care Teams Single Needle Tufting Machine Operator Relationship Specialty Start Date End Date Jl Santoro MD [address] [place] [address] PCP - General 09/22/20 Noman Awan MD [address] [facility] [address] [place] [address] Surgeon Neurosurgery 09/27/21 documented as of this encounter
--- OUTSIDE RECORDS SUMMARY | 2024-11-19 11:23 | XMS_ITS | Encounter Summary ---
Author Organization [employer] ([place], [place], [place], [place]) Address [address] [place] [address] Care Team Providers Care Mobile Sales Consultant Name Role Phone Unavailable Primary Care Provider Unavailabl e Encounter Details Date Type Department Care Team (Late st Contact Info) Description 01/29/2019 Transcribed Document [facility] [place] Family Medicine [address] [place] [address] ProviderMono MD [address] [place] [address] Social History Tobacco Use Types [...] - Historical ProviderMD - 01/29/2019 12:42 PM OUTBOUND SUPERVISOR Pre Procedure Adult Entered On: 01/29/2019 12:52 EST Performed On: 01/29/2019 12:42 EST by Shona Webb RN Height and Weight, Clinical Dosing Height Source : Measured Height Entry Format : [place] Height, Feet : 5 ft(Converted to: 152 cm, 60 Inch) Height, Inches : 6 Inch(Converted to: 0 ft 6 Inch, 15.24 cm) Clinical Height : 167.64 cm Weight Source : Standing scale Weight Entry Format : [place] Clinical Dosing Weight : 81.82 kg Weight, Pounds : 180 lb Body Surface Area (BSA) : 1.91 m2 Body Mass Index : 29.1 kg/m2 (HI) [place] Body Weight : 59 kg Shona Webb [...] Shona Webb RN - 01/29/2019 12:42 EST [place] Suicide Severity Rating Scale (C-SSRS) CSSRS Past [...] Ambulatory Legal Guardian : Spouse Support Person/Patient Freight Rate Specialist : Yes Support Person/Pt Rep Name : Carlton Ag - spouse Support Person/Pt Rep Contact Information : [phone] Want Family/Rep/Phys Notified of Admit : Yes Name/Contact Info Fam/Rep Notified Adm : Carlton Spann Name/Contact Info Physician Notified Adm : Jl Santoro Emergency Contact #1 : Carlton Spann Emergency Contact #1 Emergency Contact #1 Relationship : spouse Emergency Contact #2 : na Emergency Contact #2 Phone Number : na Emergency Contact #2 Relationship : na Primary Language : Mongolian Communication Barrier : None Shona Webb RN [...] Scale Risk Level : 0-24 Low Risk [place] Fall Interventions : Bed in low position, Personal items within reach, Upper side-rails up, Wheels locked Shona Webb RN - 01/29/2019 12:42 EST Valuables and Belongings Valuables and Belongings : Clothing Clothing : Common streetwear Clothing Disposition : With patient Shona Webb RN - 01/29/2019 12:42 EST Electronically signed by [facility], [facility] Conversion Medical Tech Cerner at 06/03/2022 12:55 PM CDT documented in this encounter Plan of Treatment Not on file documented as of this encounter Visit Diagnoses Not on filedocumented in this encounter
--- OUTSIDE RECORDS SUMMARY | 2024-11-19 11:23 | XMS_ITS | Encounter Summary ---
Author Organization [employer] ([place], [place], [place], [place]) Address [address] [place] [address] Care Team Providers Care Poured Pipe Maker Name Role Phone Unavailable Primary Care Provider Unavailabl e Encounter Details Date Type Department Care Team (Late st Contact Info) Description 01/29/2019 Transcribed Document [facility] [place] Family Medicine [address] [place] [address] ProviderMono MD [address], [place] [id number] Social History Tobacco Use Types Packs/Day Years Used Date Smoking Tobacco: Never Assessed Comments Unknown Sex and Gender Information Value Date Recorded Sex Assigned at Not on file Legal Sex Female 6:26 PM CDT Gender Identity Not on file Sexual Orientation Not on file documented as of this encounter Miscellaneous Notes * Cerner Conversion Note - Historical ProviderMD - 01/29/2019 12:30 PM RN ALLERGY COSME Puri PreOp Summary Primary Physician: NATASHA CORDERO MD-GAE Finalized Date/Time: 01/29/19 13:01:56 Pt. Name: ANJANA LOO D.O.B./Sex: 1965 Female Med Rec #: [id number] Physician: NATASHA CORDERO MD-GAE Financial #: [id number] Pt. Type: O Room/Bed: N/13 Admit/Disch: 01/29/19 [...] 13:01 Electronically signed by Yahaira Luevano Conversion Security Assurance Specialist Cerner at 06/03/2022 12:54 PM CDT documented in this encounter Plan of Treatment Not on file documented as of this encounter Visit Diagnoses Not on filedocumented in this encounter
--- OUTSIDE RECORDS SUMMARY | 2024-11-19 11:23 | XMS_ITS | Referral Summary ---
Author Organization [employer] ([place], [place], [place], [place]) Address [address] [place] [address] Care Team Providers Care Marker Hand Name Role Phone Unavailable Primary Care Provider [...]
--- OUTSIDE RECORDS SUMMARY | 2024-11-19 11:23 | XMS_ITS | Clinical Summary ---
Author Organization [employer] ([place], [place], [place], [place]) Address [address] [place] [address] Care Team Providers Care Tie Layer Name Role Phone Unavailable Primary Care Provider [...]
[2024-11-19 11:52] LABS: Hematocrit 36.4 % (37.0-47.0); Hemoglobin 12.3 g/dL (12.2-16.2); Immature Granulocytes % 0.3 %; Mean Corpuscular HGB Conc 33.8 g/dL (31.8-35.4); Mean Corpuscular Hemoglobin 32.1 pg (27.0-31.2); Mean Corpuscular Volume 95.0 fl (81-99); Nucleated Red Blood Cells % 0 %; Platelet Count 148 K/mm3 (142-424); Red Blood Count 3.83 M/mm3 (4.20-5.40); Red Cell Distribution Width-SD 41.4 fL; White Blood Count 4.0 K/mm3 (4.8-10.8)
[2024-11-19 11:56] LABS: Albumin Level 3.8 g/dl (3.5-5.0); Chloride 96 mmol/L (98-107)
[2024-11-19 11:57] LABS: Sodium 133 mmol/L (136-145)
[2024-11-19 11:58] LABS: Potassium 3.5 mmoL/L (3.5-5.1)
[2024-11-19 11:59] LABS: Alanine Aminotransferase 22 U/L (12-78); Aspartate Amino Transferase 29 U/L (14-36); Blood Urea Nitrogen 12 mg/dl (7-17); Creatinine,Serum 0.90 mg/dl (0.52-1.04); Estimated Glomerular Filt Rate 64 ml/min (>60); GFR (African American) 77 ML/MIN (>60)
[2024-11-19 12:00] LABS: Albumin/Globulin Ratio 1.6 (1.1-1.8); Alkaline Phosphatase 96 U/L (38-126); Anion Gap 10.5 mEq/L (5-15); Bilirubin,Total 0.4 mg/dl (0.2-1.3); Calcium 9.6 mg/dl (8.4-10.2); Carbon Dioxide 30 mmol/L (22.0-30.0); Globulin 2.4 g/dL (1.3-3.2); Glucose 85 mg/dl (74-100); Iron 75 ug/dL (37-170); Total Protein,Serum 6.2 g/dl (6.3-8.2)
[2024-11-19 12:09] LABS: Total Iron Binding Capacity 306 ug/dL (265-497)
[2024-11-19 12:31] LABS: Thyroid Stimulating Hormone 0.06 uIU/mL (0.465-4.68)
[2024-11-19 12:35] LABS: Ferritin 19.0 ng/ml (11.1-264)
[2024-11-19 13:59] LABS: Vitamin B12 449 pg/mL (239-931)
== END 2024-11-19 11:35 | disposition home or self-care (01) ==
LOC: INF 11:19
PROVIDERS: Internal Medicine Medical Oncology; PCP Family Medicine; Visit Provider Internal Medicine Medical Oncology
DX: C21.0 Malignant neoplasm of anus, unspecified (principal)
CPT/HCPCS: 36591; 80053; 82607; 82728; 83540; 83550; 84443; 85025; J1642

== ENCOUNTER 2025-01-27 10:46 | Outpatient (CLI) | payer MEDICARE, SELFPAY ==
--- NOTE | 2025-01-27 10:48 | US_ITS ---
FINAL REPORT TECHNIQUE: Sonographic images of the thyroid gland were obtained in the longitudinal and transverse planes. CLINICAL HISTORY: HYPOTHYROIDISM COMPARISON: None FINDINGS: The right lobe measures 1.1 x 3.6 x 1.0 cm. There are several lymph nodes adjacent to the right thyroid lobe with a benign ultrasound appearance. There is a hypoechoic 9 mm nodule, wider than tall, consistent with TR 4. The left lobe measures 0.8 x 3.0 x 0.5 cm. The left lobe is homogeneous. There are no cystic or solid nodules. The isthmus measures 2 mm. This is normal. IMPRESSION: 9 mm TR 4 right thyroid nodule. Based on size, no current recommendation for follow-up per TI-RADS criteria. Several benign-appearing lymph nodes adjacent to the right thyroid lobe. Reviewed, Interpreted and Dictated by Kathy Pinto MD Transcribed by Jihan Agrawal Authenticated and [facility]
== END 2025-01-27 23:59 | disposition home or self-care (01) ==
LOC: RAD 10:46
PROVIDERS: PCP Family Medicine; Visit Provider Family Medicine
DX: E04.1 Nontoxic single thyroid nodule (principal); E03.9 Hypothyroidism, unspecified; R59.0 Localized enlarged lymph nodes
CPT/HCPCS: 76536